=== PATIENT | female | born 1935 | race Hispanic/Latino ===

== ENCOUNTER 2016-08-12 05:54 | Inpatient (IN) | payer MEDICARE ==
[2016-08-12 05:59] VITALS: BMI 37.2
--- NOTE | 2016-08-12 06:39 | ED PDOC ---
Arrival/HPI - General Chief Complaint: Back Pain Time Seen by Provider: 08/12/16 06:06 - History of Present Illness Narrative History of Present Illness (Text): 08/12/16 06:46 Patient presents via ambulance after falling out of her wheelchair at 1800 hrs. yesterday complaining of bilateral hip pain dysuria no chest pain no shortness of breath no fever no chills no dizziness no blurred vision denies any head injury Past Medical History - Provider Review Nursing Documentation Reviewed: Yes - Infectious Disease Hx of Infectious Diseases: None - Reproductive Menopause: Yes - Cardiac Hx Cardiac Disorders: Yes (cad, heart block, sick sinus syndrome) Hx Hypertension: Yes Hx Pacemaker: Yes Hx Peripheral Vascular Disease: Yes - Pulmonary Hx Respiratory Disorders: Yes Hx Asthma: Yes Hx Pneumonia: Yes (aspiration) - Neurological Hx Neurological Disorder: No - HEENT Hx HEENT Disorder: Yes (eyeglassees) Hx Cataracts: Yes (b/l) Hx Difficulty Chewing: No - Renal Hx Renal Disorder: No - Endocrine/Metabolic Hx Hypothyroidism: Yes - Hematological/Oncological Hx Blood Disorders: No - Integumentary Hx Dermatological Disorder: No 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) Other/Comment: left chest healing surgical incision for pacemaker, healed pressure ulcer to sacrum - Musculoskeletal/Rheumatological Hx Falls: Yes (past) - Gastrointestinal Hx Gastrointestinal Disorders: Yes Hx Diverticulitis: Yes Hx Gastroesophageal Reflux: Yes Other/Comment: Hiatal hernia, celiac disease - Genitourinary/Gynecological Hx Incontinence: Yes Other/Comment: cysto, cystocele - Psychiatric Hx Psychophysiologic Disorder: Yes Hx Anxiety: Yes Hx Depression: Yes Hx Emotional Abuse: No Hx Physical Abuse: No Hx Substance Use: No - Surgical History Hx Amputation: Yes (bilateral) Hx Orthopedic Surgery: Yes (b/l hip replacement) Other/Comment: angiiograms, multiple foot sx's - Anesthesia Hx Anesthesia: Yes Hx Anesthesia Reactions: No Hx Malignant Hyperthermia: No - Suicidal Assessment Feels Threatened In Home Enviroment: No Family/Social History - Physician Review Nursing Documentation Reviewed: Yes Family/Social History: No Known Family HX Smoking Status: Never Smoked Hx Alcohol Use: No Hx Substance Use: No Hx Substance Use Treatment: No Allergies/Home Meds Allergies/Adverse Reactions: Allergies erythromycin base Allergy (Verified 08/12/16 06:05) .anxiety levofloxacin [From Levaquin] Allergy (Verified 08/12/16 06:05) .anxiety Home Medications: Home Meds Medication Instructions Recorded Confirmed Atorvastatin [Lipitor] 20 mg PO DAILY 12/06/14 08/16/16 Omeprazole [Prilosec] 20 mg PO DAILY 12/06/14 08/16/16 Docusate [Colace] 100 mg PO DAILY 12/14/14 08/16/16 Gabapentin 800 mg PO TID 12/14/14 08/16/16 Sucralfate [Carafate Tab] 1 gm PO DAILY PRN 12/14/14 08/16/16 Alprazolam [Xanax] 0.5 mg PO HS 06/30/16 08/16/16 Aspirin [Ecotrin] 81 mg PO DAILY 06/30/16 08/16/16 Calcium Carbonate/Vitamin D 1 tab PO DAILY 06/30/16 08/16/16 [Oscal-D 250 mg-125 Units Tab] [place]-3 Fatty Acids [[place]-3] 1,000 mg PO DAILY 06/30/16 08/16/16 Prednisone [Tom] 5 mg PO BID 06/30/16 08/16/16 Sertraline HCl 100 mg PO DAILY 06/30/16 08/16/16 Review of Systems - Review of Systems Constitutional: Normal Eyes: Normal ENT: Normal Respiratory: Normal Cardiovascular: Normal Gastrointestinal: absent: Abdominal Pain Genitourinary Female: Dysuria Musculoskeletal: Arthralgias (bilateral hips), Myalgias Skin: Normal Neurological: Normal Endocrine: Normal Hemo/Lymphatic: Normal Psychiatric: Normal Physical Exam Vital Signs Reviewed: Yes Vital Signs Pulse Resp BP Pulse Ox 08/12/16 09:23 73 18 120/68 98 08/12/16 07:30 76 18 110/69 97 08/12/16 06:05 83 18 116/50 L 96 Temperature: Afebrile Blood Pressure: Normal Pulse: Regular Respiratory Rate: Normal Appearance: Positive for: Well-Appearing, Non-Toxic, Comfortable Pain Distress: None Mental Status: Positive for: Alert and Oriented X 3 - Systems Exam Head: Present: Atraumatic, Normocephalic Pupils: Present: PERRL Extroacular Muscles: Present: EOMI Conjunctiva: Present: Normal Mouth: Present: Moist Mucous Membranes Neck: Present: Normal Range of Motion Respiratory/Chest: Present: Clear to Auscultation, Good Air Exchange. No: Respiratory Distress, Accessory Muscle Use Cardiovascular: Present: Regular Rate and Rhythm, Normal S1, S2. No: Murmurs Abdomen: Present: Normal Bowel Sounds. No: Tenderness, Distention, Peritoneal Signs Back: Present: Normal Inspection Upper Extremity: Present: Normal Inspection. No: Cyanosis, Edema Lower Extremity: Present: Other (bilateral aka). No: Edema Neurological: Present: GCS=15, CN II-XII Intact, Speech Normal Skin: Present: Warm, Dry, Normal Color. No: Rashes Psychiatric: Present: Alert, Oriented x 3, Normal Insight, Normal Concentration Medical Decision Making - Lab Interpretations Microbiology Results: Microbiology Results 08/12/16 06:50 Blood-Venous Blood Culture - Preliminary NO GROWTH AFTER 4 DAYS 08/12/16 06:30 Blood-Venous Blood Culture - Preliminary NO GROWTH AFTER 4 DAYS 08/12/16 06:20 Urine,[place]an Urine Culture - Final Proteus Mirabilis Lab Results: 08/12/16 06:50 08/12/16 06:50 Lab Results 08/12/16 06:50: WBC 12.1 H D, RBC 4.06, Hgb 11.0 L, Hct 35.9 L, MCV 88.4, MCH 27.1, MCHC 30.6 L, RDW 16.9 H, Plt Count 337, MPV 9.4, Gran % 91.4 H, Lymph % ( Auto) 4.7 L, [place] % (Auto) 3.7, Eos % (Auto) 0.1 L, Baso % (Auto) 0.1, Gran # 11.02 H, Lymph # 0.6 L, [place] # 0.5, Eos # 0.0, Baso # 0.01, Sodium 139, Potassium 4.0, Chloride 100, Carbon Dioxide 24, Anion Gap 19, BUN 26 H, Creatinine 0.6, Est GFR ( Amer) > 60, Est GFR (Non-Af Amer) > 60, Random Glucose 102, Calcium 8.8, Total Bilirubin 0.9, AST 95 H, ALT 22, Alkaline Phosphatase 72, Troponin I 0.08 D, Total Protein 7.6, Albumin 3.6, Globulin 4.0 , Albumin/Globulin Ratio 0.9 L 08/12/16 06:20: Urine Color Yellow, Urine Appearance Turbid, Urine pH >=9.0, Ur Specific [place] 1.015, Urine Protein 100 H, Urine Glucose (UA) Negative, Urine Ketones 15 H, Urine Blood Trace-intact H, Urine Nitrate Positive H, Urine Bilirubin Negative, Urine Urobilinogen 0.2, Ur Leukocyte Esterase Moderate H, Urine RBC 1 - 3, Urine WBC 5 - 10, Triple Phos Crystals Few, Urine Bacteria Few - RAD Interpretation Radiology Orders: 08/12/16 06:28 CHEST ONE VIEW [RAD] Stat PELVIS W/OBLIQUES (3VWS) [RAD] Stat - Medication Orders Current Medication Orders: Discontinued Medications Albuterol/Ipratropium (Duoneb 3 Mg/0.5 Mg (3 Ml) Ud) 3 ml IH [id number] [facility] Last Admin: 08/16/16 13:02 Dose: 3 ML Alprazolam (Xanax) 0.5 mg PO [facility] PRN Reason: Protocol Last Admin: 08/15/16 23:50 Dose: 0.5 MG Re-Assess: Reassess Psych Meds Document 08/16/16 00:50 B.P (Rec: 08/16/16 02:15 B.P [id number]) Reassess Psych Med Effective Aspirin (Ecotrin) 81 mg PO DAILY [facility] Last Admin: 08/13/16 10:30 Dose: 81 MG Atorvastatin Calcium (Lipitor) 20 mg PO [facility] Last Admin: 08/15/16 21:46 Dose: 20 MG Calcium/Vitamin D (Oscal-D 250 Mg-125 Units Tab) 1 tab PO DAILY [facility] Last Admin: 08/16/16 09:25 Dose: Not Given Non-Admin Reason: Patient Refused Dibucaine (Nupercainal 1%) 0 oz TOP Q15MIN PRN PRN Reason: Pain, moderate (4-7) Dibucaine (Nupercainal 1%) 0 oz TOP Q15MIN PRN PRN Reason: Pain, moderate (4-7) Last Admin: 08/14/16 17:29 Dose: 1 APPLIC Docusate Sodium (Colace) 100 mg PO DAILY [facility] Last Admin: 08/16/16 09:24 Dose: 100 MG Stool Assessment Document 08/16/16 09:24 SD (Rec: 08/16/16 09:25 SD [id number]) Pattern Bowel Pattern Normal Bowel Movement Frequency Daily Gabapentin (Neurontin) 800 mg PO TID [facility] Last Admin: 08/12/16 13:30 Dose: Gabapentin (Neurontin) 800 mg PO Q8 [facility] Last Admin: 08/16/16 13:02 Dose: 800 MG Behavioural Document 08/16/16 13:02 SD (Rec: 08/16/16 13:02 SD [id number]) Maintenance Maintenance Dose Yes Hydrocortisone (Anusol-Hc) 1 gm OK BID [facility] Last Admin: 08/16/16 09:25 Dose: Not Given Non-Admin Reason: Patient Refused Ceftriaxone Sodium (Rocephin 1 Gram Ivpb) 100 mls @ 200 mls/hr IVPB STAT STA Stop: 08/12/16 09:53 Last Admin: 08/12/16 10:27 Dose: 200 MLS/HR eMAR Start Stop Document 08/12/16 10:27 [facility] (Rec: 08/12/16 10:27 [facility] [id number][place] Intravenous Solution Start Date 08/12/16 Start Time 10:27 End Date 08/12/16 End time 11:00 Total Infusion Time 33 Cefepime HCl (Maxipime 1gm) 100 mls @ 100 mls/hr IVPB Q12 [facility] PRN Reason: Protocol Last Admin: 08/13/16 21:44 Dose: 100 MLS/HR eMAR Start Stop Document 08/13/16 21:44 KT (Rec: 08/13/16 21:44 KT [facility] [id number]) Intravenous Solution Start Date 08/13/16 Start Time 21:45 End Date 08/13/16 End time 22:45 Total Infusion Time 60 Ceftriaxone Sodium (Rocephin 1 Gram Ivpb) 100 mls @ 100 mls/hr IVPB DAILY [facility] PRN Reason: Protocol Last Admin: 08/16/16 09:24 Dose: 100 MLS/HR eMAR Start Stop Document 08/16/16 09:24 SD (Rec: 08/16/16 09:24 SD [id number]) Intravenous Solution Start Date 08/16/16 Start Time 09:24 End Date 08/16/16 End time 10:24 Total Infusion Time 60 Levothyroxine Sodium (Synthroid) 25 mcg PO DAILY [facility] Last Admin: 08/12/16 10:27 Dose: 25 MCG Levothyroxine Sodium (Synthroid) 25 mcg PO ACB [facility] Last Admin: 08/16/16 06:42 Dose: 25 MCG Oxycodone/Acetaminophen (Percocet 10/325 Mg Tab) 1 tab PO Q6H PRN PRN Reason: Pain, severe (8-10) Oxycodone/Acetaminophen (Percocet 10/325 Mg Tab) 1 tab PO Q4H PRN PRN Reason: Pain, severe (8-10) Last Admin: 08/16/16 05:28 Dose: 1 TAB [facility] Pain Assessment Document 08/16/16 05:28 B.P (Rec: 08/16/16 05:28 B.P [id number]) Pain Reassessment Is this a pain reassessment? No Presence of Pain Presence of Pain Yes Re-Assess: [facility] Pain Assessment Document 08/16/16 06:28 B.P (Rec: 08/16/16 06:42 B.P [id number]) Pain Reassessment Is this a pain reassessment? Yes Sleep Is patient sleeping during reassessment? Yes Pantoprazole Sodium (Protonix Ec Tab) 40 mg PO ACB [facility] Last Admin: 08/16/16 06:42 Dose: 40 MG Polyethylene Glycol (Miralax) 17 gm PO BID [facility] Last Admin: 08/16/16 09:25 Dose: Not Given Non-Admin Reason: Patient Refused Prednisone (Prednisone Tab) 5 mg PO BID [facility] Last Admin: 08/16/16 09:25 Dose: 5 MG Sertraline HCl (Zoloft) 100 mg PO DAILY [facility] Last Admin: 08/16/16 09:25 Dose: 100 MG Sodium Phosphate (Fleet Enema) 135 ml ONCE ONE Stop: 08/14/16 08:31 Last Admin: 08/14/16 08:29 Dose: 135 ML Sucralfate (Carafate Tab) 1 gm PO BID PRN PRN Reason: Nausea/Vomiting Last Admin: 08/16/16 11:45 Dose: 1 GM Tetanus/Reduced Diphtheria/Acell Pertussis (Boostrix Vaccine Inj) 0.5 ml IM .ONCE ONE Stop: 08/12/16 07:27 Last Admin: 08/12/16 07:39 Dose: 0.5 ML [facility] Immunization Data Document 08/12/16 07:39 [facility] [place] [facility] [place]Rec: 08/12/16 07:40 [facility] [place] [id number][place] Immunization Data Vaccine Lot Number [id number] Vaccine Expiration Date 08/06/18 - Transfer of Care Patient signed out to Dr:: keysha labs and x ay and dispo Disposition/Present on Arrival - Present on Arrival Any Indicators Present on Arrival: No History of DVT/PE: No History of Uncontrolled Diabetes: No Urinary Catheter: No History of Decub. Ulcer: No History Surgical Site Infection Following: None - Disposition Have Diagnosis and Disposition been Completed?: Yes Diagnosis: UTI (urinary tract infection), Fall Disposition: HOSPITALIZED Disposition Time: 07:00 Condition: FAIR
--- NOTE | 2016-08-12 07:11 | ED PDOC ---
Physical Exam Vital Signs Reviewed: Yes Vital Signs Pulse Resp BP Pulse Ox 08/12/16 09:23 73 18 120/68 98 08/12/16 07:30 76 18 110/69 97 08/12/16 06:05 83 18 116/50 L 96 Temperature: Afebrile Blood Pressure: Hypotensive Pulse: Regular Respiratory Rate: Normal Appearance: Positive for: Well-Appearing, Non-Toxic, Comfortable Pain Distress: None Mental Status: Positive for: Alert and Oriented X 3 Medical Decision Making ED Course and Treatment: 08/12/16 07:00 Case signed out to me from overnight by Dr. Stephen, pending labs, imaging, reevaluation and final disposition. The patient is a 81 year old female who was brought into the emergency department earlier today for evaluation after a mechanical fall. Patient complains of bilateral hip pain and dysuria. On reevaluation, the patient states her bilateral hips are sore but otherwise she is comfortable. On examination the patient is a small abrasion to the right wrist. Will give TDAP vaccine. EKG shows a electrically paced rhythm at 60 BPM. Patient is not complaining of chest pain. 08/12/16 08:50 Chest X-ray: Creator : Maria Del Rosario Schroeder V. COMPARISON: 07/11/2016 at 1954 hours FINDINGS: LUNGS: Shallow lung volumes no consolidation. Trace left basal scar atelectasis suggested. Previously right discoid atelectatic changes were reported. No at persistent pathology here suggested PLEURA: No pneumothorax or pleural fluid seen. CARDIOVASCULAR: Mild cardiomegaly. Single lead pacemaker in place OSSEOUS STRUCTURES: Cervical apophyseal joint arthrosis, thoracic spondylosis and left shoulder arthrosis VISUALIZED UPPER ABDOMEN: Normal. OTHER FINDINGS: None. IMPRESSION: Shallow lung volumes. Interval discoid atelectatic changes left lung base ; those on the right have cleared / re-expanded 08/12/16 09:00 Pelvis X-ray: Creator : Maria Del Rosario Schroeder V. COMPARISON: Left and right hip 12/14/2014 FINDINGS: BONES: Pelvic Bones: Mild right sacroiliac sclerotic arthrosis a background generalized osteopenia Hips: Bilateral hip prostheses 2 screws in the right acetabulum right femoral stem cemented. Single screw in the left acetabulum. No loosening suggested. No hardware failure. No osseous fractures noted. Dislocation suggested. Inferior lumbar moderate to severe spondylosis with intervening degenerative disc disease. JOINTS: Sacroiliac Joints: Right sacroiliac sclerotic arthrosis Pubic Symphysis: Prominent sclerotic changes OTHER FINDINGS: Extensive atherosclerotic vascular calcifications IMPRESSION: No fracture or dislocation. 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 Toro, who is aware and agrees with the plan to admit the patient under his services for urosepsis. I have discussed the results and plan with the patient, who expresses understanding. Patient given the opportunity to ask question, all questions were answered and there is agreement with the plan to be admitted to the hospital. - Lab Interpretations Lab Results: 08/12/16 06:50 08/12/16 06:50 Lab Results 08/12/16 06:50: WBC 12.1 H D, RBC 4.06, Hgb 11.0 L, Hct 35.9 L, MCV 88.4, MCH 27.1, MCHC 30.6 L, RDW 16.9 H, Plt Count 337, MPV 9.4, Gran % 91.4 H, Lymph % ( Auto) 4.7 L, [place] % (Auto) 3.7, Eos % (Auto) 0.1 L, Baso % (Auto) 0.1, Gran # 11.02 H, Lymph # 0.6 L, [place] # 0.5, Eos # 0.0, Baso # 0.01, Sodium 139, Potassium 4.0, Chloride 100, Carbon Dioxide 24, Anion Gap 19, BUN 26 H, Creatinine 0.6, Est GFR ( Amer) > 60, Est GFR (Non-Af Amer) > 60, Random Glucose 102, Calcium 8.8, Total Bilirubin 0.9, AST 95 H, ALT 22, Alkaline Phosphatase 72, Troponin I 0.08 D, Total Protein 7.6, Albumin 3.6, Globulin 4.0 , Albumin/Globulin Ratio 0.9 L 08/12/16 06:20: Urine Color Yellow, Urine Appearance Turbid, Urine pH >=9.0, Ur Specific [place] 1.015, Urine Protein 100 H, Urine Glucose (UA) Negative, Urine Ketones 15 H, Urine Blood Trace-intact H, Urine Nitrate Positive H, Urine Bilirubin Negative, Urine Urobilinogen 0.2, Ur Leukocyte Esterase Moderate H, Urine RBC 1 - 3, Urine WBC 5 - 10, Triple Phos Crystals Few, Urine Bacteria Few I have reviewed the lab results: Yes - RAD Interpretation Radiology Orders: 08/12/16 06:28 CHEST ONE VIEW [RAD] Stat PELVIS W/OBLIQUES (3VWS) [RAD] Stat - Medication Orders Current Medication Orders: Alprazolam (Xanax) 0.5 mg PO HS [facility] PRN Reason: Protocol Aspirin (Ecotrin) 81 mg PO DAILY [facility] Last Admin: 08/12/16 10:27 Dose: 81 MG Atorvastatin Calcium (Lipitor) 20 mg PO HS [facility] Calcium/Vitamin D (Oscal-D 250 Mg-125 Units Tab) 1 tab PO DAILY [facility] Last Admin: 08/12/16 11:00 Dose: 1 TAB Docusate Sodium (Colace) 100 mg PO DAILY [facility] Last Admin: 08/12/16 10:27 Dose: 100 MG Gabapentin (Neurontin) 800 mg PO Q8 [facility] Last Admin: 08/12/16 13:56 Dose: Hydrocortisone (Anusol-Hc) 1 gm SD BID [facility] Cefepime HCl (Maxipime 1gm) 100 mls @ 100 mls/hr IVPB Q12 [facility] PRN Reason: Protocol Last Admin: 08/12/16 13:46 Dose: 100 MLS/HR eMAR Start Stop Document 08/12/16 13:46 MICEM (Rec: 08/12/16 13:46 [facility] Intravenous Solution Start Date 08/12/16 Start Time 13:46 Levothyroxine Sodium (Synthroid) 25 mcg PO DAILY [facility] Last Admin: 08/12/16 10:27 Dose: 25 MCG Oxycodone/Acetaminophen (Percocet 10/325 Mg Tab) 1 tab PO Q4H PRN PRN Reason: Pain, severe (8-10) Last Admin: 08/12/16 10:59 Dose: 1 TAB Re-Assess: ARIAS Pain Assessment Document 08/12/16 11:59 MICEM (Rec: 08/12/16 13:30 [facility] [id number] Pain Reassessment Is this a pain reassessment? Yes Presence of Pain Presence of Pain No Description Acceptable Level of Pain 0 Pantoprazole Sodium (Protonix Ec Tab) 40 mg PO DAILY [facility] Prednisone (Prednisone Tab) 5 mg PO BID [facility] Sertraline HCl (Zoloft) 100 mg PO DAILY [facility] Last Admin: 08/12/16 10:59 Dose: 100 MG Discontinued Medications Gabapentin (Neurontin) 800 mg PO TID [facility] Last Admin: 08/12/16 13:30 Dose: Ceftriaxone Sodium (Rocephin 1 Gram Ivpb) 100 mls @ 200 mls/hr IVPB STAT STA Stop: 08/12/16 09:53 Last Admin: 08/12/16 10:27 Dose: 200 MLS/HR eMAR Start Stop Document 08/12/16 10:27 LM (Rec: 08/12/16 10:27 [facility] [place] [id number]) Intravenous Solution Start Date 08/12/16 Start Time 10:27 End Date 08/12/16 End time 11:00 Total Infusion Time 33 Oxycodone/Acetaminophen (Percocet 10/325 Mg Tab) 1 tab PO Q6H PRN PRN Reason: Pain, severe (8-10) Tetanus/Reduced Diphtheria/Acell Pertussis (Boostrix Vaccine Inj) 0.5 ml IM .ONCE ONE Stop: 08/12/16 07:27 Last Admin: 08/12/16 07:39 Dose: 0.5 ML [facility] Immunization Data Document 08/12/16 07:39 [facility] [place] (Rec: 08/12/16 07:40 [facility] [place] [id number]) Immunization Data Vaccine Lot Number [id number] Vaccine Expiration Date 08/06/18 - Scribe Statement The provider has reviewed the documentation as recorded by the Samuel Cortez Provider Scribe Attestation: All medical record entries made by the Andrewibjay were at my direction and personally dictated by me. I have reviewed the chart and agree that the record accurately reflects my personal performance of the history, physical exam, medical decision making, and the department course for this patient. I have also personally directed, reviewed, and agree with the discharge instructions and disposition. Disposition/Present on Arrival - Present on Arrival Any Indicators Present on Arrival: No History of DVT/PE: No History of Uncontrolled Diabetes: No Urinary Catheter: No History of Decub. Ulcer: No History Surgical Site Infection Following: None - Disposition Have Diagnosis and Disposition been Completed?: Yes Diagnosis: Urinary tract infection, Fall Disposition: HOSPITALIZED Disposition Time: 09:15 Patient Plan: Admission Condition: FAIR
[2016-08-12 07:18] LABS: ADD MANUAL DIFF? NO
[2016-08-12 07:25] LABS: BASO # 0.01 K/mm3 (0.0-2.0); BASO % 0.1 % (0.0-3.0); EOS % 0.1 % (1.5-5.0); GRAN # 11.02 (1.4-6.5); GRAN % 91.4 % (50.0-68.0); HEMATOCRIT 35.9 % (36.0-48.0); LYMPH # 0.6 (1.2-3.4); LYMPH % 4.7 % (22.0-35.0); MEAN CELL VOLUME 88.4 fL (80.0-105.0); MEAN CORPUSCULAR HEMOGLOBIN 27.1 pg (25.0-35.0); MEAN CORPUSCULAR HGB CONC 30.6 g/dl (31.0-37.0); MEAN PLATELET VOLUME 9.4 fl (7.0-11.0); MONO # 0.5 (0.1-0.6); MONO % 3.7 % (1.0-6.0); PLATELET COUNT 337 10^3/uL (120.0-450.0); RED CELL DISTRIBUTION WIDTH 16.9 % (11.5-14.5); WHITE BLOOD COUNT 12.1 10^3/ul (4.5-11.0)
[2016-08-12] MEDS ORDERED: TDAP Vaccine 0.5 mL Syr IM ONE (07:26)
[2016-08-12 07:33] LABS: PH,URINE >=9.0 (4.7-8.0); URINE BILIRUBIN NEGATIVE (NEGATIVE); URINE BLOOD TRACE-INTACT (NEGATIVE); URINE GLUCOSE (UA) NEGATIVE (NEGATIVE); URINE KETONE 15 mg/dL (NEGATIVE); URINE LEUKOCYTE ESTERASE MODERATE Leu/uL (NEGATIVE); URINE PROTEIN 100 mg/dL (<30 mg/dL); URINE UROBILINOGEN 0.2 E.U./dL (<1 E.U./dL)
[2016-08-12 07:34] LABS: ALB/GLOB RATIO 0.9 (1.1-1.8); ALKALINE PHOSPHATASE 72 U/L (38-133); ALT/SGPT 22 U/L (7-56); AST/SGOT 95 U/L (15-39); BILIRUBIN,TOTAL 0.9 mg/dL (0.2-1.3); BLOOD UREA NITROGEN 26 mg/dL (7-21); CALCIUM 8.8 mg/dL (8.4-10.5); CARBON DIOXIDE 24 mmol/L (21-33); CHLORIDE 100 mmol/L (98-107); GFR AFRICAN-AMERICAN > 60; GLUCOSE,RANDOM 102 mg/dL (70-110); SODIUM 139 mmol/L (132-148); TOTAL PROTEIN 7.6 g/dL (5.8-8.3)
[2016-08-12 07:38] LABS: URINE APPEARANCE TURBID (CLEAR); URINE COLOR YELLOW (YELLOW)
[2016-08-12 07:44] LABS: TROPONIN I 0.08 ng/mL
[2016-08-12 07:44] LABS: URINE BACTERIA FEW (NEG); URINE TRIPLE PHOSPHATE CRYSTAL FEW /hpf
--- NOTE | 2016-08-12 08:49 | RAD ---
PROCEDURE: CHEST RADIOGRAPH, 1 VIEW HISTORY: pain COMPARISON: 07/11/2016 at 1954 hours FINDINGS: LUNGS: Shallow lung volumes no consolidation. Trace left basal scar atelectasis suggested. Previously right discoid atelectatic changes were reported. No at persistent pathology here suggested PLEURA: No pneumothorax or pleural fluid seen. CARDIOVASCULAR: Mild cardiomegaly. Single lead pacemaker in place OSSEOUS STRUCTURES: Cervical apophyseal joint arthrosis, thoracic spondylosis and left shoulder arthrosis VISUALIZED UPPER ABDOMEN: Normal. OTHER FINDINGS: None. IMPRESSION: Shallow lung volumes. Interval discoid atelectatic changes left lung base ; those on the right have cleared / re-expanded
--- NOTE | 2016-08-12 08:59 | CARD ---
APPROVED REPORT EKG Measurement Heart [id number] <Conclusion> Electronic ventricular pacemaker
--- NOTE | 2016-08-12 09:00 | RAD ---
PROCEDURE: Radiographs of the pelvis. HISTORY: fall COMPARISON: Left and right hip 12/14/2014 FINDINGS: BONES: Pelvic Bones: Mild right sacroiliac sclerotic arthrosis a background generalized osteopenia Hips: Bilateral hip prostheses 2 screws in the right acetabulum right femoral stem cemented. Single screw in the left acetabulum. No loosening suggested. No hardware failure. No osseous fractures noted. Dislocation suggested Inferior lumbar moderate to severe spondylosis with intervening degenerative disc disease. JOINTS: Sacroiliac Joints: Right sacroiliac sclerotic arthrosis Pubic Symphysis: Prominent sclerotic changes OTHER FINDINGS: Extensive atherosclerotic vascular calcifications IMPRESSION: No fracture or dislocation. 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
[2016-08-12] MEDS ORDERED: Oxycodone/Acetaminophen 10/325 mg Tab PO PRN (09:15)
[2016-08-12] MEDS ORDERED: cefTRIAXone 1 gm 100 ML IVPB STA (09:24)
[2016-08-12] MEDS ORDERED: Levothyroxine 25 MCG TAB PO SCH (10:00)
--- NOTE | 2016-08-12 10:28 | HP ---
CHIEF COMPLAINT AND HISTORY OF PRESENT ILLNESS: This is a 81-year-old female who said that she had a fall from her wheelchair last night. She is complaining of back pain and hip pain. She does have a history of chronic back issues. She said the pain was about 5-6/10 and so she came in for further e valuation. No one was home at the time when she fell and so she had lied on the floor for some time. She is not sure exactly how long. She has no chest pain, no nausea, no vomiting, no dysuria, no fr equency. She has a history of osteoarthritis and rheumatoid arthritis for many years. She has bilat eral AKA. ALLERGIES: AZITHROMYCIN AND LEVAQUIN. HOME MEDICATIONS: Lipitor, Prilosec, Colace, gabapentin, Carafate, Xanax, Ecotrin, omega 3 fatty aci ds, prednisone, and sertraline. PAST MEDICAL HISTORY: 1. Complete heart block, status post pacemaker. 2. Community-acquired pneumonia. 3. Bilateral above knee amputation. 4. Hypothyroidism. 5. Dyslipidemia. 6. Rheumatoid arthritis. 7. Degenerative joint disease. SOCIAL HISTORY: She lives alone. 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 She has a daughter that is involved in her care. FAMILY HISTORY: Noncontributory. PHYSICAL EXAMINATION: VITAL SIGNS: The patient has a pulse of 83, blood pressure is 120/68, respirations 18, O2 saturation 98%. GENERAL: The patient lying in bed, flat, and in no apparent distress. HEAD AND NECK EXAM: Atraumatic, normocephalic. Conjunctivae are pink. Throat clear and mouth with moist mucosa. Oropharynx benign. EYES: Extraocular movements are intact. PERRLA. NECK: Supple. No JVD, thyromegaly, or adenopathy. No bruits. HEART: S1 and S2 regular rate and rhythm. No murmurs, rubs, or gallops. LUNGS: Clear to auscultation bilaterally. No wheezing rales or rhonchi appreciated. No retraction s on exam. ABDOMEN: Soft, nontender, nondistended. Bowel sounds are positive in all quadrants. No rebound. No hepatosplenomegaly. EXTREMITIES: In the hands bilaterally, she has MCP joint and PIP joint abnormalities. No cyanosis , clubbing, or edema. NEUROLOGIC: No facial asymmetry, tongue is midline, no uvula deviation. Power is 5/5 in upper extr emity and 5/5 in lower extremity. Sensation is normal in upper extremity and lower extremity. PSYCHIATRIC: Awake, alert, oriented x 3. No anxiety or depression symptoms. Good insight. Ashley l affect. GENITOURINARY: No CVA tenderness VASCULAR: 2+ pulses in carotid and pedal pulses. SKIN: No erythema or abnormal nodules noted. SPINE: Normal curvature. LYMPHADENOPATHY: No anterior cervical or posterior cervical adenopathy. No inguinal adenopathy. LABORATORIES: White count of 12.1, hemoglobin 11 and platelet count is 337. Chemistry shows a sodiu m 139, potassium 4.0, creatinine 0.6, alkaline phosphatase 72. Urine shows ketones are 15, blood is trace, nitrites are positive, esterase is moderate. The patient's chest x-ray done shows shallow lung volumes, no significant infiltrates. EKG shows she has a pacemaker at 60. Pelvic x-ray shows no fractures or dislocation, bilateral hip prosthesis is intact. ASSESSMENT: 1. Fall. 2. Osteoarthritis. 3. Rheumatoid arthritis. 4. Hypothyroidism. 5. Dyslipidemia. 6. Urinary tract infection. PLAN: The patient is going to be admitted to the hospital. She has a mildly elevated white count. Blood pressure is 116/50. She has a urinalysis that shows nitrites that are positive, esterase are m oderate. She is going to be placed on IV antibiotics. Blood cultures and urine cultures have been o rdered. I did speak to the ER physician regarding the patient's diagnosis and plan of care. She is going to continue her Lipitor for dyslipidemia. She is on aspirin. She is going to be on Xanax. Jennifer thompson is on Synthroid for hypothyroidism. She has chronic pain issues because of her arthritis. She is going to be on her Percocet. I will place her on a heart healthy diet. Will get infectious disease to evaluate the patient as well. Wait for cultures. Repeat her blood work tomorrow. Jason Toro MD cc: [id number] TT: 08/12/2016 10:27:05 en
[2016-08-12] MEDS: Oxycodone/Acetaminophen 10/325 mg Tab PO PRN ×2 (10:59→18:17)
[2016-08-12] MEDS: Calcium-Vit D 250 mg-125 Units Tab UD PO SCH (11:00)
[2016-08-12 11:17] LABS: VENOUS BLOOD GAS BASE EXCESS -0.8 mmol/L (0.0-2.0); VENOUS BLOOD PH 7.41 (7.32-7.43)
[2016-08-12] MEDS: Cefepime 1gm in NS 100ml 100 ML IVPB SCH ×2 (13:46→21:57)
[2016-08-12 16:07] LABS: VENOUS BLOOD GAS BASE EXCESS -0.2 mmol/L (0.0-2.0); VENOUS BLOOD PH 7.42 (7.32-7.43)
[2016-08-12] MEDS: Hydrocortisone 2.5% Rectal Cream(30 gm) PR SCH (17:14)
[2016-08-13] MEDS: Oxycodone/Acetaminophen 10/325 mg Tab PO PRN ×2 (06:06→18:06)
[2016-08-13] MEDS: Levothyroxine 25 MCG TAB PO SCH (06:39)
[2016-08-13] MEDS: Pantoprazole 40 mg EC Tab PO SCH (06:39)
[2016-08-13 07:11] LABS: HEMATOCRIT 32.1 % (36.0-48.0); MEAN CELL VOLUME 87.5 fL (80.0-105.0); MEAN CORPUSCULAR HEMOGLOBIN 26.4 pg (25.0-35.0); MEAN CORPUSCULAR HGB CONC 30.2 g/dl (31.0-37.0); MEAN PLATELET VOLUME 9.1 fl (7.0-11.0); RED CELL DISTRIBUTION WIDTH 16.9 % (11.5-14.5); WHITE BLOOD COUNT 10.9 10^3/ul (4.5-11.0)
[2016-08-13 07:27] LABS: ALB/GLOB RATIO 0.8 (1.1-1.8); ALKALINE PHOSPHATASE 61 U/L (38-133); ALT/SGPT 26 U/L (7-56); AST/SGOT 66 U/L (15-39); BILIRUBIN,TOTAL 0.8 mg/dL (0.2-1.3); BLOOD UREA NITROGEN 20 mg/dL (7-21); CARBON DIOXIDE 27 mmol/L (21-33); CHLORIDE 101 mmol/L (98-107); GFR AFRICAN-AMERICAN > 60; GLUCOSE,RANDOM 105 mg/dL (70-110); SODIUM 137 mmol/L (132-148); TOTAL PROTEIN 6.3 g/dL (5.8-8.3)
--- NOTE | 2016-08-13 08:01 | PN ---
DATE: 08/13/2016 SUBJECTIVE: The patient has no complaints of any chest pain or shortness of breath. PHYSICAL EXAMINATION: VITAL SIGNS: Temperature is 98.1, pulse is 60, blood pressure 149/56, respirations 20. GENERAL: The patient comfortable, in no acute distress. HEENT: Anicteric sclerae. Moist mucosa. NECK: No JVD or adenopathy. CARDIAC: S1/S2. No murmurs. No rubs. Regular. RESPIRATORY: Clear to auscultation bilaterally. No wheezes, rales, or rhonchi. Good air entry. ABDOMEN: Bowel sounds are positive, soft, nontender, and nondistended. EXTREMITIES: No edema. Has 1+ pulses. LABS: White count of 4.1, hemoglobin 11, creatinine 0.6. ASSESSMENT: 1. Fall. 2. Osteoarthritis. 3. Possible urinary tract infection. 4. Hypothyroidism. 5. Rheumatoid arthritis. 6. Dyslipidemia. 7. Hemorrhoids. PLAN: The patient is currently on hydrocortisone for her hemorrhoids. The patient is on Colace for constipation. She is on aspirin. She is on Lipitor for dyslipidemia. She is on cefepime for antibi otics. Now the patient is receiving calcium for osteoporosis prevention. She is on Protonix daily. She is receiving Synthroid for her hypothyroidism. She is on prednisone b.i.d. She is on a heart h ealthy diet. She is being followed by Dr. Cooper. Will continue to follow closely. Will await culture results. Jason Toro MD cc: [id number] TT: 08/13/2016 08:00:32 Confirmation # [id number] Dictation # [id number] mn
[2016-08-13] MEDS: Cefepime 1gm in NS 100ml 100 ML IVPB SCH ×2 (10:28→21:44)
[2016-08-13] MEDS: Calcium-Vit D 250 mg-125 Units Tab UD PO SCH (10:28)
[2016-08-13] MEDS: Hydrocortisone 2.5% Rectal Cream(30 gm) PR SCH ×2 (10:31→17:06)
--- NOTE | 2016-08-13 10:31 | CP.PCM.PCO ---
Physician Communication Note - Physician Communication Note Physician Communication Note: Ext Thrombosed hemorrhoid/Needs thrombectomy(Wed am OR)
[2016-08-13] MEDS ORDERED: Dibucaine 1% Oint(1 oz) TOP PRN (12:38)
--- NOTE | 2016-08-13 15:01 | CP.PCM.CON ---
<Romana Everett - Last Filed: 08/13/16 14:52> History of Present Illness - History of Present Illness History of Present Illness: General Surgery Dr. Iverson HPI: 81 y/o F w/ B/L BKVikki was BIBA after falling out of her wheelchair. At the time of admission, pt was complaining of b/l hip pain and dysuria. Pt found to have UTI and is currently being treated for said infection. This AM, pt c/o of pain from chronic hemorrhoids. Pt denies SOB, CP, N/V, D/C. 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 FHx: noncontributory Review of Systems - Review of Systems All systems: reviewed and no additional remarkable complaints except (that which stated in HPI) Past Patient History - Infectious Disease Hx of Infectious Diseases: None - Past Social History Smoking Status: Never Smoked - CARDIAC Hx Cardiac Disorders: Yes (cad, heart block, sick sinus syndrome) Hx Hypercholesterolemia: Yes Hx Hypertension: Yes Hx Pacemaker: Yes (06/08/16) Hx Peripheral Vascular Disease: Yes (b/l bka) - PULMONARY Hx Respiratory Disorders: Yes Hx Asthma: Yes Hx Pneumonia: Yes (aspiration) - NEUROLOGICAL Hx Transient Ischemic Attacks (TIA): Yes - HEENT Hx HEENT Problems: Yes (eyeglasses) Hx Cataracts: Yes (b/l no sx) Hx Difficulty Chewing: No - RENAL Hx Chronic Kidney Disease: No - ENDOCRINE/METABOLIC Hx Hypothyroidism: Yes - HEMATOLOGICAL/ONCOLOGICAL Hx Blood Disorders: No - INTEGUMENTARY Hx Squamous Cell: Yes (excision chest lesion) Other/Comment: left chest healing surgical incision for pacemaker, right buttock healing ulcer, 2 long dark red areas of skin to sacrum, reddened buttock , abrasions to r and l arms - MUSCULOSKELETAL/RHEUMATOLOGICAL Hx Falls: Yes (past and yesterday) - GASTROINTESTINAL Hx Gastrointestinal Disorders: Yes Hx Diverticulitis: Yes Hx Gastroesophageal Reflux: Yes Other/Comment: Hiatal hernia, celiac disease - GENITOURINARY/GYNECOLOGICAL Hx Incontinence: Yes Other/Comment: cysto, cystocele - PSYCHIATRIC Hx Psychophysiologic Disorder: Yes Hx Anxiety: Yes Hx Depression: Yes Hx Emotional Abuse: No Hx Physical Abuse: No - SURGICAL HISTORY Hx Amputation: Yes (bilateral bka) Hx Orthopedic Surgery: Yes (b/l hip replacement) Other/Comment: angiograms, multiple foot sx's, - ANESTHESIA Hx Anesthesia: Yes Hx Anesthesia Reactions: No Hx Malignant Hyperthermia: No Meds Allergies/Adverse Reactions: Allergies Allergy/AdvReac Type Severity Reaction Status Date / Time erythromycin base Allergy .anxiety Verified 08/12/16 06:05 levofloxacin [From Levaquin] Allergy .anxiety Verified 08/12/16 06:05 - Medications Medications: Current Medications Alprazolam (Xanax) 0.5 mg PO HS [facility] PRN Reason: Protocol Last Admin: 08/13/16 05:49 Dose: Not Given Aspirin (Ecotrin) 81 mg PO DAILY [facility] Last Admin: 08/13/16 10:30 Dose: 81 mg Atorvastatin Calcium (Lipitor) 20 mg PO HS [facility] Last Admin: 08/12/16 22:02 Dose: 20 mg Calcium/Vitamin D (Oscal-D 250 Mg-125 Units Tab) 1 tab PO DAILY [facility] Last Admin: 08/13/16 10:28 Dose: 1 tab Dibucaine (Nupercainal 1%) 0 oz TOP Q15MIN PRN PRN Reason: Pain, moderate (4-7) Docusate Sodium (Colace) 100 mg PO DAILY [facility] Last Admin: 08/13/16 10:30 Dose: 100 mg Gabapentin (Neurontin) 800 mg PO Q8 [facility] Last Admin: 08/13/16 06:06 Dose: 800 mg Hydrocortisone (Anusol-Hc) 1 gm ME BID [facility] Last Admin: 08/13/16 10:31 Dose: 1 appl Cefepime HCl (Maxipime 1gm) 100 mls @ 100 mls/hr IVPB Q12 [facility] PRN Reason: Protocol Last Admin: 08/13/16 10:28 Dose: 100 mls/hr Levothyroxine Sodium (Synthroid) 25 mcg PO ACB [facility] Last Admin: 08/13/16 06:39 Dose: 25 mcg Oxycodone/Acetaminophen (Percocet 10/325 Mg Tab) 1 tab PO Q4H PRN PRN Reason: Pain, severe (8-10) Last Admin: 08/13/16 06:06 Dose: 1 tab Pantoprazole Sodium (Protonix Ec Tab) 40 mg PO ACB [facility] Last Admin: 08/13/16 06:39 Dose: 40 mg Polyethylene Glycol (Miralax) 17 gm PO BID [facility] Prednisone (Prednisone Tab) 5 mg PO BID [facility] Last Admin: 08/13/16 10:30 Dose: 5 mg Sertraline HCl (Zoloft) 100 mg PO DAILY [facility] Last Admin: 08/13/16 10:30 Dose: 100 mg Sucralfate (Carafate Tab) 1 gm PO BID PRN PRN Reason: Nausea/Vomiting Last Admin: 08/12/16 18:16 Dose: 1 gm Physical Exam - Constitutional Appears: Non-toxic, No Acute Distress, Chronically Ill - Head Exam Head Exam: NORMAL INSPECTION - Eye Exam Eye Exam: Normal appearance - ENT Exam ENT Exam: Mucous Membranes Moist - Respiratory Exam Respiratory Exam: NORMAL BREATHING PATTERN. absent: Accessory Muscle Use, Respiratory Distress - GI/Abdominal Exam GI & Abdominal Exam: Soft. absent: Distended, Tenderness - Rectal Exam Rectal Exam: Hemorrhoids (internal and thrombosed external hemorrhoids) - Extremities Exam Additional comments: B/L BKA - Neurological Exam Neurological exam: Alert, Oriented x3 - Psychiatric Exam Psychiatric exam: Normal Affect, Normal Mood - Skin Skin Exam: Dry, Intact, Normal Color, Warm Results - Vital Signs Recent Vital Signs: Last Vital Signs Temp 97.6 F 08/13/16 07:30 Pulse 68 08/13/16 07:30 Resp 22 08/13/16 07:30 BP 145/56 L 08/13/16 07:30 Pulse Ox 93 L 08/13/16 07:30 - Labs Result Diagrams: 08/13/16 06:40 08/13/16 06:40 Labs: Laboratory Results - last 24 hr 08/12/16 08/13/16 08/13/16 15:45 06:40 07:00 WBC 10.9 RBC 3.67 Hgb 9.7 L Hct 32.1 L MCV 87.5 MCH 26.4 MCHC 30.2 L RDW 16.9 H Plt Count 344 MPV 9.1 pO2 51 VBG pH 7.42 VBG pCO2 37.0 L VBG HCO3 24.0 VBG Total CO2 25.1 VBG O2 Sat (Calc) 89.5 H VBG Base Excess -0.2 L VBG Potassium 4.2 Sodium 138.0 137 Chloride 104.0 101 Glucose 99 Lactate 1.5 FiO2 21.0 Potassium 4.0 Carbon Dioxide 27 Anion Gap 13 BUN 20 Creatinine 0.5 Est GFR ( Amer) > 60 Est GFR (Non-Af Amer) > 60 Random Glucose 105 Calcium 8.0 L Total Bilirubin 0.8 AST 66 H ALT 26 Alkaline Phosphatase 61 Total Protein 6.3 Albumin 2.9 L Globulin 3.5 Albumin/Globulin Ratio 0.8 L TSH 3rd Generation 1.41 Venous Blood Potassium 4.2 - Imaging and Cardiology Chest x-ray Status: Report reviewed by me Assessment & Plan - Assessment and Plan (Free Text) Assessment: 81 y/o F admitted for Fall and UTI found to have thrombosed external hemorrhoids. - OR tomorrow for hemorrhoidectomy - NPO@MN - Hold ASA - lidocaine cream for hemorrhoidal pain - cont medical management Pt seen and discussed w/ Dr. Xander Everett DO PGY1 <Jose Terrell - Last Filed: 08/13/16 17:43> Meds - Medications Medications: Current Medications Alprazolam (Xanax) 0.5 mg PO HS [facility] PRN Reason: Protocol Last Admin: 08/13/16 05:49 Dose: Not Given Aspirin (Ecotrin) 81 mg PO DAILY [facility] Last Admin: 08/13/16 10:30 Dose: 81 mg Atorvastatin Calcium (Lipitor) 20 mg PO HS [facility] Last Admin: 08/12/16 22:02 Dose: 20 mg Calcium/Vitamin D (Oscal-D 250 Mg-125 Units Tab) 1 tab PO DAILY [facility] Last Admin: 08/13/16 10:28 Dose: 1 tab Dibucaine (Nupercainal 1%) 0 oz TOP Q15MIN PRN PRN Reason: Pain, moderate (4-7) Last Admin: 08/13/16 15:08 Dose: 1 applic Docusate Sodium (Colace) 100 mg PO DAILY [facility] Last Admin: 08/13/16 10:30 Dose: 100 mg Gabapentin (Neurontin) 800 mg PO Q8 [facility] Last Admin: 08/13/16 15:07 Dose: 800 mg Hydrocortisone (Anusol-Hc) 1 gm ME BID [facility] Last Admin: 08/13/16 17:06 Dose: Not Given Cefepime HCl (Maxipime 1gm) 100 mls @ 100 mls/hr IVPB Q12 [facility] PRN Reason: Protocol Last Admin: 08/13/16 10:28 Dose: 100 mls/hr Levothyroxine Sodium (Synthroid) 25 mcg PO ACB [facility] Last Admin: 08/13/16 06:39 Dose: 25 mcg Oxycodone/Acetaminophen (Percocet 10/325 Mg Tab) 1 tab PO Q4H PRN PRN Reason: Pain, severe (8-10) Last Admin: 08/13/16 06:06 Dose: 1 tab Pantoprazole Sodium (Protonix Ec Tab) 40 mg PO ACB [facility] Last Admin: 08/13/16 06:39 Dose: 40 mg Polyethylene Glycol (Miralax) 17 gm PO BID [facility] Last Admin: 08/13/16 17:06 Dose: Not Given Prednisone (Prednisone Tab) 5 mg PO BID [facility] Last Admin: 08/13/16 10:30 Dose: 5 mg Sertraline HCl (Zoloft) 100 mg PO DAILY [facility] Last Admin: 08/13/16 10:30 Dose: 100 mg Sucralfate (Carafate Tab) 1 gm PO BID PRN PRN Reason: Nausea/Vomiting Last Admin: 08/12/16 18:16 Dose: 1 gm Results - Vital Signs Recent Vital Signs: Last Vital Signs Temp 97.7 F 08/13/16 16:00 Pulse 55 L 08/13/16 16:00 Resp 22 08/13/16 16:00 BP 128/60 08/13/16 16:00 Pulse Ox 93 L 08/13/16 16:00 - Labs Result Diagrams: 08/13/16 06:40 08/13/16 06:40 Labs: Laboratory Results - last 24 hr 08/13/16 08/13/16 06:40 07:00 WBC 10.9 RBC 3.67 Hgb 9.7 L Hct 32.1 L MCV 87.5 MCH 26.4 MCHC 30.2 L RDW 16.9 H Plt Count 344 MPV 9.1 Sodium 137 Potassium 4.0 Chloride 101 Carbon Dioxide 27 Anion Gap 13 BUN 20 Creatinine 0.5 Est GFR ( Amer) > 60 Est GFR (Non-Af Amer) > 60 Random Glucose 105 Calcium 8.0 L Total Bilirubin 0.8 AST 66 H ALT 26 Alkaline Phosphatase 61 Total Protein 6.3 Albumin 2.9 L Globulin 3.5 Albumin/Globulin Ratio 0.8 L TSH 3rd Generation 1.41 Assessment & Plan - Assessment and Plan (Free Text) Assessment: Dx External thrombosed hemorrhoid Everardo: Ext Hemorrhoidectomy in am(OR-MAC:Local) This consultation done undeer my direct supervision Rose Terrell MD FACS
[2016-08-13] MEDS: Dibucaine 1% Oint(1 oz) TOP PRN ×2 (15:08→21:46)
[2016-08-13] MEDS: POLYETHYLENE GLYCOL 3350 17 GM/Dose PACKET PO SCH ×2 (15:11→17:06)
--- NOTE | 2016-08-13 15:47 | CP.PCM.CON ---
History of Present Illness - History of Present Illness History of Present Illness: 81 year old female with PMH of peripheral vascular disease S/P bilateral BKA, S/ P bilateral hip replacement, HTN, CAD, sick sinus syndrome S/P pacemaker placement, GERD, history of diverticulitis, history of urinary incontinence, depression, anxiety, history of eye cataracts, history of pneumonia, obesity with BMI 37 came in to [facility] complaining of dysuria and increased urinary frequency for the past 2-3 days. She also had a fall from her wheelchair. She denies fever or chills, no nausea or vomiting, no chest pain, no SOB, no cough or rhinorrhea, no sore throat, no dysphagia, no abdominal pain , no flank pain. On occasion she has some suprapubic pain. Infectious Diseases consult is requested to further evaluate and manage. Review of Systems - Review of Systems All systems: reviewed and no additional remarkable complaints except (as per HPI ) Past Patient History - Infectious Disease Hx of Infectious Diseases: None - Past Medical History & Family History Past Medical History?: Yes Past Family History: Reviewed and not pertinent - Past Social History Smoking Status: Never Smoked Alcohol: None Drugs: Denies - CARDIAC Hx Cardiac Disorders: Yes (cad, heart block, sick sinus syndrome) Hx Hypertension: Yes Hx Pacemaker: Yes Hx Peripheral Vascular Disease: Yes - PULMONARY Hx Respiratory Disorders: Yes Hx Asthma: Yes Hx Pneumonia: Yes (aspiration) - NEUROLOGICAL Hx Neurological Disorder: No - HEENT Hx HEENT Problems: Yes (eyeglassees) Hx Cataracts: Yes (b/l) Hx Difficulty Chewing: No - RENAL Hx Chronic Kidney Disease: No - ENDOCRINE/METABOLIC Hx Hypothyroidism: Yes - HEMATOLOGICAL/ONCOLOGICAL Hx Blood Disorders: No - INTEGUMENTARY Hx Dermatological Problems: No Hx Squamous Cell: Yes (excision chest lesion) Other/Comment: left chest healing surgical incision for pacemaker, healed pressure ulcer to sacrum - MUSCULOSKELETAL/RHEUMATOLOGICAL Hx Falls: Yes (past) - GASTROINTESTINAL Hx Gastrointestinal Disorders: Yes Hx Diverticulitis: Yes Hx Gastroesophageal Reflux: Yes Other/Comment: Hiatal hernia, celiac disease - GENITOURINARY/GYNECOLOGICAL Hx Incontinence: Yes Other/Comment: cysto, cystocele - PSYCHIATRIC Hx Psychophysiologic Disorder: Yes Hx Anxiety: Yes Hx Depression: Yes Hx Emotional Abuse: No Hx Physical Abuse: No Hx Substance Use: No - SURGICAL HISTORY Hx Amputation: Yes (bilateral) Hx Orthopedic Surgery: Yes (b/l hip replacement) Other/Comment: angiiograms, multiple foot sx's - ANESTHESIA Hx Anesthesia: Yes Hx Anesthesia Reactions: No Hx Malignant Hyperthermia: No Meds Allergies/Adverse Reactions: Allergies Allergy/AdvReac Type Severity Reaction Status Date / Time erythromycin base Allergy .anxiety Verified 08/12/16 06:05 levofloxacin [From Levaquin] Allergy .anxiety Verified 08/12/16 06:05 - Medications Medications: Current Medications Alprazolam (Xanax) 0.5 mg PO HS [facility] PRN Reason: Protocol Aspirin (Ecotrin) 81 mg PO DAILY [facility] Last Admin: 08/12/16 10:27 Dose: 81 mg Atorvastatin Calcium (Lipitor) 20 mg PO HS [facility] Calcium/Vitamin D (Oscal-D 250 Mg-125 Units Tab) 1 tab PO DAILY [facility] Last Admin: 08/12/16 11:00 Dose: 1 tab Docusate Sodium (Colace) 100 mg PO DAILY [facility] Last Admin: 08/12/16 10:27 Dose: 100 mg Gabapentin (Neurontin) 800 mg PO TID [facility] Last Admin: 08/12/16 11:00 Dose: 800 mg Cefepime HCl (Maxipime 1gm) 100 mls @ 100 mls/hr IVPB Q12 [facility] PRN Reason: Protocol Levothyroxine Sodium (Synthroid) 25 mcg PO DAILY [facility] Last Admin: 08/12/16 10:27 Dose: 25 mcg Oxycodone/Acetaminophen (Percocet 10/325 Mg Tab) 1 tab PO Q4H PRN PRN Reason: Pain, severe (8-10) Last Admin: 08/12/16 10:59 Dose: 1 tab Pantoprazole Sodium (Protonix Ec Tab) 40 mg PO DAILY [facility] Sertraline HCl (Zoloft) 100 mg PO DAILY [facility] Last Admin: 08/12/16 10:59 Dose: 100 mg Physical Exam - Constitutional Appears: Non-toxic, No Acute Distress - Head Exam Head Exam: NORMAL INSPECTION - ENT Exam ENT Exam: Mucous Membranes Moist - Neck Exam Neck exam: Negative for: Lymphadenopathy, Meningismus - Respiratory Exam Respiratory Exam: Decreased Breath Sounds - Cardiovascular Exam Cardiovascular Exam: +S1, +S2 - GI/Abdominal Exam GI & Abdominal Exam: Soft. absent: Tenderness - Extremities Exam Additional comments: bilateral BKA stumps clean Results - Vital Signs Recent Vital Signs: Last Vital Signs Temp Pulse 73 08/12/16 09:23 Resp 18 08/12/16 09:23 BP 120/68 08/12/16 09:23 Pulse Ox 98 08/12/16 09:23 - Labs Result Diagrams: 08/13/16 06:40 08/13/16 06:40 Labs: Laboratory Results - last 24 hr 08/12/16 11:00 pO2 227 H VBG pH 7.41 VBG pCO2 37.0 L VBG HCO3 23.5 VBG Total CO2 24.6 VBG O2 Sat (Calc) 100.1 H VBG Base Excess -0.8 L VBG Potassium 4.1 Sodium 139.0 Chloride 106.0 Glucose 87 Lactate 2.1 FiO2 21.0 Venous Blood Potassium 4.1 Assessment & Plan - Assessment and Plan (Free Text) Plan: Assessment Consider urinary tract infection, probably lower tract, growing gram negative bacilli peripheral vascular disease S/P bilateral BKA S/P bilateral hip replacement HTN CAD sick sinus syndrome S/P pacemaker placement GERD history of diverticulitis history of urinary incontinence depression anxiety history of eye cataracts history of pneumonia obesity with BMI 37 Plan Started patient on Cefepime pending identification and sensitivities of the gram negative bacilli in the urine Will follow clinically
--- NOTE | 2016-08-13 16:43 | CON ---
DATE: 08/13/2016 CHIEF COMPLAINT: Stress incontinence and urinary tract infection. HISTORY OF PRESENT ILLNESS: This is a 81-year-old female who was admitted after a fall. She has a h istory she says of having a hypotonic bladder, reports stress incontinence [facility] told she had 400 mL residual in her bladder. She currently does not have a Catalan cat heter in place. She is going to have a hemorrhoidectomy tomorrow. No fever, no chills. She current ly is on antibiotics. PAST MEDICAL HISTORY: Significant for a history of hypertension, coronary artery disease, a pacemake r, GERD. SOCIAL HISTORY: She does not smoke or drink. FAMILY HISTORY: Noncontributory. REVIEW OF SYSTEMS: Currently, she has no symptoms referable to the head, eyes, ears, nose or throat. No current cardiac or respiratory symptoms. No GI symptoms other than the pain from the hemorrhoid . Well oriented x 3. Skin: No significant edema. PHYSICAL EXAMINATION: VITAL SIGNS: Shows her to be afebrile, pulse 68, blood pressure 145/56, respirations 22. HEENT: Sclerae are clear. Conjunctivae not injected. Normocephalic. NECK: Supple, no adenopathy. ABDOMEN: No CVA pain or hepatosplenomegaly, rebound or guarding. No suprapubic fullness. LABORATORY WORK: Shows white count of 10,900, hemoglobin 9.7. Her creatinine is 0.5. Her urine marlo wed 5-10 WBCs, 1-3 RBCs, few bacteria, positive for nitrites. She had a urine culture which grew gra m-negative bernice. The blood cultures were negative. Sensitivities are not back yet. She currently is on Rocephin. I told the nurse to do a bladder scan on her to see whether she has an y significant retention. if there is more than 300 mL, to leave the Catalan indwelling. A renal ultra sound was ordered already by ID. We will follow her with you. Yimi Whaley MD cc: [id number] TT: 08/13/2016 16:42:29 Confirmation # [id number] Dictation # [id number]
[2016-08-14 07:31] LABS: INR 1.06 (0.93-1.08); PARTIAL THROMBOPLASTIN TIME 24.6 Seconds (23.7-30.8)
[2016-08-14] MEDS: Calcium-Vit D 250 mg-125 Units Tab UD PO SCH ×3 (08:27→17:32)
[2016-08-14] MEDS: Pantoprazole 40 mg EC Tab PO SCH (08:28)
--- NOTE | 2016-08-14 08:28 | PN ---
DATE: 08/14/2016 SUBJECTIVE: The patient has no complaints of any chest pain or shortness of breath. She is going to the OR this morning for hemorrhoidectomy. PHYSICAL EXAMINATION: VITAL SIGNS: Temperature is 97.7, pulse of 55, blood pressure 120/60, respirations 22. GENERAL: The patient comfortable, in no acute distress. HEENT: Anicteric sclerae. Moist mucosa. NECK: No JVD or adenopathy. CARDIAC: S1/S2. No murmurs. No rubs. Regular. RESPIRATORY: Clear to auscultation bilaterally. No wheezes, rales, or rhonchi. Good air entry. ABDOMEN: Bowel sounds are positive, soft, nontender, and nondistended. EXTREMITIES: No edema. Has 1+ pulses. LABS: White count of 10.9, hemoglobin 9.7. IMPRESSION: 1. Fall. 2 Urinary tract infection secondary to gram-negative rods. 3. External hemorrhoids, thrombosed. 4. Rheumatoid arthritis. 5. Osteoarthritis. 6. Dyslipidemia. 7. Hypothyroidism. 8. Urinary retention with Catalan placement. 9. A 4.3 cm pressure ulcer in the right buttocks. PLAN: The patient says she is uncomfortable because of the hemorrhoids. She has a Catalan that she wo uld like to take out. The patient was seen by Dr. Whaley. She did have a significant amount of urine in her bladder when she came to the ERR. The patient's Catalan had been taken out yesterday. Repeat b ladder scan showed 240 mL of residual urine and so the Catalan was kept out. The patient has sucralfate for her stomach, she is on Lipitor for dyslipidemia, she is on cefepime for antibiotics. Her blood c ultures have been negative. She is on calcium for osteoporosis prevention. She is on Synthroid for hypothyroidism. She is getting prednisone daily. Renal ultrasound has been ordered. Jason Toro MD cc: [id number] TT: 08/14/2016 08:28:09 Confirmation # [id number] Dictation # [id number] tn
[2016-08-14] MEDS: Levothyroxine 25 MCG TAB PO SCH (08:29)
--- NOTE | 2016-08-14 10:33 | CON ---
DATE: 08/14/2016 INDICATIONS: Fall, preoperative evaluation for excision of a thrombosed hemorrhoid. HISTORY OF PRESENT ILLNESS: This is a 81-year-old woman known to me from recent episode of complete heart block requiring permanent pacemaker implantation, admitted yesterday when she fell from her wheelchair. This was a mechanical fall. There was no syncope involved. She was brought to the Emergency Room by her daughter when she had bilateral hip pain and dysuria. There was no chest pain, shortness of breath, orthopnea, PND, syncope, presyncope, lightheadedness, dizziness, vertigo, palpitations, fever, chills, cough, sputum production, hemoptysis, abdominal pain, nausea, vomiting, diarrhea , constipation, melena. She does complain of perirectal discomfort worsened by a fall. She was seen by Dr. Terrell who is planning to do a thrombectomy under local anesthesia later today. PAST MEDICAL HISTORY: Complex. She had an episode of complete heart block and required a VVI permanent pacemaker a month or two ago. She has severe rheumatoid arthritis, mild aortic stenosis, chronic asthma, hyperlipidemia, peripheral vascular disease, bilateral AKAs, hypothyroidism, GERD, stress incontinence, hypotonic bladder, bilateral total hip replacement, cataracts. She is found to have a urinary tract infection, has been placed on antibiotics. MEDICATIONS: At the time of admission include Carafate, Colace, aspirin, gabapentin, Lipitor, omega 3 fatty acids, Os-Guillaume, Percocet, Prilosec, prednisone , sertraline, Synthroid, Xanax. ALLERGIES: SHE NOTES AN ALLERGY TO ERYTHROMYCIN AND LEVOTHYROXINE. SOCIAL HISTORY: She lives at home with a caregiver. She gets around in a wheelchair, but is minimally active. She does not smoke. She does not drink alcohol. FAMILY HISTORY: Noncontributory. REVIEW OF SYSTEMS: A 10-point review of systems is otherwise unremarkable except as noted above. PHYSICAL EXAMINATION: GENERAL: She is a well-developed elderly woman lying in bed on 5R in no acute distress. VITAL SIGNS: Notable for a V-paced rhythm at 60 beats per minute. She is afebrile. Blood pressure 117/59, respirations 18-22, O2 sat 93%-94% on room air. HEENT: Reveals no neck vein distention, thyromegaly, or carotid bruits. Mucous membranes are moist. Conjunctivae are pink. NECK: Supple. LUNGS: Castro clear. HEART: Revealed a regular rhythm with normal first and second heart sounds. There is a systolic murmur along the left sternal border. ABDOMEN: Soft, bowel sounds are present. No mass, organomegaly, tenderness, rebound, guarding, CVA tenderness, palpable abdominal aortic aneurysm. EXTREMITIES: Reveals bilateral AKAs. NEUROLOGIC: She is awake, alert and oriented. PSYCHIATRIC: Normal as to mood and affect. SKIN: Warm and dry. No rash or cellulitis. LABORATORY AND IMAGING: A chest x-ray reveals a portable study. It reveals shallow lung volumes, discoid atelectasis changes, left base, permanent pacemaker in place. X-ray of the pelvis reveals no fracture or dislocation. EKG reveals a ventricular paced rhythm. Hemoglobin 9.7, hematocrit 32.1, white count normal, platelet count normal. PT, INR, PTT unremarkable. Blood gases are noted. Electrolytes, BUN, creatinine, blood sugar unremarkable. LFTs mildly abnormal. Troponin 0.08. TSH 1.41. Urinalysis is abnormal as noted. IMPRESSION AND PLAN: The patient is a 81-year-old woman who fell from her wheelchair and suffered minor injury. She has a thrombosed hemorrhoid. Dr. Terrell is planning to remove this under gentle local anesthesia later today. I discussed this with him. I suggested waiting a few days, but he feels that the procedure is extremely low risk. She is getting antibiotics for urinary tract infection with a gram-negative bernice reported in her urine culture. Blood cultures are negative so far. She is getting Carafate, Colace, aspirin, Lipitor , Neurontin, Protonix, Synthroid, Xanax, Zoloft, prednisone. She is getting antibiotics. I have discussed the case with Dr. Toro. I will follow along with you. I will make additional recommendations based on her clinical course. She has had pacemaker check recently and a formal interrogation is planned for August. Fabien Pal MD cc: [id number] TT: 08/14/2016 10:33:33 Confirmation # [id number] Dictation # [id number] cady MAYER
[2016-08-14] MEDS: POLYETHYLENE GLYCOL 3350 17 GM/Dose PACKET PO SCH ×2 (10:54→17:29)
[2016-08-14] MEDS: Hydrocortisone 2.5% Rectal Cream(30 gm) PR SCH ×2 (10:55→17:28)
--- NOTE | 2016-08-14 10:55 | CP.PCM.PCO ---
Physician Communication Note - Physician Communication Note Physician Communication Note: C/O Chest pain/sepsis-Postpone thrombectomy wednesday
[2016-08-14] MEDS: cefTRIAXone 1 gm 100 ML IVPB SCH (10:58)
[2016-08-14] MEDS: Oxycodone/Acetaminophen 10/325 mg Tab PO PRN ×2 (13:37→21:43)
--- NOTE | 2016-08-14 14:15 | US ---
PROCEDURE: Ultrasound of the Kidneys HISTORY: rule out hydronephrosis COMPARISON: 12/11/2014 TECHNIQUE: Grayscale imaging was performed. FINDINGS: RIGHT KIDNEY: Measures: 9.2 cm. Normal in size, contour and echogenicity. No stone, solid mass lesion or hydronephrosis visualized. LEFT KIDNEY: Measures: 10.1 cm. Normal in size, contour and echogenicity. No stone, solid mass lesion or hydronephrosis visualized. OTHER FINDINGS: None. IMPRESSION: Unremarkable renal sonogram.
--- NOTE | 2016-08-14 15:26 | CP.PCM.PN ---
Subjective - Date & Time of Evaluation Date of Evaluation: 08/14/16 Time of Evaluation: 11:20 - Subjective Subjective: Comfortable, afebrile, not in distress. Objective - Vital Signs/Intake and Output Vital Signs (last 24 hours): Temp Pulse Resp BP Pulse Ox 98.6 F 60 18 117/59 L 94 L 08/14/16 08:00 08/14/16 08:00 08/14/16 08:00 08/14/16 08:00 08/14/16 08:00 Intake and Output: 08/14/16 08/14/16 06:59 18:59 Intake Total 540 Balance 540 - Medications Medications: Current Medications Alprazolam (Xanax) 0.5 mg PO HS [facility] PRN Reason: Protocol Last Admin: 08/13/16 21:35 Dose: Not Given Aspirin (Ecotrin) 81 mg PO DAILY [facility] Last Admin: 08/13/16 10:30 Dose: 81 mg Atorvastatin Calcium (Lipitor) 20 mg PO HS [facility] Last Admin: 08/13/16 21:44 Dose: 20 mg Calcium/Vitamin D (Oscal-D 250 Mg-125 Units Tab) 1 tab PO DAILY [facility] Last Admin: 08/13/16 10:28 Dose: 1 tab Dibucaine (Nupercainal 1%) 0 oz TOP Q15MIN PRN PRN Reason: Pain, moderate (4-7) Last Admin: 08/13/16 21:46 Dose: 1 applic Docusate Sodium (Colace) 100 mg PO DAILY [facility] Last Admin: 08/13/16 10:30 Dose: 100 mg Gabapentin (Neurontin) 800 mg PO Q8 [facility] Last Admin: 08/14/16 06:38 Dose: 800 mg Hydrocortisone (Anusol-Hc) 1 gm AL BID [facility] Last Admin: 08/13/16 17:06 Dose: Not Given Ceftriaxone Sodium (Rocephin 1 Gram Ivpb) 100 mls @ 100 mls/hr IVPB DAILY [facility] PRN Reason: Protocol Levothyroxine Sodium (Synthroid) 25 mcg PO ACB [facility] Last Admin: 08/14/16 08:29 Dose: 25 mcg Oxycodone/Acetaminophen (Percocet 10/325 Mg Tab) 1 tab PO Q4H PRN PRN Reason: Pain, severe (8-10) Last Admin: 08/13/16 18:06 Dose: 1 tab Pantoprazole Sodium (Protonix Ec Tab) 40 mg PO ACB [facility] Last Admin: 08/14/16 08:28 Dose: 40 mg Polyethylene Glycol (Miralax) 17 gm PO BID [facility] Last Admin: 08/13/16 17:06 Dose: Not Given Prednisone (Prednisone Tab) 5 mg PO BID [facility] Last Admin: 08/14/16 08:28 Dose: 5 mg Sertraline HCl (Zoloft) 100 mg PO DAILY [facility] Last Admin: 08/14/16 08:29 Dose: 100 mg Sucralfate (Carafate Tab) 1 gm PO BID PRN PRN Reason: Nausea/Vomiting Last Admin: 08/12/16 18:16 Dose: 1 gm - Labs Labs: 08/13/16 06:40 08/13/16 06:40 PT 11.4 Seconds (9.9-11.8) 08/14/16 06:45 INR 1.06 (0.93-1.08) 08/14/16 06:45 APTT 24.6 Seconds (23.7-30.8) 08/14/16 06:45 - Constitutional Appears: Non-toxic, No Acute Distress - Head Exam Head Exam: NORMAL INSPECTION - Neck Exam Neck Exam: absent: Lymphadenopathy, Meningismus - Respiratory Exam Respiratory Exam: Decreased Breath Sounds - Cardiovascular Exam Cardiovascular Exam: +S1, +S2 - GI/Abdominal Exam GI & Abdominal Exam: Soft. absent: Tenderness Assessment and Plan - Assessment and Plan (Free Text) Plan: Assessment Consider urinary tract infection, probably lower tract, growing P. mirabilis peripheral vascular disease S/P bilateral BKA S/P bilateral hip replacement HTN CAD sick sinus syndrome S/P pacemaker placement GERD history of diverticulitis history of urinary incontinence depression anxiety history of eye cataracts history of pneumonia obesity with BMI 37 Plan switch antibiotics to Rocephin (Day 2 of antibiotics) Will follow clinically
[2016-08-14] MEDS: Dibucaine 1% Oint(1 oz) TOP PRN (17:29)
[2016-08-15] MEDS: Pantoprazole 40 mg EC Tab PO SCH (06:37)
[2016-08-15] MEDS: Levothyroxine 25 MCG TAB PO SCH (06:37)
--- NOTE | 2016-08-15 07:57 | CP.PCM.PN ---
Subjective - Date & Time of Evaluation Date of Evaluation: 08/15/16 Time of Evaluation: 08:00 - Subjective Subjective: Stable on 5R. No CP or SOB. Still hip and back pain. + rectal pain. V/S noted. PE: lungs: clear Cor.: S1S2 Abd.: soft Ext.: no edema Neuro.: alert Urine + Proteus. BC x2 NG so far. Objective - Vital Signs/Intake and Output Vital Signs (last 24 hours): Temp Pulse Resp BP Pulse Ox 97.8 F 61 18 134/62 91 L 08/14/16 16:00 08/14/16 16:00 08/14/16 16:00 08/14/16 16:00 08/14/16 16:00 Intake and Output: 08/15/16 08/15/16 06:59 18:59 Intake Total 660 Balance 660 - Medications Medications: Current Medications Alprazolam (Xanax) 0.5 mg PO HS [facility] PRN Reason: Protocol Last Admin: 08/14/16 23:41 Dose: 0.5 mg Aspirin (Ecotrin) 81 mg PO DAILY [facility] Last Admin: 08/13/16 10:30 Dose: 81 mg Atorvastatin Calcium (Lipitor) 20 mg PO HS [facility] Last Admin: 08/14/16 21:36 Dose: 20 mg Calcium/Vitamin D (Oscal-D 250 Mg-125 Units Tab) 1 tab PO DAILY [facility] Last Admin: 08/14/16 17:32 Dose: 1 tab Dibucaine (Nupercainal 1%) 0 oz TOP Q15MIN PRN PRN Reason: Pain, moderate (4-7) Last Admin: 08/14/16 17:29 Dose: 1 applic Docusate Sodium (Colace) 100 mg PO DAILY [facility] Last Admin: 08/14/16 10:54 Dose: Not Given Gabapentin (Neurontin) 800 mg PO Q8 [facility] Last Admin: 08/15/16 06:37 Dose: 800 mg Hydrocortisone (Anusol-Hc) 1 gm GA BID [facility] Last Admin: 08/14/16 17:28 Dose: Not Given Ceftriaxone Sodium (Rocephin 1 Gram Ivpb) 100 mls @ 100 mls/hr IVPB DAILY [facility] PRN Reason: Protocol Last Admin: 08/14/16 10:58 Dose: 100 mls/hr Levothyroxine Sodium (Synthroid) 25 mcg PO ACB [facility] Last Admin: 08/15/16 06:37 Dose: 25 mcg Oxycodone/Acetaminophen (Percocet 10/325 Mg Tab) 1 tab PO Q4H PRN PRN Reason: Pain, severe (8-10) Last Admin: 08/14/16 21:43 Dose: 1 tab Pantoprazole Sodium (Protonix Ec Tab) 40 mg PO ACB [facility] Last Admin: 08/15/16 06:37 Dose: 40 mg Polyethylene Glycol (Miralax) 17 gm PO BID [facility] Last Admin: 08/14/16 17:29 Dose: Not Given Prednisone (Prednisone Tab) 5 mg PO BID [facility] Last Admin: 08/14/16 17:29 Dose: 5 mg Sertraline HCl (Zoloft) 100 mg PO DAILY [facility] Last Admin: 08/14/16 10:53 Dose: Not Given Sucralfate (Carafate Tab) 1 gm PO BID PRN PRN Reason: Nausea/Vomiting Last Admin: 08/12/16 18:16 Dose: 1 gm - Labs Labs: 08/13/16 06:40 08/13/16 06:40 PT 11.4 Seconds (9.9-11.8) 08/14/16 06:45 INR 1.06 (0.93-1.08) 08/14/16 06:45 APTT 24.6 Seconds (23.7-30.8) 08/14/16 06:45 Assessment and Plan - Assessment and Plan (Free Text) Plan: Assessment: Mechanical fall from wheelchair Back and hip pain Rectal Pain/Thrombosed hemorrhoid UTI CHB/PPM , mild Asthma HLD PVD Bilat. AKA's GERD Hypothyroidism Hypotonic Bladder/Stress Incontinence Pascual. THR Cataracts Plan: AB As per ID Surgery for thrombosed hem>Wednesday Analgesia As per Dr. Toro, uro., surgery, ID.
[2016-08-15 08:45] VITALS: RESP 20
[2016-08-15] MEDS: POLYETHYLENE GLYCOL 3350 17 GM/Dose PACKET PO SCH ×2 (09:02→17:05)
[2016-08-15] MEDS: cefTRIAXone 1 gm 100 ML IVPB SCH (09:02)
[2016-08-15] MEDS: Oxycodone/Acetaminophen 10/325 mg Tab PO PRN ×2 (09:02→17:45)
[2016-08-15] MEDS: Calcium-Vit D 250 mg-125 Units Tab UD PO SCH (09:02)
[2016-08-15] MEDS: Hydrocortisone 2.5% Rectal Cream(30 gm) PR SCH ×2 (09:04→17:05)
--- NOTE | 2016-08-15 13:23 | CP.PCM.PN ---
Subjective - Date & Time of Evaluation Date of Evaluation: 08/15/16 Time of Evaluation: 08:45 - Subjective Subjective: General Surgery Dr. Terrell Pt S&E @bedside. NAEO. c/o productive cough w/ yellow/green sputum production, congestions, and dysphagia. 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 denies F/C, CP, N/V. admits to continued rectal pain which resolves w/ lidocaine cream. tolerating diet. Objective - Vital Signs/Intake and Output Vital Signs (last 24 hours): Temp Pulse Resp BP Pulse Ox 98.4 F 61 20 133/77 94 L 08/15/16 07:30 08/15/16 07:30 08/15/16 07:30 08/15/16 07:30 08/15/16 07:30 Intake and Output: 08/15/16 08/15/16 06:59 18:59 Intake Total 660 Balance 660 - Medications Medications: Current Medications Albuterol/Ipratropium (Duoneb 3 Mg/0.5 Mg (3 Ml) Ud) 3 ml IH [id number] [facility] Alprazolam (Xanax) 0.5 mg PO HS [facility]UCY PRN Reason: Protocol Last Admin: 08/14/16 23:41 Dose: 0.5 mg Aspirin (Ecotrin) 81 mg PO DAILY [facility] Last Admin: 08/13/16 10:30 Dose: 81 mg Atorvastatin Calcium (Lipitor) 20 mg PO HS [facility] Last Admin: 08/14/16 21:36 Dose: 20 mg Calcium/Vitamin D (Oscal-D 250 Mg-125 Units Tab) 1 tab PO DAILY [facility] Last Admin: 08/15/16 09:02 Dose: 1 tab Dibucaine (Nupercainal 1%) 0 oz TOP Q15MIN PRN PRN Reason: Pain, moderate (4-7) Last Admin: 08/14/16 17:29 Dose: 1 applic Docusate Sodium (Colace) 100 mg PO DAILY [facility] Last Admin: 08/15/16 09:03 Dose: 100 mg Gabapentin (Neurontin) 800 mg PO Q8 [facility] Last Admin: 08/15/16 06:37 Dose: 800 mg Hydrocortisone (Anusol-Hc) 1 gm [place] BID [facility] Last Admin: 08/15/16 09:04 Dose: Not Given Ceftriaxone Sodium (Rocephin 1 Gram Ivpb) 100 mls @ 100 mls/hr IVPB DAILY [facility] PRN Reason: Protocol Last Admin: 08/15/16 09:02 Dose: 100 mls/hr Levothyroxine Sodium (Synthroid) 25 mcg PO ACB [facility] Last Admin: 08/15/16 06:37 Dose: 25 mcg Oxycodone/Acetaminophen (Percocet 10/325 Mg Tab) 1 tab PO Q4H PRN PRN Reason: Pain, severe (8-10) Last Admin: 08/15/16 09:02 Dose: 1 tab Pantoprazole Sodium (Protonix Ec Tab) 40 mg PO ACB [facility] Last Admin: 08/15/16 06:37 Dose: 40 mg Polyethylene Glycol (Miralax) 17 gm PO BID [facility] Last Admin: 08/15/16 09:02 Dose: 17 gm Prednisone (Prednisone Tab) 5 mg PO BID [facility] Last Admin: 08/15/16 09:03 Dose: 5 mg Sertraline HCl (Zoloft) 100 mg PO DAILY [facility] Last Admin: 08/15/16 09:03 Dose: 100 mg Sucralfate (Carafate Tab) 1 gm PO BID PRN PRN Reason: Nausea/Vomiting Last Admin: 08/12/16 18:16 Dose: 1 gm - Labs Labs: no new labs Microbiology 08/12/16 06:20 Urine,Catalan Urine Culture - Final Proteus Mirabilis 08/12/16 06:50 Blood-Venous Blood Culture - Preliminary 08/12/16 06:50 Blood-Venous NO GROWTH AFTER 3 DAYS 08/12/16 06:30 Blood-Venous Blood Culture - Preliminary 08/12/16 06:30 Blood-Venous NO GROWTH AFTER 3 DAYS - Constitutional Appears: Non-toxic, No Acute Distress, Older Than Stated Age, Chronically Ill - Head Exam Head Exam: NORMAL INSPECTION - Eye Exam Eye Exam: Normal appearance - ENT Exam ENT Exam: Mucous Membranes Moist - Respiratory Exam Respiratory Exam: NORMAL BREATHING PATTERN. absent: Accessory Muscle Use, Respiratory Distress - GI/Abdominal Exam GI & Abdominal Exam: Distended (obese), Soft. absent: Tenderness - Extremities Exam Additional comments: B/L BKA - Neurological Exam Neurological Exam: Alert, Awake, Oriented x3 - Psychiatric Exam Psychiatric exam: Normal Affect, Normal Mood - Skin Skin Exam: Dry, Intact, Normal Color, Warm Assessment and Plan - Assessment and Plan (Free Text) Assessment: 81 y/o F admitted for Fall and UTI found to have thrombosed external hemorrhoids. - OR Wednesday for hemorrhoidectomy - Hold ASA - lidocaine cream for hemorrhoidal pain - cont medical management Pt discussed w/ Dr. Xander Everett DO PGY1
--- NOTE | 2016-08-15 13:54 | RAD ---
HISTORY: SOB COMPARISON: No prior. FINDINGS: LUNGS: Bilateral interstitial prominence. PLEURA: No significant pleural effusion identified, no pneumothorax apparent. CARDIOVASCULAR: Cardiomegaly. Pacemaker lead in place. OSSEOUS STRUCTURES: No significant abnormalities. VISUALIZED UPPER ABDOMEN: Normal. OTHER FINDINGS: None. IMPRESSION: Mild bilateral interstitial changes.
[2016-08-15] MEDS: Albuterol-Ipratrop 3 mg / 0.5 (3 ml) UD IH SCH ×2 (14:08→21:41)
--- NOTE | 2016-08-15 18:32 | CP.PCM.PN ---
Subjective - Date & Time of Evaluation Date of Evaluation: 08/15/16 Time of Evaluation: 12:30 - Subjective Subjective: Patient is comfortable, afebrile but still has some weakness, no nausea, no diarrhea. Objective - Vital Signs/Intake and Output Vital Signs (last 24 hours): Temp Pulse Resp BP Pulse Ox 98.4 F 61 20 133/77 94 L 08/15/16 07:30 08/15/16 07:30 08/15/16 07:30 08/15/16 07:30 08/15/16 07:30 Intake and Output: 08/15/16 08/15/16 06:59 18:59 Intake Total 660 Balance 660 - Medications Medications: Current Medications Alprazolam (Xanax) 0.5 mg PO HS [facility] PRN Reason: Protocol Last Admin: 08/14/16 23:41 Dose: 0.5 mg Aspirin (Ecotrin) 81 mg PO DAILY [facility] Last Admin: 08/13/16 10:30 Dose: 81 mg Atorvastatin Calcium (Lipitor) 20 mg PO HS [facility] Last Admin: 08/14/16 21:36 Dose: 20 mg Calcium/Vitamin D (Oscal-D 250 Mg-125 Units Tab) 1 tab PO DAILY [facility] Last Admin: 08/15/16 09:02 Dose: 1 tab Dibucaine (Nupercainal 1%) 0 oz TOP Q15MIN PRN PRN Reason: Pain, moderate (4-7) Last Admin: 08/14/16 17:29 Dose: 1 applic Docusate Sodium (Colace) 100 mg PO DAILY [facility] Last Admin: 08/15/16 09:03 Dose: 100 mg Gabapentin (Neurontin) 800 mg PO Q8 [facility] Last Admin: 08/15/16 06:37 Dose: 800 mg Hydrocortisone (Anusol-Hc) 1 gm [place] BID [facility] Last Admin: 08/15/16 09:04 Dose: Not Given Ceftriaxone Sodium (Rocephin 1 Gram Ivpb) 100 mls @ 100 mls/hr IVPB DAILY [facility] PRN Reason: Protocol Last Admin: 08/15/16 09:02 Dose: 100 mls/hr Levothyroxine Sodium (Synthroid) 25 mcg PO ACB [facility] Last Admin: 08/15/16 06:37 Dose: 25 mcg Oxycodone/Acetaminophen (Percocet 10/325 Mg Tab) 1 tab PO Q4H PRN PRN Reason: Pain, severe (8-10) Last Admin: 08/15/16 09:02 Dose: 1 tab Pantoprazole Sodium (Protonix Ec Tab) 40 mg PO ACB [facility] Last Admin: 08/15/16 06:37 Dose: 40 mg Polyethylene Glycol (Miralax) 17 gm PO BID [facility] Last Admin: 08/15/16 09:02 Dose: 17 gm Prednisone (Prednisone Tab) 5 mg PO BID [facility] Last Admin: 08/15/16 09:03 Dose: 5 mg Sertraline HCl (Zoloft) 100 mg PO DAILY [facility] Last Admin: 08/15/16 09:03 Dose: 100 mg Sucralfate (Carafate Tab) 1 gm PO BID PRN PRN Reason: Nausea/Vomiting Last Admin: 08/12/16 18:16 Dose: 1 gm - Labs Labs: 08/13/16 06:40 08/13/16 06:40 PT 11.4 Seconds (9.9-11.8) 08/14/16 06:45 INR 1.06 (0.93-1.08) 08/14/16 06:45 APTT 24.6 Seconds (23.7-30.8) 08/14/16 06:45 - Constitutional Appears: Non-toxic, No Acute Distress - Head Exam Head Exam: NORMAL INSPECTION - Neck Exam Neck Exam: absent: Lymphadenopathy, Meningismus - Respiratory Exam Respiratory Exam: Decreased Breath Sounds - Cardiovascular Exam Cardiovascular Exam: +S1, +S2 - GI/Abdominal Exam GI & Abdominal Exam: Soft. absent: Tenderness Assessment and Plan - Assessment and Plan (Free Text) Plan: Assessment Consider urinary tract infection, probably lower tract, growing P. mirabilis peripheral vascular disease S/P bilateral BKA S/P bilateral hip replacement HTN CAD sick sinus syndrome S/P pacemaker placement GERD history of diverticulitis history of urinary incontinence depression anxiety history of eye cataracts history of pneumonia obesity with BMI 37 Plan continue Rocephin (Day 3 of antibiotics); target 5-7 days of antibiotics Will follow clinically
[2016-08-16] MEDS: Albuterol-Ipratrop 3 mg / 0.5 (3 ml) UD IH SCH ×3 (01:19→13:02)
[2016-08-16] MEDS: Oxycodone/Acetaminophen 10/325 mg Tab PO PRN (05:28)
[2016-08-16] MEDS: Levothyroxine 25 MCG TAB PO SCH (06:42)
[2016-08-16] MEDS: Pantoprazole 40 mg EC Tab PO SCH (06:42)
--- NOTE | 2016-08-16 07:27 | CP.PCM.PN ---
Subjective - Date & Time of Evaluation Date of Evaluation: 08/16/16 Time of Evaluation: 08:00 - Subjective Subjective: Stable on 5R. No CP or SOB. Still hip and back pain. + rectal pain. V/S noted. PE: lungs: clear Cor.: S1S2 Abd.: soft Ext.: no edema Neuro.: alert Urine + Proteus. BC x2 NG so far. Objective - Vital Signs/Intake and Output Vital Signs (last 24 hours): Temp Pulse Resp BP Pulse Ox 97.5 F L 61 20 126/62 95 08/15/16 16:00 08/15/16 16:00 08/15/16 16:00 08/15/16 16:00 08/15/16 16:00 Intake and Output: 08/16/16 08/16/16 06:59 18:59 Intake Total 420 Balance 420 - Medications Medications: Current Medications Albuterol/Ipratropium (Duoneb 3 Mg/0.5 Mg (3 Ml) Ud) 3 ml IH [id number] [facility] Last Admin: 08/16/16 01:19 Dose: Not Given Alprazolam (Xanax) 0.5 mg PO HS [facility] PRN Reason: Protocol Last Admin: 08/15/16 23:50 Dose: 0.5 mg Aspirin (Ecotrin) 81 mg PO DAILY [facility] Last Admin: 08/13/16 10:30 Dose: 81 mg Atorvastatin Calcium (Lipitor) 20 mg PO HS [facility] Last Admin: 08/15/16 21:46 Dose: 20 mg Calcium/Vitamin D (Oscal-D 250 Mg-125 Units Tab) 1 tab PO DAILY [facility] Last Admin: 08/15/16 09:02 Dose: 1 tab Dibucaine (Nupercainal 1%) 0 oz TOP Q15MIN PRN PRN Reason: Pain, moderate (4-7) Last Admin: 08/14/16 17:29 Dose: 1 applic Docusate Sodium (Colace) 100 mg PO DAILY [facility] Last Admin: 08/15/16 09:03 Dose: 100 mg Gabapentin (Neurontin) 800 mg PO Q8 [facility] Last Admin: 08/16/16 05:28 Dose: 800 mg Hydrocortisone (Anusol-Hc) 1 gm [place] BID [facility] Last Admin: 08/15/16 17:05 Dose: Not Given Ceftriaxone Sodium (Rocephin 1 Gram Ivpb) 100 mls @ 100 mls/hr IVPB DAILY [facility] PRN Reason: Protocol Last Admin: 08/15/16 09:02 Dose: 100 mls/hr Levothyroxine Sodium (Synthroid) 25 mcg PO ACB [facility] Last Admin: 08/16/16 06:42 Dose: 25 mcg Oxycodone/Acetaminophen (Percocet 10/325 Mg Tab) 1 tab PO Q4H PRN PRN Reason: Pain, severe (8-10) Last Admin: 08/16/16 05:28 Dose: 1 tab Pantoprazole Sodium (Protonix Ec Tab) 40 mg PO ACB [facility] Last Admin: 08/16/16 06:42 Dose: 40 mg Polyethylene Glycol (Miralax) 17 gm PO BID [facility] Last Admin: 08/15/16 17:05 Dose: Not Given Prednisone (Prednisone Tab) 5 mg PO BID [facility] Last Admin: 08/15/16 17:38 Dose: 5 mg Sertraline HCl (Zoloft) 100 mg PO DAILY [facility] Last Admin: 08/15/16 09:03 Dose: 100 mg Sucralfate (Carafate Tab) 1 gm PO BID PRN PRN Reason: Nausea/Vomiting Last Admin: 08/12/16 18:16 Dose: 1 gm - Labs Labs: 08/13/16 06:40 08/13/16 06:40 PT 11.4 Seconds (9.9-11.8) 08/14/16 06:45 INR 1.06 (0.93-1.08) 08/14/16 06:45 APTT 24.6 Seconds (23.7-30.8) 08/14/16 06:45 Assessment and Plan - Assessment and Plan (Free Text) Plan: Assessment: Mechanical fall from wheelchair Back and hip pain Rectal Pain/Thrombosed hemorrhoid UTI CHB/PPM , mild Asthma HLD PVD Bilat. AKA's GERD Hypothyroidism Hypotonic Bladder/Stress Incontinence Pascual. THR Cataracts Plan: AB As per ID Minimal Surgery for thrombosed hem>Wednesday Analgesia As per Dr. Toro, uro., surgery, ID.
[2016-08-16 09:06] VITALS: BP 152/69; PULSE 62; TEMP 98.4; O2SAT 96
[2016-08-16] MEDS: cefTRIAXone 1 gm 100 ML IVPB SCH (09:24)
[2016-08-16] MEDS: Calcium-Vit D 250 mg-125 Units Tab UD PO SCH (09:25)
[2016-08-16] MEDS: POLYETHYLENE GLYCOL 3350 17 GM/Dose PACKET PO SCH (09:25)
[2016-08-16] MEDS: Hydrocortisone 2.5% Rectal Cream(30 gm) PR SCH (09:25)
--- NOTE | 2016-08-16 10:17 | CP.PCM.PCO ---
Physician Communication Note - Physician Communication Note Physician Communication Note: OR Wednesday-Local/MAC(sedation)
--- NOTE | 2016-08-16 13:49 | PN ---
DATE: 08/16/2016 The patient is in bed, in no acute distress, nontoxic. PHYSICAL EXAMINATION: VITAL SIGNS: Temperature is 97, blood pressure is 150/60, respiratory rate of 16. HEENT: Unremarkable. NECK: Supple. LUNGS: Have decreased breath sounds. HEART: Normal S1, S2. ABDOMEN: Soft, nontender. LABORATORY EXAMINATION: Reveals the white count is 10,000, hemoglobin is noted. Chemistries are not ed. ASSESSMENT AND PLAN: A 81-year-old female with urinary tract infection growing Proteus mirabilis, pe ripheral vascular disease and hypertension, coronary artery disease and on ceftriaxone day #4. September witch to p.o. Ralph Cooper MD cc: [id number] TT: 08/16/2016 13:48:53 Confirmation # [id number] Dictation # [id number] en
--- NOTE | 2016-08-17 01:36 | DS ---
DATE OF DISCHARGE: 08/16/2016. DISCHARGE DIAGNOSES: 1. Status post fall. 2. Osteoarthritis. 3. Leukocytosis. 4. Anemia. 5. Chronic obstructive pulmonary disease acute exacerbation. 6. Diabetes mellitus type 2. 7. Urinary tract infection. HOSPITAL COURSE: The patient was admitted with a history of fall at home, pain in the hip and pain i n the back. She was found to have UTI. She also has anemia and leukocytosis. She was treated with IV antibiotics. She developed acute exacerbation of COPD. She was treated with bronchodilators and oxygen. She has bilateral below-knee amputation due to diabetes mellitus, peripheral vascular diseas e. Her condition improved during hospitalization. She is being discharged in stable condition to [facility]. PHYSICAL EXAMINATION: VITAL SIGNS: Comfortable in bed, in no acute distress. Heart rate is 80 per minute, blood pressure 120/60, respiratory rate 15 per minute, oxygen saturation 98% room air. HEENT: Head atraumatic, normocephalic. Oral mucosa moist. NECK: Supple. CHEST: Air entry present, equal bilateral. No rhonchi, no crepitations. CARDIOVASCULAR: S1, S2 normal. No murmur, no gallop. ABDOMEN: Soft, nontender, no hepatosplenomegaly. EXTREMITY: Bilateral below-knee amputation. ABDOMEN: Soft, nontender, nondistended, bowel sounds present. SKIN: No petechia, no rash. NEUROLOGIC: Awake, alert, oriented x 3, no focal sensorimotor deficit. LABORATORY DATA: On discharge, white count 10.9, hemoglobin 9.7, hematocrit 32.1, platelet count 344 . Sodium 137, potassium 4, calcium 8, creatinine 0.5. DISCHARGE MEDICATIONS: DuoNeb every 6 hours p.r.n., Xanax 0.5 mg at bedtime, aspirin 81 mg daily, Li pitor 20 mg daily, Os-Guillaume 1 tablet daily, ceftriaxone 1 gram daily, Colace 100 mg daily, levothyroxin e 25 mcg daily, hydrocortisone local application, Percocet p.r.n. for pain, prednisone 5 mg b.i.d., Z oloft 100 mg daily, Carafate 1 gram p.o. b.i.d. p.r.n. CONDITION ON DISCHARGE: Stable. DISPOSITION: Discharged to transitional care unit on diabetic diet. Discussed with the staff nurse. Discussed with the patient. Time spent in preparing discharge and coordinating care, 45 minutes. Radha Washington MD cc: [phone] TT: 08/17/2016 01:35:50 mn
--- NOTE | 2016-08-17 08:28 | PN ---
DATE: 08/15/2016 HISTORY OF PRESENT ILLNESS: The patient is a 81-year-old female admitted to the hospital after she f ell from the wheelchair. She has chronic back issues. She has history of osteoarthritis and rheumat oid arthritis. She has chronic anemia. Hemoglobin on admission 11, declined to 9.7 g/dL. She also has leukocytosis with elevated white count of 12,000. She has bilateral above-knee amputation. Comp laining of shortness of breath, increased since today. PAST MEDICAL HISTORY: Rheumatoid arthritis, degenerative disk disease, bilateral above-knee amputati on, community-acquired pneumonia, complete heart block, has pacemaker, degenerative joint disease. SOCIAL HISTORY: Lives alone. 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 FAMILY HISTORY: Mother and father none. REVIEW OF SYSTEMS: As per HPI. Rest of 12-point reviewed and negative. PHYSICAL EXAMINATION: GENERAL: Comfortable in bed, no acute distress. VITAL SIGNS: Heart rate is 80 per minute, blood pressure 120/70, respiratory 15 per minute, oxygen s aturation 98% room air. HEENT: Normal. NECK: No lymphadenopathy. CARDIOVASCULAR: S1, S2 normal. No murmur, no gallop. LUNGS: Air entry present, equal bilateral. ABDOMEN: Soft, nontender, no hepatosplenomegaly. NEUROLOGIC: Awake, alert, oriented x 3. No sensorimotor deficit. SPINE: Normal. SKIN: Warm, dry. LABORATORIES: White count 10.9, hemoglobin 9.7, hematocrit 32.1, platelet count 344, granulocytes 90 %, lymphocytes 4%. Sodium 137, potassium 4, creatinine 0.5. MEDICATIONS: DuoNeb, Xanax 0.5 mg at bedtime, Lipitor 20 mg daily, ceftriaxone 1 gram daily, Colace 100 mg daily, gabapentin 100 mg q. 8 hours, levothyroxine 25 mcg daily, Protonix 40 mg daily, prednis one 5 mg b.i.d., Carafate 1 gram q.i.d. ASSESSMENT AND PLAN: 1. Osteoarthritis. 2. Rheumatoid arthritis. 3. Shortness of breath. 4. Anemia. 5. Leukocytosis. 6. Urinary tract infection. DuoNeb q. 6 hours scheduled ordered. We will give p.r.n. as needed oxygen by nasal cannula. She was supposed to be transferred to transitional care unit. We will hold the transfer. We will continue ceftriaxone 1 gram daily, gabapentin mg q. 8 hours, levothyroxine 25 mcg every day, Carafate 1 gram b.i.d., aspirin 81 mg daily. Discussed with the staff nurse. Discussed with the patient. Radha Washington MD cc: [id number] TT: 08/16/2016 07:39:37 Confirmation # [id number] Dictation # [id number] en
== END 2016-08-16 13:52 | DRG 690 ==
LOC: ED 05:54 → ERH 09:18 → 5RSO 11:24
PROVIDERS: ADMIT Internal Medicine Nephrology; ATTEND Internal Medicine Nephrology
DX: N39.0 Urinary tract infection, site not specified (principal); K64.5 Perianal venous thrombosis; I44.2 Atrioventricular block, complete; J44.1 Chronic obstructive pulmonary disease with (acute) exacerbation; L89.312 Pressure ulcer of right buttock, stage 2; E11.51 Type 2 diabetes mellitus with diabetic peripheral angiopathy without gangrene; B96.4 Proteus (mirabilis) (morganii) as the cause of diseases classified elsewhere; M06.9 Rheumatoid arthritis, unspecified; D64.9 Anemia, unspecified; E03.9 Hypothyroidism, unspecified; E78.5 Hyperlipidemia, unspecified; M19.90 Unspecified osteoarthritis, unspecified site; K59.00 Constipation, unspecified; F41.9 Anxiety disorder, unspecified; K21.9 Gastro-esophageal reflux disease without esophagitis; Z96.643 Presence of artificial hip joint, bilateral; E66.9 Obesity, unspecified; F32.9 Major depressive disorder, single episode, unspecified; J45.909 Unspecified asthma, uncomplicated; N31.2 Flaccid neuropathic bladder, not elsewhere classified; N39.3 Stress incontinence (female) (male); H26.9 Unspecified cataract; I25.10 Atherosclerotic heart disease of native coronary artery without angina pectoris; I10 Essential (primary) hypertension; Z89.512 Acquired absence of left leg below knee; Z89.511 Acquired absence of right leg below knee; Z79.82 Long term (current) use of aspirin; Z95.0 Presence of cardiac pacemaker; Z87.01 Personal history of pneumonia (recurrent); Z68.37 Body mass index [BMI] 37.0-37.9, adult

== ENCOUNTER 2016-08-16 13:56 | Inpatient (IN) | payer OTHER, MEDICARE ==
[2016-08-16] MEDS ORDERED: Dibucaine 1% Oint(1 oz) TOP PRN (14:17)
[2016-08-16] MEDS: Oxycodone/Acetaminophen 10/325 mg Tab PO PRN ×2 (14:49→22:44)
[2016-08-16] MEDS: POLYETHYLENE GLYCOL 3350 17 GM/Dose PACKET PO SCH (17:47)
[2016-08-16] MEDS ORDERED: Hydrocortisone 2.5% Rectal Cream(30 gm) PR SCH (18:00)
[2016-08-16] MEDS: Hydrocortisone 2.5% Rectal Cream(30 gm) PR SCH (19:09)
[2016-08-16] MEDS: Albuterol-Ipratrop 3 mg / 0.5 (3 ml) UD IH SCH (21:35)
--- NOTE | 2016-08-17 00:08 | CP.PCM.PN ---
Subjective - Date & Time of Evaluation Date of Evaluation: 08/17/16 Time of Evaluation: 00:05 - Subjective Subjective: Patient was seen because she complained that tongue is red/beefy. Has soreness in tongue . Has no other complaints now. Medical record was reviewed. This 81 year old woman was admitted with back pain and hip pain after a fall from a wheelchair. Has PMH of chronic back pain,complete heart block , pace maker insertion, CAP , bilateral AKA, Rh arthritis, HLD, hypothyroidism, DJD. Objective - Vital Signs/Intake and Output Vital Signs (last 24 hours): Temp Pulse Resp BP Pulse Ox 98.6 F 60 18 123/59 L 97 08/16/16 18:23 08/16/16 18:23 08/16/16 18:23 08/16/16 18:23 08/16/16 16:00 - Medications Medications: Current Medications Albuterol/Ipratropium (Duoneb 3 Mg/0.5 Mg (3 Ml) Ud) 3 ml IH [id number] [facility] PRN Reason: Protocol Last Admin: 08/16/16 21:35 Dose: 3 ml Alprazolam (Xanax) 0.5 mg PO HS [facility] PRN Reason: Protocol Aspirin (Ecotrin) 81 mg PO 0800 [facility] PRN Reason: Protocol Atorvastatin Calcium (Lipitor) 20 mg PO HS [facility] PRN Reason: Protocol Last Admin: 08/16/16 22:40 Dose: 20 mg Calcium/Vitamin D (Oscal-D 250 Mg-125 Units Tab) 1 tab PO DAILY [facility] PRN Reason: Protocol Dibucaine (Nupercainal 1%) 1 oz TOP Q15MIN PRN; Protocol PRN Reason: Pain, moderate (4-7) Docusate Sodium (Colace) 100 mg PO DAILY [facility] PRN Reason: Protocol Gabapentin (Neurontin) 800 mg PO Q8H [facility] Last Admin: 08/16/16 22:40 Dose: 800 mg Hydrocortisone (Anusol-Hc) 0 gm [place] BID [facility] PRN Reason: Protocol Last Admin: 08/16/16 19:09 Dose: Not Given Ceftriaxone Sodium (Rocephin 1 Gram Ivpb) 100 mls @ 100 mls/hr IVPB 0600 [facility] PRN Reason: Protocol Levothyroxine Sodium (Synthroid) 25 mcg PO 0630 [facility] PRN Reason: Protocol Oxycodone/Acetaminophen (Percocet 10/325 Mg Tab) 1 tab PO Q4H PRN; Protocol PRN Reason: Pain, severe (8-10) Last Admin: 08/16/16 22:44 Dose: 1 tab Pantoprazole Sodium (Protonix Ec Tab) 40 mg PO 0630 [facility] PRN Reason: Protocol Polyethylene Glycol (Miralax) 17 gm PO BID [facility] PRN Reason: Protocol Last Admin: 08/16/16 17:47 Dose: 17 gm Prednisone (Prednisone Tab) 5 mg PO BID [facility] PRN Reason: Protocol Last Admin: 08/16/16 17:49 Dose: 5 mg Sertraline HCl (Zoloft) 100 mg PO DAILY [facility] PRN Reason: Protocol Sucralfate (Carafate Tab) 1 gm PO BID PRN; Protocol PRN Reason: Dyspepsia - Constitutional Appears: Well, No Acute Distress - Head Exam Head Exam: ATRAUMATIC, NORMAL INSPECTION, NORMOCEPHALIC - Eye Exam Eye Exam: Normal appearance - ENT Exam Additional comments: Tongue is red and velvety. - Neck Exam Neck Exam: Normal Inspection - Respiratory Exam Respiratory Exam: NORMAL BREATHING PATTERN - Cardiovascular Exam Cardiovascular Exam: absent: JVD - GI/Abdominal Exam GI & Abdominal Exam: absent: Distended - Rectal Exam Rectal Exam: Deferred - Extremities Exam Extremities Exam: Normal Inspection - Back Exam Back Exam: NORMAL INSPECTION - Neurological Exam Neurological Exam: Alert, Oriented x3 - Psychiatric Exam Psychiatric exam: Normal Affect, Normal Mood - Skin Skin Exam: Normal Color Assessment and Plan - Assessment and Plan (Free Text) Assessment: A/P: Soreness of tongue. Glossitis. R/O Niacin deficiency. Chronic back pain. Cepacol lozenges as ordered. Niacin level.
[2016-08-17] MEDS: Benzocaine/Menthol (Cepacol) Lozenge MT PRN (00:15)
[2016-08-17] MEDS: Albuterol-Ipratrop 3 mg / 0.5 (3 ml) UD IH SCH ×4 (02:15→21:27)
[2016-08-17] MEDS: cefTRIAXone 1 gm 100 ML IVPB SCH (05:42)
[2016-08-17] MEDS: Pantoprazole 40 mg EC Tab PO SCH (05:42)
[2016-08-17] MEDS: Levothyroxine 25 MCG TAB PO SCH (05:42)
[2016-08-17 06:43] LABS: ADD MANUAL DIFF? NO
[2016-08-17 07:04] LABS: INR 1.11 (0.93-1.08); PARTIAL THROMBOPLASTIN TIME 23.3 Seconds (23.7-30.8)
[2016-08-17 07:12] LABS: BASO # 0.03 K/mm3 (0.0-2.0); BASO % 0.4 % (0.0-3.0); EOS # 0.2 (0.0-0.7); EOS % 2.6 % (1.5-5.0); GRAN # 6.07 (1.4-6.5); GRAN % 77.6 % (50.0-68.0); HEMATOCRIT 31.4 % (36.0-48.0); LYMPH # 1.1 (1.2-3.4); LYMPH % 13.8 % (22.0-35.0); MEAN CELL VOLUME 89.5 fL (80.0-105.0); MEAN CORPUSCULAR HEMOGLOBIN 26.2 pg (25.0-35.0); MEAN CORPUSCULAR HGB CONC 29.3 g/dl (31.0-37.0); MONO # 0.4 (0.1-0.6); MONO % 5.6 % (1.0-6.0); PLATELET COUNT 366 10^3/uL (120.0-450.0); WHITE BLOOD COUNT 7.8 10^3/ul (4.5-11.0)
[2016-08-17 07:31] LABS: ALB/GLOB RATIO 0.8 (1.1-1.8); ALKALINE PHOSPHATASE 54 U/L (38-133); ALT/SGPT 40 U/L (7-56); AST/SGOT 34 U/L (15-39); BILIRUBIN,TOTAL 0.3 mg/dL (0.2-1.3); BLOOD UREA NITROGEN 12 mg/dL (7-21); CALCIUM 8.2 mg/dL (8.4-10.5); CARBON DIOXIDE 32 mmol/L (21-33); CHLORIDE 100 mmol/L (95-110); GFR AFRICAN-AMERICAN > 60; GLUCOSE,RANDOM 85 mg/dL (70-110); POTASSIUM 3.9 mmol/L (3.6-5.0); SODIUM 141 mmol/L (132-148); TOTAL PROTEIN 5.8 g/dL (5.8-8.3)
--- NOTE | 2016-08-17 07:56 | CP.PCM.PN ---
Subjective - Date & Time of Evaluation Date of Evaluation: 08/17/16 Time of Evaluation: 08:00 - Subjective Subjective: Stable on TCU now. No CP or SOB. V/S noted. PE: Lungs: clear Cor.: S1S2 Abd.: soft Ext.: no edema Neuro.: alert Labs noted. Objective - Vital Signs/Intake and Output Vital Signs (last 24 hours): Temp Pulse Resp BP Pulse Ox 98.6 F 60 18 123/59 L 97 08/16/16 18:23 08/16/16 18:23 08/16/16 18:23 08/16/16 18:23 08/16/16 16:00 - Medications Medications: Current Medications Albuterol/Ipratropium (Duoneb 3 Mg/0.5 Mg (3 Ml) Ud) 3 ml IH [id number] [facility] PRN Reason: Protocol Last Admin: 08/17/16 07:16 Dose: 3 ml Alprazolam (Xanax) 0.5 mg PO HS [facility] PRN Reason: Protocol Last Admin: 08/17/16 00:15 Dose: 0.5 mg Aspirin (Ecotrin) 81 mg PO 0800 [facility] PRN Reason: Protocol Atorvastatin Calcium (Lipitor) 20 mg PO HS [facility] PRN Reason: Protocol Last Admin: 08/16/16 22:40 Dose: 20 mg Benzocaine/Menthol (Cepacol Sore Throat) 1 jose miguel MT Q2H PRN PRN Reason: Sore Throat Last Admin: 08/17/16 00:15 Dose: 1 jose miguel Calcium/Vitamin D (Oscal-D 250 Mg-125 Units Tab) 1 tab PO DAILY [facility] PRN Reason: Protocol Dibucaine (Nupercainal 1%) 1 oz TOP Q15MIN PRN; Protocol PRN Reason: Pain, moderate (4-7) Docusate Sodium (Colace) 100 mg PO DAILY [facility] PRN Reason: Protocol Gabapentin (Neurontin) 800 mg PO Q8H [facility] Last Admin: 08/17/16 05:41 Dose: 800 mg Hydrocortisone (Anusol-Hc) 0 gm MS BID [facility] PRN Reason: Protocol Last Admin: 08/16/16 19:09 Dose: Not Given Ceftriaxone Sodium (Rocephin 1 Gram Ivpb) 100 mls @ 100 mls/hr IVPB 0600 [facility] PRN Reason: Protocol Last Admin: 08/17/16 05:42 Dose: 100 mls/hr Levothyroxine Sodium (Synthroid) 25 mcg PO 0630 [facility] PRN Reason: Protocol Last Admin: 08/17/16 05:42 Dose: 25 mcg Oxycodone/Acetaminophen (Percocet 10/325 Mg Tab) 1 tab PO Q4H PRN; Protocol PRN Reason: Pain, severe (8-10) Last Admin: 08/16/16 22:44 Dose: 1 tab Pantoprazole Sodium (Protonix Ec Tab) 40 mg PO 0630 [facility] PRN Reason: Protocol Last Admin: 08/17/16 05:42 Dose: 40 mg Polyethylene Glycol (Miralax) 17 gm PO BID [facility] PRN Reason: Protocol Last Admin: 08/16/16 17:47 Dose: 17 gm Prednisone (Prednisone Tab) 5 mg PO BID [facility] PRN Reason: Protocol Last Admin: 08/16/16 17:49 Dose: 5 mg Sertraline HCl (Zoloft) 100 mg PO DAILY [facility] PRN Reason: Protocol Sucralfate (Carafate Tab) 1 gm PO BID PRN; Protocol PRN Reason: Dyspepsia - Labs Labs: 08/17/16 06:10 08/17/16 06:10 PT 12.0 Seconds (9.9-11.8) H 08/17/16 06:10 INR 1.11 (0.93-1.08) H 08/17/16 06:10 APTT 23.3 Seconds (23.7-30.8) L 08/17/16 06:10 Assessment and Plan - Assessment and Plan (Free Text) Plan: Assessment: Mechanical fall from wheelchair Back and hip pain. Rectal Pain/Thrombosed Hemorrhoid UTI , mild RA Asthma HLD PAD Pascual. AKA's GERD Hypothyroidism Hypotonic Bladder/Stress Incontinence Pascual. THR Cataracts Plan: Minimal surgery for thrombosed hemorrhoid PT/Rehab. AB for UTI As per Dr. Toro, ID, Surgery
[2016-08-17] MEDS: Hydrocortisone 2.5% Rectal Cream(30 gm) PR SCH ×2 (09:18→17:50)
[2016-08-17] MEDS: POLYETHYLENE GLYCOL 3350 17 GM/Dose PACKET PO SCH ×2 (09:20→17:50)
[2016-08-17] MEDS: Calcium-Vit D 250 mg-125 Units Tab UD PO SCH (09:20)
--- NOTE | 2016-08-17 11:32 | PCM.SURG1 ---
Surgeon's Initial Post Op Note - Surgeon's Notes Surgeon: Dr. Jose Tombstone Erector: Dr. Wilson PGY-1, Dr. Maki Type of Anesthesia: General Endo Pre-Operative Diagnosis: Colon Cancer Operative Findings: See Operative note Post-Operative Diagnosis: Colon Cancer Operation Performed: Right Hemicolectomy Specimen/Specimens Removed: Right colon Estimated Blood Loss: EBL {In ML}: 20 Drains Used: No Drains Post-Op Condition: Fair Date of Surgery/Procedure: 08/17/16 Time of Surgery/Procedure: 11:32
--- NOTE | 2016-08-17 12:08 | CP.PCM.PCO ---
Physician Communication Note - Physician Communication Note Physician Communication Note: Dx Ext hemorrhoid thrombosis-needs surgery now
--- NOTE | 2016-08-17 16:32 | CP.PCM.CON ---
History of Present Illness - History of Present Illness History of Present Illness: 81 year old female with PMH of peripheral vascular disease S/P bilateral BKA, S/ P bilateral hip replacement, HTN, CAD, sick sinus syndrome S/P pacemaker placement, GERD, history of diverticulitis, history of urinary incontinence, depression, anxiety, history of eye cataracts, history of pneumonia, obesity with BMI 37 was initiall admitted in [facility] because of weakness and dysuria and was found to have UTI with P. mirabilis. She has been on antibiotics for this and is improving clinically. She is now transferred to [facility] for continued medical therapy and physical rehabilitation. Infectious diseases consult is requested to continue her antibiotic therapy. Currently the patient is comfortable in bed, not in distress. She denies fever or chills, no nausea or vomiting, no chest pain, no SOB, no cough or rhinorrhea, no sore throat, no dysphagia, no abdominal pain, no flank pain, no suprapubic pain. She is to undergo hemorrhoid surgery this afternoon. Review of Systems - Review of Systems All systems: reviewed and no additional remarkable complaints except (as per HPI ) Past Patient History - Infectious Disease Hx of Infectious Diseases: None - Past Medical History & Family History Past Medical History?: Yes Past Family History: Reviewed and not pertinent - Past Social History Smoking Status: Never Smoked Alcohol: None Drugs: Denies Home Situation {Lives}: With Family - CARDIAC Hx Cardiac Disorders: Yes (cad, heart block, sick sinus syndrome) Hx Hypertension: Yes - PULMONARY Hx Respiratory Disorders: Yes Hx Asthma: Yes Hx Pneumonia: Yes (aspiration) - NEUROLOGICAL Hx Neurological Disorder: No - HEENT Hx HEENT Problems: Yes (eyeglassees) Hx Cataracts: Yes (b/l) Hx Difficulty Chewing: No - RENAL Hx Chronic Kidney Disease: No - ENDOCRINE/METABOLIC Hx Hypothyroidism: Yes - HEMATOLOGICAL/ONCOLOGICAL Hx Blood Disorders: No - INTEGUMENTARY Hx Dermatological Problems: No Hx Squamous Cell: Yes (excision chest lesion) Other/Comment: left chest healing surgical incision for pacemaker, healed pressure ulcer to sacrum - MUSCULOSKELETAL/RHEUMATOLOGICAL Hx Falls: No - GASTROINTESTINAL Hx Gastrointestinal Disorders: Yes Hx Diverticulitis: Yes Hx Gastroesophageal Reflux: Yes Other/Comment: Hiatal hernia, celiac disease - GENITOURINARY/GYNECOLOGICAL Hx Incontinence: Yes Other/Comment: cysto, cystocele - PSYCHIATRIC Hx Psychophysiologic Disorder: Yes Hx Anxiety: Yes Hx Depression: Yes Hx Emotional Abuse: No Hx Physical Abuse: No - SURGICAL HISTORY Hx Surgeries: Yes - ANESTHESIA Hx Anesthesia Reactions: No Hx Malignant Hyperthermia: No Meds Allergies/Adverse Reactions: Allergies Allergy/AdvReac Type Severity Reaction Status Date / Time erythromycin base Allergy .anxiety Verified 08/12/16 06:05 levofloxacin [From Levaquin] Allergy .anxiety Verified 08/12/16 06:05 - Medications Medications: Current Medications Albuterol/Ipratropium (Duoneb 3 Mg/0.5 Mg (3 Ml) Ud) 3 ml IH [id number] [facility] PRN Reason: Protocol Last Admin: 08/17/16 02:15 Dose: Not Given Alprazolam (Xanax) 0.5 mg PO HS [facility] PRN Reason: Protocol Last Admin: 08/17/16 00:15 Dose: 0.5 mg Aspirin (Ecotrin) 81 mg PO 0800 [facility] PRN Reason: Protocol Atorvastatin Calcium (Lipitor) 20 mg PO HS [facility] PRN Reason: Protocol Last Admin: 08/16/16 22:40 Dose: 20 mg Benzocaine/Menthol (Cepacol Sore Throat) 1 jose miguel MT Q2H PRN PRN Reason: Sore Throat Last Admin: 08/17/16 00:15 Dose: 1 jose miguel Calcium/Vitamin D (Oscal-D 250 Mg-125 Units Tab) 1 tab PO DAILY [facility] PRN Reason: Protocol Dibucaine (Nupercainal 1%) 1 oz TOP Q15MIN PRN; Protocol PRN Reason: Pain, moderate (4-7) Docusate Sodium (Colace) 100 mg PO DAILY [facility] PRN Reason: Protocol Gabapentin (Neurontin) 800 mg PO Q8H [facility] Last Admin: 08/17/16 05:41 Dose: 800 mg Hydrocortisone (Anusol-Hc) 0 gm PA BID [facility] PRN Reason: Protocol Last Admin: 08/16/16 19:09 Dose: Not Given Ceftriaxone Sodium (Rocephin 1 Gram Ivpb) 100 mls @ 100 mls/hr IVPB 0600 [facility] PRN Reason: Protocol Last Admin: 08/17/16 05:42 Dose: 100 mls/hr Levothyroxine Sodium (Synthroid) 25 mcg PO 0630 [facility] PRN Reason: Protocol Last Admin: 08/17/16 05:42 Dose: 25 mcg Oxycodone/Acetaminophen (Percocet 10/325 Mg Tab) 1 tab PO Q4H PRN; Protocol PRN Reason: Pain, severe (8-10) Last Admin: 08/16/16 22:44 Dose: 1 tab Pantoprazole Sodium (Protonix Ec Tab) 40 mg PO 0630 [facility] PRN Reason: Protocol Last Admin: 08/17/16 05:42 Dose: 40 mg Polyethylene Glycol (Miralax) 17 gm PO BID [facility] PRN Reason: Protocol Last Admin: 08/16/16 17:47 Dose: 17 gm Prednisone (Prednisone Tab) 5 mg PO BID [facility] PRN Reason: Protocol Last Admin: 08/16/16 17:49 Dose: 5 mg Sertraline HCl (Zoloft) 100 mg PO DAILY [facility] PRN Reason: Protocol Sucralfate (Carafate Tab) 1 gm PO BID PRN; Protocol PRN Reason: Dyspepsia Physical Exam - Constitutional Appears: Non-toxic, No Acute Distress - Head Exam Head Exam: NORMAL INSPECTION - ENT Exam ENT Exam: Mucous Membranes Moist - Neck Exam Neck exam: Negative for: Lymphadenopathy, Meningismus - Respiratory Exam Respiratory Exam: Decreased Breath Sounds - Cardiovascular Exam Cardiovascular Exam: +S1, +S2 - GI/Abdominal Exam GI & Abdominal Exam: Soft. absent: Tenderness Results - Vital Signs Recent Vital Signs: Last Vital Signs Temp 98.6 F 08/16/16 18:23 Pulse 60 08/16/16 18:23 Resp 18 08/16/16 18:23 BP 123/59 L 08/16/16 18:23 Pulse Ox 97 08/16/16 16:00 - Labs Result Diagrams: 08/17/16 06:10 08/17/16 06:10 Assessment & Plan - Assessment and Plan (Free Text) Plan: Assessment Consider urinary tract infection, probably lower tract, growing P. mirabilis, clinically improving peripheral vascular disease S/P bilateral BKA S/P bilateral hip replacement HTN CAD sick sinus syndrome S/P pacemaker placement GERD history of diverticulitis history of urinary incontinence depression anxiety history of eye cataracts history of pneumonia obesity with BMI 37 Plan continue Rocephin (Day 5 of antibiotics); target 5-7 days of antibiotics Will continue to follow clinically
--- NOTE | 2016-08-17 16:33 | PCM.SURG1 ---
<Yoseph Wilson - Last Filed: 08/17/16 16:31> Surgeon's Initial Post Op Note - Surgeon's Notes Surgeon: Dr. Terrell Doper Operator: Dr. Wilson Type of Anesthesia: General IV Pre-Operative Diagnosis: Thrombosed external hemorrhoids Operative Findings: See operative note Post-Operative Diagnosis: Thrombosed external hemorrhoids Operation Performed: External hemorrhoid throbectomy and ligation Specimen/Specimens Removed: Thrombus Estimated Blood Loss: EBL {In ML}: 2 Drains Used: No Drains Post-Op Condition: Good Date of Surgery/Procedure: 08/17/16 Time of Surgery/Procedure: 14:00 <Jose Terrell - Last Filed: 08/18/16 17:52> Surgeon's Initial Post Op Note - Surgeon's Notes Operation Performed: External Hemorrhoidectomy
[2016-08-17] MEDS: Oxycodone/Acetaminophen 10/325 mg Tab PO PRN (17:47)
[2016-08-18] MEDS: Albuterol-Ipratrop 3 mg / 0.5 (3 ml) UD IH SCH ×4 (02:17→21:00)
[2016-08-18] MEDS: cefTRIAXone 1 gm 100 ML IVPB SCH (05:02)
[2016-08-18] MEDS: Oxycodone/Acetaminophen 5/325 mg Tab PO PRN ×2 (05:03→19:08)
[2016-08-18] MEDS: Levothyroxine 25 MCG TAB PO SCH (05:40)
[2016-08-18] MEDS: Pantoprazole 40 mg EC Tab PO SCH (05:40)
[2016-08-18] MEDS: Hydrocortisone 2.5% Rectal Cream(30 gm) PR SCH ×3 (10:05→17:33)
[2016-08-18] MEDS: Calcium-Vit D 250 mg-125 Units Tab UD PO SCH (10:06)
[2016-08-18] MEDS: POLYETHYLENE GLYCOL 3350 17 GM/Dose PACKET PO SCH ×2 (10:06→17:31)
[2016-08-18] MEDS: Oxycodone/Acetaminophen 10/325 mg Tab PO PRN (11:38)
--- NOTE | 2016-08-18 15:07 | CP.PCM.PN ---
Subjective - Date & Time of Evaluation Date of Evaluation: 08/18/16 Time of Evaluation: 07:10 - Subjective Subjective: General Surgery Progress Note for Dr. Terrell This 81F was seen and examined by me this AM at bedside. She reports no acute events overnight. She reports pain relativly well controlled. She denies any nausea vomiting chest pain, SOB, fevers or chills. No new complaints at this time. Objective - Vital Signs/Intake and Output Vital Signs (last 24 hours): Temp Pulse Resp BP Pulse Ox 97.6 F 61 18 118/59 L 99 08/18/16 10:00 08/18/16 10:00 08/18/16 10:00 08/18/16 10:00 08/18/16 10:00 Intake and Output: 08/18/16 08/18/16 06:59 18:59 Intake Total 420 Balance 420 - Medications Medications: Current Medications Albuterol/Ipratropium (Duoneb 3 Mg/0.5 Mg (3 Ml) Ud) 3 ml IH [id number] LUCY PRN Reason: Protocol Last Admin: 08/18/16 13:47 Dose: 3 ml Alprazolam (Xanax) 0.5 mg PO HS LUCY PRN Reason: Protocol Last Admin: 08/17/16 23:00 Dose: Not Given Aspirin (Ecotrin) 81 mg PO 0800 LUCY PRN Reason: Protocol Atorvastatin Calcium (Lipitor) 20 mg PO HS LUCY PRN Reason: Protocol Last Admin: 08/17/16 22:27 Dose: 20 mg Benzocaine/Menthol (Cepacol Sore Throat) 1 jose miguel MT Q2H PRN PRN Reason: Sore Throat Last Admin: 08/17/16 00:15 Dose: 1 jose miguel Calcium/Vitamin D (Oscal-D 250 Mg-125 Units Tab) 1 tab PO DAILY LUCY PRN Reason: Protocol Last Admin: 08/18/16 10:06 Dose: 1 tab Dibucaine (Nupercainal 1%) 1 oz TOP Q15MIN PRN; Protocol PRN Reason: Pain, moderate (4-7) Docusate Sodium (Colace) 100 mg PO DAILY LUCY PRN Reason: Protocol Last Admin: 08/18/16 10:05 Dose: 100 mg Gabapentin (Neurontin) 800 mg PO Q8H LUCY Last Admin: 08/18/16 14:15 Dose: 800 mg Hydrocortisone (Anusol-Hc) 0 gm NC BID LUCY PRN Reason: Protocol Last Admin: 08/18/16 10:05 Dose: 1 applic Ceftriaxone Sodium (Rocephin 1 Gram Ivpb) 100 mls @ 100 mls/hr IVPB 0600 LUCY PRN Reason: Protocol Last Admin: 08/18/16 05:02 Dose: 100 mls/hr Levothyroxine Sodium (Synthroid) 25 mcg PO 0630 LUCY PRN Reason: Protocol Last Admin: 08/18/16 05:40 Dose: 25 mcg Oxycodone/Acetaminophen (Percocet 10/325 Mg Tab) 1 tab PO Q4H PRN; Protocol PRN Reason: Pain, severe (8-10) Last Admin: 08/18/16 11:38 Dose: 1 tab Oxycodone/Acetaminophen (Percocet 5/325 Mg Tab) 1 tab PO Q6H PRN PRN Reason: Pain, moderate (4-7) Stop: 08/20/16 14:49 Last Admin: 08/18/16 05:03 Dose: 1 tab Pantoprazole Sodium (Protonix Ec Tab) 40 mg PO 0630 LUCY PRN Reason: Protocol Last Admin: 08/18/16 05:40 Dose: 40 mg Polyethylene Glycol (Miralax) 17 gm PO BID LUCY PRN Reason: Protocol Last Admin: 08/18/16 10:06 Dose: 17 gm Prednisone (Prednisone Tab) 5 mg PO BID LUCY PRN Reason: Protocol Last Admin: 08/18/16 10:07 Dose: 5 mg Sertraline HCl (Zoloft) 100 mg PO DAILY LUCY PRN Reason: Protocol Last Admin: 08/18/16 10:07 Dose: 100 mg Sucralfate (Carafate Tab) 1 gm PO BID PRN; Protocol PRN Reason: Dyspepsia - Labs Labs: 08/17/16 06:10 08/17/16 06:10 PT 12.0 Seconds (9.9-11.8) H 08/17/16 06:10 INR 1.11 (0.93-1.08) H 08/17/16 06:10 APTT 23.3 Seconds (23.7-30.8) L 08/17/16 06:10 - Constitutional Appears: Non-toxic, No Acute Distress - Head Exam Head Exam: ATRAUMATIC, NORMOCEPHALIC - Eye Exam Eye Exam: EOMI, Normal appearance - ENT Exam ENT Exam: Mucous Membranes Moist, Normal Exam - Rectal Exam Additional comments: Wound well aproximated non erythematous Assessment and Plan - Assessment and Plan (Free Text) Assessment: This is a 81F who is POD#1 s/p hemorrhoidectomy of a thrombosed external hemorrhoid and doing well Patient is clear for DC from a surgical perspective.
--- NOTE | 2016-08-18 16:42 | DS ---
This is a 81-year-old female who had come into the hospital because of a fall. She was found to have urinary tract infection secondary to Proteus and that has improved. The patient was complaining of hemorrhoid pain and was taken to the OR by Dr. Terrell for external hemorrhoid thrombectomy and liga tion. She did fairly well. She is going to be discharged home to follow up as an outpatient. She i s finishing her Rocephin today and her antibiotics will be discontinued. No chest pain, shortness of breath or headaches. PHYSICAL EXAMINATION: VITAL SIGNS: Temperature 98.4, pulse 60, blood pressure 134/63, respirations 20. O2 saturation 94%. GENERAL: Patient lying in bed, flat, and in no apparent distress. HEAD AND NECK EXAM: Atraumatic, normocephalic. Conjunctivae are pink. Throat clear and mouth with moist mucosa. Oropharynx benign. EYES: Extraocular movements are intact. PERRLA. NECK: Supple. No JVD, thyromegaly, or adenopathy. No bruits. HEART: S1 and S2 regular rate and rhythm. No murmurs, rubs, or gallops. LUNGS: Clear to auscultation bilaterally. No wheezing rales or rhonchi appreciated. No retraction s on exam. ABDOMEN: Soft, nontender, nondistended. Bowel sounds are positive in all quadrants. No rebound. No hepatosplenomegaly. EXTREMITIES: No cyanosis, clubbing, or edema. NEURO: No facial asymmetry, tongue is midline, no uvula deviation. Power is 5/5 in upper extremity and 5/5 in lower extremity. Sensation is normal in upper extremity and lower extremity. PSYCH: Awake, alert, oriented x3. No anxiety or depression symptoms. Good insight. Normal affec t. : No CVA tenderness VASCULAR: 2+ pulses in carotid and pedal pulses. SKIN: No erythema or abnormal nodules noted. SPINE: Normal curvature. LYMPHADENOPATHY: No anterior cervical or posterior cervical adenopathy. No inguinal adenopathy. ASSESSMENT: 1. Fall. 2. Urinary tract infection secondary to Proteus mirabilis. 3. Diabetes mellitus type 2. 4. Chronic obstructive pulmonary disease. 5. Rheumatoid arthritis. 6. Hemorrhoid thrombectomy postoperative day #1. PLAN: The patient is not uncomfortable. She is on Colace for constipation and hemorrhoids. She is on Lipitor for dyslipidemia. She is on MiraLAX. She will continue with Neurontin. She will use chris cium for her osteoporosis. She is on Percocet for pain and I gave her a prescription for Percocet __ ___ to take home. This is her chronic pain medication. She is on Synthroid for hypothyroidism. She is on prednisone b.i.d. She is going to be discharged home today to follow up as an outpatient. Jennifer thompson is homebound and it is very difficult for her to get to the office. CONDITION: Stable. ACTIVITIES: Increase as tolerated. Jason Toro MD cc: [id number] TT: 08/18/2016 16:42:07 dn
[2016-08-19] MEDS: Albuterol-Ipratrop 3 mg / 0.5 (3 ml) UD IH SCH ×4 (01:43→20:11)
[2016-08-19] MEDS: Oxycodone/Acetaminophen 5/325 mg Tab PO PRN ×3 (05:25→20:08)
[2016-08-19] MEDS: cefTRIAXone 1 gm 100 ML IVPB SCH (05:26)
[2016-08-19] MEDS: Levothyroxine 25 MCG TAB PO SCH (05:30)
[2016-08-19] MEDS: Pantoprazole 40 mg EC Tab PO SCH (05:30)
[2016-08-19] MEDS: Hydrocortisone 2.5% Rectal Cream(30 gm) PR SCH ×2 (09:53→17:47)
[2016-08-19] MEDS: POLYETHYLENE GLYCOL 3350 17 GM/Dose PACKET PO SCH ×2 (09:54→17:48)
[2016-08-19] MEDS: Calcium-Vit D 250 mg-125 Units Tab UD PO SCH (09:55)
[2016-08-19] MEDS: Bisacodyl 5mg EC Tab PO SCH (11:00)
--- NOTE | 2016-08-19 18:21 | CP.PCM.PN ---
Subjective - Date & Time of Evaluation Date of Evaluation: 08/19/16 Time of Evaluation: 10:00 - Subjective Subjective: Comfortable, afebrile, not in distress, no diarrhea. Objective - Vital Signs/Intake and Output Vital Signs (last 24 hours): Temp Pulse Resp BP Pulse Ox 98.1 F 61 18 120/58 L 95 08/19/16 10:00 08/19/16 10:00 08/19/16 10:00 08/19/16 10:00 08/19/16 10:00 Intake and Output: 08/19/16 08/19/16 06:59 18:59 Intake Total 420 Balance 420 - Medications Medications: Current Medications Albuterol/Ipratropium (Duoneb 3 Mg/0.5 Mg (3 Ml) Ud) 3 ml IH [id number] LUCY PRN Reason: Protocol Last Admin: 08/19/16 13:14 Dose: 3 ml Alprazolam (Xanax) 0.5 mg PO HS LUCY PRN Reason: Protocol Last Admin: 08/18/16 21:53 Dose: 0.5 mg Aspirin (Ecotrin) 81 mg PO 0800 LUCY PRN Reason: Protocol Atorvastatin Calcium (Lipitor) 20 mg PO HS LUCY PRN Reason: Protocol Last Admin: 08/18/16 21:52 Dose: 20 mg Benzocaine/Menthol (Cepacol Sore Throat) 1 jose miguel MT Q2H PRN PRN Reason: Sore Throat Last Admin: 08/17/16 00:15 Dose: 1 jose miguel Bisacodyl (Dulcolax) 5 mg PO DAILY [facility] Last Admin: 08/19/16 11:00 Dose: Not Given Calcium/Vitamin D (Oscal-D 250 Mg-125 Units Tab) 1 tab PO DAILY LUCY PRN Reason: Protocol Last Admin: 08/19/16 09:55 Dose: 1 tab Dibucaine (Nupercainal 1%) 1 oz TOP Q15MIN PRN; Protocol PRN Reason: Pain, moderate (4-7) Docusate Sodium (Colace) 100 mg PO DAILY LUCY PRN Reason: Protocol Last Admin: 08/19/16 09:53 Dose: 100 mg Gabapentin (Neurontin) 800 mg PO Q8H LUCY Last Admin: 08/19/16 14:17 Dose: 800 mg Hydrocortisone (Anusol-Hc) 0 gm AR BID LUCY PRN Reason: Protocol Last Admin: 08/19/16 17:47 Dose: Not Given Ceftriaxone Sodium (Rocephin 1 Gram Ivpb) 100 mls @ 100 mls/hr IVPB 0600 LUCY PRN Reason: Protocol Last Admin: 08/19/16 05:26 Dose: 100 mls/hr Levothyroxine Sodium (Synthroid) 25 mcg PO 0630 LUCY PRN Reason: Protocol Last Admin: 08/19/16 05:30 Dose: 25 mcg Oxycodone/Acetaminophen (Percocet 10/325 Mg Tab) 1 tab PO Q4H PRN; Protocol PRN Reason: Pain, severe (8-10) Last Admin: 08/18/16 11:38 Dose: 1 tab Oxycodone/Acetaminophen (Percocet 5/325 Mg Tab) 1 tab PO Q6H PRN PRN Reason: Pain, moderate (4-7) Stop: 08/20/16 14:49 Last Admin: 08/19/16 11:45 Dose: 1 tab Pantoprazole Sodium (Protonix Ec Tab) 40 mg PO 0630 LUCY PRN Reason: Protocol Last Admin: 08/19/16 05:30 Dose: 40 mg Polyethylene Glycol (Miralax) 17 gm PO BID LUCY PRN Reason: Protocol Last Admin: 08/19/16 17:48 Dose: Not Given Prednisone (Prednisone Tab) 5 mg PO BID LUCY PRN Reason: Protocol Last Admin: 08/19/16 17:48 Dose: 5 mg Sertraline HCl (Zoloft) 100 mg PO DAILY LUCY PRN Reason: Protocol Last Admin: 08/19/16 09:56 Dose: 100 mg Sucralfate (Carafate Tab) 1 gm PO BID PRN; Protocol PRN Reason: Dyspepsia - Labs Labs: 08/17/16 06:10 08/17/16 06:10 PT 12.0 Seconds (9.9-11.8) H 08/17/16 06:10 INR 1.11 (0.93-1.08) H 08/17/16 06:10 APTT 23.3 Seconds (23.7-30.8) L 08/17/16 06:10 - Constitutional Appears: Non-toxic, No Acute Distress - Head Exam Head Exam: NORMAL INSPECTION - ENT Exam ENT Exam: Mucous Membranes Moist - Neck Exam Neck Exam: absent: Lymphadenopathy, Meningismus - Respiratory Exam Respiratory Exam: Decreased Breath Sounds - Cardiovascular Exam Cardiovascular Exam: +S1, +S2 - GI/Abdominal Exam GI & Abdominal Exam: Soft. absent: Tenderness Assessment and Plan - Assessment and Plan (Free Text) Plan: Assessment Consider urinary tract infection, probably lower tract, growing P. mirabilis, clinically improving peripheral vascular disease S/P bilateral BKA S/P bilateral hip replacement HTN CAD sick sinus syndrome S/P pacemaker placement GERD history of diverticulitis history of urinary incontinence depression anxiety history of eye cataracts history of pneumonia obesity with BMI 37 Plan continue Rocephin (Day 6 of antibiotics); target 5-7 days of antibiotics - will d/c after tomorrow's dose Will continue to follow clinically
[2016-08-20] MEDS: Albuterol-Ipratrop 3 mg / 0.5 (3 ml) UD IH SCH ×4 (02:13→20:55)
[2016-08-20] MEDS: cefTRIAXone 1 gm 100 ML IVPB SCH (05:47)
[2016-08-20] MEDS: Levothyroxine 25 MCG TAB PO SCH (05:48)
[2016-08-20] MEDS: Pantoprazole 40 mg EC Tab PO SCH (05:49)
[2016-08-20] MEDS: Oxycodone/Acetaminophen 5/325 mg Tab PO PRN ×3 (09:26→22:21)
[2016-08-20] MEDS: Hydrocortisone 2.5% Rectal Cream(30 gm) PR SCH ×2 (09:26→17:09)
[2016-08-20] MEDS: POLYETHYLENE GLYCOL 3350 17 GM/Dose PACKET PO SCH ×2 (09:34→17:09)
[2016-08-20] MEDS: Bisacodyl 5mg EC Tab PO SCH (09:34)
[2016-08-20] MEDS: Calcium-Vit D 250 mg-125 Units Tab UD PO SCH (09:34)
--- NOTE | 2016-08-20 10:01 | CON ---
DATE: 08/20/2016 REFERRING PHYSICIAN: Dr. Toro. REASON FOR CONSULTATION: Asthma. History is obtained via extensive discussion with the nurse. I have also reviewed the chart at length, and discussed the case with the patient at length. The patient is a 81-year-old chronically ill female, with past medical history significant for peripheral vascular disease, status post bilateral below-the- knee amputations, status post bilateral hip replacements,asthma, hypertension, coronary artery disease, sick sinus syndrome, status post pacemaker insertion, who was originally admitted to [facility] - on 08/12/2016 - after falling off her wheelchair at home. In the Emergency Room, the patient complained of dysuria and urinary frequency. A urinary tract infection was diagnosed (in the Emergency Room). She was thus admitted for additional evaluation. Again, I did discuss the case with the patient and nurse at length. There is no history of shortness of breath at rest. There is a history of chronic occasional cough with minimal sputum production. There is no history of chest pain, coughing up of blood or chest pain - made worse with deep respirations. There have been no recent temperatures noted in the patient. No history of chills or infectious exposure. No history of night sweats, weight loss or appetite change prior to the above events. No history of leg pains. No history of syncope or diaphoresis. No history of recent travel. REVIEW OF SYSTEMS: +mild nasal symptoms.No history of nausea, vomiting or diarrhea. No new neurologic complaints. Rest of review of systems is negative. ALLERGIES: ERYTHROMYCIN AND LEVAQUIN. SOCIAL HISTORY: Negative tobacco. Negative for alcohol. FAMILY HISTORY: No inheritable diseases. HOME MEDICATIONS: Include Ecotrin, Xanax, Percocet, Prilosec, Synthroid, Lipitor, Carafate, sertraline and Colace. PHYSICAL EXAMINATION: GENERAL: The patient appears comfortable at rest. She is not short of breath. VITAL SIGNS (last noted in the computer): Temperature is 98.1, pulse 61, respirations 18, blood pressure 120/58. Oxygen saturation on nasal cannula is 95-100%. HEENT: Normocephalic, atraumatic. No JVD. CARDIOVASCULAR: Systolic ejection murmur at the lower left sternal border. No S3 gallop. LUNGS: Clear bilaterally. EXTREMITIES: The patient is status post bilateral [id number] amputations. GASTROINTESTINAL: Abdomen is soft, nontender, nondistended. Bowel sounds are positive. SKIN: No acute rash. NEUROLOGIC: Limited at the present time. PERTINENT LABORATORY DATA: Chest x-ray was last done on 08/15/2016. There was no significant change from the previous films. CBC: White count 7.8, hemoglobin 9.2, hematocrit 31.4, platelets of 366. Complete metabolic profile: Creatinine 0.4, calcium 8.2, albumin 2.6. Rest of the metabolic profile is within normal limits. IMPRESSION: 1. Urosepsis. 2. Status post fall at home. 3. Asthma. 4. Peripheral vascular disease. 5. Sick sinus syndrome, status post pacemaker insertion. PLAN: Again, I did discuss the case with the nurse and the patient at length. I have also reviewed the chart at length. The patient was admitted - originally on 08/12/2016 - after falling at home. In the Emergency Room, an acute urinary tract infection was diagnosed - and the patient was thus admitted for additional evaluation and treatment. The patient was treated appropriately and improved clinically. She was then transferred to the transitional unit for physical therapy. As above, the patient does complain of an occasional cough with minimal sputum production. She has no other pulmonary symptoms at this point in time. I did review the x-ray as above. There is no significant change from the previous films. On physical exam, her lungs are clear. Oxygen saturation on nasal cannula is 95-100%. I will continue with the current nebulizer treatments and low-dose oral steroids for now. The patient remains on antibiotic therapy - as per infectious disease. There are no recent temperatures noted. The leukocytosis has resolved. Clinical status of the patient is certainly improved - compared to the initial presentation. However, the overall status/prognosis for this elderly patient with multiple medical problems - remains guarded. I will discuss the above with Dr. Toro. Thank you very much for this pulmonary consultation. Bijan Tran MD cc: [phone] TT: 08/20/2016 10:00:48 Confirmation # [id number] Dictation # [id number] michael MAYER
--- NOTE | 2016-08-20 12:29 | DS ---
SUBJECTIVE: The patient has no complaints of any chest pain, no shortness of breath, no headaches, n o dizziness. She said that she wants to stay in the hospital to get further rehab. PHYSICAL EXAMINATION: VITAL SIGNS: Temperature is 98.1, pulse of 61, blood pressure is 120/58, respirations 18. GENERAL: The patient comfortable, in no acute distress. HEENT: Anicteric sclerae. Moist mucosa. NECK: No JVD or adenopathy. CARDIAC: S1/S2. No murmurs. No rubs. Regular. RESPIRATORY: Clear to auscultation bilaterally. No wheezes, rales, or rhonchi. Good air entry. ABDOMEN: Bowel sounds are positive, soft, nontender, and nondistended. EXTREMITIES: No edema. Has 1+ pulses. Please see the discharge summary done on 08/19/2015. ASSESSMENT: 1. Fall. 2. Urinary tract infection, secondary to Proteus. 3. Diabetes type 2. 4. Chronic obstructive pulmonary disease. 5. Rheumatoid arthritis. 6. Thrombectomy, postop day #1. PLAN: The patient is currently receiving hydrocortisone for her hemorrhoids. She is receiving Colac e. She is going to be on aspirin daily. She is going to be on Lipitor for dyslipidemia. She is on her polyethylene glycol for constipation. She is receiving Percocet for pain. She is on Synthroid f or hypothyroidism. She is on prednisone. CONDITION: Stable. ACTIVITY: Increase as tolerated. Jason Toro MD cc: [id number] TT: 08/20/2016 10:27:41 en
--- NOTE | 2016-08-20 19:26 | CP.PCM.PN ---
Subjective - Date & Time of Evaluation Date of Evaluation: 08/20/16 Time of Evaluation: 10:30 - Subjective Subjective: Comfortable in bed, not in distress, no fevers, no diarrhea. Objective - Vital Signs/Intake and Output Vital Signs (last 24 hours): Temp Pulse Resp BP Pulse Ox 98.4 F 60 20 104/43 L 92 L 08/20/16 16:00 08/20/16 16:00 08/20/16 16:00 08/20/16 16:00 08/20/16 16:00 - Medications Medications: Current Medications Albuterol/Ipratropium (Duoneb 3 Mg/0.5 Mg (3 Ml) Ud) 3 ml IH [id number] LUCY PRN Reason: Protocol Last Admin: 08/20/16 13:14 Dose: 3 ml Alprazolam (Xanax) 0.5 mg PO HS LUCY PRN Reason: Protocol Last Admin: 08/20/16 01:47 Dose: 0.5 mg Aspirin (Ecotrin) 81 mg PO 0800 LUCY PRN Reason: Protocol Atorvastatin Calcium (Lipitor) 20 mg PO HS LUCY PRN Reason: Protocol Last Admin: 08/19/16 21:56 Dose: 20 mg Benzocaine/Menthol (Cepacol Sore Throat) 1 jose miguel MT Q2H PRN PRN Reason: Sore Throat Last Admin: 08/17/16 00:15 Dose: 1 jose miguel Bisacodyl (Dulcolax) 5 mg PO DAILY [facility] Last Admin: 08/20/16 09:34 Dose: Not Given Calcium/Vitamin D (Oscal-D 250 Mg-125 Units Tab) 1 tab PO DAILY LUCY PRN Reason: Protocol Last Admin: 08/20/16 09:34 Dose: 1 tab Dibucaine (Nupercainal 1%) 1 oz TOP Q15MIN PRN; Protocol PRN Reason: Pain, moderate (4-7) Docusate Sodium (Colace) 100 mg PO DAILY LUCY PRN Reason: Protocol Last Admin: 08/20/16 09:35 Dose: Not Given Gabapentin (Neurontin) 800 mg PO Q8H LUCY Last Admin: 08/20/16 13:31 Dose: 800 mg Hydrocortisone (Anusol-Hc) 0 gm [place] BID LUCY PRN Reason: Protocol Last Admin: 08/20/16 17:09 Dose: 1 applic Levothyroxine Sodium (Synthroid) 25 mcg PO 0630 LUCY PRN Reason: Protocol Last Admin: 08/20/16 05:48 Dose: 25 mcg Oxycodone/Acetaminophen (Percocet 5/325 Mg Tab) 1 tab PO Q6H PRN; Protocol PRN Reason: Pain, moderate (4-7) Stop: 08/23/16 15:01 Last Admin: 08/20/16 15:31 Dose: 1 tab Pantoprazole Sodium (Protonix Ec Tab) 40 mg PO 0630 LUCY PRN Reason: Protocol Last Admin: 08/20/16 05:49 Dose: 40 mg Polyethylene Glycol (Miralax) 17 gm PO BID LUCY PRN Reason: Protocol Last Admin: 08/20/16 17:09 Dose: Not Given Prednisone (Prednisone Tab) 5 mg PO BID LUCY PRN Reason: Protocol Last Admin: 08/20/16 17:10 Dose: 5 mg Sertraline HCl (Zoloft) 100 mg PO DAILY LUCY PRN Reason: Protocol Last Admin: 08/20/16 09:34 Dose: 100 mg Sucralfate (Carafate Tab) 1 gm PO BID PRN; Protocol PRN Reason: Dyspepsia - Labs Labs: 08/17/16 06:10 08/17/16 06:10 PT 12.0 Seconds (9.9-11.8) H 08/17/16 06:10 INR 1.11 (0.93-1.08) H 08/17/16 06:10 APTT 23.3 Seconds (23.7-30.8) L 08/17/16 06:10 - Constitutional Appears: Non-toxic, No Acute Distress - Head Exam Head Exam: NORMAL INSPECTION - Neck Exam Neck Exam: absent: Meningismus - Respiratory Exam Respiratory Exam: Decreased Breath Sounds - Cardiovascular Exam Cardiovascular Exam: +S1, +S2 - GI/Abdominal Exam GI & Abdominal Exam: Soft. absent: Tenderness Assessment and Plan - Assessment and Plan (Free Text) Plan: Assessment Consider urinary tract infection, probably lower tract, growing P. mirabilis, clinically improved peripheral vascular disease S/P bilateral BKA S/P bilateral hip replacement HTN CAD sick sinus syndrome S/P pacemaker placement GERD history of diverticulitis history of urinary incontinence depression anxiety history of eye cataracts history of pneumonia obesity with BMI 37 Plan on Rocephin (Day 7 of antibiotics); target 5-7 days of antibiotics - will d/c after today Will continue to follow clinically
[2016-08-21] MEDS: Albuterol-Ipratrop 3 mg / 0.5 (3 ml) UD IH SCH ×4 (02:18→20:36)
[2016-08-21] MEDS: Pantoprazole 40 mg EC Tab PO SCH (05:20)
[2016-08-21] MEDS: Levothyroxine 25 MCG TAB PO SCH (05:21)
[2016-08-21] MEDS: Oxycodone/Acetaminophen 5/325 mg Tab PO PRN ×3 (05:29→21:55)
--- NOTE | 2016-08-21 09:38 | PN ---
DATE: 08/21/2016 SUBJECTIVE: The patient appears comfortable at rest. She is not short of breath. PHYSICAL EXAMINATION: VITAL SIGNS: Temperature is 98.4, pulse 60, respirations 18/20, blood pressure 104/43. Oxygen saturation on nasal cannula ranges between 92-100%. HEENT: Normocephalic, atraumatic. No JVD. CARDIOVASCULAR: Systolic ejection murmur at the lower left sternal border. No S3 gallop. LUNGS: Clear bilaterally. EXTREMITIES: Status post bilateral [id number] amputations. GASTROINTESTINAL: Abdomen is soft, nontender, nondistended. Bowel sounds are positive. SKIN: No acute rash. NEUROLOGIC: Limited at the present time. IMPRESSION: 1. Urosepsis. 2. Status post fall at home. 3. Asthma. 4. Peripheral vascular disease. 5. Sick sinus syndrome, status post permanent pacemaker insertion. PLAN: The patient appears very comfortable this morning. She is not short of breath at rest. On physical exam, her lungs remain clear. Oxygen saturation on nasal cannula is 92-100%. I will continue with the current nebulizer treatments for now. I would continue with the cardiology and infectious disease evaluations. Inputs are noted. Clinical status of the patient is significantly improved -- compared to the initial presentation. I will discuss the above with Dr. Toro. Bijan Tran MD cc: [id number] TT: 08/21/2016 09:37:43 Confirmation # [id number] Dictation # [id number] tn MTDD
[2016-08-21] MEDS: POLYETHYLENE GLYCOL 3350 17 GM/Dose PACKET PO SCH ×2 (09:50→17:31)
[2016-08-21] MEDS: Hydrocortisone 2.5% Rectal Cream(30 gm) PR SCH ×2 (09:50→17:31)
[2016-08-21] MEDS: Calcium-Vit D 250 mg-125 Units Tab UD PO SCH (09:50)
[2016-08-21] MEDS: Bisacodyl 5mg EC Tab PO SCH (09:50)
[2016-08-21 12:53] LABS: NICOTINAMIDE 24 ng/mL (()); NICOTINIC ACID < 20 ng/mL (())
[2016-08-21] MEDS: Benzocaine/Menthol (Cepacol) Lozenge MT PRN (14:45)
[2016-08-22] MEDS: Albuterol-Ipratrop 3 mg / 0.5 (3 ml) UD IH SCH ×4 (03:00→20:26)
[2016-08-22] MEDS: Levothyroxine 25 MCG TAB PO SCH (05:49)
[2016-08-22] MEDS: Pantoprazole 40 mg EC Tab PO SCH (05:49)
[2016-08-22] MEDS: Oxycodone/Acetaminophen 5/325 mg Tab PO PRN ×3 (08:17→21:30)
--- NOTE | 2016-08-22 08:37 | PN ---
DATE: 08/22/2016 SUBJECTIVE: The patient appears very comfortable at rest. She is not short of breath. PHYSICAL EXAMINATION: VITAL SIGNS: Temperature is 98.6, pulse at the present time is approximately 80 , respirations 18/20, blood pressure 119/55. Oxygen saturation on nasal cannula is 95%. HEENT: Normocephalic, atraumatic. NECK: No JVD. CARDIOVASCULAR: Systolic ejection murmur at the lower left sternal border. No S3 gallop. LUNGS: Clear bilaterally. EXTREMITIES: Status post bilateral [id number] amputations. GASTROINTESTINAL: Abdomen is soft, nontender, nondistended. Bowel sounds are positive. SKIN: No acute rash. NEUROLOGIC: Limited at the present time. IMPRESSION: 1. Urosepsis. 2. Status post fall at home. 3. Asthma. 4. Peripheral vascular disease. 5. Sick sinus syndrome, status post permanent pacemaker insertion. 6. Mild rhinitis. PLAN: The patient appears very comfortable this morning. She is not short of breath at rest. She states she is feeling much better overall. She does complain of a constant postnasal drip. On physical exam, her lungs remain clear. Oxygen saturation on nasal cannula is 95%. I will continue with the current nebulizer treatments for now. The steroids have been decreased. I will also start Flonase this morning. Infectious disease evaluation is also noted. Clinical status of the patient is significantly improved -- compared to the initial presentation. However, the overall status/prognosis--for this elderly patient with multiple medical problems-- remains guarded. I will discuss the above with the attending physician. Bijan Tran MD cc: [id number] TT: 08/22/2016 08:36:46 Confirmation # [id number] Dictation # [id number] jn MORENO
[2016-08-22] MEDS: Hydrocortisone 2.5% Rectal Cream(30 gm) PR SCH ×2 (09:25→17:54)
[2016-08-22] MEDS: Bisacodyl 5mg EC Tab PO SCH (09:33)
[2016-08-22] MEDS: Calcium-Vit D 250 mg-125 Units Tab UD PO SCH (09:36)
[2016-08-22] MEDS: POLYETHYLENE GLYCOL 3350 17 GM/Dose PACKET PO SCH ×2 (09:36→17:54)
[2016-08-22] MEDS: Fluticasone Nasal 50 mcg/Spray NS SCH (10:46)
--- NOTE | 2016-08-22 14:34 | CP.PCM.PN ---
Subjective - Date & Time of Evaluation Date of Evaluation: 08/22/16 Time of Evaluation: 14:00 - Subjective Subjective: Comfortably doing her rehab, not in distress, no fevers overnight. Objective - Vital Signs/Intake and Output Vital Signs (last 24 hours): Temp Pulse Resp BP Pulse Ox 97.9 F 79 18 119/55 L 100 08/22/16 10:00 08/22/16 10:00 08/22/16 10:00 08/21/16 15:46 08/22/16 10:00 Intake and Output: 08/22/16 08/22/16 06:59 18:59 Intake Total 480 420 Balance 480 420 - Medications Medications: Current Medications Albuterol/Ipratropium (Duoneb 3 Mg/0.5 Mg (3 Ml) Ud) 3 ml IH [id number] LUCY PRN Reason: Protocol Last Admin: 08/22/16 13:19 Dose: 3 ml Alprazolam (Xanax) 0.5 mg PO HS LUCY PRN Reason: Protocol Last Admin: 08/22/16 00:53 Dose: Not Given Aspirin (Ecotrin) 81 mg PO 0800 LUCY PRN Reason: Protocol Atorvastatin Calcium (Lipitor) 20 mg PO HS LUCY PRN Reason: Protocol Last Admin: 08/21/16 21:54 Dose: 20 mg Benzocaine/Menthol (Cepacol Sore Throat) 1 jose miguel MT Q2H PRN PRN Reason: Sore Throat Last Admin: 08/21/16 14:45 Dose: 1 jose miguel Bisacodyl (Dulcolax) 5 mg PO DAILY [facility] Last Admin: 08/22/16 09:33 Dose: Not Given Calcium/Vitamin D (Oscal-D 250 Mg-125 Units Tab) 1 tab PO DAILY LUCY PRN Reason: Protocol Last Admin: 08/22/16 09:36 Dose: 1 tab Dibucaine (Nupercainal 1%) 1 oz TOP Q15MIN PRN; Protocol PRN Reason: Pain, moderate (4-7) Docusate Sodium (Colace) 100 mg PO DAILY LUCY PRN Reason: Protocol Last Admin: 08/22/16 09:32 Dose: Not Given Fluticasone Propionate (Flonase) 1 actuation NS DAILY [facility] Last Admin: 08/22/16 10:46 Dose: 1 actuation Gabapentin (Neurontin) 800 mg PO Q8H [facility] Last Admin: 08/22/16 13:36 Dose: 800 mg Hydrocortisone (Anusol-Hc) 0 gm [place] BID LUCY PRN Reason: Protocol Last Admin: 08/22/16 09:25 Dose: 1 applic Levothyroxine Sodium (Synthroid) 25 mcg PO 0630 LUCY PRN Reason: Protocol Last Admin: 08/22/16 05:49 Dose: 25 mcg Oxycodone/Acetaminophen (Percocet 5/325 Mg Tab) 1 tab PO Q6H PRN; Protocol PRN Reason: Pain, moderate (4-7) Stop: 08/23/16 15:01 Last Admin: 08/22/16 08:17 Dose: 1 tab Pantoprazole Sodium (Protonix Ec Tab) 40 mg PO 0630 LUCY PRN Reason: Protocol Last Admin: 08/22/16 05:49 Dose: 40 mg Polyethylene Glycol (Miralax) 17 gm PO BID LUCY PRN Reason: Protocol Last Admin: 08/22/16 09:36 Dose: Not Given Prednisone (Prednisone Tab) 5 mg PO 0800 LUCY PRN Reason: Protocol Last Admin: 08/22/16 08:10 Dose: 5 mg Sertraline HCl (Zoloft) 100 mg PO DAILY LUCY PRN Reason: Protocol Last Admin: 08/22/16 10:46 Dose: 100 mg Sucralfate (Carafate Tab) 1 gm PO BID PRN; Protocol PRN Reason: Dyspepsia - Labs Labs: 08/17/16 06:10 08/17/16 06:10 PT 12.0 Seconds (9.9-11.8) H 08/17/16 06:10 INR 1.11 (0.93-1.08) H 08/17/16 06:10 APTT 23.3 Seconds (23.7-30.8) L 08/17/16 06:10 - Constitutional Appears: Non-toxic, No Acute Distress - Head Exam Head Exam: NORMAL INSPECTION - ENT Exam ENT Exam: Mucous Membranes Moist - Neck Exam Neck Exam: absent: Lymphadenopathy, Meningismus - Respiratory Exam Respiratory Exam: Decreased Breath Sounds - Cardiovascular Exam Cardiovascular Exam: +S1, +S2 - GI/Abdominal Exam GI & Abdominal Exam: Soft. absent: Tenderness Assessment and Plan - Assessment and Plan (Free Text) Plan: Assessment S/P urinary tract infection, probably lower tract, growing P. mirabilis, clinically improved and S/P treatment peripheral vascular disease S/P bilateral BKA S/P bilateral hip replacement HTN CAD sick sinus syndrome S/P pacemaker placement GERD history of diverticulitis history of urinary incontinence depression anxiety history of eye cataracts history of pneumonia obesity with BMI 37 Plan S/P 7 days of Rocephin - will continue to monitor off antibiotics since she is at risk for nosocomial infections
[2016-08-23] MEDS: Albuterol-Ipratrop 3 mg / 0.5 (3 ml) UD IH SCH ×4 (02:24→19:59)
[2016-08-23] MEDS: Oxycodone/Acetaminophen 5/325 mg Tab PO PRN ×3 (04:53→18:44)
[2016-08-23] MEDS: Pantoprazole 40 mg EC Tab PO SCH (05:34)
[2016-08-23] MEDS: Levothyroxine 25 MCG TAB PO SCH (05:35)
[2016-08-23] MEDS: Hydrocortisone 2.5% Rectal Cream(30 gm) PR SCH ×2 (10:06→18:43)
[2016-08-23] MEDS: Bisacodyl 5mg EC Tab PO SCH (10:06)
[2016-08-23] MEDS: Fluticasone Nasal 50 mcg/Spray NS SCH (10:07)
[2016-08-23] MEDS: Calcium-Vit D 250 mg-125 Units Tab UD PO SCH (10:07)
[2016-08-23] MEDS: POLYETHYLENE GLYCOL 3350 17 GM/Dose PACKET PO SCH ×2 (10:07→18:43)
--- NOTE | 2016-08-23 13:25 | CP.PCM.PN ---
Subjective - Date & Time of Evaluation Date of Evaluation: 08/23/16 Time of Evaluation: 12:05 - Subjective Subjective: Comfortable in bed, not in distress, afebrile overnight. Objective - Vital Signs/Intake and Output Vital Signs (last 24 hours): Temp Pulse Resp BP Pulse Ox 97.3 F L 67 20 115/58 L 95 08/23/16 10:00 08/23/16 10:00 08/23/16 10:00 08/23/16 10:00 08/23/16 10:00 - Medications Medications: Current Medications Albuterol/Ipratropium (Duoneb 3 Mg/0.5 Mg (3 Ml) Ud) 3 ml IH [id number] LUCY PRN Reason: Protocol Last Admin: 08/23/16 07:52 Dose: 3 ml Alprazolam (Xanax) 0.5 mg PO HS LUCY PRN Reason: Protocol Last Admin: 08/23/16 05:35 Dose: Not Given Aspirin (Ecotrin) 81 mg PO 0800 LUCY PRN Reason: Protocol Atorvastatin Calcium (Lipitor) 20 mg PO HS LUCY PRN Reason: Protocol Last Admin: 08/22/16 21:29 Dose: 20 mg Benzocaine/Menthol (Cepacol Sore Throat) 1 jose miguel MT Q2H PRN PRN Reason: Sore Throat Last Admin: 08/21/16 14:45 Dose: 1 jose miguel Bisacodyl (Dulcolax) 5 mg PO DAILY [facility] Last Admin: 08/23/16 10:06 Dose: Not Given Calcium/Vitamin D (Oscal-D 250 Mg-125 Units Tab) 1 tab PO DAILY LUCY PRN Reason: Protocol Last Admin: 08/23/16 10:07 Dose: 1 tab Dibucaine (Nupercainal 1%) 1 oz TOP Q15MIN PRN; Protocol PRN Reason: Pain, moderate (4-7) Docusate Sodium (Colace) 100 mg PO DAILY LUCY PRN Reason: Protocol Last Admin: 08/23/16 10:06 Dose: Not Given Fluticasone Propionate (Flonase) 1 actuation NS DAILY [facility] Last Admin: 08/23/16 10:07 Dose: 1 actuation Gabapentin (Neurontin) 800 mg PO Q8H LUCY Last Admin: 08/23/16 05:34 Dose: 800 mg Hydrocortisone (Anusol-Hc) 0 gm [place] BID LUCY PRN Reason: Protocol Last Admin: 08/23/16 10:06 Dose: 1 applic Levothyroxine Sodium (Synthroid) 25 mcg PO 0630 LUCY PRN Reason: Protocol Last Admin: 08/23/16 05:35 Dose: 25 mcg Oxycodone/Acetaminophen (Percocet 5/325 Mg Tab) 1 tab PO Q6H PRN; Protocol PRN Reason: Pain, moderate (4-7) Stop: 08/23/16 15:01 Last Admin: 08/23/16 11:36 Dose: 1 tab Pantoprazole Sodium (Protonix Ec Tab) 40 mg PO 0630 LUCY PRN Reason: Protocol Last Admin: 08/23/16 05:34 Dose: 40 mg Polyethylene Glycol (Miralax) 17 gm PO BID LUCY PRN Reason: Protocol Last Admin: 08/23/16 10:07 Dose: Not Given Prednisone (Prednisone Tab) 5 mg PO 0800 LUCY PRN Reason: Protocol Last Admin: 08/23/16 08:04 Dose: 5 mg Sertraline HCl (Zoloft) 100 mg PO DAILY LUCY PRN Reason: Protocol Last Admin: 08/23/16 10:08 Dose: 100 mg Sucralfate (Carafate Tab) 1 gm PO BID PRN; Protocol PRN Reason: Dyspepsia - Labs Labs: 08/17/16 06:10 08/17/16 06:10 PT 12.0 Seconds (9.9-11.8) H 08/17/16 06:10 INR 1.11 (0.93-1.08) H 08/17/16 06:10 APTT 23.3 Seconds (23.7-30.8) L 08/17/16 06:10 - Constitutional Appears: Non-toxic, No Acute Distress - Head Exam Head Exam: NORMAL INSPECTION - ENT Exam ENT Exam: Mucous Membranes Moist - Neck Exam Neck Exam: absent: Lymphadenopathy, Meningismus - Respiratory Exam Respiratory Exam: Decreased Breath Sounds - Cardiovascular Exam Cardiovascular Exam: +S1, +S2 - GI/Abdominal Exam GI & Abdominal Exam: Soft. absent: Tenderness Assessment and Plan - Assessment and Plan (Free Text) Plan: Assessment S/P urinary tract infection, probably lower tract, growing P. mirabilis, clinically improved and S/P treatment peripheral vascular disease S/P bilateral BKA S/P bilateral hip replacement HTN CAD sick sinus syndrome S/P pacemaker placement GERD history of diverticulitis history of urinary incontinence depression anxiety history of eye cataracts history of pneumonia obesity with BMI 37 Plan S/P 7 days of Rocephin - will continue to monitor off antibiotics since she is at risk for healthcare-associated infections
[2016-08-23 17:35] VITALS: RESP 18
[2016-08-24] MEDS: Albuterol-Ipratrop 3 mg / 0.5 (3 ml) UD IH SCH ×3 (01:41→13:09)
[2016-08-24] MEDS: Pantoprazole 40 mg EC Tab PO SCH (05:31)
[2016-08-24] MEDS: Levothyroxine 25 MCG TAB PO SCH (05:32)
[2016-08-24] MEDS: Oxycodone/Acetaminophen 5/325 mg Tab PO PRN ×2 (05:33→12:00)
--- NOTE | 2016-08-24 07:51 | PN ---
DATE: 08/24/2016 SUBJECTIVE: The patient appears very comfortable at rest. She is not short of breath. PHYSICAL EXAMINATION: VITAL SIGNS: Temperature is 97.1, pulse 61, respirations 18, blood pressure 117 /58. Oxygen saturation on nasal cannula is 95%-97%. HEENT: Normocephalic, atraumatic. No JVD. CARDIOVASCULAR: Systolic ejection murmur at the lower left sternal border. No S3 gallop. LUNGS: Clear bilaterally. EXTREMITIES: Status post bilateral [id number] amputations. GASTROINTESTINAL: Abdomen is soft, nontender, nondistended. Bowel sounds are positive. SKIN: No acute rash. NEUROLOGIC: Limited at the present time. IMPRESSION: 1. Urosepsis. 2. Status post fall at home. 3. Asthma. 4. Peripheral vascular disease. 5. Sick sinus syndrome, status post permanent pacemaker insertion. 6. Mild rhinitis. PLAN: The patient appears very comfortable this morning. She is not short of breath at rest. She states she is feeling much better overall. She also has much less nasal drip -- since being placed on Flonase. On physical exam, her lungs remain clear. Oxygen saturation on nasal cannula is 95%-97%. I will continue with the current nebulizer treatments for now. I did discuss the case with physical therapy at length this morning. The patient is for probable discharge today. We will assess her room air oxygen saturation -- and the possible need for home oxygen therapy this morning. Clinical status of the patient is significantly improved overall. However, again, the future status/ prognosis of this patient does remain very guarded. I will discuss the above with Dr. Toro. Bijan Tran MD cc: [id number] TT: 08/24/2016 07:50:37 Confirmation # [id number] Dictation # [id number] MTDD
--- NOTE | 2016-08-24 09:22 | PN ---
DATE: 08/24/2016 SUBJECTIVE: Fatique and weakness PHYSICAL EXAMINATION: VITAL SIGNS: T-98.6 R-12 P-84 GENERAL: The patient comfortable, in no acute distress. HEENT: Anicteric sclerae. Moist mucosa. NECK: No JVD or adenopathy. CARDIAC: S1/S2. No murmurs. No rubs. Regular. RESPIRATORY: Clear to auscultation bilaterally. No wheezes, rales, or rhonchi. Good air entry. ABDOMEN: Bowel sounds are positive, soft, nontender, and nondistended. EXTREMITIES: No edema. Has 1+ pulses. ASSESSMENT: 1. Fall. 2. Urinary tract infection secondary to Proteus. 3. Diabetes, type 2. 4. Chronic obstructive pulmonary disease. 5. Rheumatoid arthritis. 6. Status post hemorrhoidectomy. PLAN: The patient is currently comfortable. She is getting physical therapy. She is doing well. She is on sucralfate. She is going to continue with Dulcolax for her constipation. She is on aspirin daily. She is on MiraLax for her constipation as well. She is Neurontin for her neuropathy. She is on calcium for her osteoporosis. She is on Protonix daily. She is on Synthroid for hypothyroidism. She is on chronic prednisone. Jason Toro MD cc: [id number] TT: 08/24/2016 07:44:56 Confirmation # [id number] Dictation # [id number] michael MAYER
[2016-08-24] MEDS: Calcium-Vit D 250 mg-125 Units Tab UD PO SCH (11:00)
[2016-08-24] MEDS: Fluticasone Nasal 50 mcg/Spray NS SCH (11:00)
[2016-08-24] MEDS: Bisacodyl 5mg EC Tab PO SCH (11:00)
[2016-08-24] MEDS: Hydrocortisone 2.5% Rectal Cream(30 gm) PR SCH (11:00)
[2016-08-24] MEDS: POLYETHYLENE GLYCOL 3350 17 GM/Dose PACKET PO SCH (11:54)
[2016-08-24 13:08] VITALS: BP 130/52; PULSE 49; TEMP 97.9; O2SAT 100
--- NOTE | 2016-08-24 23:17 | PN ---
DATE: 08/24/2016 The patient is in bed in no acute distress, was seen earlier today in room 319, in transitional care, doing well. PHYSICAL EXAMINATION: VITAL SIGNS: Temperature of 98, blood pressure is 130/50, respiratory rate of 16. HEENT: Unremarkable. NECK: Supple. LUNGS: Have decreased breath sounds. HEART: Normal S1, S2. ABDOMEN: Soft. LABORATORY DATA: Reveals a white count of 7.8 and hemoglobin of 9. Chemistries reveal the BUN of 12 , creatinine 0.2. Microbiology is noted. ASSESSMENT AND PLAN: This is a 81-year-old female who has hypertension, peripheral vascular disease, bilateral below knee amputation, status post urinary tract infection, mirabilis, had completed 7 day s of ceftriaxone, off of antibiotics. The patient is at risk for developing nosocomial infections. Ralph Cooper MD cc: [id number] TT: 08/24/2016 23:16:29 Confirmation # [id number] Dictation # [id number] khadra
--- NOTE | 2016-09-23 10:33 | DS ---
This is a 81-year-old female who came to the hospital after she had a fall. She also had a urinary t ract infection secondary to Proteus. The patient was getting physical therapy. She is on Neurontin for neuropathy. The patient was discharged home. Please see the note that was dictated on 09/06/2016 for details. CONDITION: Stable. ACTIVITIES: Increase as tolerated. Jason Toro MD cc: [id number] TT: 09/23/2016 10:32:11 cady
== END 2016-08-24 13:47 | disposition home health service (06) | DRG 690 ==
LOC: TRCU 13:56
PROVIDERS: ADMIT Internal Medicine Nephrology; ATTEND Internal Medicine Nephrology
PROC: F07Z9ZZ Gait Training/Functional Ambulation Treatment (ICD-10-PCS; principal; 2016-08-17)
PROC: F07M6ZZ Therapeutic Exercise Treatment of Musculoskeletal System - Whole Body (ICD-10-PCS; 2016-08-17)
PROC: F08Z0ZZ Bathing/Showering Techniques Treatment (ICD-10-PCS; 2016-08-19)
PROC: F08Z1ZZ Dressing Techniques Treatment (ICD-10-PCS; 2016-08-19)
PROC: F08Z2ZZ Grooming/Personal Hygiene Treatment (ICD-10-PCS; 2016-08-19)
PROC: F08Z4ZZ Home Management Treatment (ICD-10-PCS; 2016-08-19)
DX: N39.0 Urinary tract infection, site not specified (principal); I49.5 Sick sinus syndrome; G62.9 Polyneuropathy, unspecified; K57.92 Diverticulitis of intestine, part unspecified, without perforation or abscess without bleeding; E52 Niacin deficiency [pellagra]; W05.0XXA Fall from non-moving wheelchair, initial encounter; J44.9 Chronic obstructive pulmonary disease, unspecified; B96.4 Proteus (mirabilis) (morganii) as the cause of diseases classified elsewhere; E11.9 Type 2 diabetes mellitus without complications; I10 Essential (primary) hypertension; K90.0 Celiac disease; E03.9 Hypothyroidism, unspecified; E78.5 Hyperlipidemia, unspecified; E66.9 Obesity, unspecified; Z68.37 Body mass index [BMI] 37.0-37.9, adult; I73.9 Peripheral vascular disease, unspecified; J31.0 Chronic rhinitis; M06.9 Rheumatoid arthritis, unspecified; M19.90 Unspecified osteoarthritis, unspecified site; F41.9 Anxiety disorder, unspecified; G89.29 Other chronic pain; H26.9 Unspecified cataract; I25.10 Atherosclerotic heart disease of native coronary artery without angina pectoris; J45.909 Unspecified asthma, uncomplicated; K14.0 Glossitis; K21.9 Gastro-esophageal reflux disease without esophagitis; K62.89 Other specified diseases of anus and rectum; K64.5 Perianal venous thrombosis; K64.4 Residual hemorrhoidal skin tags; K44.9 Diaphragmatic hernia without obstruction or gangrene; N31.2 Flaccid neuropathic bladder, not elsewhere classified; N39.3 Stress incontinence (female) (male); Z87.01 Personal history of pneumonia (recurrent); Z87.440 Personal history of urinary (tract) infections; Z89.511 Acquired absence of right leg below knee; Z89.512 Acquired absence of left leg below knee; Z89.611 Acquired absence of right leg above knee; Z89.612 Acquired absence of left leg above knee; Z95.0 Presence of cardiac pacemaker; Z96.643 Presence of artificial hip joint, bilateral; M81.0 Age-related osteoporosis without current pathological fracture; K59.00 Constipation, unspecified; Z88.1 Allergy status to other antibiotic agents; M54.9 Dorsalgia, unspecified; M25.559 Pain in unspecified hip

== ENCOUNTER 2016-08-17 12:57 | Day surgery (SDC) | payer MEDICARE ==
[2016-08-17 13:23] VITALS: RESP 20
[2016-08-17] MEDS ORDERED: Bacitracin Ointment 30 GM TUBE ONE (13:34)
[2016-08-17] MEDS ORDERED: Absorbable Gelatin Sponge Size 100 ONE (13:34)
[2016-08-17] MEDS ORDERED: Bupivacaine 0.5% Inj(30mL) ONE (13:34)
[2016-08-17] MEDS ORDERED: Midazolam 2 MG/2 ML VIAL ONE (14:17)
[2016-08-17] MEDS ORDERED: Oxycodone/Acetaminophen 5/325 mg Tab PO PRN (14:53)
[2016-08-17 15:47] VITALS: O2SAT 95
[2016-08-17 16:28] VITALS: BP 101/52; PULSE 61; TEMP 98
--- NOTE | 2016-08-20 04:48 | OP ---
PROCEDURE DATE: 08/17/2016 Room is 319, bed 1. SURGEON: Jose Terrell MD SPECIALTY DEVELOPMENT CONSULTANT: Blake Reece DO, PGY-1. ANESTHESIOLOGIST: Dr. Engel. ANESTHESIA: MAC -- Marcaine 0.5-8 mL. PREOPERATIVE DIAGNOSES: 1. Thrombosed external hemorrhoid. 2. Hypertensive coronary artery disease. PROCEDURE: 1. Excision of an external thrombosed hemorrhoid. 2. Proctoscopy. OPERATIVE INDICATION: The patient is a 81-year-old female who fell, prompting admission to the hospital over the past week. At this time, she was also straining to pass her urine, and she no ticed the onset of a painful purple mass outside of her anus, and we have been consulted for evaluati on and recommendation. It was initially advised for excision under local, but the anesthesiologist a nd the geographical historian (Dr. Pal) requested a delay of 2-1/2 days for the urinary infection to subside and for her cardiac status to stabilize. With permission of her primary care physician, she is brou ght to the operating room now for a local excision with some mild intravenous sedation by the anesthe siologist. OPERATIVE NOTE: The patient is brought to the operating room, undergoes a timeout procedure, is iden tified by a wrist band, and is placed on the table in a lateral Shen position facing the left side. MAC sedation is performed by the anesthesiologist and the buttock is retracted with adhesive tape, pr epped with Betadine, and aseptically draped. The skin over the purple, external thrombosed hemorrhoi d is infiltrated and following good take, incision is made. The thrombosis and the vein are now papo dino and submitted to pathology in formalin. Two sutures of 2-0 chromic catgut suture are employed fo r hemostatic purposes and bacitracin placed over the external hemorrhoid and a dry dressing placed ov er same. The patient is now transported back to the recovery room in a satisfactory condition. Sponge, instru ment, and suture count were verified as correct at the end of the procedure. Estimated blood loss du ring this procedure was less than 1 mL of blood. The apartment community assistant manager was present throughout the procedure from the beginning to the end and was ext remely helpful in providing exposure and in removing the external hemorrhoid, as well as the thrombos ed component. This dictation will be electronically signed without being read. Jose Terrell MD cc: [phone] TT: 08/20/2016 04:48:24 tn
== END 2016-08-17 16:30 ==
LOC: SDS 12:57
PROVIDERS: ATTEND Surgery
DX: K64.5 Perianal venous thrombosis (principal); I25.10 Atherosclerotic heart disease of native coronary artery without angina pectoris; I10 Essential (primary) hypertension; M19.90 Unspecified osteoarthritis, unspecified site; G89.29 Other chronic pain; E11.9 Type 2 diabetes mellitus without complications; J44.9 Chronic obstructive pulmonary disease, unspecified; M06.9 Rheumatoid arthritis, unspecified
CPT/HCPCS: 46320; 88304; J2250; J3010; J7120

== ENCOUNTER 2016-08-26 16:01 | Inpatient (IN) | payer MEDICARE ==
[2016-08-26 16:05] VITALS: BMI 23.8
--- NOTE | 2016-08-26 16:36 | ED PDOC ---
Arrival/HPI - General Historian: Patient - Critical Care Critical Care Minutes: 30 minutes - History of Present Illness Time/Duration: 24 hours Symptom Onset: Sudden Symptom Course: Intermittent Activities at Onset: Rest, Light, Sleeping <Verenice Dubose - Last Filed: 08/26/16 18:16> <Josué Santos - Last Filed: 08/26/16 18:38> - General Chief Complaint: Dizziness/Lightheaded Time Seen by Provider: 08/26/16 16:11 - History of Present Illness Narrative History of Present Illness (Text): 08/26/16 16:39 81 yo F w h/o ventricular standstill s/p PPM, CAD s/p BL AKA, HLD, RA, Asthma presents to ER with 2 day h/o intermittent dizziness. Patient states she occasionally feels like the room is spinning; episodes are associated with nausea and mild SOB. She was discharged from [facility] 2 days ago (08/24) after being treated for Proteus mirabilis UTI and sepsis. Patient states she felt well at discharge then started having dizziness episodes with no inciting or precipitating factors; events can occur at rest, during sleep, or during exertion. Patient denies CP, abd pain, vomiting, diarrhea. (Verenice Dubose) Past Medical History - Provider Review Nursing Documentation Reviewed: Yes - Travel History Have you recently traveled outside [place] w/in the past 3 mons?: No - Infectious Disease Hx of Infectious Diseases: None - Cardiac Hx Cardiac Disorders: Yes (cad, heart block, sick sinus syndrome) Hx Hypertension: Yes - Pulmonary Hx Respiratory Disorders: Yes Hx Asthma: Yes Hx Pneumonia: Yes (aspiration) - Neurological Hx Neurological Disorder: No - HEENT Hx HEENT Disorder: Yes (eyeglassees) Hx Cataracts: Yes (b/l) Hx Difficulty Chewing: No - Renal Hx Renal Disorder: No - Endocrine/Metabolic Hx Endocrine Disorders: Yes Hx Hypothyroidism: Yes - Hematological/Oncological Hx Blood Disorders: No - Integumentary Hx Dermatological Disorder: Yes 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) - Musculoskeletal/Rheumatological Hx Musculoskeletal Disorders: No Hx Falls: No - Gastrointestinal Hx Gastrointestinal Disorders: Yes Hx Diverticulitis: Yes Hx Gastroesophageal Reflux: Yes Other/Comment: Hiatal hernia, celiac disease - Genitourinary/Gynecological Hx Genitourinary Disorders: Yes Hx Incontinence: Yes Other/Comment: cysto, cystocele - Psychiatric Hx Psychophysiologic Disorder: Yes Hx Anxiety: Yes Hx Depression: Yes Hx Emotional Abuse: No Hx Physical Abuse: No Hx Substance Use: No - Surgical History Hx Amputation: Yes Other/Comment: pacemaker - Anesthesia Hx Anesthesia Reactions: No Hx Malignant Hyperthermia: No - Suicidal Assessment Feels Threatened In Home Enviroment: No <Verenice Dubose - Last Filed: 08/26/16 18:16> Family/Social History - Physician Review Nursing Documentation Reviewed: Yes Family/Social History: CVA/TIA, Diabetes, Hypertension, CAD/OH Smoking Status: Never Smoked Hx Alcohol Use: No Hx Substance Use: No Hx Substance Use Treatment: No <Verenice Dubose - Last Filed: 08/26/16 18:16> Allergies/Home Meds <Verenice Dubose - Last Filed: 08/26/16 18:16> <Josué Santos - Last Filed: 08/26/16 18:38> Allergies/Adverse Reactions: Allergies erythromycin base Allergy (Verified 08/26/16 16:08) .anxiety gluten Allergy (Verified 08/26/16 16:08) ITCHING levofloxacin [From Levaquin] Allergy (Verified 08/26/16 16:08) .anxiety Home Medications: Home Meds Medication Instructions Recorded Confirmed Atorvastatin [Lipitor] 20 mg PO DAILY 12/06/14 08/26/16 Omeprazole [Prilosec] 20 mg PO DAILY 12/06/14 08/26/16 Docusate [Colace] 100 mg PO DAILY 12/14/14 08/26/16 Gabapentin 800 mg PO TID 12/14/14 08/26/16 Sucralfate [Carafate Tab] 1 gm PO DAILY PRN 12/14/14 08/26/16 Aspirin [Ecotrin] 81 mg PO DAILY 06/30/16 08/26/16 Calcium Carbonate/Vitamin D 1 tab PO DAILY 06/30/16 08/26/16 [Oscal-D 250 mg-125 Units Tab] [place]-3 Fatty Acids [[place]-3] 1,000 mg PO DAILY 06/30/16 08/26/16 Prednisone [Tom] 5 mg PO BID 06/30/16 08/26/16 Sertraline HCl 100 mg PO DAILY 06/30/16 08/26/16 Fluticasone Nasal [Flonase] 1 actuation NS BID 08/26/16 08/26/16 Review of Systems - Review of Systems Constitutional: Fatigue Eyes: absent: Vision Changes Respiratory: SOB. absent: Cough Cardiovascular: RUELAS. absent: Chest Pain, Palpitations Gastrointestinal: Nausea. absent: Abdominal Pain, Diarrhea, Vomiting Genitourinary Female: absent: Dysuria Skin: absent: Rash, Skin Lesions Neurological: Dizziness, Disequilibrium. absent: Headache, Facial Droop, Seizure <Verenice Dubose - Last Filed: 08/26/16 18:16> - Physician Review All systems were reviewed & negative as marked: Yes <Josué Santos - Last Filed: 08/26/16 18:38> Physical Exam Vital Signs Reviewed: Yes Temperature: Afebrile Blood Pressure: Normal Pulse: Bradycardic Respiratory Rate: Normal Appearance: Positive for: Ill-Appearing, Uncomfortable Pain Distress: None Mental Status: Positive for: Alert and Oriented X 3 Finger Stick Blood Glucose: 129 - Systems Exam Head: Present: Atraumatic, Normocephalic Pupils: Present: PERRL Conjunctiva: Present: Normal. No: Injected Mouth: Present: Dry (slightly) Neck: Present: Normal Range of Motion. No: Meningeal Signs Respiratory/Chest: No: Respiratory Distress, Accessory Muscle Use Cardiovascular: Present: Murmurs (2/6 LSB), Normal S1, S2. No: Regular Rate and Rhythm (irregular) Abdomen: Present: Normal Bowel Sounds. No: Tenderness, Distention, Peritoneal Signs, Rebound Upper Extremity: Present: Other (laterally deviated MCP joints BL UE) Lower Extremity: Present: Other (BL AKAs, BL prosthetic legs) Neurological: Present: GCS=15, CN II-XII Intact, Speech Normal Skin: Present: Warm, Dry, Normal Color Psychiatric: Present: Alert, Oriented x 3, Normal Insight, Normal Concentration <Verenice Dubose - Last Filed: 08/26/16 18:16> Vital Signs Temp Pulse Resp BP Pulse Ox 08/26/16 18:07 114 H 16 147/52 L 95 08/26/16 16:21 99 F 45 L 22 133/59 L 98 Medical Decision Making Reassessment Condition: Re-examined, Unchanged - Critical Care Critical Care Minutes: 30 minutes - Lab Interpretations I have reviewed the lab results: Yes Interpretation: Abnormal lab values - EKG Interpretation Interpreted by ED Physician: Yes Type: 12 lead EKG <SedrickVerenice - Last Filed: 08/26/16 18:16> <Josué Santos - Last Filed: 08/26/16 18:38> ED Course and Treatment: 08/26/16 17:11 81 yo F w h/o ventricular standstill s/p PPM, Cad, PAD, RA presented with c/o intermittent dizziness, found to have complete heart block vs ventricular standstill with failure to pace. Cardiology, PMD, ICU paged. External pacer pads placed. [employer] rep paged for PPM interrogation. 08/26/16 17:21 Dr. Santos spoke with Dr. Shea and Dr. Saldivar. Will start dopamine drip. Dr. Santos spoke with Dr. Madelin Blas, accepts patient to ICU. Spoke with Dr. Toro, accepts patient to his service. 08/26/16 17:39 ICU resident at bedside in ED. Spoke with [employer] rep -- pacemaker will be interrogated tomorrow morning. 08/26/16 17:59 Dr. Saldivar saw patient in ED. Patient will be going to CCU 129-2. (Verenice Dubose) Patient seen and examined with resident Came up with treatment and disposition plan with resident (Josué Santos) - Lab Interpretations Lab Results: 08/26/16 16:35 08/26/16 16:35 Lab Results 08/26/16 16:35: WBC 9.4 D, RBC 3.30 L, Hgb 8.7 L, Hct 29.0 L, MCV 87.9, MCH 26.4, MCHC 30.0 L, RDW 16.5 H, Plt Count 359, MPV 8.6, Gran % 79.7 H, Lymph % ( Auto) 13.2 L, Mathews % (Auto) 5.4, Eos % (Auto) 1.5, Baso % (Auto) 0.2, Gran # 7.49 H, Lymph # 1.2, Mathews # 0.5, Eos # 0.1, Baso # 0.02, Sodium 136, Potassium 3.5 L, Chloride 97 L, Carbon Dioxide 31, Anion Gap 12, BUN 12, Creatinine 0.4 L , Est GFR ( Amer) > 60, Est GFR (Non-Af Amer) > 60, Random Glucose 107, Calcium 8.3 L, Phosphorus 3.9, Magnesium 1.9, Total Bilirubin 0.5, AST 42 H, ALT 36, Alkaline Phosphatase 53, Troponin I 0.03 D, Total Protein 6.8, Albumin 3.0, Globulin 3.8, Albumin/Globulin Ratio 0.8 L - RAD Interpretation Radiology Orders: 08/26/16 16:53 CXR [CHEST PORTABLE] [RAD] Stat - EKG Interpretation EKG Interpretation (Text): 08/26/16 16:59 Demand pacemaker, 91bmp, a-sensed with some failure to pace, right axis, nonspecific St-T wave changes. (Verenice Dubose) - Medication Orders Current Medication Orders: Aspirin (Ecotrin) 81 mg PO DAILY LUCY Dopamine HCl/Dextrose (Dopamine 400mg/250ml D5w) 250 mls @ 11.056 mls/hr IV .[id number] PRN; Protocol; 5 MCG/KG/MIN PRN Reason: TITRATE PER MD ORDER Last Admin: 08/26/16 18:10 Dose: 4.423 MLS/HR Titration Intervention Document 08/26/16 18:10 SRE (Rec: 08/26/16 18:10 SRE [id number]) Titration Intake Container Volume 250 Titration Dosing Titration Dose 2 IV Rate 4.423 Intake/Decrease Decrease eMAR Start Stop Document 08/26/16 18:10 SRE (Rec: 08/26/16 18:10 SRE [id number]) Intravenous Solution Start Date 08/26/16 Start Time 18:10 Magnesium Sulfate/Dextrose (Magnesium Sulfate 1 Gm/100 Ml D5w) 100 mls @ 100 mls/hr IVPB ONCE ONE Stop: 08/26/16 19:03 Last Admin: 08/26/16 18:29 Dose: 100 MLS/HR eMAR Start Stop Document 08/26/16 18:29 SRE (Rec: 08/26/16 18:30 SRE [id number]) Intravenous Solution Start Date 08/26/16 Start Time 18:29 End Date 08/26/16 End time 19:15 Total Infusion Time 46 Levothyroxine Sodium (Synthroid) 25 mcg PO DAILY LUCY Ondansetron HCl (Zofran Inj) 4 mg IVP ONCE PRN PRN Reason: nausea Pantoprazole Sodium (Protonix Inj) 40 mg IVP DAILY LUCY Sucralfate (Carafate Tab) 1 gm PO DAILY PRN PRN Reason: Dyspepsia Discontinued Medications Atropine Sulfate (Atropine) Confirm Administered Dose 1 mg .ROUTE .STK-MED ONE Stop: 08/26/16 17:07 Dopamine HCl/Dextrose (Dopamine 400mg/250ml D5w) Confirm Administered Dose 250 mls @ ud IV .STK-MED ONE Stop: 08/26/16 17:07 Last Admin: 08/26/16 17:30 Dose: Potassium Chloride (K-Dur 20 Meq Er Tab) 20 meq PO STAT STA Stop: 08/26/16 18:05 Last Admin: 08/26/16 18:29 Dose: 20 MEQ Disposition/Present on Arrival - Present on Arrival Any Indicators Present on Arrival: No History of DVT/PE: No History of Uncontrolled Diabetes: No Urinary Catheter: No History of Decub. Ulcer: No History Surgical Site Infection Following: None - Disposition Have Diagnosis and Disposition been Completed?: Yes Disposition Time: 17:01 Patient Plan: ICU <Verenice Dubose - Last Filed: 08/26/16 18:16> - Present on Arrival Any Indicators Present on Arrival: No - Disposition Have Diagnosis and Disposition been Completed?: Yes <Josué Santos - Last Filed: 08/26/16 18:38> - Disposition Diagnosis: Complete atrioventricular block, Sick sinus syndrome Disposition: HOSPITALIZED Condition: CRITICAL
[2016-08-26 16:59] LABS: ADD MANUAL DIFF? NO
[2016-08-26 17:05] LABS: BASO # 0.02 K/mm3 (0.0-2.0); BASO % 0.2 % (0.0-3.0); EOS # 0.1 (0.0-0.7); EOS % 1.5 % (1.5-5.0); GRAN # 7.49 (1.4-6.5); GRAN % 79.7 % (50.0-68.0); LYMPH # 1.2 (1.2-3.4); LYMPH % 13.2 % (22.0-35.0); MEAN CELL VOLUME 87.9 fL (80.0-105.0); MEAN CORPUSCULAR HEMOGLOBIN 26.4 pg (25.0-35.0); MEAN PLATELET VOLUME 8.6 fl (7.0-11.0); MONO # 0.5 (0.1-0.6); MONO % 5.4 % (1.0-6.0); PLATELET COUNT 359 10^3/uL (120.0-450.0); RED CELL DISTRIBUTION WIDTH 16.5 % (11.5-14.5); WHITE BLOOD COUNT 9.4 10^3/ul (4.5-11.0)
[2016-08-26] MEDS ORDERED: DOPamine 400mg/250ml D5W 250 ML IV ONE (17:06)
[2016-08-26 17:14] LABS: ALB/GLOB RATIO 0.8 (1.1-1.8); ALKALINE PHOSPHATASE 53 U/L (38-133); ALT/SGPT 36 U/L (7-56); AST/SGOT 42 U/L (15-39); BILIRUBIN,TOTAL 0.5 mg/dL (0.2-1.3); BLOOD UREA NITROGEN 12 mg/dL (7-21); CALCIUM 8.3 mg/dL (8.4-10.5); CARBON DIOXIDE 31 mmol/L (21-33); CHLORIDE 97 mmol/L (98-107); GFR AFRICAN-AMERICAN > 60; GLUCOSE,RANDOM 107 mg/dL (70-110); POTASSIUM 3.5 mmol/L (3.6-5.0); SODIUM 136 mmol/L (132-148); TOTAL PROTEIN 6.8 g/dL (5.8-8.3)
[2016-08-26 17:25] LABS: TROPONIN I 0.03 ng/mL
[2016-08-26] MEDS: DOPamine 400mg/250ml D5W 250 ML IV PRN ×2 (17:26→18:10)
[2016-08-26 17:35] LABS: MAGNESIUM 1.9 mg/dL (1.7-2.2); PHOSPHOROUS 3.9 mg/dL (2.5-4.5)
--- NOTE | 2016-08-26 17:56 | CP.PCM.CON ---
<Alexander Mchugh - Last Filed: 08/26/16 17:44> History of Present Illness - History of Present Illness History of Present Illness: 81 y/o F with PMH of complete heart block s/p pacemaker placement in 05/2016, b/ l AKA, PVD, asthma, RA, and dyslipidemia presents to the ED for dizziness for the past 2 days. Pt states she initially felt dizzy while sitting at home 2 days ago and the feeling lasted a few minutes. During these episodes she feels nauseous. Pt reports the episodes occurring more frequently over the past 2 days , which is what brought her to the hospital. In the ED, EKG demonstrated complete heart block. Humanities Department Chair, Dr. Crawford, was notified and the patient was started on a dopamine drip. When interviewing the patient, pt did have a witnessed episode in which her heart rate dropped from the 80's to 30's. At this time, pt became very dizzy and seemed disoriented once the episode finished. Of note, pt was recently discharged from [facility] after a hospital stay due to Proteus mirabilis UTI. Pt denies CP, SOB, vomiting, diarrhea, fevers, chills, dysuria, headaches. PMH: Complete heart block s/p pacemaker placement in 05/2016, b/l AKA, PVD, asthma, RA, and dyslipidemia Surgical Hx: B/L AKA, Pacemaker placement FMH: Father - CAD, PVD. Mother - Stroke Allergies: Erythromycin, Levaquin, Gluten Medications: See MAR Review of Systems - Constitutional Constitutional: Malaise, Weakness - EENT Eyes: absent: Blurred Vision, Change in Vision - Cardiovascular Cardiovascular: Diaphoresis, Irregular Heart Rhythm. absent: Chest Pain - Respiratory Respiratory: absent: Cough, Dyspnea - Gastrointestinal Gastrointestinal: absent: Abdominal Pain, Constipation, Vomiting - Genitourinary Genitourinary: absent: Difficulty Urinating, Dysuria - Integumentary Integumentary: absent: New Lesions, Skin Ulcer - Neurological Neurological: Dizziness. absent: Numbness, Focal Weakness - Psychiatric Psychiatric: absent: Anxiety, Depression - Hematologic/Lymphatic Hematologic: Easy Bleeding, Easy Bruising Past Patient History - Infectious Disease Hx of Infectious Diseases: None - Past Medical History & Family History Past Medical History?: Yes - Past Social History Smoking Status: Never Smoked - CARDIAC Hx Cardiac Disorders: Yes (cad, heart block, sick sinus syndrome) Hx Hypertension: Yes - PULMONARY Hx Respiratory Disorders: Yes Hx Asthma: Yes Hx Pneumonia: Yes (aspiration) - NEUROLOGICAL Hx Neurological Disorder: No - HEENT Hx HEENT Problems: Yes (eyeglassees) Hx Cataracts: Yes (b/l) Hx Difficulty Chewing: No - RENAL Hx Chronic Kidney Disease: No - ENDOCRINE/METABOLIC Hx Endocrine Disorders: Yes Hx Hypothyroidism: Yes - HEMATOLOGICAL/ONCOLOGICAL Hx Blood Disorders: No - INTEGUMENTARY Hx Dermatological Problems: Yes Hx Squamous Cell: Yes (excision chest lesion) - MUSCULOSKELETAL/RHEUMATOLOGICAL Hx Musculoskeletal Disorders: No Hx Falls: No - GASTROINTESTINAL Hx Gastrointestinal Disorders: Yes Hx Diverticulitis: Yes Hx Gastroesophageal Reflux: Yes Other/Comment: Hiatal hernia, celiac disease - GENITOURINARY/GYNECOLOGICAL Hx Genitourinary Disorders: Yes Hx Incontinence: Yes Other/Comment: cysto, cystocele - PSYCHIATRIC Hx Psychophysiologic Disorder: Yes Hx Anxiety: Yes Hx Depression: Yes Hx Emotional Abuse: No Hx Physical Abuse: No Hx Substance Use: No - SURGICAL HISTORY Hx Amputation: Yes Other/Comment: pacemaker - ANESTHESIA Hx Anesthesia Reactions: No Hx Malignant Hyperthermia: No Meds Allergies/Adverse Reactions: Allergies Allergy/AdvReac Type Severity Reaction Status Date / Time erythromycin base Allergy .anxiety Verified 08/26/16 16:08 gluten Allergy ITCHING Verified 08/26/16 16:08 levofloxacin [From Levaquin] Allergy .anxiety Verified 08/26/16 16:08 - Medications Medications: Current Medications Dopamine HCl/Dextrose (Dopamine 400mg/250ml D5w) 250 mls @ 11.056 mls/hr IV .[id number] PRN; Protocol; 5 MCG/KG/MIN PRN Reason: TITRATE PER MD ORDER Last Admin: 08/26/16 17:26 Dose: 11.056 mls/hr Physical Exam - Constitutional Appears: Non-toxic, No Acute Distress - Head Exam Head Exam: ATRAUMATIC, NORMAL INSPECTION, NORMOCEPHALIC - Eye Exam Eye Exam: Normal appearance - ENT Exam ENT Exam: Mucous Membranes Moist, Normal Exam - Neck Exam Neck exam: Positive for: Normal Inspection. Negative for: Lymphadenopathy - Respiratory Exam Respiratory Exam: Clear to Auscultation Bilateral, NORMAL BREATHING PATTERN. absent: Rales, Rhonchi, Wheezes - Cardiovascular Exam Cardiovascular Exam: Irregular Rhythm, +S1, +S2 - GI/Abdominal Exam GI & Abdominal Exam: Normal Bowel Sounds, Soft. absent: Tenderness - Extremities Exam Additional comments: B/L AKA - Neurological Exam Neurological exam: Alert, CN II-XII Intact, Oriented x3 - Psychiatric Exam Psychiatric exam: Normal Affect, Normal Mood - Skin Skin Exam: Intact, Normal Color, Warm Results - Vital Signs Recent Vital Signs: Last Vital Signs Temp 99 F 08/26/16 16:21 Pulse 45 L 08/26/16 16:21 Resp 22 08/26/16 16:21 BP 133/59 L 08/26/16 16:21 Pulse Ox 98 08/26/16 16:21 - Labs Result Diagrams: 08/26/16 16:35 08/26/16 16:35 Labs: Laboratory Results - last 24 hr 08/26/16 16:35 WBC 9.4 D RBC 3.30 L Hgb 8.7 L Hct 29.0 L MCV 87.9 MCH 26.4 MCHC 30.0 L RDW 16.5 H Plt Count 359 MPV 8.6 Gran % 79.7 H Lymph % (Auto) 13.2 L Howell % (Auto) 5.4 Eos % (Auto) 1.5 Baso % (Auto) 0.2 Gran # 7.49 H Lymph # 1.2 Howell # 0.5 Eos # 0.1 Baso # 0.02 Sodium 136 Potassium 3.5 L Chloride 97 L Carbon Dioxide 31 Anion Gap 12 BUN 12 Creatinine 0.4 L Est GFR ( Amer) > 60 Est GFR (Non-Af Amer) > 60 Random Glucose 107 Calcium 8.3 L Total Bilirubin 0.5 AST 42 H ALT 36 Alkaline Phosphatase 53 Troponin I 0.03 D Total Protein 6.8 Albumin 3.0 Globulin 3.8 Albumin/Globulin Ratio 0.8 L Assessment & Plan - Assessment and Plan (Free Text) Plan: 81 y/o F with PMH of complete heart block s/p pacemaker placement in 05/2016, b/ l AKA, PVD, asthma, RA, and dyslipidemia presents with complete heart block. Cardiology, Dr. Crawford, was contacted and recommended the patient be started on a dopamine drip and the pt be taken to OR tomorrow for pacemaker interrogation/ adjustment. Pt will be admitted to ICU for further care and monitoring. Pt will have external pacemaker leads placed. Neuro: AAOx3 Monitor for acute change Cardio: Complete heart block Pacemaker to be interrogated and adjusted in AM by Dr. Crawford Dopamine drip at this time External pacer, fentanyl prn for pain Maintain hemodynamic stability Maintain MAP>65 Cardiology following, Dr. Crawford Pulm: No respiratory distress Hx of asthma Maintain O2 sat >90% Monitor for SOB GI: NPO Protonix for GI prophylaxis Endo: Maintain euglycemia Nephro: 1 L NS bolus Maintain euvolemia Replenish electrolytes as needed Heme/ID: Afebrile, no leukocytosis Maintain normothermia Seen, reviewed, and discussed with attending Jeison, PGY-1 <Wan DELGADILLO,Madelin H - Last Filed: 08/26/16 19:07> Meds - Medications Medications: Current Medications Aspirin (Ecotrin) 81 mg PO DAILY LUCY Atorvastatin Calcium (Lipitor) 20 mg PO DIN LUCY Fentanyl (Fentanyl) 25 mcg IVP Q2H PRN PRN Reason: Pain, moderate (4-7) Dopamine HCl/Dextrose (Dopamine 400mg/250ml D5w) 250 mls @ 11.056 mls/hr IV .[id number] PRN; Protocol; 5 MCG/KG/MIN PRN Reason: TITRATE PER MD ORDER Last Admin: 08/26/16 18:10 Dose: 4.423 mls/hr Magnesium Sulfate/Dextrose (Magnesium Sulfate 1 Gm/100 Ml D5w) 100 mls @ 100 mls/hr IVPB ONCE ONE Stop: 08/26/16 19:03 Last Admin: 08/26/16 18:29 Dose: 100 mls/hr Sodium Chloride (Sodium Chloride 0.9%) 1,000 mls @ 999 mls/hr IV .Q1H1M STA Stop: 08/26/16 19:50 Levothyroxine Sodium (Synthroid) 25 mcg PO DAILY [facility] Ondansetron HCl (Zofran Inj) 4 mg IVP ONCE PRN PRN Reason: nausea Pantoprazole Sodium (Protonix Inj) 40 mg IVP DAILY [facility] Sucralfate (Carafate Tab) 1 gm PO DAILY PRN PRN Reason: Dyspepsia Results - Vital Signs Recent Vital Signs: Last Vital Signs Temp 99 F 08/26/16 16:21 Pulse 114 H 08/26/16 18:07 Resp 16 04/12/17 18:07 BP 147/52 L 04/12/17 18:07 Pulse Ox 95 08/26/16 18:07 - Labs Result Diagrams: 08/26/16 16:35 08/26/16 16:35 Attending/Attestation - Attestation I have personally seen and examined this patient.: Yes I have fully participated in the care of the patient.: Yes I have reviewed all pertinent clinical information: Yes Notes (Text): 08/26/16 19:02 81 y/o F w/ Multiple medical problems with multiple admissions to [facility] this year Presents with near syncope symptoms, unsteadiness chest discomfort and lightheadedness Pt had a PM placed in May and explains that there has been trouble with capture many times, although the PM has been since by the assistant analyst . At this time presents with Bradycardia/ Complete Heart Block. HR varies with respiration and HR 35-45 despite starting Dopamine drip @ 5. case d/w cardiology and plans to have PM replaced in the a.m and continue Dopamine GGT 7.5-10. External pacing pads on and may need to Pace with fentanyl if needed. Hold any and all arrythmogenic medications such as sertraline and gabapentin. Ativan prn for anxiety. Pain control If any further decline would intubate and pace externally. Heparin sq tid cc time 45 min
[2016-08-26] MEDS ORDERED: Potassium Chloride 20 mEq ER Tab PO STA (18:04)
[2016-08-26] MEDS ORDERED: Sodium Chloride 0.9% 1,000 ML IV STA (18:50)
--- NOTE | 2016-08-26 19:52 | CON ---
DATE: 08/26/2016 REASON FOR CONSULTATION: Noncapturing pacemaker, recently placed. BRIEF CLINICAL HISTORY: This is a 81-year-old female with a past medical history of sick sinus syndr ome, status post pacemaker in 05/2016, community-acquired pneumonia, bilateral below-knee amputation, hypothyroidism, dyslipidemia, rheumatoid arthritis, degenerative joint disease, came in with feeling dizzy. The patient came in the ER. EKG showed noncapturing pacemaker. The patient started 5 mcg of dopamine. Heart rate was intrinsic at 90, blood pressure 147/80. Denies any chest pain, nausea, vom iting. Denies any dizziness now. The patient says earlier she pacemaker same symptom as befor e the pacemaker. PAST MEDICAL HISTORY: Significant for sick sinus syndrome, community-acquired pneumonia, bilateral k nee amputation, hypothyroidism, dyslipidemia, rheumatoid arthritis, degenerative joint disease. ALLERGIES: AZITHROMYCIN, LEVAQUIN. CURRENT MEDICATIONS: The patient at home was taking sucralfate, prednisone, omeprazole, levothyroxin e, calcium, atorvastatin, aspirin, albuterol, acetaminophen. REVIEW OF SYSTEMS: As per HPI. PHYSICAL EXAMINATION: VITAL SIGNS: Heart rate 45 when the patient came in, blood pressure 133/59, now with the patient 5 m cg of dopamine, heart rate is 90 and the blood pressure is 147/80. HEENT: PERRLA. Extraocular muscles intact. NECK: Supple. No carotid bruits. No thyromegaly. CHEST: Clear to auscultation. HEART: S1, S2 regular. ABDOMEN: Soft. EXTREMITIES: Clubbing and cyanosis negative. Chest x-ray shows RV lead is in RV. It does not appea r dislodged, though it was only a PA and lateral view. EKG shows intrinsic atrial fibrillation nonca pturing. BLOOD WORKUP: As follows: WBC 9.4, hemoglobin 8.7, hematocrit 29.0, platelet count 359. Chemistry shows sodium , potassium 3.5, chloride 97, carbon dioxide 12, anion gap of 31, BUN 12, creatinin e 0.4. Troponin 0.03. IMPRESSION: Noncapturing of the pacemaker, is status post pacemaker, history of below-knee amputatio n, bilateral, history of transient ischemic attack, history of hyperlipidemia, hypertension, bilatera l amputation, history of pacemaker dated 06/08/2016. RECOMMENDATION: We will put 5 mcg of dopamine and titrate to heart rate. We will ask [employer] to evaluate the patient. It is a little unusual for after 3 months lead dislodged, but if lead dislodge d or any malfunction of pacemaker, we will do revision in the morning. Discussed with the patient at length. We will keep n.p.o. after 12:00 midnight for lead revision in the morning. Thank you, Dr. Toro, for providing the opportunity in taking care of this patient. Fara Saldivar MD cc:Jason Toro MD 305 TT: 08/26/2016 19:51:09 Confirmation # [id number] Dictation # [id number] rn
[2016-08-27 05:59] LABS: ADD MANUAL DIFF? NO
[2016-08-27 06:05] LABS: BASO # 0.02 K/mm3 (0.0-2.0); BASO % 0.2 % (0.0-3.0); EOS # 0.2 (0.0-0.7); EOS % 1.9 % (1.5-5.0); GRAN # 5.99 (1.4-6.5); GRAN % 69.5 % (50.0-68.0); HEMATOCRIT 32.9 % (36.0-48.0); LYMPH # 1.6 (1.2-3.4); LYMPH % 18.2 % (22.0-35.0); MEAN CELL VOLUME 88.2 fL (80.0-105.0); MEAN CORPUSCULAR HEMOGLOBIN 26.3 pg (25.0-35.0); MEAN CORPUSCULAR HGB CONC 29.8 g/dl (31.0-37.0); MEAN PLATELET VOLUME 8.6 fl (7.0-11.0); MONO # 0.9 (0.1-0.6); MONO % 10.2 % (1.0-6.0); PLATELET COUNT 366 10^3/uL (120.0-450.0); RED CELL DISTRIBUTION WIDTH 16.7 % (11.5-14.5); WHITE BLOOD COUNT 8.6 10^3/ul (4.5-11.0)
[2016-08-27 06:13] LABS: INR 1.07 (0.93-1.08); PARTIAL THROMBOPLASTIN TIME 24.9 Seconds (23.7-30.8)
[2016-08-27 06:20] LABS: ALB/GLOB RATIO 0.8 (1.1-1.8); ALKALINE PHOSPHATASE 67 U/L (38-133); ALT/SGPT 41 U/L (7-56); AST/SGOT 26 U/L (15-39); BILIRUBIN,TOTAL 0.6 mg/dL (0.2-1.3); BLOOD UREA NITROGEN 11 mg/dL (7-21); CALCIUM 8.5 mg/dL (8.4-10.5); CARBON DIOXIDE 28 mmol/L (21-33); CHLORIDE 102 mmol/L (98-107); CHOLESTEROL 147 mg/dL (130-200); GFR AFRICAN-AMERICAN > 60; GLUCOSE,RANDOM 115 mg/dL (70-110); MAGNESIUM 2.2 mg/dL (1.7-2.2); PHOSPHOROUS 5.3 mg/dL (2.5-4.5); POTASSIUM 3.6 mmol/L (3.6-5.0); SODIUM 139 mmol/L (132-148)
[2016-08-27 08:19] LABS: FREE T4 1.32 ng/dL (0.78-2.19)
[2016-08-27 08:33] LABS: T3 0.86 ng/mL (0.97-1.69)
[2016-08-27] MEDS ORDERED: Lidocaine 2% Inj (20ml) ONE (09:15)
[2016-08-27] MEDS ORDERED: Potassium Chloride 20 mEq ER Tab PO ONE ×2 (09:31→14:39)
--- NOTE | 2016-08-27 09:49 | RAD ---
HISTORY: PPM COMPARISON: 08/15/2016. FINDINGS: LUNGS: No active pulmonary disease. PLEURA: No significant pleural effusion identified, no pneumothorax apparent. CARDIOVASCULAR: Cardiomegaly. No evidence of acute, significant cardiovascular disease. Position/ configuration of pacemaker Satisfactory. OSSEOUS STRUCTURES: No significant abnormalities. VISUALIZED UPPER ABDOMEN: Normal. OTHER FINDINGS: None. IMPRESSION: No active disease. No significant interval change compared to the prior examination(s).
[2016-08-27] MEDS ORDERED: Midazolam 2 MG/2 ML VIAL ONE ×2 (09:50→10:32)
--- NOTE | 2016-08-27 10:00 | PN ---
DATE: 08/27/2016 REASON FOR CONSULTATION: Non-capturing pacemaker placed in 05/2012, possible lead dislodged secondary to trauma to the chest after a fall. BRIEF CLINICAL HISTORY: This is a 81-year-old female with a past medical history significant for sic k sinus syndrome, status post pacemaker in 05/2016, history of bilateral lower extremity amputation, h istory of recurrent pneumonia, who fell down from power chair on Wednesday and since then, patient felt dizzy, came to the Emergency Room, found to be heart rate in 30s and non-capturing of the pacemaker. The patient admitted to ICU, started on 7.5 of dopamine. Heart rate remains 30. Intermittent capturing and non-capturing, but blood pressure was stable. Plan is to interrogate the pacemaker an d then possible lead revision. The patient denies any chest pain, shortness of breath, any palpitati on. PHYSICAL EXAMINATION: VITAL SIGNS: Temperature afebrile, heart rate 38, blood pressure 127/86. HEENT: PERRLA. Extraocular muscles intact. NECK: Supple. No carotid bruits. No thyromegaly. CHEST: Clear to auscultation. HEART: S1, S2 regular. ABDOMEN: Soft. EXTREMITIES: Bilateral below knee amputation. BLOOD WORKUP: WBC 8.3, hemoglobin 9.8, hematocrit 32.9, platelet count 366. Chemistry shows sodium 139, potassium 3. , chloride 102, carbon dioxide 28, anion gap of 13, BUN 11, creatinine 0.5. TS H 0.86. IMPRESSION: Malfunction of the pacemaker, non-capturing, possibly lead dislodgement. Chest x-ray no t consistent with lead dislodgement, but patient had a trauma to the chest, fell down from power [place] r on Wednesday and since then, patient felt dizzy, possible lead dislodged from the trauma. Hypertensio n, rheumatoid arthritis, below knee amputation, diabetes, hypertension, hyperlipidemia. PLAN: As mentioned, we will interrogate the pacemaker and possible lead revision. We will try to ge t in touch with the family. Thank you, Dr. Toro, for providing us the opportunity in taking care of the patient. Mohammad Yariel MD cc:Jason Toro MD 305 TT: 08/27/2016 09:59:43 Confirmation # [id number] Dictation # [id number]
--- NOTE | 2016-08-27 10:50 | HP ---
CHIEF COMPLAINT AND HISTORY OF PRESENT ILLNESS: This is a 81-year-old female who is coming in to the hospital complaining of dizziness. The patient was discharged from the hospital on __ fro cristopher TORIBIO. She said that she was well at home. The patient says on 08/24/2016 she had a fall and landed on her chest. Since that night, she has been having dizziness. It is progressively getting worse. The patient has a past medical history for bilateral AKA, peripheral arterial disease, rheumatoid ar thritis, dyslipidemia. The patient says the dizziness has become worse. She had a pacemaker that wa s placed about 3 months ago. She was admitted to the ICU and placed on dopamine. The patient's EKG had shown that her pacemaker was not capturing. She also had an episode of having her heart rate janel t had gone into the 30s. Hemodynamically, she was also unstable so there were concerns that she may have heart block. She says that her dizziness is better. She has no complaints of any nausea, no vo miting, no fever or chills, no headaches, no abdominal pain. REVIEW OF SYSTEMS: All of the review of symptoms are negative except as mentioned. PAST MEDICAL HISTORY: 1. Community-acquired pneumonia. 2. Hypothyroidism. 3. Dyslipidemia. 4. Rheumatoid arthritis. 5. DJD. PAST SURGICAL HISTORY: 1. Complete heart block, status post pacemaker. 2. Bilateral AKA. 3. Hemorrhoidectomy. SOCIAL HISTORY: She lives alone. She has a outreach specialist. She has a daughter that is involved in her c are. She denies smoking or drinking. FAMILY HISTORY: Noncontributory. ALLERGIES: AZITHROMYCIN, GLUTEN, LEVOFLOXACIN. HOME MEDICATIONS: Flonase, sertraline, prednisone, calcium, aspirin, sucralfate, gabapentin, Prilose c, Lipitor. PHYSICAL EXAMINATION: VITAL SIGNS: Temperature is 98.8, pulse of 33, blood pressure 100/59, respirations 24, O2 saturation 93%. Height is 5 feet 2, weight is 130 pounds, BMI is 23.8 GENERAL: Patient lying in bed, flat, and in no apparent distress. HEAD AND NECK EXAM: Atraumatic, normocephalic. Conjunctivae are pink. Throat clear and mouth with moist mucosa. Oropharynx benign. EYES: Extraocular movements are intact. PERRLA. NECK: Supple. No JVD, thyromegaly, or adenopathy. No bruits. HEART: S1 and S2 regular rate and rhythm. No murmurs, rubs, or gallops. LUNGS: Clear to auscultation bilaterally. No wheezing rales or rhonchi appreciated. No retraction s on exam. ABDOMEN: Soft, nontender, nondistended. Bowel sounds are positive in all quadrants. No rebound. No hepatosplenomegaly. EXTREMITIES: No cyanosis, clubbing, or edema. Bilateral AKA. In the hands, bilateral MCP and DIP joint deformities. NEURO: No facial asymmetry, tongue is midline, no uvula deviation. Power is 5/5 in upper extremity and 5/5 in lower extremity. Sensation is normal in upper extremity and lower extremity. PSYCH: Awake, alert, oriented x3. No anxiety or depression symptoms. Good insight. Normal affec t. : No CVA tenderness VASCULAR: 2+ pulses in carotid and pedal pulses. SKIN: No erythema or abnormal nodules noted. SPINE: Normal curvature. LYMPHADENOPATHY: No anterior cervical or posterior cervical adenopathy. No inguinal adenopathy. LABORATORY DATA: White count of 9.4, hemoglobin 8.7, platelet count is 359. INR is 1.07. Chemistry shows a sodium 136, potassium 3.5, creatinine 0.4. Albumin is 3.0. TSH is 0.44 with a total T3 of 0.86. EKG done shows a noncapturing pacemaker. ASSESSMENT: 1. Bradycardia secondary to pacemaker malfunction. 2. Fall with trauma to the chest. 3. Osteoarthritis with chronic pain. 4. Rheumatoid arthritis. 5. Diabetes, type 2. 6. Chronic obstructive pulmonary disease. 7. Hypothyroidism. PLAN: The patient is currently on dopamine for the bradycardia. The patient is receiving Lipitor fo r dyslipidemia. The patient is on Protonix IV. She is on Synthroid for hypothyroidism. The patient is on fentanyl for pain. I will discontinue the patient's fentanyl and place the patient on morphin e. She is currently in the ICU. I did speak to Dr. Saldivar regarding the case. He will be taking the patient to ____. The patient will need to continue her p.o. Percocet that she is taking from home. Overall prognosis is guarded. The patient will also follow with Dr. Shea ____. The patient has arrhythmias, so I will discontinue the patient's fentanyl. Jason Toro MD cc: [id number] TT: 08/27/2016 09:45:23 mn 08/27/2016 09:49:26
--- NOTE | 2016-08-27 11:17 | CARD ---
APPROVED REPORT EKG Measurement Heart [id number] <Conclusion> Demand pacemaker, interpretation is based on intrinsic rhythm Baseline artifact Intermittent failure to capture Possible anterior infarct, age undetermined Abnormal ECG
--- NOTE | 2016-08-27 11:40 | CARD ---
APPROVED REPORT HISTORY The Patient is a 81 year-old with a history of S/P PPM 0n 06/08/2016, admitted with dizzyness heart rate 30's and non Capturing ppm, PPM was interogated lead was kit dislodged and was capturing 100% at 5 mv out put ...high threshhold that will drain the battery sooner. PROCEDURES Lead Revision, Comprising of New lead insertion and removal of old Micro dsilodged lead, and used old pulse generator place on 05/2016 INDICATIONS Non capturing ppm secondary to lead dislodgement ( micro dislodgement after a fall and trauma to chest) CONSCIOUS SEDATION AGENTS Versed Fentanyl IMPLANTED DEVICES Same old Pulse generator ... [employer] Ventricular lead 52 cm ...Active fixation... New lead OPERATIVE NOTE The patient was brought to the Cardiac Catheterization Laboratory in a fasting state and was prepped and draped in a sterile manner. The left subclavian region was infiltrated with 2% Lidocaine, subcutaneous anesthesia. A transverse incision was made in the left subclavicular area. The subcutaneous pocket was formed via blunt dissection, Percutaneous venous access was achieved and an introducer sheath was inserted into the Lt Subclavian vein. Through the introducer sheath, the ventricular lead wire was postitioned in the right ventricular apex utilizing fluoroscopic guidance. The ventricular was advanced over the wire under fluoroscopic guidance and positioned in the right ventricle. Capturing and sensing thresholds were verified. THE VENTRICULAR ELECTRODE PARAMETERS R WAVE 8 THRESHOLD0.5 RESISTANCE 1267 The ventricular lead was then secured using silk 2.0. The subcutaneous pocket was irrigated with Betadine. The ventricular lead was attached to the appropriate receptacle on the pulse generator and set screws firmly tightened to insure adequate contact and stability. The lead and pulse generator were placed into the subcutaneous pocket. Sharp and sponge counts were confirmed to be correct. At this time the pocket was closed subcutaneously with a vicryl 2.0 and the skin was closed with a vicryl 4.0 .The operative site was dressed in sterile fashion. The patient tolerated the procedure well and was transferred to the floor in stable condition. COMPLICATIONS The patient tolerated the procedure well and there were no complications associated with the procedure. CONCLUSION Successful Insertion of new Ventricular Lead ( Active Fixation), removal of dislodged lead and used same pulse generator. Arrangement has been mad to f/u with dr. Pal Cc; Drs. Ghazala Toro/ Demarco.
--- NOTE | 2016-08-27 11:55 | PN ---
DATE: 08/27/2016 REASON FOR CONSULTATION AND FOLLOWUP: Non-capturing pacemaker placement 05/29. BRIEF CLINICAL HISTORY: This is a 81-year-old female with past medical history significant for sick sinus syndrome, tachybrady syndrome, who had a pacemaker done 05/17/2016, admitted yesterday with non- capturing pacemaker. Pacemaker interrogated with a partially micro dislodge, was functioning on 5 ou tput on 5 millivolts, but it will drain the battery, so decision made for lead revision and after thi s, since the patient has active fixation, the lead was unscrewed, but it did not work, so a new lead was placed and checked where the threshold was found to be 0.5 with R-waves 14 and impedance was 600. The patient tolerated the procedure well. Old lead was extracted, removed. The patient remained h emodynamically stable, returned to the floor in stable condition. Please see the full pacemaker repo rt. We will transfer the care to Dr. Pal from tomorrow. Fara Saldivar MD cc:Jason Toro MD 305 TT: 08/27/2016 11:54:59 Confirmation # [id number] Dictation # [id number]
--- NOTE | 2016-08-27 12:56 | CP.CCUPN ---
<Alexander Mchugh - Last Filed: 08/27/16 12:59> CCU Subjective - Physician Review Subjective (Free Text): Pt seen and examined at bedside. Pt states she slept well overnight with no complaints. No acute events overnight. Pt will undergo pacemaker interrogation and revision this morning. Pt denies CP, SOB, N/V/D, fevers, chills. CCU Objective - Vital Signs / Intake & Output Vital Signs (Last 4 hours): Vital Signs Temp Pulse Resp BP Pulse Ox 08/27/16 09:28 98.1 F 38 L 18 127/86 96 08/27/16 09:20 34 L 22 08/27/16 09:00 127/96 H 96 Intake and Output (Last 8hrs): Intake & Output 08/26/16 08/27/16 08/27/16 22:59 06:59 14:59 Weight 130 lb Other: Voiding Method Diaper Diaper - Physical Exam Head: Positive for: Atraumatic, Normocephalic Pupils: Positive for: PERRL Conjunctiva: Positive for: Normal. Negative for: Injected Mouth: Positive for: Dry (slightly) Neck: Positive for: Normal Range of Motion. Negative for: Meningeal Signs Respiratory/Chest: Negative for: Respiratory Distress, Accessory Muscle Use Cardiovascular: Positive for: Normal S1, S2. Negative for: Regular Rate and Rhythm (irregular) Abdomen: Positive for: Normal Bowel Sounds. Negative for: Tenderness, Distention, Peritoneal Signs, Rebound Upper Extremity: Positive for: Other (laterally deviated MCP joints BL UE) Lower Extremity: Positive for: Other (BL AKAs) Neurological: Positive for: GCS=15, CN II-XII Intact, Speech Normal Skin: Positive for: Warm, Dry, Normal Color Psychiatric: Positive for: Alert, Oriented x 3, Normal Insight, Normal Concentration - Medications Active Medications: Active Medications Generic Name Dose Route Start Last Admin Trade Name Freq PRN Reason Stop Dose Admin Aspirin 81 mg 08/27/16 10:00 Ecotrin PO DAILY [facility] Atorvastatin Calcium 20 mg 08/27/16 17:00 Lipitor PO DIN [facility] Gabapentin 800 mg 08/27/16 14:00 Neurontin PO TID [facility] Protocol Levothyroxine Sodium 25 mcg 08/27/16 10:00 Synthroid PO DAILY [facility] Morphine Sulfate 4 mg 08/27/16 08:43 Morphine IVP Q4H PRN Pain, severe (8-10) Ondansetron HCl 4 mg 08/26/16 18:08 08/26/16 19:15 Zofran Inj IVP 4 mg ONCE PRN Administration nausea Pantoprazole Sodium 40 mg 08/27/16 10:00 Protonix Inj IVP DAILY [facility] Sertraline HCl 100 mg 08/27/16 13:00 Zoloft PO DAILY [facility] Sucralfate 1 gm 08/26/16 18:10 Carafate Tab PO DAILY PRN Dyspepsia - Patient Studies Lab Studies: Lab Studies 08/27/16 08/27/16 Range/Units 07:00 05:50 WBC 8.6 (4.5-11.0) 10^3/ul RBC 3.73 (3.5-6.1) 10^6/uL Hgb 9.8 L (12.0-16.0) gm/dL Hct 32.9 L (36.0-48.0) % MCV 88.2 (80.0-105.0) fL MCH 26.3 (25.0-35.0) pg MCHC 29.8 L (31.0-37.0) g/dl RDW 16.7 H (11.5-14.5) % Plt Count 366 (120.0-450.0) 10^3/uL MPV 8.6 (7.0-11.0) fl Gran % 69.5 H (50.0-68.0) % Lymph % (Auto) 18.2 L (22.0-35.0) % Haralson % (Auto) 10.2 H (1.0-6.0) % Eos % (Auto) 1.9 (1.5-5.0) % Baso % (Auto) 0.2 (0.0-3.0) % Gran # 5.99 (1.4-6.5) Lymph # 1.6 (1.2-3.4) Haralson # 0.9 H (0.1-0.6) Eos # 0.2 (0.0-0.7) Baso # 0.02 (0.0-2.0) K/mm3 PT 11.6 (9.9-11.8) Seconds INR 1.07 (0.93-1.08) APTT 24.9 (23.7-30.8) Seconds Sodium 139 (132-148) mmol/L Potassium 3.6 (3.6-5.0) mmol/L Chloride 102 (98-107) mmol/L Carbon Dioxide 28 (21-33) mmol/L Anion Gap 13 (10-20) BUN 11 (7-21) mg/dL Creatinine 0.5 (0.5-1.4) mg/dL Est GFR ( Amer) > 60 Est GFR (Non-Af Amer) > 60 Random Glucose 115 H (70-110) mg/dL Calcium 8.5 (8.4-10.5) mg/dL Phosphorus 5.3 H (2.5-4.5) mg/dL Magnesium 2.2 (1.7-2.2) mg/dL Total Bilirubin 0.6 (0.2-1.3) mg/dL AST 26 (15-39) U/L ALT 41 (7-56) U/L Alkaline Phosphatase 67 (38-133) U/L Total Protein 7.0 (5.8-8.3) g/dL Albumin 3.1 (3.0-4.8) g/dL Globulin 4.0 gm/dL Albumin/Globulin Ratio 0.8 L (1.1-1.8) Triglycerides 106 (35-160) mg/dL Cholesterol 147 (130-200) mg/dL LDL Cholesterol Direct 70 (0-129) mg/dL HDL Cholesterol 45 (29-60) mg/dL Free T4 1.32 (0.78-2.19) ng/dL Total T3 0.86 L (0.97-1.69) ng/mL TSH 3rd Generation 0.44 L (0.46-4.68) mIU/mL Laboratory Results - last 24 hr 08/27/16 08/27/16 05:50 07:00 WBC 8.6 RBC 3.73 Hgb 9.8 L Hct 32.9 L MCV 88.2 MCH 26.3 MCHC 29.8 L RDW 16.7 H Plt Count 366 MPV 8.6 Gran % 69.5 H Lymph % (Auto) 18.2 L Haralson % (Auto) 10.2 H Eos % (Auto) 1.9 Baso % (Auto) 0.2 Gran # 5.99 Lymph # 1.6 Haralson # 0.9 H Eos # 0.2 Baso # 0.02 PT 11.6 INR 1.07 APTT 24.9 Sodium 139 Potassium 3.6 Chloride 102 Carbon Dioxide 28 Anion Gap 13 BUN 11 Creatinine 0.5 Est GFR ( Amer) > 60 Est GFR (Non-Af Amer) > 60 Random Glucose 115 H Calcium 8.5 Phosphorus 5.3 H Magnesium 2.2 Total Bilirubin 0.6 AST 26 ALT 41 Alkaline Phosphatase 67 Total Protein 7.0 Albumin 3.1 Globulin 4.0 Albumin/Globulin Ratio 0.8 L Triglycerides 106 Cholesterol 147 LDL Cholesterol Direct 70 HDL Cholesterol 45 Free T4 1.32 Total T3 0.86 L TSH 3rd Generation 0.44 L EKG/Cardiology Studies: Cardiology / EKG Studies 08/26/16 16:16 EKG [ELECTROCARDIOGRAM] Stat Comment: Reason For Exam: DIZZINESS 08/27/16 11:12 ELECTROCARDIOGRAM Stat Comment: Pt is in CCU Reason For Exam: S/P PPM Fingerstick Blood Sugar Results: 129 Assessment/Plan - Assessment and Plan (Free Text) Plan: 81 y/o F with PMH of complete heart block s/p pacemaker placement in 05/2016, b/ l AKA, PVD, asthma, RA, and dyslipidemia presents with 3rd degree heart block. Cardiology, Dr. Crawford, took patient to the OR this morning for pacemaker revision. Pacer leads were found to be out of place and leads were replaced. Pt is back in ICU and asymptomatic. We will draw afternoon labs and transfer patient to telemetry later on today. Neuro: AAOx3 Monitor for acute change Cardio: Complete heart block Pacemaker revision and lead replacement Dopamine drip stopped Maintain hemodynamic stability Maintain MAP>65 Cardiology following, Dr. Crawford Pulm: No respiratory distress Maintain O2 sat >90% Monitor for SOB GI: NPO Protonix for GI prophylaxis Endo: TSH elevated Maintain euglycemia Nephro: Maintain euvolemia Replenish electrolytes as needed Heme/ID: Afebrile, no leukocytosis Maintain normothermia Seen, reviewed, and discussed with attending Jeison, PGY-1 <Wan DELGADILLO,Inamul H - Last Filed: 08/27/16 13:49> CCU Objective - Vital Signs / Intake & Output Intake and Output (Last 8hrs): Intake & Output 08/26/16 08/27/16 08/27/16 22:59 06:59 14:59 Weight 130 lb Other: Voiding Method Diaper Diaper - Medications Active Medications: Active Medications Generic Name Dose Route Start Last Admin Trade Name Freq PRN Reason Stop Dose Admin Aspirin 81 mg 08/27/16 10:00 Ecotrin PO DAILY [facility] Atorvastatin Calcium 20 mg 08/27/16 17:00 Lipitor PO DIN [facility] Cephalexin Monohydrate 250 mg 08/27/16 18:00 Keflex PO 08/31/16 18:01 Q6 [facility] Protocol Gabapentin 800 mg 08/27/16 14:00 Neurontin PO TID [facility] Protocol Heparin Sodium (Porcine) 5,000 units 08/27/16 22:00 Heparin SC Q12 [facility] Protocol Levothyroxine Sodium 25 mcg 08/27/16 10:00 Synthroid PO DAILY [facility] Morphine Sulfate 4 mg 08/27/16 08:43 Morphine IVP Q4H PRN Pain, severe (8-10) Ondansetron HCl 4 mg 08/26/16 18:08 08/26/16 19:15 Zofran Inj IVP 4 mg ONCE PRN Administration nausea Pantoprazole Sodium 40 mg 08/27/16 10:00 Protonix Inj IVP DAILY [facility] Sertraline HCl 100 mg 08/27/16 13:00 Zoloft PO DAILY [facility] Sucralfate 1 gm 08/26/16 18:10 Carafate Tab PO DAILY PRN Dyspepsia - Patient Studies Lab Studies: Lab Studies 08/27/16 08/27/16 Range/Units 07:00 05:50 WBC 8.6 (4.5-11.0) 10^3/ul RBC 3.73 (3.5-6.1) 10^6/uL Hgb 9.8 L (12.0-16.0) gm/dL Hct 32.9 L (36.0-48.0) % MCV 88.2 (80.0-105.0) fL MCH 26.3 (25.0-35.0) pg MCHC 29.8 L (31.0-37.0) g/dl RDW 16.7 H (11.5-14.5) % Plt Count 366 (120.0-450.0) 10^3/uL MPV 8.6 (7.0-11.0) fl Gran % 69.5 H (50.0-68.0) % Lymph % (Auto) 18.2 L (22.0-35.0) % Haralson % (Auto) 10.2 H (1.0-6.0) % Eos % (Auto) 1.9 (1.5-5.0) % Baso % (Auto) 0.2 (0.0-3.0) % Gran # 5.99 (1.4-6.5) Lymph # 1.6 (1.2-3.4) Haralson # 0.9 H (0.1-0.6) Eos # 0.2 (0.0-0.7) Baso # 0.02 (0.0-2.0) K/mm3 PT 11.6 (9.9-11.8) Seconds INR 1.07 (0.93-1.08) APTT 24.9 (23.7-30.8) Seconds Sodium 139 (132-148) mmol/L Potassium 3.6 (3.6-5.0) mmol/L Chloride 102 (98-107) mmol/L Carbon Dioxide 28 (21-33) mmol/L Anion Gap 13 (10-20) BUN 11 (7-21) mg/dL Creatinine 0.5 (0.5-1.4) mg/dL Est GFR ( Amer) > 60 Est GFR (Non-Af Amer) > 60 Random Glucose 115 H (70-110) mg/dL Hemoglobin A1c 6.3 (4.2-6.5) % Calcium 8.5 (8.4-10.5) mg/dL Phosphorus 5.3 H (2.5-4.5) mg/dL Magnesium 2.2 (1.7-2.2) mg/dL Total Bilirubin 0.6 (0.2-1.3) mg/dL AST 26 (15-39) U/L ALT 41 (7-56) U/L Alkaline Phosphatase 67 (38-133) U/L Total Protein 7.0 (5.8-8.3) g/dL Albumin 3.1 (3.0-4.8) g/dL Globulin 4.0 gm/dL Albumin/Globulin Ratio 0.8 L (1.1-1.8) Triglycerides 106 (35-160) mg/dL Cholesterol 147 (130-200) mg/dL LDL Cholesterol Direct 70 (0-129) mg/dL HDL Cholesterol 45 (29-60) mg/dL Free T4 1.32 (0.78-2.19) ng/dL Total T3 0.86 L (0.97-1.69) ng/mL TSH 3rd Generation 0.44 L (0.46-4.68) mIU/mL Laboratory Results - last 24 hr 08/27/16 08/27/16 05:50 07:00 WBC 8.6 RBC 3.73 Hgb 9.8 L Hct 32.9 L MCV 88.2 MCH 26.3 MCHC 29.8 L RDW 16.7 H Plt Count 366 MPV 8.6 Gran % 69.5 H Lymph % (Auto) 18.2 L Haralson % (Auto) 10.2 H Eos % (Auto) 1.9 Baso % (Auto) 0.2 Gran # 5.99 Lymph # 1.6 Haralson # 0.9 H Eos # 0.2 Baso # 0.02 PT 11.6 INR 1.07 APTT 24.9 Sodium 139 Potassium 3.6 Chloride 102 Carbon Dioxide 28 Anion Gap 13 BUN 11 Creatinine 0.5 Est GFR ( Amer) > 60 Est GFR (Non-Af Amer) > 60 Random Glucose 115 H Hemoglobin A1c 6.3 Calcium 8.5 Phosphorus 5.3 H Magnesium 2.2 Total Bilirubin 0.6 AST 26 ALT 41 Alkaline Phosphatase 67 Total Protein 7.0 Albumin 3.1 Globulin 4.0 Albumin/Globulin Ratio 0.8 L Triglycerides 106 Cholesterol 147 LDL Cholesterol Direct 70 HDL Cholesterol 45 Free T4 1.32 Total T3 0.86 L TSH 3rd Generation 0.44 L EKG/Cardiology Studies: Cardiology / EKG Studies 08/26/16 16:16 EKG [ELECTROCARDIOGRAM] Stat Comment: Reason For Exam: DIZZINESS 08/27/16 11:12 ELECTROCARDIOGRAM Stat Comment: Pt is in CCU Reason For Exam: S/P PPM Critical Care Progress Note - Nutrition Nutrition: Nutrition Category Date Time Status Heart Healthy Diet [DIET] Diets 08/27/16 Dinner Ordered Attending/Attestation - Attestation I have personally seen and examined this patient.: Yes I have fully participated in the care of the patient.: Yes I have reviewed all pertinent clinical information: Yes Notes (Text): 08/27/16 13:48 81 y/o F w/ Complete heart block with PM malfunction Taken today for revision of the leads and currently V-paced with rate 60BPM Off Dopamine, asymptomatic. Will restart diet, P.O medications . Monitor post op labs and replete electrolytes. dvt p Heparin sq tid cc time 45 min
--- NOTE | 2016-08-27 13:39 | RAD ---
HISTORY: Post Pacemaker, R/O Pneumothorax COMPARISON: 08/26/2016 FINDINGS: LUNGS: No active pulmonary disease. PLEURA: Small left pleural effusion. No evidence of right pleural effusion. No evidence of pneumothorax. CARDIOVASCULAR: Permanent pacemaker. OSSEOUS STRUCTURES: No significant abnormalities. VISUALIZED UPPER ABDOMEN: Normal. OTHER FINDINGS: None. IMPRESSION: Small left pleural effusion. No pneumothorax.
[2016-08-27 14:16] LABS: HEMATOCRIT 31.3 % (36.0-48.0); MEAN CELL VOLUME 88.7 fL (80.0-105.0); MEAN CORPUSCULAR HEMOGLOBIN 26.3 pg (25.0-35.0); MEAN CORPUSCULAR HGB CONC 29.7 g/dl (31.0-37.0); MEAN PLATELET VOLUME 8.3 fl (7.0-11.0); RED CELL DISTRIBUTION WIDTH 16.7 % (11.5-14.5); WHITE BLOOD COUNT 8.3 10^3/ul (4.5-11.0)
[2016-08-27 14:24] LABS: ALB/GLOB RATIO 0.8 (1.1-1.8); ALKALINE PHOSPHATASE 58 U/L (38-133); ALT/SGPT 32 U/L (7-56); AST/SGOT 29 U/L (15-39); BILIRUBIN,TOTAL 0.6 mg/dL (0.2-1.3); BLOOD UREA NITROGEN 12 mg/dL (7-21); CALCIUM 8.2 mg/dL (8.4-10.5); CARBON DIOXIDE 30 mmol/L (21-33); CHLORIDE 101 mmol/L (98-107); GFR AFRICAN-AMERICAN > 60; GLUCOSE,RANDOM 82 mg/dL (70-110); MAGNESIUM 2.1 mg/dL (1.7-2.2); PHOSPHOROUS 4.9 mg/dL (2.5-4.5); POTASSIUM 3.6 mmol/L (3.6-5.0); SODIUM 138 mmol/L (132-148); TOTAL PROTEIN 6.6 g/dL (5.8-8.3)
[2016-08-27] MEDS: Levothyroxine 25 MCG TAB PO SCH (14:40)
[2016-08-27] MEDS: Morphine 4 mg/ml ISec IVP PRN ×2 (15:21→20:34)
--- NOTE | 2016-08-27 15:28 | CARD ---
APPROVED REPORT EKG Measurement Heart [id number] IL [id number] <Conclusion> Predominently V. Pacing at 60 BPM Normal sensing and capture.
[2016-08-28 05:13] LABS: HEMATOCRIT 29.4 % (36.0-48.0); MEAN CELL VOLUME 89.6 fL (80.0-105.0); MEAN CORPUSCULAR HEMOGLOBIN 26.2 pg (25.0-35.0); MEAN CORPUSCULAR HGB CONC 29.3 g/dl (31.0-37.0); MEAN PLATELET VOLUME 8.5 fl (7.0-11.0); RED CELL DISTRIBUTION WIDTH 16.7 % (11.5-14.5); WHITE BLOOD COUNT 8.7 10^3/ul (4.5-11.0)
[2016-08-28 05:34] LABS: ALB/GLOB RATIO 0.8 (1.1-1.8); ALKALINE PHOSPHATASE 63 U/L (38-133); ALT/SGPT 29 U/L (7-56); AST/SGOT 23 U/L (15-39); BILIRUBIN,TOTAL 0.6 mg/dL (0.2-1.3); BLOOD UREA NITROGEN 14 mg/dL (7-21); CALCIUM 7.9 mg/dL (8.4-10.5); CARBON DIOXIDE 28 mmol/L (21-33); CHLORIDE 101 mmol/L (98-107); GFR AFRICAN-AMERICAN > 60; GLUCOSE,RANDOM 99 mg/dL (70-110); POTASSIUM 3.9 mmol/L (3.6-5.0); SODIUM 136 mmol/L (132-148); TOTAL PROTEIN 6.2 g/dL (5.8-8.3)
--- NOTE | 2016-08-28 09:12 | CP.PCM.PN ---
Subjective - Date & Time of Evaluation Date of Evaluation: 08/28/16 Time of Evaluation: 08:00 - Subjective Subjective: Stable in CCU. She feels well s/p revision of ventricular lead yesterday. No CP , SOB, Dizziness. V/S noted. V. paced today. PE: lungs: clear Cor.: S1S2, FRANCISCO J Abd.: soft Neuro.: alert I/)= 620/800 ECG 08/27: Mosly V. Paced. Nl pacer fx. CXR 08/27: noted Labs: H/H = 8.6/29.4 Objective - Vital Signs/Intake and Output Vital Signs (last 24 hours): Temp Pulse Resp BP Pulse Ox 98.7 F 60 21 122/51 L 96 08/28/16 06:00 08/28/16 06:01 08/28/16 06:01 08/28/16 06:00 08/28/16 06:01 - Medications Medications: Current Medications Aspirin (Ecotrin) 81 mg PO DAILY [facility] Last Admin: 08/27/16 14:40 Dose: 81 mg Atorvastatin Calcium (Lipitor) 20 mg PO DIN [facility] Last Admin: 08/27/16 17:35 Dose: 20 mg Cephalexin Monohydrate (Keflex) 250 mg PO Q6 [facility] PRN Reason: Protocol Stop: 08/31/16 18:01 Last Admin: 08/28/16 05:17 Dose: 250 mg Gabapentin (Neurontin) 800 mg PO TID [facility] PRN Reason: Protocol Last Admin: 08/27/16 18:10 Dose: 800 mg Heparin Sodium (Porcine) (Heparin) 5,000 units SC Q12 [facility] PRN Reason: Protocol Last Admin: 08/28/16 00:00 Dose: 5,000 units Levothyroxine Sodium (Synthroid) 25 mcg PO DAILY [facility] Last Admin: 08/27/16 14:40 Dose: 25 mcg Morphine Sulfate (Morphine) 4 mg IVP Q4H PRN PRN Reason: Pain, severe (8-10) Last Admin: 08/27/16 20:34 Dose: 4 mg Ondansetron HCl (Zofran Inj) 4 mg IVP ONCE PRN PRN Reason: nausea Last Admin: 08/26/16 19:15 Dose: 4 mg Pantoprazole Sodium (Protonix Inj) 40 mg IVP DAILY [facility] Last Admin: 08/27/16 14:40 Dose: 40 mg Sertraline HCl (Zoloft) 100 mg PO DAILY [facility] Last Admin: 08/27/16 14:40 Dose: 100 mg Sucralfate (Carafate Tab) 1 gm PO DAILY PRN PRN Reason: Dyspepsia - Labs Labs: 08/28/16 05:06 08/28/16 05:06 PT 11.6 Seconds (9.9-11.8) 08/27/16 05:50 INR 1.07 (0.93-1.08) 08/27/16 05:50 APTT 24.9 Seconds (23.7-30.8) 08/27/16 05:50 Assessment and Plan - Assessment and Plan (Free Text) Plan: Assessment: Dizzy and weak/CHB/Pacemeker lead dislodgement Pacemeker lead revision 08/27/16 PPM for symptomatic CHB 06/02 , mild RA Asthma HLD PAD Bilat.AKAs Hypothyroidism Hypotonic Bladder/Stress Incontinence Pascual. THR cataracts Plan: Tel bed OOB to chair as sadia. Pacer F/U to be arranged.
[2016-08-28] MEDS: Levothyroxine 25 MCG TAB PO SCH (09:22)
--- NOTE | 2016-08-28 18:56 | PN ---
DATE: 08/28/2016 SUBJECTIVE: The patient is a 81-year-old who came to Emergency Room on 08/26/2016 with intermittent d izziness and vertigo that was associated with nausea and mild shortness of breath. SIGNIFICANT PAST MEDICAL HISTORY: 1. Pacemaker placement. 2. Coronary artery disease. 3. Bilateral above knee amputation. 4. Hyperlipidemia. The patient was admitted in ICU. She had a revision of ventricular lead placement yesterday. She wa s seen and examined, awake and alert, communicative, complaining of dry mouth only, no nausea, vomiti ng, no diarrhea. PHYSICAL EXAMINATION: VITAL SIGNS: She is afebrile, pulse 67, respirations 18, blood pressure 137/48. LUNGS: Bilateral fair airflow, no rhonchi or crackle. HEART: S1, S2 audible. ABDOMEN: Soft, nontender, no rebound, no guarding. NEUROLOGIC: She is awake and alert, somewhat confused, but answers simple questions. LABORATORY: WBC 8.7, hemoglobin 8.6, hematocrit 29.4, platelet 310. PT 11.6, INR 1.07. Chemistry: Sodium 136, potassium 3.9, chloride 101, CO2 of 28, BUN 14, creatinine 0.5, blood sugar of 99, calci um 7.9. ASSESSMENT AND PLAN: 1. Status post dizziness because of malfunctioning of pacemaker, status post revision of ventricular lead placement yesterday. 2. Aortic stenosis. 3. Hypothyroidism. 4. Bilateral above knee amputation. 5. Peripheral vascular disease. 6. Hyperlipidemia. 7. Status post bilateral total hip replacement. PLAN: Currently the patient is scheduled for interrogation of pacemaker, status post complete heart block. We will continue her on aspirin. She is on DVT prophylaxis. She has been started on Keflex 250 q. 6, she is on statin, analgesic as needed. Will follow up her electrolyte and CBC in the a.m. Bowen Berman MD cc: [phone] TT: 08/28/2016 18:55:36 Confirmation # [id number] Dictation # [id number] khadra
[2016-08-29] MEDS: Albuterol-Ipratrop 3 mg / 0.5 (3 ml) UD IH PRN (07:08)
--- NOTE | 2016-08-29 07:59 | CP.PCM.PN ---
Subjective - Date & Time of Evaluation Date of Evaluation: 08/29/16 Time of Evaluation: 08:00 - Subjective Subjective: Stable in CCU. She feels congested and has diffuse pains. She does not feel good with MS. V/S noted. V. paced today. PE: lungs: clear Cor.: S1S2, FRANCISCO J Abd.: soft Neuro.: alert ECG 08/27: Mosly V. Paced. Nl pacer fx. CXR 08/27: noted Labs 08/28 noted Objective - Vital Signs/Intake and Output Vital Signs (last 24 hours): Temp Pulse Resp BP Pulse Ox 98 F 64 21 130/67 94 L 08/29/16 07:34 08/29/16 07:34 08/29/16 07:34 08/29/16 07:34 08/29/16 07:34 - Medications Medications: Current Medications Albuterol/Ipratropium (Duoneb 3 Mg/0.5 Mg (3 Ml) Ud) 3 ml IH Q4H PRN PRN Reason: Shortness of Breath Last Admin: 08/29/16 07:08 Dose: 3 ml Aspirin (Ecotrin) 81 mg PO DAILY [facility] Last Admin: 08/28/16 09:20 Dose: 81 mg Atorvastatin Calcium (Lipitor) 20 mg PO DIN [facility] Last Admin: 08/28/16 17:22 Dose: 20 mg Cephalexin Monohydrate (Keflex) 250 mg PO Q6 [facility] PRN Reason: Protocol Stop: 08/31/16 18:01 Last Admin: 08/29/16 06:06 Dose: 250 mg Gabapentin (Neurontin) 800 mg PO TID [facility] PRN Reason: Protocol Last Admin: 08/28/16 17:22 Dose: 800 mg Heparin Sodium (Porcine) (Heparin) 5,000 units SC Q12 [facility] PRN Reason: Protocol Last Admin: 08/28/16 21:12 Dose: 5,000 units Levothyroxine Sodium (Synthroid) 25 mcg PO DAILY [facility] Last Admin: 08/28/16 09:22 Dose: 25 mcg Morphine Sulfate (Morphine) 4 mg IVP Q4H PRN PRN Reason: Pain, severe (8-10) Last Admin: 08/27/16 20:34 Dose: 4 mg Ondansetron HCl (Zofran Inj) 4 mg IVP Q6H PRN PRN Reason: Nausea/Vomiting Last Admin: 08/29/16 06:23 Dose: 4 mg Pantoprazole Sodium (Protonix Inj) 40 mg IVP DAILY [facility] Last Admin: 08/28/16 09:21 Dose: 40 mg Sertraline HCl (Zoloft) 100 mg PO DAILY [facility] Last Admin: 08/28/16 09:21 Dose: 100 mg Sucralfate (Carafate Tab) 1 gm PO DAILY [facility] PRN Reason: Dyspepsia - Labs Labs: 08/28/16 05:06 08/28/16 05:06 PT 11.6 Seconds (9.9-11.8) 08/27/16 05:50 INR 1.07 (0.93-1.08) 08/27/16 05:50 APTT 24.9 Seconds (23.7-30.8) 08/27/16 05:50 Assessment and Plan - Assessment and Plan (Free Text) Plan: Assessment: Dizzy and weak/CHB/Pacemeker lead dislodgement Pacemeker lead revision 08/27/16 PPM for symptomatic CHB 06/02 , mild RA Asthma HLD PAD Bilat.AKAs Hypothyroidism Hypotonic Bladder/Stress Incontinence Pascual. THR Cataracts Plan: Awaiting Tel bed She prefers Percocet for pain. OOB to chair as sadia. Pacer F/U to be arranged.
[2016-08-29 09:10] LABS: ADD MANUAL DIFF? NO
[2016-08-29] MEDS: Levothyroxine 25 MCG TAB PO SCH (09:13)
[2016-08-29 09:40] LABS: BASO # 0.04 K/mm3 (0.0-2.0); BASO % 0.3 % (0.0-3.0); EOS # 0.1 (0.0-0.7); GRAN # 11.23 (1.4-6.5); GRAN % 89.2 % (50.0-68.0); HEMATOCRIT 30.7 % (36.0-48.0); LYMPH # 0.7 (1.2-3.4); LYMPH % 5.4 % (22.0-35.0); MEAN CORPUSCULAR HEMOGLOBIN 26.4 pg (25.0-35.0); MEAN CORPUSCULAR HGB CONC 29.3 g/dl (31.0-37.0); MEAN PLATELET VOLUME 9.4 fl (7.0-11.0); MONO # 0.5 (0.1-0.6); MONO % 4.1 % (1.0-6.0); PLATELET COUNT 361 10^3/uL (120.0-450.0); RED CELL DISTRIBUTION WIDTH 16.4 % (11.5-14.5); WHITE BLOOD COUNT 12.6 10^3/ul (4.5-11.0)
[2016-08-29] MEDS ORDERED: Oxycodone/Acetaminophen 10/325 mg Tab PO STA (14:23)
[2016-08-29] MEDS ORDERED: Oxycodone/Acetaminophen 10/325 mg Tab PO PRN (14:46)
[2016-08-29] MEDS: Levalbuterol 0.63 MG/3 ML Inhal Soln UD IH PRN (14:59)
--- NOTE | 2016-08-29 17:46 | RAD ---
HISTORY: S/P PPM COMPARISON: Comparison made with chest radiograph 08/27/2016 FINDINGS: LUNGS: Large left-sided pneumothorax with collapse of the left lung medially. There may also be left-sided effusion (hydropneumothorax). These changes are new since prior study Right lower lobe atelectasis and or infiltrate and small right-sided effusion. The central pulmonary vasculature remains slightly congested evident only throughout the right lung and not appreciated on the left side due to the aforementioned left-sided pneumothorax PLEURA: As above. CARDIOVASCULAR: Heart is enlarged. No change single lead pacemaker. OSSEOUS STRUCTURES: No significant abnormalities. VISUALIZED UPPER ABDOMEN: Normal. OTHER FINDING: IMPRESSION Large left-sided pneumothorax with collapse of the left lung medially. There may also be left-sided effusion (hydropneumothorax). These changes are new since prior study Right lower lobe atelectasis and or infiltrate and small right-sided effusion. The central pulmonary vasculature remains slightly congested evident only throughout the right lung and not appreciated on the left side due to the aforementioned left-sided pneumothorax. Note that the findings were discussed with Dr Hayes approximately 5:25 p.m. with written down and read back verification. Focal
[2016-08-29] MEDS ORDERED: HYDROmorphone 0.5 mg/0.5 ml ISec IVP PRN (18:20)
--- NOTE | 2016-08-29 18:22 | CP.PCM.PN ---
Subjective - Date & Time of Evaluation Date of Evaluation: 08/29/16 Time of Evaluation: 18:17 - Subjective Subjective: called by nurse pt in icu s/p ppm on is sob .pt pulse ox is 88 bp 136/68 pulse 66. Objective - Vital Signs/Intake and Output Vital Signs (last 24 hours): Temp Pulse Resp BP Pulse Ox 98.4 F 64 20 116/62 95 08/29/16 16:00 08/29/16 18:00 08/29/16 16:00 08/29/16 16:00 08/29/16 16:00 Intake and Output: 08/29/16 08/29/16 06:59 18:59 Intake Total 640 Balance 640 - Medications Medications: Current Medications Albuterol/Ipratropium (Duoneb 3 Mg/0.5 Mg (3 Ml) Ud) 3 ml IH Q4H PRN PRN Reason: Shortness of Breath Last Admin: 08/29/16 07:08 Dose: 3 ml Alprazolam (Xanax) 0.5 mg PO TID PRN; Protocol PRN Reason: Anxiety Aspirin (Ecotrin) 81 mg PO DAILY [facility] Last Admin: 08/29/16 09:12 Dose: 81 mg Atorvastatin Calcium (Lipitor) 20 mg PO DIN [facility] Last Admin: 08/29/16 17:06 Dose: 20 mg Cephalexin Monohydrate (Keflex) 250 mg PO Q6 [facility] PRN Reason: Protocol Stop: 08/31/16 18:01 Last Admin: 08/29/16 17:06 Dose: 250 mg Fluticasone Propionate (Flonase) 1 actuation NS DAILY [facility] Gabapentin (Neurontin) 800 mg PO TID [facility] PRN Reason: Protocol Last Admin: 08/29/16 17:07 Dose: 800 mg Heparin Sodium (Porcine) (Heparin) 5,000 units SC Q12 [facility] PRN Reason: Protocol Last Admin: 08/29/16 09:12 Dose: 5,000 units Levalbuterol HCl (Xopenex) 0.63 mg IH [id number] [facility] Levalbuterol HCl (Xopenex) 0.63 mg IH Q2H PRN PRN Reason: Shortness of Breath Last Admin: 08/29/16 14:59 Dose: 0.63 mg Levothyroxine Sodium (Synthroid) 25 mcg PO DAILY [facility] Last Admin: 08/29/16 09:13 Dose: 25 mcg Morphine Sulfate (Morphine) 4 mg IVP Q4H PRN PRN Reason: Pain, severe (8-10) Last Admin: 08/27/16 20:34 Dose: 4 mg Mupirocin (Bactroban Ointment) 0 gm NS BID [facility] Stop: 09/02/16 18:01 Last Admin: 08/29/16 17:06 Dose: 1 applic Ondansetron HCl (Zofran Inj) 4 mg IVP Q6H PRN PRN Reason: Nausea/Vomiting Last Admin: 08/29/16 12:46 Dose: 4 mg Oxycodone/Acetaminophen (Percocet 10/325 Mg Tab) 1 tab PO Q6H PRN PRN Reason: Pain, severe (8-10) Pantoprazole Sodium (Protonix Inj) 40 mg IVP DAILY [facility] Last Admin: 08/29/16 09:12 Dose: 40 mg Sertraline HCl (Zoloft) 100 mg PO DAILY [facility] Last Admin: 08/29/16 09:13 Dose: 100 mg Sucralfate (Carafate Tab) 1 gm PO DAILY PRN PRN Reason: Dyspepsia - Labs Labs: 08/29/16 09:09 08/28/16 05:06 PT 11.6 Seconds (9.9-11.8) 08/27/16 05:50 INR 1.07 (0.93-1.08) 08/27/16 05:50 APTT 24.9 Seconds (23.7-30.8) 08/27/16 05:50 - Constitutional Appears: In Acute Distress - Head Exam Head Exam: NORMOCEPHALIC - Eye Exam Eye Exam: Normal appearance Pupil Exam: PERRL - ENT Exam ENT Exam: Mucous Membranes Moist - Neck Exam Neck Exam: Normal Inspection - Respiratory Exam Additional comments: pt has absent breath sounds on the left side. - Cardiovascular Exam Cardiovascular Exam: REGULAR RHYTHM, +S1, +S2 - GI/Abdominal Exam GI & Abdominal Exam: Soft, Normal Bowel Sounds - Rectal Exam Rectal Exam: Deferred - Extremities Exam Extremities Exam: Full ROM - Neurological Exam Neurological Exam: Awake, CN II-XII Intact, Oriented x3 - Psychiatric Exam Psychiatric exam: Anxious - Skin Skin Exam: Dry, Normal Color, Warm Assessment and Plan - Assessment and Plan (Free Text) Assessment: sob / stat chest x-ray done shows large left pneumothorax. Plan: pt placed on 100% o2 . called surgical services asst and dr radha somers states he will be here.
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
--- NOTE | 2016-08-29 18:41 | PN ---
DATE: 08/29/2016 SUBJECTIVE: The patient is a 81-year-old, seen and examined, doing well, lying in bed, no cough or c ongestion, dizziness has improved. PHYSICAL EXAMINATION: VITAL SIGNS: She is afebrile, pulse 63, respirations 20, blood pressure . LUNGS: Bilateral fair airflow, no rhonchi or crackle. HEART: S1, S2 audible. ABDOMEN: Soft, nontender, no rebound, no guarding. NEUROLOGIC: She is awake and alert, communicative. Bilateral legs AKA. LABORATORY EXAMINATION: WBC is 12.6, hemoglobin 9.0, hematocrit 30.7, platelet of 361. Chemistry: Sodium 136, potassium 3.9, chloride 101, CO2 of 28, BUN 14, creatinine 0.5, blood sugar of 99. ASSESSMENT: 1. Status post pacemaker lead revision. 2. Hypertension. 3. History of chronic obstructive pulmonary disease. 4. Chronic degenerative disk disease. 5. Aortic stenosis. 6. Generalized osteoarthritis. 7. Hypothyroidism. PLAN: We will place patient on Percocet as needed that she was taking . She is requesting for Xanax, we will give that. She is on ekg monitor tech, will continue that. Continue her on aspirin, F lonase, and she is receiving Keflex and gabapentin 800 three times a day. We will reevaluate the pat ient in a.m. Bowen Berman MD cc: [phone] TT: 08/29/2016 18:40:12 Confirmation # [id number] Dictation # [id number] cady
--- NOTE | 2016-08-29 19:29 | PCM.PROC ---
Procedures Attestation:: I certify that I have explained the specified Operation(s) or Procedure(s), risks, benefits and reasonable alternatives to the Patient and/or other person responsible. The opportunity was given to ask questions and all questions answered - Chest Tube Chest Tube Location: Anterior Chest Left Chest Tube Procedure: Chlorhexidine Tube Sutured to Skin: Yes Sterile Dressing Applied: Yes Anesthesia: Lidocaine 1% Volume Anesthetic (mls): 20 Incision Made With: #10 blade Post Procedure: sutured to skin, sterile dressing applied Sams of Air [place]: Yes Tube Drainage: fluid Amount of Initial Drainage: 500 Post Procedure CXR?: Yes Patient Tolerated Procedure: Yes
--- NOTE | 2016-08-29 20:00 | PN ---
DATE: 08/29/2016 I am covering for Dr. Saldivar. I was notified that the patient has a large pneumothorax on the left side. I went to evaluate the pa negrita. The patient is mildly tachypneic. The case was discussed with Dr. Terrell, the surgeon, who inserted an 8-Salvadorean thoracocentesis tube, which I attended. Following the placement, the patient's shortness of breath is slightly improved. PHYSICAL EXAMINATION: VITAL SIGNS: Blood pressure 116/62, heart rate 63, temperature 98.4, respirations 20. HEENT: Pale conjunctivae. CHEST: Absent breath sounds over the right base. HEART: S1, S2 regular. EXTREMITIES: Bilateral below knee amputation. LABORATORIES: Hemoglobin and hematocrit 9 and 30.7, white count is 12.6, platelet count 361,000. To day's SMA-7 is within normal limits. is below normal at 7.9. ASSESSMENT: 1. Status post replacement of pacemaker after noncapturing of the recently placed pacemaker. 2. Left-sided pneumothorax, status post thoracocentesis tube placement. 3. Bilateral below knee amputation. 4. Rheumatoid arthritis. 5. Community-acquired pneumonia. RECOMMENDATIONS: Continue current aspirin, subcutaneous heparin, Lipitor, Synthroid and Xopenex inha ler. I will review the chest x-ray to be performed after the placement of the thoracocentesis tube. Juan M Fleming MD cc: [id number] TT: 08/29/2016 19:59:52 Confirmation # [id number] Dictation # [id number] mn
[2016-08-29] MEDS: Levalbuterol 0.63 MG/3 ML Inhal Soln UD IH SCH (20:50)
[2016-08-30] MEDS: Levalbuterol 0.63 MG/3 ML Inhal Soln UD IH SCH ×4 (02:15→20:16)
--- NOTE | 2016-08-30 06:32 | CP.PCM.PCO ---
Physician Communication Note - Physician Communication Note Physician Communication Note: CT dislodged/+ PTX:Needs replacement today
--- NOTE | 2016-08-30 08:28 | CP.PCM.PN ---
Subjective - Date & Time of Evaluation Date of Evaluation: 08/30/16 Time of Evaluation: 08:24 - Subjective Subjective: Surgery for Dr. Terrell Pt s&e. Had chest catheter placed yesteday. Tolerated it well. Denies F/C\N/V/D/ CP. Pt on ventimask. Mild SOB. Objective - Vital Signs/Intake and Output Vital Signs (last 24 hours): Temp Pulse Resp BP Pulse Ox 97.8 F 73 73 H 139/61 85 L 08/30/16 05:49 08/30/16 06:21 08/30/16 06:21 08/30/16 06:00 08/30/16 06:00 Intake and Output: 08/30/16 08/30/16 06:59 18:59 Intake Total 400 Output Total 460 Balance -60 - Medications Medications: Current Medications Albuterol/Ipratropium (Duoneb 3 Mg/0.5 Mg (3 Ml) Ud) 3 ml IH Q4H PRN PRN Reason: Shortness of Breath Last Admin: 08/29/16 07:08 Dose: 3 ml Alprazolam (Xanax) 0.5 mg PO TID PRN; Protocol PRN Reason: Anxiety Aspirin (Ecotrin) 81 mg PO DAILY [facility] Last Admin: 08/29/16 09:12 Dose: 81 mg Atorvastatin Calcium (Lipitor) 20 mg PO DIN [facility] Last Admin: 08/29/16 17:06 Dose: 20 mg Cephalexin Monohydrate (Keflex) 250 mg PO Q6 [facility] PRN Reason: Protocol Stop: 08/31/16 18:01 Last Admin: 08/30/16 05:49 Dose: 250 mg Fluticasone Propionate (Flonase) 1 actuation NS DAILY [facility] Gabapentin (Neurontin) 800 mg PO TID [facility] PRN Reason: Protocol Last Admin: 08/29/16 17:07 Dose: 800 mg Heparin Sodium (Porcine) (Heparin) 5,000 units SC Q12 [facility] PRN Reason: Protocol Last Admin: 08/29/16 21:55 Dose: 5,000 units Hydromorphone HCl (Dilaudid) 0.5 mg IVP Q6H PRN PRN Reason: Pain, moderate (4-7) Last Admin: 08/29/16 18:40 Dose: 0.5 mg Levalbuterol HCl (Xopenex) 0.63 mg IH [id number] [facility] Last Admin: 08/30/16 07:09 Dose: 0.63 mg Levalbuterol HCl (Xopenex) 0.63 mg IH Q2H PRN PRN Reason: Shortness of Breath Last Admin: 08/29/16 14:59 Dose: 0.63 mg Levothyroxine Sodium (Synthroid) 25 mcg PO DAILY [facility] Last Admin: 08/29/16 09:13 Dose: 25 mcg Morphine Sulfate (Morphine) 4 mg IVP Q4H PRN PRN Reason: Pain, severe (8-10) Last Admin: 08/27/16 20:34 Dose: 4 mg Mupirocin (Bactroban Ointment) 0 gm NS BID [facility] Stop: 09/02/16 18:01 Last Admin: 08/29/16 17:06 Dose: 1 applic Ondansetron HCl (Zofran Inj) 4 mg IVP Q6H PRN PRN Reason: Nausea/Vomiting Last Admin: 08/29/16 12:46 Dose: 4 mg Oxycodone/Acetaminophen (Percocet 10/325 Mg Tab) 1 tab PO Q6H PRN PRN Reason: Pain, severe (8-10) Pantoprazole Sodium (Protonix Inj) 40 mg IVP DAILY [facility] Last Admin: 08/29/16 09:12 Dose: 40 mg Sertraline HCl (Zoloft) 100 mg PO DAILY [facility] Last Admin: 08/29/16 09:13 Dose: 100 mg Sucralfate (Carafate Tab) 1 gm PO DAILY PRN PRN Reason: Dyspepsia - Labs Labs: 08/29/16 09:09 08/28/16 05:06 PT 11.6 Seconds (9.9-11.8) 08/27/16 05:50 INR 1.07 (0.93-1.08) 08/27/16 05:50 APTT 24.9 Seconds (23.7-30.8) 08/27/16 05:50 - Constitutional Appears: Non-toxic - Head Exam Head Exam: ATRAUMATIC, NORMAL INSPECTION, NORMOCEPHALIC - Eye Exam Eye Exam: EOMI, Normal appearance, PERRL Pupil Exam: NORMAL ACCOMODATION, PERRL - ENT Exam ENT Exam: Mucous Membranes Moist, Normal Exam - Neck Exam Neck Exam: Full ROM, Normal Inspection. absent: Lymphadenopathy - Respiratory Exam Respiratory Exam: Decreased Breath Sounds. absent: Rhonchi, Wheezes, Respiratory Distress, Stridor Additional comments: Chest catheter in place on L side. - Cardiovascular Exam Cardiovascular Exam: REGULAR RHYTHM, +S1, +S2. absent: Murmur - GI/Abdominal Exam GI & Abdominal Exam: Soft, Normal Bowel Sounds. absent: Distended, Tenderness - Extremities Exam Extremities Exam: absent: Normal Inspection Additional comments: b/l AKA - Back Exam Back Exam: NORMAL INSPECTION - Neurological Exam Neurological Exam: Alert, Awake, CN II-XII Intact, Oriented x3 - Psychiatric Exam Psychiatric exam: Normal Affect, Normal Mood - Skin Skin Exam: Dry, Intact, Normal Color, Warm Assessment and Plan - Assessment and Plan (Free Text) Assessment: Hydropneumothorax s/p 8fr chest catheter POD1 CXR: recurrent L pneumothorax -Will replace catheter today -MOnitor vs -Medical management RAFAELA Terrell
[2016-08-30] MEDS ORDERED: Bupivacaine-Epi 0.25%-1:200,000 PF Inj IJ ONE (09:02)
[2016-08-30 09:10] LABS: ADD MANUAL DIFF? NO
[2016-08-30] MEDS ORDERED: HYDROmorphone 1 mg/ml ISec IVP STA (09:19)
[2016-08-30 09:27] LABS: BASO # 0.02 K/mm3 (0.0-2.0); BASO % 0.2 % (0.0-3.0); EOS # 0.2 (0.0-0.7); EOS % 1.9 % (1.5-5.0); GRAN # 9.65 (1.4-6.5); GRAN % 85.2 % (50.0-68.0); HEMATOCRIT 29.7 % (36.0-48.0); LYMPH # 0.9 (1.2-3.4); MEAN CELL VOLUME 89.5 fL (80.0-105.0); MEAN CORPUSCULAR HEMOGLOBIN 26.2 pg (25.0-35.0); MEAN CORPUSCULAR HGB CONC 29.3 g/dl (31.0-37.0); MEAN PLATELET VOLUME 8.9 fl (7.0-11.0); MONO # 0.5 (0.1-0.6); MONO % 4.7 % (1.0-6.0); PLATELET COUNT 358 10^3/uL (120.0-450.0); WHITE BLOOD COUNT 11.3 10^3/ul (4.5-11.0)
[2016-08-30] MEDS ORDERED: Bupivacaine 0.25% Inj(30mL) IJ ONE (09:29)
[2016-08-30 09:32] LABS: INR 1.19 (0.93-1.08); PARTIAL THROMBOPLASTIN TIME 26.8 Seconds (23.7-30.8)
[2016-08-30 09:39] LABS: ALB/GLOB RATIO 0.7 (1.1-1.8); ALKALINE PHOSPHATASE 77 U/L (38-133); ALT/SGPT 25 U/L (7-56); AST/SGOT 32 U/L (15-39); BILIRUBIN,TOTAL 0.5 mg/dL (0.2-1.3); BLOOD UREA NITROGEN 16 mg/dL (7-21); CALCIUM 8.4 mg/dL (8.4-10.5); CARBON DIOXIDE 32 mmol/L (21-33); CHLORIDE 96 mmol/L (95-110); GFR AFRICAN-AMERICAN > 60; GLUCOSE,RANDOM 113 mg/dL (70-110); MAGNESIUM 1.9 mg/dL (1.7-2.2); PHOSPHOROUS 3.9 mg/dL (2.5-4.5); POTASSIUM 4.8 mmol/L (3.6-5.0); SODIUM 136 mmol/L (132-148); TOTAL PROTEIN 6.6 g/dL (5.8-8.3)
[2016-08-30] MEDS: Levothyroxine 25 MCG TAB PO SCH (10:31)
[2016-08-30] MEDS: Fluticasone Nasal 50 mcg/Spray NS SCH (10:33)
--- NOTE | 2016-08-30 10:46 | RAD ---
HISTORY: change of left chest tube COMPARISON: Comparison made with prior study 08/30/2016 at 6:21 a.m.. FINDINGS: LUNGS: Interval removal pigtail chest tube catheter and placement of a standard size chest tube which enters the left lateral CP angle region and extends medially along the left base. Marked decrease size left side pneumothorax with residual tiny left apical pneumothorax. Vascular congestive changes with right lower lobe alveolar-type infiltrates and/or atelectasis and right-sided effusion. Mild left basilar atelectasis. Questionable left-sided effusion PLEURA: As above CARDIOVASCULAR: . Cardiomegaly. OSSEOUS STRUCTURES: No significant abnormalities. VISUALIZED UPPER ABDOMEN: Normal. OTHER FINDINGS: None. IMPRESSION: The interval left-sided chest tube revision as above. Marked decrease size left-sided pneumothorax with tiny residual left apical pneumothorax remaining. Mild vascular congestive changes with right lower lobe alveolar-type infiltrates and atelectasis and small effusion. Mild left basilar atelectasis. . Questionable left-sided effusion Findings discussed with ICU resident Dr. Phipps at approximately 10:43 a.m..
--- NOTE | 2016-08-30 10:52 | RAD ---
HISTORY: Left-sided chest tube. COMPARISON: Comparison made with prior chest radiograph 08/29/2016 FINDINGS: LUNGS: Previously noted the pigtail component of a left chest tube overlying the left lateral lung base no longer seen and may be retracted within the subcutaneous tissues. Increase size left-sided pneumothorax. . Mild vascular congestive changes with right lower lobe alveolar-type infiltrates and atelectasis and small effusion. Mild left basilar atelectasis. . Questionable left-sided effusion PLEURA: As above CARDIOVASCULAR: Normal. OSSEOUS STRUCTURES: No significant abnormalities. VISUALIZED UPPER ABDOMEN: Normal. OTHER FINDINGS: No change single lead pacemaker IMPRESSION: Increase size left-sided pneumothorax. The pigtail component of a left-sided chest tube which was seen overlying the left lateral lung base is no longer seen and may have been withdrawn slightly possibly located within the subcutaneous tissues left lower lateral chest wall. Mild vascular congestive changes with right lower lobe alveolar-type infiltrates and atelectasis and small effusion. Mild left basilar atelectasis. . Questionable left-sided effusion Findings discussed with ICU resident Dr. Phipps at approximately 10:42 a.m..
--- NOTE | 2016-08-30 10:57 | CP.CCUPN ---
<Alonso Phipps - Last Filed: 08/30/16 10:50> CCU Subjective - Physician Review Subjective (Free Text): 08/30/16 10:50 Patient seen and examined at bedside in ICU. Today is hospital day 5. Resting in bed, mild-moderate intermittent discomfort. Wearing non-rebreather mask. Per nursing, overnight, attempts to wean of rebreather mask led to desaturations , necessitating continuation of the non-rebreather to maintain adequate SaO2 sats. Patient reports some shortness of breath and chest discomfort. CCU Objective - Vital Signs / Intake & Output Intake and Output (Last 8hrs): Intake & Output 08/29/16 08/30/16 08/30/16 22:59 06:59 14:59 Intake Total 640 400 Output Total 460 Balance 640 -60 Intake: Oral 640 400 Output: Chest Tube Drainage 460 Left Anterior Chest 460 Other: Voiding Method Incontinent # Voids Urine, Voided 2 5 - Physical Exam Head: Positive for: Atraumatic, Normocephalic Extroacular Muscles: Positive for: EOMI Conjunctiva: Positive for: Normal. Negative for: Injected Mouth: Positive for: Moist Mucous Membranes, Other (wearing non-rebreather mask , getting a breathing treatment at time of exam) Nose (External): Positive for: Atraumatic. Negative for: Abrasion, Contusion, Laceration Neck: Positive for: Normal Range of Motion. Negative for: Meningeal Signs, JVD Respiratory/Chest: Positive for: Wheezes (end expiratory wheezes in all todd, most prominent at left upper field), Rales (mild rales at bilateral bases). Negative for: Clear to Auscultation, Good Air Exchange, Respiratory Distress, Accessory Muscle Use, Tachypneic, Tender to Palpation Cardiovascular: Positive for: Normal S1, S2. Negative for: Regular Rate and Rhythm (irregular), Irregular Rhythm Abdomen: Positive for: Normal Bowel Sounds. Negative for: Tenderness, Distention, Peritoneal Signs, Rebound Upper Extremity: Positive for: NORMAL PULSES (+2 radials bilaterally), Other ( laterally deviated MCP joints BL UE). Negative for: Normal Inspection, Cyanosis , Edema Lower Extremity: Positive for: Other (BL AKAs) Neurological: Positive for: GCS=15, CN II-XII Intact, Speech Normal Skin: Positive for: Warm, Dry, Normal Color Psychiatric: Positive for: Alert, Oriented x 3 (oriented to self, location, time ; intermittently confused as to where she is in the hospital (i.e. which room/ floor) but easily reoriented), Normal Insight, Normal Concentration - Medications Active Medications: Active Medications Generic Name Dose Route Start Last Admin Trade Name Freq PRN Reason Stop Dose Admin Albuterol/Ipratropium 3 ml 08/29/16 06:25 08/29/16 07:08 Duoneb 3 Mg/0.5 Mg (3 Ml) Ud IH 3 ml Q4H PRN Administration Shortness of Breath Alprazolam 0.5 mg 08/29/16 14:46 Xanax PO TID PRN Anxiety Protocol Aspirin 81 mg 08/27/16 10:00 08/30/16 10:31 Ecotrin PO 81 mg DAILY LUCY Administration Atorvastatin Calcium 20 mg 08/27/16 17:00 08/29/16 17:06 Lipitor PO 20 mg DIN LUCY Administration Cephalexin Monohydrate 250 mg 08/27/16 18:00 08/30/16 05:49 Keflex PO 08/31/16 18:01 250 mg Q6 LUCY Administration Protocol Fluticasone Propionate 1 actuation 08/30/16 10:00 08/30/16 10:33 Flonase NS 1 applic DAILY LUCY Administration Gabapentin 800 mg 08/27/16 14:00 08/30/16 10:32 Neurontin PO 800 mg TID LUCY Administration Protocol Heparin Sodium (Porcine) 5,000 units 08/27/16 22:00 08/30/16 10:32 Heparin SC 5,000 units Q12 LUCY Administration Protocol Hydromorphone HCl 0.5 mg 08/29/16 18:20 08/29/16 18:40 Dilaudid IVP 0.5 mg Q6H PRN Administration Pain, moderate (4-7) Levalbuterol HCl 0.63 mg 08/29/16 20:00 08/30/16 07:09 Xopenex IH 0.63 mg [id number] LUCY Administration Levalbuterol HCl 0.63 mg 08/29/16 14:49 08/29/16 14:59 Xopenex IH 0.63 mg Q2H PRN Administration Shortness of Breath Levothyroxine Sodium 25 mcg 08/27/16 10:00 08/30/16 10:31 Synthroid PO 25 mcg DAILY LUCY Administration Morphine Sulfate 4 mg 08/27/16 08:43 08/27/16 20:34 Morphine IVP 4 mg Q4H PRN Administration Pain, severe (8-10) Mupirocin 0 gm 08/29/16 10:00 08/30/16 10:33 Bactroban Ointment NS 09/02/16 18:01 1 applic BID LUCY Administration Ondansetron HCl 4 mg 08/29/16 05:17 08/29/16 12:46 Zofran Inj IVP 4 mg Q6H PRN Administration Nausea/Vomiting Oxycodone/Acetaminophen 1 tab 08/30/16 02:45 Percocet 10/325 Mg Tab PO Q6H PRN Pain, severe (8-10) Pantoprazole Sodium 40 mg 08/27/16 10:00 08/30/16 10:32 Protonix Inj IVP 40 mg DAILY LUCY Administration Sertraline HCl 100 mg 08/27/16 13:00 08/30/16 10:31 Zoloft PO 100 mg DAILY LUCY Administration Sucralfate 1 gm 08/26/16 18:10 Carafate Tab PO DAILY PRN Dyspepsia - Patient Studies Lab Studies: Lab Studies 08/30/16 Range/Units 09:00 WBC 11.3 H (4.5-11.0) 10^3/ul RBC 3.32 L (3.5-6.1) 10^6/uL Hgb 8.7 L (12.0-16.0) gm/dL Hct 29.7 L (36.0-48.0) % MCV 89.5 (80.0-105.0) fL MCH 26.2 (25.0-35.0) pg MCHC 29.3 L (31.0-37.0) g/dl RDW 16.0 H (11.5-14.5) % Plt Count 358 (120.0-450.0) 10^3/uL MPV 8.9 (7.0-11.0) fl Gran % 85.2 H (50.0-68.0) % Lymph % (Auto) 8.0 L (22.0-35.0) % [place] % (Auto) 4.7 (1.0-6.0) % Eos % (Auto) 1.9 (1.5-5.0) % Baso % (Auto) 0.2 (0.0-3.0) % Gran # 9.65 H (1.4-6.5) Lymph # 0.9 L (1.2-3.4) [place] # 0.5 (0.1-0.6) Eos # 0.2 (0.0-0.7) Baso # 0.02 (0.0-2.0) K/mm3 PT 12.9 H (9.9-11.8) Seconds INR 1.19 H (0.93-1.08) APTT 26.8 (23.7-30.8) Seconds Sodium 136 (132-148) mmol/L Potassium 4.8 (3.6-5.0) mmol/L Chloride 96 (95-110) mmol/L Carbon Dioxide 32 (21-33) mmol/L Anion Gap 13 (10-20) BUN 16 (7-21) mg/dL Creatinine 0.4 L (0.5-1.4) mg/dL Est GFR ( Amer) > 60 Est GFR (Non-Af Amer) > 60 Random Glucose 113 H (70-110) mg/dL Calcium 8.4 (8.4-10.5) mg/dL Phosphorus 3.9 (2.5-4.5) mg/dL Magnesium 1.9 (1.7-2.2) mg/dL Total Bilirubin 0.5 (0.2-1.3) mg/dL AST 32 (15-39) U/L ALT 25 (7-56) U/L Alkaline Phosphatase 77 (38-133) U/L Total Protein 6.6 (5.8-8.3) g/dL Albumin 2.8 L (3.0-4.8) g/dL Globulin 3.8 gm/dL Albumin/Globulin Ratio 0.7 L (1.1-1.8) Laboratory Results - last 24 hr 08/30/16 09:00 WBC 11.3 H RBC 3.32 L Hgb 8.7 L Hct 29.7 L MCV 89.5 MCH 26.2 MCHC 29.3 L RDW 16.0 H Plt Count 358 MPV 8.9 Gran % 85.2 H Lymph % (Auto) 8.0 L [place] % (Auto) 4.7 Eos % (Auto) 1.9 Baso % (Auto) 0.2 Gran # 9.65 H Lymph # 0.9 L [place] # 0.5 Eos # 0.2 Baso # 0.02 PT 12.9 H INR 1.19 H APTT 26.8 Sodium 136 Potassium 4.8 Chloride 96 Carbon Dioxide 32 Anion Gap 13 BUN 16 Creatinine 0.4 L Est GFR ( Amer) > 60 Est GFR (Non-Af Amer) > 60 Random Glucose 113 H Calcium 8.4 Phosphorus 3.9 Magnesium 1.9 Total Bilirubin 0.5 AST 32 ALT 25 Alkaline Phosphatase 77 Total Protein 6.6 Albumin 2.8 L Globulin 3.8 Albumin/Globulin Ratio 0.7 L Fingerstick Blood Sugar Results: 129 Review of Systems - Constitutional Constitutional: absent: Fever, Chills - EENT Eyes: absent: Change in Vision, Loss of Vision Ears: absent: Dizziness Nose/Mouth/Throat: absent: Sore Throat - Cardiovascular Cardiovascular: Dyspnea (improved from overnight). absent: Chest Pain, Palpitations, Syncope - Respiratory Respiratory: Dyspnea, Pain on Inspiration (mild, improved from overnight). absent: Hemoptysis - Gastrointestinal Gastrointestinal: absent: Abdominal Pain, Vomiting - Genitourinary Genitourinary: absent: Dysuria, Hematuria - Musculoskeletal Musculoskeletal: absent: Numbness - Integumentary Integumentary: absent: Pruritus, Rash - Neurological Neurological: absent: Focal Weakness, Syncope - Psychiatric Psychiatric: absent: Anxiety - Endocrine Endocrine: absent: Palpitations Critical Care Progress Note - Nutrition Nutrition: Nutrition Category Date Time Status Heart Healthy Diet [DIET] Diets 08/27/16 Dinner Ordered Assessment/Plan - Assessment and Plan (Free Text) Assessment: This is a 81 yo F with PMH of complete heart block s/p pacemaker placement in 05/2016, b/l AKA, PVD, asthma, RA, and dyslipidemia who initially presented to the ICU with complete heart block after disconnection of pacer leads / fall, and represents to the ICU after developing an pneumothorax, s/p chest tube placement. Plan: Neuro: -AAOx3 -Monitor for acute change -Maintain normothermia Cardio: -Complete heart block, stable on pacer; s/p Pacemaker revision and lead replacement on 08/27 -Maintain hemodynamic stability -Maintain MAP>65 -Cardiology following (Dr. Saldivar); appreciate all recs Pulm: -Left pneumothorax, s/p chest tube placement; tube came free, worsened pneumothorax on CXR this AM; tube replaced by surgery and reset to suction, improved pneumothorax on placement confirmation CXR -Maintain SaO2 > 90% and paO2 > 60 -Overnight, unable to wean from non-rebreather due to desatting on NC into 80%' s. Will reassess after stable s/p chest tube replacement and attempt to wean to NC -continue duonebs, xopenex, and fluticasone nasal spray -Surgery (Dr. Terrell) following, appreciate any recs GI: -Heart-healthy diet -Protonix for GI prophylaxis Endo: -TSH low, total T3 low, free T4 wnl; continue Synthroid -Maintain euglycemia Nephro: -Cr 0.4 today -Maintain euvolemia and euglycemia -Replenish electrolytes as needed -avoid nephrotoxic drugs where feasible Heme/ID: -Afebrile, mild leukocytosis of 11.3 -Maintain normothermia -Continue Keflex Dispo: returned to ICU for left Pneumothorax s/p chest tube replacement by Surgery, pending attempt to wean off non-rebreather FEN: Heart-healthy diet Access: Peripheral IV, Left chest tube Consults: Surgery, Cardio Ppx: Protonix for GI, Heparin for DVT Code: Unknown, so full code Patient seen, reviewed, and discussed with attending, Dr. Verduzco. - Date & Time Date: 08/30/16 Time: 11:33 <Chris Verduzco - Last Filed: 08/30/16 13:19> CCU Objective - Vital Signs / Intake & Output Intake and Output (Last 8hrs): Intake & Output 08/29/16 08/30/16 08/30/16 22:59 06:59 14:59 Intake Total 640 400 Output Total 460 Balance 640 -60 Intake: Oral 640 400 Output: Chest Tube Drainage 460 Left Anterior Chest 460 Other: Voiding Method Incontinent # Voids Urine, Voided 2 5 - Medications Active Medications: Active Medications Generic Name Dose Route Start Last Admin Trade Name Freq PRN Reason Stop Dose Admin Albuterol/Ipratropium 3 ml 08/29/16 06:25 08/29/16 07:08 Duoneb 3 Mg/0.5 Mg (3 Ml) Ud IH 3 ml Q4H PRN Administration Shortness of Breath Alprazolam 0.5 mg 08/29/16 14:46 Xanax PO TID PRN Anxiety Protocol Aspirin 81 mg 08/27/16 10:00 08/30/16 10:31 Ecotrin PO 81 mg DAILY LUCY Administration Atorvastatin Calcium 20 mg 08/27/16 17:00 08/29/16 17:06 Lipitor PO 20 mg DIN LUCY Administration Cephalexin Monohydrate 250 mg 08/27/16 18:00 08/30/16 12:12 Keflex PO 08/31/16 18:01 250 mg Q6 LUCY Administration Protocol Fluticasone Propionate 1 actuation 08/30/16 10:00 08/30/16 10:33 Flonase NS 1 applic DAILY LUCY Administration Gabapentin 800 mg 08/27/16 14:00 08/30/16 10:32 Neurontin PO 800 mg TID LUCY Administration Protocol Heparin Sodium (Porcine) 5,000 units 08/27/16 22:00 08/30/16 10:32 Heparin SC 5,000 units Q12 LUCY Administration Protocol Hydromorphone HCl 0.5 mg 08/29/16 18:20 08/29/16 18:40 Dilaudid IVP 0.5 mg Q6H PRN Administration Pain, moderate (4-7) Levalbuterol HCl 0.63 mg 08/29/16 20:00 08/30/16 13:08 Xopenex IH 0.63 mg [id number] LUCY Administration Levalbuterol HCl 0.63 mg 08/29/16 14:49 08/29/16 14:59 Xopenex IH 0.63 mg Q2H PRN Administration Shortness of Breath Levothyroxine Sodium 25 mcg 08/27/16 10:00 08/30/16 10:31 Synthroid PO 25 mcg DAILY LUCY Administration Morphine Sulfate 4 mg 08/27/16 08:43 08/27/16 20:34 Morphine IVP 4 mg Q4H PRN Administration Pain, severe (8-10) Mupirocin 0 gm 08/29/16 10:00 08/30/16 10:33 Bactroban Ointment NS 09/02/16 18:01 1 applic BID LUCY Administration Ondansetron HCl 4 mg 08/29/16 05:17 04/15/17 12:46 Zofran Inj IVP 4 mg Q6H PRN Administration Nausea/Vomiting Oxycodone/Acetaminophen 1 tab 08/30/16 02:45 Percocet 10/325 Mg Tab PO Q6H PRN Pain, severe (8-10) Pantoprazole Sodium 40 mg 08/27/16 10:00 08/30/16 10:32 Protonix Inj IVP 40 mg DAILY LUCY Administration Sertraline HCl 100 mg 08/27/16 13:00 08/30/16 10:31 Zoloft PO 100 mg DAILY LUCY Administration Sucralfate 1 gm 08/26/16 18:10 Carafate Tab PO DAILY PRN Dyspepsia - Patient Studies Lab Studies: Lab Studies 08/30/16 Range/Units 09:00 WBC 11.3 H (4.5-11.0) 10^3/ul RBC 3.32 L (3.5-6.1) 10^6/uL Hgb 8.7 L (12.0-16.0) gm/dL Hct 29.7 L (36.0-48.0) % MCV 89.5 (80.0-105.0) fL MCH 26.2 (25.0-35.0) pg MCHC 29.3 L (31.0-37.0) g/dl RDW 16.0 H (11.5-14.5) % Plt Count 358 (120.0-450.0) 10^3/uL MPV 8.9 (7.0-11.0) fl Gran % 85.2 H (50.0-68.0) % Lymph % (Auto) 8.0 L (22.0-35.0) % [place] % (Auto) 4.7 (1.0-6.0) % Eos % (Auto) 1.9 (1.5-5.0) % Baso % (Auto) 0.2 (0.0-3.0) % Gran # 9.65 H (1.4-6.5) Lymph # 0.9 L (1.2-3.4) [place] # 0.5 (0.1-0.6) Eos # 0.2 (0.0-0.7) Baso # 0.02 (0.0-2.0) K/mm3 PT 12.9 H (9.9-11.8) Seconds INR 1.19 H (0.93-1.08) APTT 26.8 (23.7-30.8) Seconds Sodium 136 (132-148) mmol/L Potassium 4.8 (3.6-5.0) mmol/L Chloride 96 (95-110) mmol/L Carbon Dioxide 32 (21-33) mmol/L Anion Gap 13 (10-20) BUN 16 (7-21) mg/dL Creatinine 0.4 L (0.5-1.4) mg/dL Est GFR ( Amer) > 60 Est GFR (Non-Af Amer) > 60 Random Glucose 113 H (70-110) mg/dL Calcium 8.4 (8.4-10.5) mg/dL Phosphorus 3.9 (2.5-4.5) mg/dL Magnesium 1.9 (1.7-2.2) mg/dL Total Bilirubin 0.5 (0.2-1.3) mg/dL AST 32 (15-39) U/L ALT 25 (7-56) U/L Alkaline Phosphatase 77 (38-133) U/L Total Protein 6.6 (5.8-8.3) g/dL Albumin 2.8 L (3.0-4.8) g/dL Globulin 3.8 gm/dL Albumin/Globulin Ratio 0.7 L (1.1-1.8) Laboratory Results - last 24 hr 08/30/16 09:00 WBC 11.3 H RBC 3.32 L Hgb 8.7 L Hct 29.7 L MCV 89.5 MCH 26.2 MCHC 29.3 L RDW 16.0 H Plt Count 358 MPV 8.9 Gran % 85.2 H Lymph % (Auto) 8.0 L [place] % (Auto) 4.7 Eos % (Auto) 1.9 Baso % (Auto) 0.2 Gran # 9.65 H Lymph # 0.9 L [place] # 0.5 Eos # 0.2 Baso # 0.02 PT 12.9 H INR 1.19 H APTT 26.8 Sodium 136 Potassium 4.8 Chloride 96 Carbon Dioxide 32 Anion Gap 13 BUN 16 Creatinine 0.4 L Est GFR ( Amer) > 60 Est GFR (Non-Af Amer) > 60 Random Glucose 113 H Calcium 8.4 Phosphorus 3.9 Magnesium 1.9 Total Bilirubin 0.5 AST 32 ALT 25 Alkaline Phosphatase 77 Total Protein 6.6 Albumin 2.8 L Globulin 3.8 Albumin/Globulin Ratio 0.7 L Critical Care Progress Note - Nutrition Nutrition: Nutrition Category Date Time Status Heart Healthy Diet [DIET] Diets 08/27/16 Dinner Ordered Attending/Attestation - Attestation I have personally seen and examined this patient.: Yes I have fully participated in the care of the patient.: Yes I have reviewed all pertinent clinical information: Yes Notes (Text): 08/30/16 13:18 The patient was seen and examined at the bedside. Patient care was discussed with resident Medical records, lab studies, and imaging were reviewed and management issues were discussed and formulated. Last 24H events reviewed. Agree with above treatment plans as outlined in 's note with addition of the following: -pt remains hemodynamically stable and saturating >90% on non-rebreather in no distress at this time -s\p chest tube placement by surgical team who are following the pt closely [facility] [place] f\u 25min
--- NOTE | 2016-08-30 11:24 | RAD ---
HISTORY: s/p left chest tube insertion COMPARISON: No prior. FINDINGS: LUNGS: Status post placement pigtail chest tube catheter which overlies the left CP angle region. , Previously noted left-sided pneumothorax as markedly diminished with suspected small residual left apical pneumothorax remaining. Minor residual left basilar atelectasis with what could represent tiny knee effusion Mild central pulmonary vascular congestive changes with right lower lobe alveolar-type infiltrate and suspected mild atelectasis. Small right-sided effusion also felt to be present. PLEURA: As above CARDIOVASCULAR: Normal. OSSEOUS STRUCTURES: No significant abnormalities. VISUALIZED UPPER ABDOMEN: Normal. OTHER FINDINGS: None. IMPRESSION: Status post placement pigtail chest tube catheter which overlies the left CP angle region. , Previously noted left-sided pneumothorax as markedly diminished with suspected small residual left apical pneumothorax remaining. Minor residual left basilar atelectasis with what could represent tiny knee effusion Mild central pulmonary vascular congestive changes with right lower lobe alveolar-type infiltrate and suspected mild atelectasis. Small right-sided effusion also felt to be present.
--- NOTE | 2016-08-30 11:46 | PN ---
DATE: 08/30/2016 The patient is 81 years old, seen and examined. The patient was noticed to have shortness of breath. X-ray chest was done. She was found to have left-sided pneumothorax, so Dr. Terrell is in the pro cess of putting a chest tube. PHYSICAL EXAMINATION: GENERAL: She is awake and alert, mild shortness of breath. VITAL SIGNS: She is afebrile, pulse 73, respirations 21. LUNGS: Decreased breath sounds in the left lung. HEART: S1, S2 audible. ABDOMEN: Soft, nontender, no rebound, no guarding. NEUROLOGIC: She is awake and alert. EXTREMITIES: She has bilateral AKA. LABORATORY EXAMINATION: WBCs 11.3, hemoglobin 8.7, hematocrit 29.7, platelets of 358. PT 12.6, INR 1.19. Chemistry: Sodium 136, potassium 4.8, chloride 96, CO2 32, BUN 16, creatinine 0.4, blood suga r of 113. ASSESSMENT: 1. Status post revision of pacemaker leads. 2. Pneumothorax, status post chest tube insertion. 3. Chronic obstructive pulmonary disease. 4. Hypertension. 5. Chronic degenerative disk disease. 6. Hypothyroidism. PLAN: Currently, patient had chest tube in her left upper chest. She had pacemaker lead revision. I will continue her on analgesic as needed. She is on nebulizer treatment. She is on deep venous th rombosis prophylaxis. She is on Keflex. We will continue that. We will reevaluate this patient in a.m. Bowen Berman MD cc: [id number] TT: 08/30/2016 11:45:45 Confirmation # [id number] Dictation # [id number] en
--- NOTE | 2016-08-30 15:35 | PN ---
DATE: 08/30/2016 The patient underwent replacement of the thoracostomy catheter today. She denies any shortness of br eath or chest pain. PHYSICAL EXAMINATION: VITAL SIGNS: Blood pressure 139/61, heart rate 67, temperature 97.8, respiration 12. HEENT: Pale conjunctivae. CHEST: Bilateral rhonchi. HEART: S1, S2 regular. EXTREMITIES: Trace leg edema. LABORATORIES: Today's hemoglobin and hematocrit 8.7 and 29.7, white count and platelet count are 11. 3 and 358. Today's SMA-7 is within normal limits except for glucose of and creatinine 0.4. Ch est x-ray revealed cardiomegaly, reexpansion of the previously noted left lung collapse. ASSESSMENT: 1. Status post single chamber pacemaker placement. 2. Status post pneumothorax with placement of 8-Telugu thoracostomy tube. 3. Rheumatoid arthritis. 4. Bilateral below knee amputation. 5. Pneumonia. RECOMMENDATIONS: Continue current aspirin 81 mg once a day, subcutaneous heparin 5000 units twice a day, Keflex 250 mg p.o. q. 6 hours, Neurontin 800 mg t.i.d., Synthroid 25 mcg daily, Zofran 4 mg intr avenously q. 6 hours, Xopenex inhaler q. 6 hours. Juan M Fleming MD cc: [id number] TT: 08/30/2016 15:34:32 Confirmation # [id number] Dictation # [id number] en
[2016-08-30] MEDS: Oxycodone/Acetaminophen 10/325 mg Tab PO PRN (19:45)
[2016-08-31] MEDS: Levalbuterol 0.63 MG/3 ML Inhal Soln UD IH SCH ×4 (01:06→20:45)
[2016-08-31 05:44] LABS: ADD MANUAL DIFF? NO
[2016-08-31 05:51] LABS: BASO # 0.03 K/mm3 (0.0-2.0); BASO % 0.2 % (0.0-3.0); EOS # 0.1 (0.0-0.7); EOS % 0.8 % (1.5-5.0); GRAN # 13.89 (1.4-6.5); HEMATOCRIT 30.7 % (36.0-48.0); LYMPH # 0.9 (1.2-3.4); LYMPH % 5.8 % (22.0-35.0); MEAN CORPUSCULAR HEMOGLOBIN 26.1 pg (25.0-35.0); MEAN CORPUSCULAR HGB CONC 29.3 g/dl (31.0-37.0); MEAN PLATELET VOLUME 8.9 fl (7.0-11.0); MONO # 0.7 (0.1-0.6); MONO % 4.2 % (1.0-6.0); PLATELET COUNT 341 10^3/uL (120.0-450.0); RED CELL DISTRIBUTION WIDTH 16.2 % (11.5-14.5); WHITE BLOOD COUNT 15.6 10^3/ul (4.5-11.0)
[2016-08-31 06:01] LABS: INR 1.3 (0.93-1.08); PARTIAL THROMBOPLASTIN TIME 28.5 Seconds (23.7-30.8)
[2016-08-31 06:21] LABS: ALB/GLOB RATIO 0.7 (1.1-1.8); ALKALINE PHOSPHATASE 76 U/L (38-133); ALT/SGPT 20 U/L (7-56); AST/SGOT 25 U/L (15-39); BILIRUBIN,TOTAL 0.6 mg/dL (0.2-1.3); BLOOD UREA NITROGEN 15 mg/dL (7-21); CALCIUM 8.1 mg/dL (8.4-10.5); CARBON DIOXIDE 33 mmol/L (21-33); CHLORIDE 98 mmol/L (95-110); GFR AFRICAN-AMERICAN > 60; GLUCOSE,RANDOM 114 mg/dL (70-110); MAGNESIUM 1.9 mg/dL (1.7-2.2); PHOSPHOROUS 3.4 mg/dL (2.5-4.5); POTASSIUM 4.8 mmol/L (3.6-5.0); SODIUM 137 mmol/L (132-148); TOTAL PROTEIN 6.4 g/dL (5.8-8.3)
[2016-08-31] MEDS: Oxycodone/Acetaminophen 10/325 mg Tab PO PRN (06:26)
--- NOTE | 2016-08-31 07:48 | RAD ---
HISTORY: comparison COMPARISON: No prior. FINDINGS: LUNGS: Study is somewhat limited due to poor inspiration to low lung volumes and crowded bronchovascular markings. Re- demonstrated in situ left-sided chest tube which extends from the left lateral CP angle region medially. Tiny left apical pneumothorax cannot be completely excluded. Pulmonary vascular congestive changes with the bilateral lower lobe alveolar-type infiltrates AP and right-sided effusion. Questionable small left-sided effusion. . PLEURA: No significant pleural effusion identified, no pneumothorax apparent. CARDIOVASCULAR: Normal. OSSEOUS STRUCTURES: No significant abnormalities. VISUALIZED UPPER ABDOMEN: Normal. OTHER FINDINGS: None. IMPRESSION: Study is somewhat limited due to poor inspiration to low lung volumes and crowded bronchovascular markings. Re- demonstrated in situ left-sided chest tube which extends from the left lateral CP angle region medially. Tiny left apical pneumothorax cannot be completely excluded. Pulmonary vascular congestive changes with the bilateral lower lobe alveolar-type infiltrates AP and right-sided effusion. Questionable small left-sided effusion. .
[2016-08-31] MEDS: Levothyroxine 25 MCG TAB PO SCH ×2 (08:05→09:35)
[2016-08-31] MEDS: Fluticasone Nasal 50 mcg/Spray NS SCH (09:42)
--- NOTE | 2016-08-31 09:43 | CP.CCUPN ---
<Alexander Mchugh - Last Filed: 08/31/16 11:50> CCU Subjective - Physician Review Subjective (Free Text): Pt seen and examined at bedside. No acute events overnight. Pt still admits to having mild shortness of breath and remains on a nonrebreather. Pt states she does not have much Pt denies CP, N/V/D, fevers, chills. CCU Objective - Vital Signs / Intake & Output Vital Signs (Last 4 hours): Vital Signs Temp Pulse Resp BP Pulse Ox 08/31/16 09:02 100 F H 08/31/16 08:00 100.5 F H 65 23 121/56 L 96 08/31/16 07:01 64 47 H 100/45 L 90 L 08/31/16 07:00 62 39 H 85 L 08/31/16 06:14 61 21 96 08/31/16 06:00 82 58 H 122/62 95 08/31/16 05:53 62 26 H 95 Intake and Output (Last 8hrs): Intake & Output 08/30/16 08/31/16 08/31/16 22:59 06:59 14:59 Intake Total 480 Output Total 850 Balance -370 Intake: Oral 480 Output: Chest Tube Drainage 350 Left Anterior Chest 350 Urine 500 Urine, Voided 500 Other: Voiding Method Diaper - Physical Exam Head: Positive for: Atraumatic, Normocephalic Pupils: Positive for: PERRL Extroacular Muscles: Positive for: EOMI Conjunctiva: Positive for: Normal. Negative for: Injected Mouth: Positive for: Moist Mucous Membranes, Other (non-rebreather mask) Nose (External): Positive for: Atraumatic. Negative for: Abrasion, Contusion, Laceration Neck: Positive for: Normal Range of Motion. Negative for: Meningeal Signs, JVD Respiratory/Chest: Positive for: Rhonchi (Diffuse b/l). Negative for: Clear to Auscultation, Good Air Exchange, Respiratory Distress, Accessory Muscle Use, Tachypneic, Tender to Palpation Cardiovascular: Positive for: Normal S1, S2. Negative for: Regular Rate and Rhythm (irregular), Irregular Rhythm Abdomen: Positive for: Normal Bowel Sounds. Negative for: Tenderness, Distention, Peritoneal Signs, Rebound Upper Extremity: Positive for: NORMAL PULSES (+2 radials bilaterally). Negative for: Normal Inspection, Cyanosis, Edema Lower Extremity: Positive for: Other (BL AKAs) Neurological: Positive for: GCS=15, CN II-XII Intact, Speech Normal Skin: Positive for: Warm, Dry, Normal Color Psychiatric: Positive for: Alert, Oriented x 3, Normal Insight, Normal Concentration - Medications Active Medications: Active Medications Generic Name Dose Route Start Last Admin Trade Name Freq PRN Reason Stop Dose Admin Albuterol/Ipratropium 3 ml 08/29/16 06:25 08/29/16 07:08 Duoneb 3 Mg/0.5 Mg (3 Ml) Ud IH 3 ml Q4H PRN Administration Shortness of Breath Alprazolam 0.5 mg 08/29/16 14:46 08/30/16 21:39 Xanax PO 0.5 mg TID PRN Administration Anxiety Protocol Aspirin 81 mg 08/27/16 10:00 08/30/16 10:31 Ecotrin PO 81 mg DAILY LUCY Administration Atorvastatin Calcium 20 mg 08/27/16 17:00 08/30/16 17:17 Lipitor PO Not Given DIN LUCY Cephalexin Monohydrate 250 mg 08/27/16 18:00 08/31/16 07:15 Keflex PO 08/31/16 18:01 250 mg Q6 LUCY Administration Protocol Fluticasone Propionate 1 actuation 08/30/16 10:00 08/30/16 10:33 Flonase NS 1 applic DAILY LUCY Administration Gabapentin 800 mg 08/27/16 14:00 08/30/16 18:00 Neurontin PO 800 mg TID LUCY Administration Protocol Heparin Sodium (Porcine) 5,000 units 08/27/16 22:00 08/30/16 21:39 Heparin SC 5,000 units Q12 LUCY Administration Protocol Hydromorphone HCl 0.5 mg 08/29/16 18:20 08/29/16 18:40 Dilaudid IVP 0.5 mg Q6H PRN Administration Pain, moderate (4-7) Levalbuterol HCl 0.63 mg 08/29/16 20:00 08/31/16 08:20 Xopenex IH 0.63 mg [id number] LUCY Administration Levalbuterol HCl 0.63 mg 08/29/16 14:49 08/29/16 14:59 Xopenex IH 0.63 mg Q2H PRN Administration Shortness of Breath Levothyroxine Sodium 25 mcg 08/27/16 10:00 08/31/16 09:35 Synthroid PO Not Given DAILY LUCY Morphine Sulfate 4 mg 08/27/16 08:43 08/27/16 20:34 Morphine IVP 4 mg Q4H PRN Administration Pain, severe (8-10) Mupirocin 0 gm 08/29/16 10:00 08/30/16 18:00 Bactroban Ointment NS 09/02/16 18:01 1 applic BID LUCY Administration Ondansetron HCl 4 mg 08/29/16 05:17 08/31/16 06:26 Zofran Inj IVP 4 mg Q6H PRN Administration Nausea/Vomiting Oxycodone/Acetaminophen 1 tab 08/30/16 02:45 08/31/16 06:26 Percocet 10/325 Mg Tab PO 1 tab Q6H PRN Administration Pain, severe (8-10) Pantoprazole Sodium 40 mg 08/27/16 10:00 08/30/16 10:32 Protonix Inj IVP 40 mg DAILY LUCY Administration Sertraline HCl 100 mg 08/27/16 13:00 08/30/16 10:31 Zoloft PO 100 mg DAILY LUCY Administration Sucralfate 1 gm 08/26/16 18:10 Carafate Tab PO DAILY PRN Dyspepsia - Patient Studies Lab Studies: Lab Studies 08/31/16 08/30/16 Range/Units 05:30 09:00 WBC 15.6 H D (4.5-11.0) 10^3/ul RBC 3.45 L (3.5-6.1) 10^6/uL Hgb 9.0 L (12.0-16.0) gm/dL Hct 30.7 L (36.0-48.0) % MCV 89.0 (80.0-105.0) fL MCH 26.1 (25.0-35.0) pg MCHC 29.3 L (31.0-37.0) g/dl RDW 16.2 H (11.5-14.5) % Plt Count 341 (120.0-450.0) 10^3/uL MPV 8.9 (7.0-11.0) fl Gran % 89.0 H (50.0-68.0) % Lymph % (Auto) 5.8 L (22.0-35.0) % Kimball % (Auto) 4.2 (1.0-6.0) % Eos % (Auto) 0.8 L (1.5-5.0) % Baso % (Auto) 0.2 (0.0-3.0) % Gran # 13.89 H (1.4-6.5) Lymph # 0.9 L (1.2-3.4) Kimball # 0.7 H (0.1-0.6) Eos # 0.1 (0.0-0.7) Baso # 0.03 (0.0-2.0) K/mm3 PT 14.0 H (9.9-11.8) Seconds INR 1.30 H (0.93-1.08) APTT 28.5 (23.7-30.8) Seconds Sodium 137 136 (132-148) mmol/L Potassium 4.8 4.8 (3.6-5.0) mmol/L Chloride 98 96 (95-110) mmol/L Carbon Dioxide 33 32 (21-33) mmol/L Anion Gap 11 13 (10-20) BUN 15 16 (7-21) mg/dL Creatinine 0.5 0.4 L (0.5-1.4) mg/dL Est GFR ( Amer) > 60 > 60 Est GFR (Non-Af Amer) > 60 > 60 Random Glucose 114 H 113 H (70-110) mg/dL Calcium 8.1 L 8.4 (8.4-10.5) mg/dL Phosphorus 3.4 3.9 (2.5-4.5) mg/dL Magnesium 1.9 1.9 (1.7-2.2) mg/dL Total Bilirubin 0.6 0.5 (0.2-1.3) mg/dL AST 25 32 (15-39) U/L ALT 20 25 (7-56) U/L Alkaline Phosphatase 76 77 (38-133) U/L Total Protein 6.4 6.6 (5.8-8.3) g/dL Albumin 2.7 L 2.8 L (3.0-4.8) g/dL Globulin 3.7 3.8 gm/dL Albumin/Globulin Ratio 0.7 L 0.7 L (1.1-1.8) Laboratory Results - last 24 hr 08/30/16 08/31/16 09:00 05:30 WBC 15.6 H D RBC 3.45 L Hgb 9.0 L Hct 30.7 L MCV 89.0 MCH 26.1 MCHC 29.3 L RDW 16.2 H Plt Count 341 MPV 8.9 Gran % 89.0 H Lymph % (Auto) 5.8 L Kimball % (Auto) 4.2 Eos % (Auto) 0.8 L Baso % (Auto) 0.2 Gran # 13.89 H Lymph # 0.9 L Kimball # 0.7 H Eos # 0.1 Baso # 0.03 PT 14.0 H INR 1.30 H APTT 28.5 Sodium 136 137 Potassium 4.8 4.8 Chloride 96 98 Carbon Dioxide 32 33 Anion Gap 13 11 BUN 16 15 Creatinine 0.4 L 0.5 Est GFR ( Amer) > 60 > 60 Est GFR (Non-Af Amer) > 60 > 60 Random Glucose 113 H 114 H Calcium 8.4 8.1 L Phosphorus 3.9 3.4 Magnesium 1.9 1.9 Total Bilirubin 0.5 0.6 AST 32 25 ALT 25 20 Alkaline Phosphatase 77 76 Total Protein 6.6 6.4 Albumin 2.8 L 2.7 L Globulin 3.8 3.7 Albumin/Globulin Ratio 0.7 L 0.7 L Fingerstick Blood Sugar Results: 129 Critical Care Progress Note - Nutrition Nutrition: Nutrition Category Date Time Status Heart Healthy Diet [DIET] Diets 08/27/16 Dinner Ordered Assessment/Plan - Assessment and Plan (Free Text) Plan: 81 y/o F with PMH of complete heart block s/p pacemaker placement in 05/2016, b/ l AKA, PVD, asthma, RA, and dyslipidemia who initially presented to the ICU with complete heart block s/p fall and pacemaker revision returns to the ICU after developing a pneumothorax. Pt had chest tube initially placed on left side with pigtail catheter, and subsequently switched to large bore mozamb[place] catheter. Pt demonstrates worsening b/l infiltrates and will be started on rocephin. Neuro: -AAOx3 -Monitor for acute change Cardio: -s/p Pacemaker revision and lead replacement on 08/27/16 -Maintain hemodynamic stability -Maintain MAP>65 -Cardiology following, Dr. Saldivar Pulm: -Left pneumothorax, s/p chest tube placement -Worsening b/l infiltrates, will be placed on rocephin. -Repeat CXR in afternoon -ABG ordered -Maintain SaO2 > 90% -Remain on non-rebreather at this time -Surgery following, Dr. Terrell GI: -Heart-healthy diet -Protonix for GI prophylaxis Endo: -Continue Synthroid -Maintain euglycemia Nephro: -Maintain euvolemia -Replenish electrolytes as needed Heme/ID: -Afebrile, leukocytosis worsening -Procal ordered -Will start rocephin -Blood and sputum cultures -Maintain normothermia -Continue Keflex PPX: -Protonix -Heparin Seen, reviewed, and discussed with attending Jeison, PGY-1 <Wan DELGADILLO,Madelin H - Last Filed: 08/31/16 12:39> CCU Objective - Vital Signs / Intake & Output Vital Signs (Last 4 hours): Vital Signs Temp Pulse Resp BP Pulse Ox 08/31/16 10:00 76 104/49 L 92 L 08/31/16 09:04 75 28 H 116/53 L 94 L 08/31/16 09:02 100 F H 08/31/16 09:00 71 38 H 92 L Intake and Output (Last 8hrs): Intake & Output 08/30/16 08/31/16 08/31/16 22:59 06:59 14:59 Intake Total 480 Output Total 850 Balance -370 Intake: Oral 480 Output: Chest Tube Drainage 350 Left Anterior Chest 350 Urine 500 Urine, Voided 500 Other: Voiding Method Diaper Diaper - Medications Active Medications: Active Medications Generic Name Dose Route Start Last Admin Trade Name Freq PRN Reason Stop Dose Admin Albuterol/Ipratropium 3 ml 08/29/16 06:25 08/29/16 07:08 Duoneb 3 Mg/0.5 Mg (3 Ml) Ud IH 3 ml Q4H PRN Administration Shortness of Breath Alprazolam 0.5 mg 08/29/16 14:46 08/30/16 21:39 Xanax PO 0.5 mg TID PRN Administration Anxiety Protocol Aspirin 81 mg 08/27/16 10:00 08/31/16 09:43 Ecotrin PO 81 mg DAILY LUCY Administration Atorvastatin Calcium 20 mg 08/27/16:00 08/30/16 17:17 Lipitor PO Not Given DIN LUCY Cephalexin Monohydrate 250 mg 08/27/16 18:00 08/31/16 07:15 Keflex PO 08/31/16 18:01 250 mg Q6 LUCY Administration Protocol Fluticasone Propionate 1 actuation 08/30/16 10:00 08/31/16 09:42 Flonase NS 1 spr DAILY LUCY Administration Gabapentin 800 mg 08/27/16 14:00 08/31/16 09:42 Neurontin PO 800 mg TID [facility] Administration Protocol Heparin Sodium (Porcine) 5,000 units 08/27/16 22:00 08/31/16 09:43 Heparin SC 5,000 units Q12 LUCY Administration Protocol Hydromorphone HCl 0.5 mg 08/29/16 18:20 08/29/16 18:40 Dilaudid IVP 0.5 mg Q6H PRN Administration Pain, moderate (4-7) Ceftriaxone Sodium 100 mls @ 100 mls/hr 08/31/16 12:00 Rocephin 1 Gram Ivpb IVPB DAILY [facility] Protocol Levalbuterol HCl 0.63 mg 08/29/16 20:00 08/31/16 08:20 Xopenex IH 0.63 mg [id number] LUCY Administration Levalbuterol HCl 0.63 mg 08/29/16 14:49 08/29/16 14:59 Xopenex IH 0.63 mg Q2H PRN Administration Shortness of Breath Levothyroxine Sodium 25 mcg 08/27/16 10:00 08/31/16 09:35 Synthroid PO Not Given DAILY LUCY Morphine Sulfate 4 mg 08/27/16 08:43 08/27/16 20:34 Morphine IVP 4 mg Q4H PRN Administration Pain, severe (8-10) Mupirocin 0 gm 08/29/16 10:00 08/31/16 09:42 Bactroban Ointment NS 09/02/16 18:01 1 applic BID LUCY Administration Ondansetron HCl 4 mg 08/29/16 05:17 08/31/16 06:26 Zofran Inj IVP 4 mg Q6H PRN Administration Nausea/Vomiting Oxycodone/Acetaminophen 1 tab 08/30/16 02:45 08/31/16 06:26 Percocet 10/325 Mg Tab PO 1 tab Q6H PRN Administration Pain, severe (8-10) Pantoprazole Sodium 40 mg 08/27/16 10:00 08/31/16 09:43 Protonix Inj IVP 40 mg DAILY LUCY Administration Sertraline HCl 100 mg 08/27/16 13:00 08/31/16 09:43 Zoloft PO 100 mg DAILY LUCY Administration Sucralfate 1 gm 08/26/16 18:10 Carafate Tab PO DAILY PRN Dyspepsia - Patient Studies Lab Studies: Lab Studies 08/31/16 Range/Units 05:30 WBC 15.6 H D (4.5-11.0) 10^3/ul RBC 3.45 L (3.5-6.1) 10^6/uL Hgb 9.0 L (12.0-16.0) gm/dL Hct 30.7 L (36.0-48.0) % MCV 89.0 (80.0-105.0) fL MCH 26.1 (25.0-35.0) pg MCHC 29.3 L (31.0-37.0) g/dl RDW 16.2 H (11.5-14.5) % Plt Count 341 (120.0-450.0) 10^3/uL MPV 8.9 (7.0-11.0) fl Gran % 89.0 H (50.0-68.0) % Lymph % (Auto) 5.8 L (22.0-35.0) % Kimball % (Auto) 4.2 (1.0-6.0) % Eos % (Auto) 0.8 L (1.5-5.0) % Baso % (Auto) 0.2 (0.0-3.0) % Gran # 13.89 H (1.4-6.5) Lymph # 0.9 L (1.2-3.4) Kimball # 0.7 H (0.1-0.6) Eos # 0.1 (0.0-0.7) Baso # 0.03 (0.0-2.0) K/mm3 PT 14.0 H (9.9-11.8) Seconds INR 1.30 H (0.93-1.08) APTT 28.5 (23.7-30.8) Seconds Sodium 137 (132-148) mmol/L Potassium 4.8 (3.6-5.0) mmol/L Chloride 98 (95-110) mmol/L Carbon Dioxide 33 (21-33) mmol/L Anion Gap 11 (10-20) BUN 15 (7-21) mg/dL Creatinine 0.5 (0.5-1.4) mg/dL Est GFR ( Amer) > 60 Est GFR (Non-Af Amer) > 60 Random Glucose 114 H (70-110) mg/dL Calcium 8.1 L (8.4-10.5) mg/dL Phosphorus 3.4 (2.5-4.5) mg/dL Magnesium 1.9 (1.7-2.2) mg/dL Total Bilirubin 0.6 (0.2-1.3) mg/dL AST 25 (15-39) U/L ALT 20 (7-56) U/L Alkaline Phosphatase 76 (38-133) U/L Total Protein 6.4 (5.8-8.3) g/dL Albumin 2.7 L (3.0-4.8) g/dL Globulin 3.7 gm/dL Albumin/Globulin Ratio 0.7 L (1.1-1.8) Laboratory Results - last 24 hr 08/31/16 05:30 WBC 15.6 H D RBC 3.45 L Hgb 9.0 L Hct 30.7 L MCV 89.0 MCH 26.1 MCHC 29.3 L RDW 16.2 H Plt Count 341 MPV 8.9 Gran % 89.0 H Lymph % (Auto) 5.8 L Kimball % (Auto) 4.2 Eos % (Auto) 0.8 L Baso % (Auto) 0.2 Gran # 13.89 H Lymph # 0.9 L Kimball # 0.7 H Eos # 0.1 Baso # 0.03 PT 14.0 H INR 1.30 H APTT 28.5 Sodium 137 Potassium 4.8 Chloride 98 Carbon Dioxide 33 Anion Gap 11 BUN 15 Creatinine 0.5 Est GFR ( Amer) > 60 Est GFR (Non-Af Amer) > 60 Random Glucose 114 H Calcium 8.1 L Phosphorus 3.4 Magnesium 1.9 Total Bilirubin 0.6 AST 25 ALT 20 Alkaline Phosphatase 76 Total Protein 6.4 Albumin 2.7 L Globulin 3.7 Albumin/Globulin Ratio 0.7 L Critical Care Progress Note - Nutrition Nutrition: Nutrition Category Date Time Status Heart Healthy Diet [DIET] Diets 08/27/16 Dinner Ordered Attending/Attestation - Attestation I have personally seen and examined this patient.: Yes I have fully participated in the care of the patient.: Yes I have reviewed all pertinent clinical information: Yes Notes (Text): 08/31/16 12:29 81 y/o F s/p PM wire change with subsequent PTC (L) S/P CT (L) x 2. Recent cxr doesn't the catheter well, but does look very medial? Could have CT chest done to evaluate further and avoid any proximity to the great vessels/ heart Also on Suction minimal air leak, although L apical area doesn't show lung architecture . Currently on 3L N.[place] o2 sat 94%. Elevated WBC started on Rocephin. Cx to be drawn dvt p heaprin sqtid cc time 45 min
[2016-08-31] MEDS ORDERED: cefTRIAXone 1 gm 100 ML IVPB SCH (12:00)
--- NOTE | 2016-08-31 12:05 | CP.PCM.PN ---
Subjective - Date & Time of Evaluation Date of Evaluation: 08/31/16 Time of Evaluation: 12:00 - Subjective Subjective: Patient seen at bedside. Patient continues to complain of shortness of breath. Chest tube in place, left lateral chest wall. 350cc serosanguinous output over 24hr. Patient denies chest pain, fever, chills at this time. Hemodynamically stable. S/p lead placement POD #4. Objective - Vital Signs/Intake and Output Vital Signs (last 24 hours): Temp Pulse Resp BP Pulse Ox 100 F H 76 28 H 104/49 L 92 L 08/31/16 09:02 08/31/16 10:00 08/31/16 09:04 08/31/16 10:00 08/31/16 10:00 - Medications Medications: Current Medications Albuterol/Ipratropium (Duoneb 3 Mg/0.5 Mg (3 Ml) Ud) 3 ml IH Q4H PRN PRN Reason: Shortness of Breath Last Admin: 08/29/16 07:08 Dose: 3 ml Alprazolam (Xanax) 0.5 mg PO TID PRN; Protocol PRN Reason: Anxiety Last Admin: 08/30/16 21:39 Dose: 0.5 mg Aspirin (Ecotrin) 81 mg PO DAILY [facility] Last Admin: 08/31/16 09:43 Dose: 81 mg Atorvastatin Calcium (Lipitor) 20 mg PO DIN [facility] Last Admin: 08/30/16 17:17 Dose: Not Given Cephalexin Monohydrate (Keflex) 250 mg PO Q6 LUCY PRN Reason: Protocol Stop: 08/31/16 18:01 Last Admin: 08/31/16 07:15 Dose: 250 mg Fluticasone Propionate (Flonase) 1 actuation NS DAILY [facility] Last Admin: 08/31/16 09:42 Dose: 1 spr Gabapentin (Neurontin) 800 mg PO TID LUCY PRN Reason: Protocol Last Admin: 08/31/16 09:42 Dose: 800 mg Heparin Sodium (Porcine) (Heparin) 5,000 units SC Q12 LUCY PRN Reason: Protocol Last Admin: 08/31/16 09:43 Dose: 5,000 units Hydromorphone HCl (Dilaudid) 0.5 mg IVP Q6H PRN PRN Reason: Pain, moderate (4-7) Last Admin: 08/29/16 18:40 Dose: 0.5 mg Ceftriaxone Sodium (Rocephin 1 Gram Ivpb) 100 mls @ 100 mls/hr IVPB DAILY [facility] PRN Reason: Protocol Levalbuterol HCl (Xopenex) 0.63 mg IH [id number] [facility] Last Admin: 08/31/16 08:20 Dose: 0.63 mg Levalbuterol HCl (Xopenex) 0.63 mg IH Q2H PRN PRN Reason: Shortness of Breath Last Admin: 08/29/16 14:59 Dose: 0.63 mg Levothyroxine Sodium (Synthroid) 25 mcg PO DAILY [facility] Last Admin: 08/31/16 09:35 Dose: Not Given Morphine Sulfate (Morphine) 4 mg IVP Q4H PRN PRN Reason: Pain, severe (8-10) Last Admin: 08/27/16 20:34 Dose: 4 mg Mupirocin (Bactroban Ointment) 0 gm NS BID [facility] Stop: 09/02/16 18:01 Last Admin: 08/31/16 09:42 Dose: 1 applic Ondansetron HCl (Zofran Inj) 4 mg IVP Q6H PRN PRN Reason: Nausea/Vomiting Last Admin: 08/31/16 06:26 Dose: 4 mg Oxycodone/Acetaminophen (Percocet 10/325 Mg Tab) 1 tab PO Q6H PRN PRN Reason: Pain, severe (8-10) Last Admin: 08/31/16 06:26 Dose: 1 tab Pantoprazole Sodium (Protonix Inj) 40 mg IVP DAILY [facility] Last Admin: 08/31/16 09:43 Dose: 40 mg Sertraline HCl (Zoloft) 100 mg PO DAILY [facility] Last Admin: 08/31/16 09:43 Dose: 100 mg Sucralfate (Carafate Tab) 1 gm PO DAILY PRN PRN Reason: Dyspepsia - Labs Labs: 08/31/16 05:30 08/31/16 05:30 PT 14.0 Seconds (9.9-11.8) H 08/31/16 05:30 INR 1.30 (0.93-1.08) H 08/31/16 05:30 APTT 28.5 Seconds (23.7-30.8) 08/31/16 05:30 - Constitutional Appears: Non-toxic - Head Exam Head Exam: ATRAUMATIC, NORMOCEPHALIC - Eye Exam Eye Exam: EOMI, Normal appearance - ENT Exam ENT Exam: Mucous Membranes Moist, Normal Exam - Neck Exam Neck Exam: Full ROM, Normal Inspection - Respiratory Exam Respiratory Exam: Decreased Breath Sounds, Rhonchi, NORMAL BREATHING PATTERN. absent: Accessory Muscle Use, Wheezes, Respiratory Distress - Cardiovascular Exam Cardiovascular Exam: REGULAR RHYTHM (paced), +S1, +S2 - GI/Abdominal Exam GI & Abdominal Exam: Soft, Normal Bowel Sounds. absent: Tenderness - Extremities Exam Extremities Exam: Full ROM. absent: Calf Tenderness - Back Exam Back Exam: absent: NORMAL INSPECTION (chest tube in place left lateral chest wall ) - Neurological Exam Neurological Exam: Alert, Awake, Oriented x3 - Psychiatric Exam Psychiatric exam: Normal Affect, Normal Mood - Skin Skin Exam: Dry, Intact, Warm Assessment and Plan - Assessment and Plan (Free Text) Assessment: 81 y/o female with extensive PMH presenting with left sided pneumothorax s/p large bore chest tube placement. Chest tube with 350cc serosanguinous output over 24hr. Lung is expanded however patient with significant left sided infiltrate and leukocytosis. Patient is started on broad spectrum abx by medicine team. - monitor pneumovacc output - chest tube to remain for now - continue medical management per primary and ICU team - will continue to follow closely
--- NOTE | 2016-08-31 12:15 | RAD ---
HISTORY: Chest tube placement, worsening b/l infiltrate COMPARISON: Earlier same day FINDINGS: LUNGS: Slight improvement in bilateral infiltrates PLEURA: No significant pleural effusion identified, no pneumothorax apparent. CARDIOVASCULAR: Moderate cardiomegaly. Single lead pacemaker OSSEOUS STRUCTURES: No significant abnormalities. VISUALIZED UPPER ABDOMEN: Normal. OTHER FINDINGS: None. IMPRESSION: Slight improvement in bilateral infiltrates
--- NOTE | 2016-08-31 12:19 | CP.PCM.PCO ---
Physician Communication Note - Physician Communication Note Physician Communication Note: No Air Leak/Draining mod pleural effusion/Leave tube in today
--- NOTE | 2016-08-31 13:34 | PN ---
DATE: 08/31/2016 SUBJECTIVE: The patient is a 81-year-old, seen and examined, resting comfortably, had a chest tube p laced yesterday with complete resolution. PHYSICAL EXAMINATION: VITAL SIGNS: She is . She has temperature of 100, pulse 76, respirations 20, and blood pressur e 104/49. LUNGS: Bilateral fair air flow. HEART: S1, S2 audible. ABDOMEN: Soft, nontender, no rebound, no guarding. NEUROLOGIC: The patient is sleepy but arousable, bilateral AKA. LABORATORY EXAMINATION: WBC is 15.6, hemoglobin 9.0, hematocrit 30.7, platelet of 341. PT 14.0, INR 1.30. Chemistry: Sodium 137, potassium 4.8, chloride 98, CO2 33, BUN 15, creatinine 0.5, blood suga r 114. X-ray chest that was done this morning shows slight improvement in bilateral infiltrate. ASSESSMENT AND PLAN: 1. Left pneumothorax. 2. Reposition of the pacemaker leads. 3. Bilateral [id number]. 4. Bilateral infiltrate. 5. Chronic degenerative disk disease. 6. Chronic obstructive pulmonary disease. 7. Hypothyroidism. PLAN: Currently, the patient is on Rocephin and Keflex. I will discontinue Keflex and request for Niru Cooper for consult. Bowen Berman MD cc: [phone] TT: 08/31/2016 13:34:13 Confirmation # [id number] Dictation # [id number]
[2016-08-31 14:09] LABS: BODY FLUID TYPE PLEURAL
[2016-08-31 14:44] LABS: BF GROSS APPEARANCE SL CLOUDY (CLEAR)
[2016-08-31 14:45] LABS: BODY FLUID TOTAL COUNT 100 (0-0)
--- NOTE | 2016-08-31 14:50 | CP.PCM.PN ---
Subjective - Date & Time of Evaluation Date of Evaluation: 08/31/16 Time of Evaluation: 08:40 - Subjective Subjective: Comfortable in bed, not in distress, no fevers, less amount of stool and stools are less watery. Objective - Vital Signs/Intake and Output Vital Signs (last 24 hours): Temp Pulse Resp BP Pulse Ox 100 F H 72 17 119/61 95 08/31/16 09:02 08/31/16 14:00 08/31/16 14:00 08/31/16 14:00 08/31/16 14:00 - Medications Medications: Current Medications Albuterol/Ipratropium (Duoneb 3 Mg/0.5 Mg (3 Ml) Ud) 3 ml IH Q4H PRN PRN Reason: Shortness of Breath Last Admin: 08/29/16 07:08 Dose: 3 ml Alprazolam (Xanax) 0.5 mg PO TID PRN; Protocol PRN Reason: Anxiety Last Admin: 08/30/16 21:39 Dose: 0.5 mg Aspirin (Ecotrin) 81 mg PO DAILY [facility] Last Admin: 08/31/16 09:43 Dose: 81 mg Atorvastatin Calcium (Lipitor) 20 mg PO DIN [facility] Last Admin: 08/30/16 17:17 Dose: Not Given Fluticasone Propionate (Flonase) 1 actuation NS DAILY [facility] Last Admin: 08/31/16 09:42 Dose: 1 spr Gabapentin (Neurontin) 800 mg PO TID [facility]UCY PRN Reason: Protocol Last Admin: 08/31/16 13:17 Dose: 800 mg Heparin Sodium (Porcine) (Heparin) 5,000 units SC Q12 [facility]UCY PRN Reason: Protocol Last Admin: 08/31/16 09:43 Dose: 5,000 units Hydromorphone HCl (Dilaudid) 0.5 mg IVP Q6H PRN PRN Reason: Pain, moderate (4-7) Last Admin: 08/29/16 18:40 Dose: 0.5 mg Ceftriaxone Sodium (Rocephin 1 Gram Ivpb) 100 mls @ 100 mls/hr IVPB DAILY [facility] PRN Reason: Protocol Last Admin: 08/31/16 13:15 Dose: 100 mls/hr Levalbuterol HCl (Xopenex) 0.63 mg IH [id number] [facility] Last Admin: 08/31/16 13:32 Dose: 0.63 mg Levalbuterol HCl (Xopenex) 0.63 mg IH Q2H PRN PRN Reason: Shortness of Breath Last Admin: 08/29/16 14:59 Dose: 0.63 mg Levothyroxine Sodium (Synthroid) 25 mcg PO DAILY [facility] Last Admin: 08/31/16 09:35 Dose: Not Given Morphine Sulfate (Morphine) 4 mg IVP Q4H PRN PRN Reason: Pain, severe (8-10) Last Admin: 08/27/16 20:34 Dose: 4 mg Mupirocin (Bactroban Ointment) 0 gm NS BID [facility] Stop: 09/02/16 18:01 Last Admin: 08/31/16 09:42 Dose: 1 applic Ondansetron HCl (Zofran Inj) 4 mg IVP Q6H PRN PRN Reason: Nausea/Vomiting Last Admin: 08/31/16 06:26 Dose: 4 mg Oxycodone/Acetaminophen (Percocet 10/325 Mg Tab) 1 tab PO Q6H PRN PRN Reason: Pain, severe (8-10) Last Admin: 08/31/16 06:26 Dose: 1 tab Pantoprazole Sodium (Protonix Inj) 40 mg IVP DAILY [facility] Last Admin: 08/31/16 09:43 Dose: 40 mg Sertraline HCl (Zoloft) 100 mg PO DAILY [facility] Last Admin: 08/31/16 09:43 Dose: 100 mg Sucralfate (Carafate Tab) 1 gm PO DAILY PRN PRN Reason: Dyspepsia - Labs Labs: 08/31/16 05:30 08/31/16 05:30 PT 14.0 Seconds (9.9-11.8) H 08/31/16 05:30 INR 1.30 (0.93-1.08) H 08/31/16 05:30 APTT 28.5 Seconds (23.7-30.8) 08/31/16 05:30 - Constitutional Appears: Non-toxic, No Acute Distress - Head Exam Head Exam: NORMAL INSPECTION - ENT Exam ENT Exam: Mucous Membranes Moist - Neck Exam Neck Exam: absent: Lymphadenopathy, Meningismus - Respiratory Exam Respiratory Exam: Decreased Breath Sounds - Cardiovascular Exam Cardiovascular Exam: +S1, +S2 - GI/Abdominal Exam GI & Abdominal Exam: Soft. absent: Tenderness Assessment and Plan - Assessment and Plan (Free Text) Plan: Assessment Severe C. diff. associated diarrhea, slowly improving S/P urinary tract infection, probably lower tract, growing P. mirabilis peripheral vascular disease S/P bilateral BKA S/P bilateral hip replacement HTN CAD sick sinus syndrome S/P pacemaker placement GERD history of diverticulitis history of urinary incontinence depression anxiety history of eye cataracts history of pneumonia obesity with BMI 37 Plan Continue PO Vancomycin and IV Flagyl (day 8) to complete up to 14 days of therapy - once the stools are more solid, we may be able to discontinue IV Flagyl Will monitor clinically
[2016-08-31] MEDS ORDERED: Meropenem 1 GM in Sodium Chloride 0.9% 100 ML IVPB SCH (15:00)
[2016-08-31] MEDS: Vancomycin 1gm in NS 250ml 250 ML IVPB SCH (15:05)
[2016-08-31] MEDS: Meropenem 1g/NS 100mL IVPB 100 ML IVPB SCH ×2 (15:49→23:00)
[2016-08-31 21:07] LABS: ARTERIAL BLOOD GAS O2 CAPACITY 12.5 mL/dl (16-24); ARTERIAL BLOOD GAS O2 CONTENT 12.4 ML/dl (15-23); ARTERIAL BLOOD GAS PH 7.45 (7.35-7.45); ARTERIAL BLOOD HGB O2 SAT 96.8 % (95.0-98.0); CARBOXYHEMOGLOBIN 1.9 % (0.5-1.5); HHB 0.7 % (0-5); METHEMOGLOBIN 0.6 % (0.0-3.0)
[2016-09-01 00:52] LABS: URINE BILIRUBIN NEGATIVE (NEGATIVE); URINE BLOOD MODERATE (NEGATIVE); URINE GLUCOSE (UA) NEGATIVE (NEGATIVE); URINE KETONE NEGATIVE (NEGATIVE); URINE LEUKOCYTE ESTERASE MODERATE Leu/uL (NEGATIVE); URINE PROTEIN 30 mg/dL (<30 mg/dL); URINE UROBILINOGEN 0.2 E.U./dL (<1 E.U./dL)
[2016-09-01 01:03] LABS: URINE APPEARANCE CLOUDY (CLEAR); URINE COLOR YELLOW (YELLOW)
[2016-09-01 01:04] LABS: URINE BACTERIA MANY (NEG); URINE EPITHELIAL CELLS 0 - 2 /hpf (0-5); URINE WBC TNTC /hpf (0-6)
[2016-09-01] MEDS: Levalbuterol 0.63 MG/3 ML Inhal Soln UD IH SCH ×4 (02:45→19:29)
[2016-09-01] MEDS: Vancomycin 1gm in NS 250ml 250 ML IVPB SCH ×2 (02:49→16:27)
[2016-09-01 05:56] LABS: ADD MANUAL DIFF? NO
[2016-09-01 06:00] LABS: BASO # 0.03 K/mm3 (0.0-2.0); BASO % 0.2 % (0.0-3.0); EOS % 0.2 % (1.5-5.0); GRAN # 12.63 (1.4-6.5); LYMPH # 1.1 (1.2-3.4); LYMPH % 7.8 % (22.0-35.0); MEAN CORPUSCULAR HEMOGLOBIN 26.1 pg (25.0-35.0); MEAN CORPUSCULAR HGB CONC 29.3 g/dl (31.0-37.0); MONO # 0.7 (0.1-0.6); MONO % 4.8 % (1.0-6.0); PLATELET COUNT 328 10^3/uL (120.0-450.0); RED CELL DISTRIBUTION WIDTH 16.3 % (11.5-14.5); WHITE BLOOD COUNT 14.5 10^3/ul (4.5-11.0)
[2016-09-01 06:11] LABS: INR 1.31 (0.93-1.08); PARTIAL THROMBOPLASTIN TIME 32.3 Seconds (23.7-30.8)
[2016-09-01] MEDS: Albuterol-Ipratrop 3 mg / 0.5 (3 ml) UD IH PRN (06:30)
[2016-09-01 06:44] LABS: ALB/GLOB RATIO 0.7 (1.1-1.8); ALKALINE PHOSPHATASE 70 U/L (38-133); ALT/SGPT 31 U/L (7-56); AST/SGOT 24 U/L (15-39); BILIRUBIN,TOTAL 0.5 mg/dL (0.2-1.3); BLOOD UREA NITROGEN 17 mg/dL (7-21); CALCIUM 7.8 mg/dL (8.4-10.5); CARBON DIOXIDE 32 mmol/L (21-33); CHLORIDE 100 mmol/L (98-107); GFR AFRICAN-AMERICAN > 60; GLUCOSE,RANDOM 151 mg/dL (70-110); PHOSPHOROUS 3.3 mg/dL (2.5-4.5); SODIUM 138 mmol/L (132-148); TOTAL PROTEIN 6.2 g/dL (5.8-8.3)
[2016-09-01] MEDS: Meropenem 1g/NS 100mL IVPB 100 ML IVPB SCH ×3 (08:03→23:56)
[2016-09-01] MEDS: Pantoprazole 40 mg EC Tab PO SCH (08:07)
[2016-09-01] MEDS: Oxycodone/Acetaminophen 10/325 mg Tab PO PRN ×2 (09:08→18:57)
[2016-09-01] MEDS: Levothyroxine 25 MCG TAB PO SCH (09:11)
--- NOTE | 2016-09-01 09:35 | CP.PCM.PN ---
<Jorge LuisRiley schumacher - Last Filed: 09/01/16 09:31> Subjective - Date & Time of Evaluation Date of Evaluation: 09/01/16 Time of Evaluation: 09:31 - Subjective Subjective: Patient seen and examined. Left lateral chest tube in place. Approximately 200cc serosanguinous pleural fluid drained over 24hr. There is no air leak. Patient remains afebrile and without significant distress. Objective - Vital Signs/Intake and Output Vital Signs (last 24 hours): Temp Pulse Resp BP Pulse Ox 99 F 64 47 H 116/53 L 97 09/01/16 04:00 09/01/16 04:00 09/01/16 04:00 09/01/16 04:00 09/01/16 04:00 Intake and Output: 09/01/16 09/01/16 06:59 18:59 Intake Total 480 Output Total 70 Balance 410 - Medications Medications: Current Medications Acetaminophen (Tylenol 325mg Tab) 650 mg PO Q4H PRN PRN Reason: Fever >100.4 F Last Admin: 08/31/16 23:37 Dose: 650 mg Albuterol/Ipratropium (Duoneb 3 Mg/0.5 Mg (3 Ml) Ud) 3 ml IH Q4H PRN PRN Reason: Shortness of Breath Last Admin: 09/01/16 06:30 Dose: 3 ml Alprazolam (Xanax) 0.5 mg PO TID PRN; Protocol PRN Reason: Anxiety Last Admin: 08/30/16 21:39 Dose: 0.5 mg Aspirin (Ecotrin) 81 mg PO DAILY [facility] Last Admin: 09/01/16 09:13 Dose: 81 mg Atorvastatin Calcium (Lipitor) 20 mg PO DIN [facility] Last Admin: 08/31/16 17:44 Dose: 20 mg Fluticasone Propionate (Flonase) 1 actuation NS DAILY [facility] Last Admin: 08/31/16 09:42 Dose: 1 spr Gabapentin (Neurontin) 800 mg PO TID [facility] PRN Reason: Protocol Last Admin: 09/01/16 09:12 Dose: 800 mg Heparin Sodium (Porcine) (Heparin) 5,000 units SC Q12 [facility] PRN Reason: Protocol Last Admin: 09/01/16 09:16 Dose: 5,000 units Hydromorphone HCl (Dilaudid) 0.5 mg IVP Q6H PRN PRN Reason: Pain, moderate (4-7) Last Admin: 08/29/16 18:40 Dose: 0.5 mg Vancomycin HCl (Vancomycin 1gm) 250 mls @ 167 mls/hr IVPB Q12H [facility] PRN Reason: Protocol Last Admin: 09/01/16 02:49 Dose: 167 mls/hr Meropenem 1g/NS 100mL IVPB (Meropenem 1g/Ns 100ml Ivpb) 100 mls @ 100 mls/hr IVPB Q8H [facility] Stop: 09/07/16 15:16 Last Admin: 09/01/16 08:03 Dose: 100 mls/hr Levalbuterol HCl (Xopenex) 0.63 mg IH [id number] [facility] Last Admin: 09/01/16 07:30 Dose: 0.63 mg Levalbuterol HCl (Xopenex) 0.63 mg IH Q2H PRN PRN Reason: Shortness of Breath Last Admin: 08/29/16 14:59 Dose: 0.63 mg Levothyroxine Sodium (Synthroid) 25 mcg PO DAILY [facility] Last Admin: 09/01/16 09:11 Dose: 25 mcg Morphine Sulfate (Morphine) 4 mg IVP Q4H PRN PRN Reason: Pain, severe (8-10) Last Admin: 08/27/16 20:34 Dose: 4 mg Mupirocin (Bactroban Ointment) 0 gm NS BID [facility] Stop: 09/02/16 18:01 Last Admin: 08/31/16 17:45 Dose: 1 applic Ondansetron HCl (Zofran Inj) 4 mg IVP Q6H PRN PRN Reason: Nausea/Vomiting Last Admin: 08/31/16 06:26 Dose: 4 mg Oxycodone/Acetaminophen (Percocet 10/325 Mg Tab) 1 tab PO Q6H PRN PRN Reason: Pain, severe (8-10) Last Admin: 09/01/16 09:08 Dose: 1 tab Pantoprazole Sodium (Protonix Ec Tab) 40 mg PO ACB [facility] Last Admin: 09/01/16 08:07 Dose: 40 mg Sertraline HCl (Zoloft) 100 mg PO DAILY [facility] Last Admin: 09/01/16 09:12 Dose: 100 mg Sucralfate (Carafate Tab) 1 gm PO DAILY PRN PRN Reason: Dyspepsia Last Admin: 09/01/16 09:14 Dose: 1 gm - Labs Labs: 09/01/16 05:00 09/01/16 05:00 PT 14.2 Seconds (9.9-11.8) H 09/01/16 05:00 INR 1.31 (0.93-1.08) H 09/01/16 05:00 APTT 32.3 Seconds (23.7-30.8) H 09/01/16 05:00 - Constitutional Appears: Non-toxic, No Acute Distress - Head Exam Head Exam: ATRAUMATIC, NORMOCEPHALIC - Eye Exam Eye Exam: EOMI, PERRL - ENT Exam ENT Exam: Mucous Membranes Moist - Neck Exam Neck Exam: Normal Inspection - Respiratory Exam Respiratory Exam: Rales (bilateral lower lobes ). absent: Accessory Muscle Use , Respiratory Distress Additional comments: chest tube left lateral chest wall. - Cardiovascular Exam Cardiovascular Exam: +S1, +S2. absent: REGULAR RHYTHM (paced rhythm) - GI/Abdominal Exam GI & Abdominal Exam: Soft, Normal Bowel Sounds. absent: Tenderness - Extremities Exam Extremities Exam: absent: Calf Tenderness, Pedal Edema - Neurological Exam Neurological Exam: Alert, Awake, Oriented x3 - Psychiatric Exam Psychiatric exam: Normal Affect, Normal Mood - Skin Skin Exam: Normal Color, Warm Assessment and Plan - Assessment and Plan (Free Text) Assessment: 81 y/o female with extensive PMH presenting with left sided pneumothorax s/p large bore chest tube placement. Chest tube with 200cc serosanguinous output/ 24hr. B/l pleural effusions noted. BNP is elevated indicating possible cardiogenic source. - monitor pneumovacc output - chest tube to remain for now - continue medical management per primary and ICU team - will continue to follow closely <Jose Terrell - Last Filed: 10/08/16 06:27> Objective - Vital Signs/Intake and Output Vital Signs (last 24 hours): Temp Pulse Resp BP Pulse Ox 97.4 F L 78 96 H 132/58 L 97 09/09/16 06:00 09/09/16 13:43 09/09/16 07:30 09/09/16 09:50 09/09/16 06:00 - Labs Labs: 09/09/16 07:50 09/09/16 07:50 PT 14.5 Seconds (9.9-11.8) H 09/07/16 05:00 INR 1.34 (0.93-1.08) H 09/07/16 05:00 APTT 55.3 Seconds (23.7-30.8) H 09/09/16 14:00 Assessment and Plan - Assessment and Plan (Free Text) Assessment: Assessment: Continued drainage(Passive congestion-CHF/Air Leak) Rx Continue chest tube in place Reassure Patient This evaluation done under my direct supervision Rose Terrell MD FACS
--- NOTE | 2016-09-01 10:10 | RAD ---
HISTORY: comparison COMPARISON: 08/31/2016. FINDINGS: LUNGS: There are persistent low lung volumes. There is redemonstration of airspace disease in the right upper lobe and left lung. PLEURA: There are small pleural effusions. No pneumothorax. CARDIOVASCULAR: There is mild cardiomegaly. Atherosclerotic aortic arch calcifications are present. There is stable position of a left-sided unipolar permanent pacing device. OSSEOUS STRUCTURES: No significant abnormalities. VISUALIZED UPPER ABDOMEN: Normal. OTHER FINDINGS: None. IMPRESSION: Persistent right lower lobe and left lung the multifocal airspace disease which may represent multifocal pneumonia. Small pleural effusions.
--- NOTE | 2016-09-01 13:10 | CP.PCM.PCO ---
Physician Communication Note - Physician Communication Note Physician Communication Note: Plan remove Chest tube today
--- NOTE | 2016-09-01 13:24 | PN ---
DATE: 09/01/2016 SUBJECTIVE: The patient is 81 years old, seen and examined, lying in bed. Still has chest tube in. Doing better. No shortness of breath. No nausea or vomiting. PHYSICAL EXAMINATION: VITAL SIGNS: She has temperature 99, pulse 64, respirations 18, blood pressure 116/53. LUNGS: Bilateral fair airflow, slightly decreased breath sound in the left upper lung region. HEART: S1, S2 audible. ABDOMEN: Soft, nontender, no rebound, no guarding. NEUROLOGIC: She is awake and alert, communicative. Bilateral leg AKA. LABORATORY EXAMINATION: WBC is 14.5, hemoglobin 8.5, hematocrit 29, platelet of 328. PT 14.2, INR 1 .31. Chemistry: Sodium 138, potassium 4.0, chloride 100, CO2 of 32, BUN 17, creatinine 0.5, blood s ugar of 151. ASSESSMENT AND PLAN: 1. 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 2. Status post pneumothorax, status post chest tube insertion. 3. Chronic obstructive pulmonary disease. 4. Severe peripheral vascular disease, status post bilateral above-knee amputation. 5. Coronary artery disease. 6. Status post bilateral hip replacement. 7. Proteus mirabilis urinary tract infection. 8. Stool Clostridium difficile. 9. Sick sinus syndrome, status post pacemaker placement. 10. History of depression. PLAN: Currently, patient is on p.o. vancomycin and Flagyl. She has a chest tube and pneumothorax se ems to be resolving. Today, x-ray chest shows persistent right lower lobe and left lung multifocal a irspace disease consistent with multilobar pneumonia. So, I will continue current antibiotic as demetria mmended by ID, that is meropenem and Flagyl. Continue nebulizer treatment. We will renew her pain m edication and we will reevaluate patient in a.m. Bowen Berman MD cc: [phone] TT: 09/01/2016 13:24:06 Confirmation # [id number] Dictation # [id number]
--- NOTE | 2016-09-01 14:16 | CP.CCUPN ---
<Alexander Mchugh - Last Filed: 09/01/16 15:20> CCU Subjective - Physician Review Subjective (Free Text): Pt seen and examined at bedside. Pt placed on high flow nasal cannula yesterday evening due to hypoxia. Pt admits to having intermittent shortness of breath. Pt tolerating diet well. Chest tube drained 70 cc of serosanguinous fluid. Pt denies CP, N/V/D, fevers, chills. CCU Objective - Vital Signs / Intake & Output Intake and Output (Last 8hrs): Intake & Output 08/31/16 09/01/16 09/01/16 22:59 06:59 14:59 Intake Total 1230 480 Output Total 120 70 Balance 1110 410 Intake: IV 450 450 Right Forearm 450 450 Oral 780 30 Output: Chest Tube Drainage 120 70 Left Anterior Chest 120 70 Other: Voiding Method Incontinent # Voids Urine, Voided 4 - Physical Exam Head: Positive for: Atraumatic, Normocephalic Pupils: Positive for: PERRL Extroacular Muscles: Positive for: EOMI Conjunctiva: Positive for: Normal. Negative for: Injected Mouth: Positive for: Moist Mucous Membranes, Other (high flow nasal cannula) Nose (External): Positive for: Atraumatic. Negative for: Abrasion, Contusion, Laceration Neck: Positive for: Normal Range of Motion. Negative for: Meningeal Signs, JVD Respiratory/Chest: Positive for: Rhonchi (Diffuse b/l, improved from previous day). Negative for: Clear to Auscultation, Good Air Exchange, Respiratory Distress, Accessory Muscle Use, Tachypneic, Tender to Palpation Cardiovascular: Positive for: Regular Rate and Rhythm, Murmurs, Normal S1, S2, Other (left sided chest tube in place.). Negative for: Irregular Rhythm Abdomen: Positive for: Normal Bowel Sounds. Negative for: Tenderness, Distention, Peritoneal Signs, Rebound Upper Extremity: Positive for: NORMAL PULSES (+2 radials bilaterally). Negative for: Normal Inspection, Cyanosis, Edema Lower Extremity: Positive for: Other (BL AKAs) Neurological: Positive for: GCS=15, CN II-XII Intact, Speech Normal Skin: Positive for: Warm, Dry, Normal Color Psychiatric: Positive for: Alert, Oriented x 3, Normal Insight, Normal Concentration - Medications Active Medications: Active Medications Generic Name Dose Route Start Last Admin Trade Name Freq PRN Reason Stop Dose Admin Acetaminophen 650 mg 08/31/16 23:19 08/31/16 23:37 Tylenol 325mg Tab PO 650 mg Q4H PRN Administration Fever >100.4 F Albuterol/Ipratropium 3 ml 08/29/16 06:25 09/01/16 06:30 Duoneb 3 Mg/0.5 Mg (3 Ml) Ud IH 3 ml Q4H PRN Administration Shortness of Breath Alprazolam 0.5 mg 08/29/16 14:46 08/30/16 21:39 Xanax PO 0.5 mg TID PRN Administration Anxiety Protocol Aspirin 81 mg 08/27/16 10:00 09/01/16 09:13 Ecotrin PO 81 mg DAILY LUCY Administration Atorvastatin Calcium 20 mg 08/27/16 17:00 08/31/16 17:44 Lipitor PO 20 mg DIN LUCY Administration Fluticasone Propionate 1 actuation 08/30/16 10:00 08/31/16 09:42 Flonase NS 1 spr DAILY LUCY Administration Gabapentin 800 mg 08/27/16 14:00 09/01/16 09:12 Neurontin PO 800 mg TID LUCY Administration Protocol Heparin Sodium (Porcine) 5,000 units 08/27/16 22:00 09/01/16 09:16 Heparin SC 5,000 units Q12 LUCY Administration Protocol Vancomycin HCl 250 mls @ 167 mls/hr 08/31/16 15:00 09/01/16 02:49 Vancomycin 1gm IVPB 167 mls/hr Q12H LUCY Administration Protocol Meropenem 1g/NS 100mL IVPB 100 mls @ 100 mls/hr 08/31/16 15:15 09/01/16 08:03 Meropenem 1g/Ns 100ml Ivpb IVPB 09/07/16 15:16 100 mls/hr Q8H LUCY Administration Levalbuterol HCl 0.63 mg 08/29/16 20:00 09/01/16 13:56 Xopenex IH 0.63 mg [id number] LUCY Administration Levalbuterol HCl 0.63 mg 08/29/16 14:49 08/29/16 14:59 Xopenex IH 0.63 mg Q2H PRN Administration Shortness of Breath Levothyroxine Sodium 25 mcg 08/27/16 10:00 09/01/16 09:11 Synthroid PO 25 mcg DAILY LUCY Administration Morphine Sulfate 4 mg 08/27/16 08:43 08/27/16 20:34 Morphine IVP 4 mg Q4H PRN Administration Pain, severe (8-10) Mupirocin 0 gm 08/29/16 10:00 08/31/16 17:45 Bactroban Ointment NS 09/02/16 18:01 1 applic BID LUCY Administration Ondansetron HCl 4 mg 08/29/16 05:17 08/31/16 06:26 Zofran Inj IVP 4 mg Q6H PRN Administration Nausea/Vomiting Oxycodone/Acetaminophen 1 tab 08/30/16 02:45 09/01/16 09:08 Percocet 10/325 Mg Tab PO 1 tab Q6H PRN Administration Pain, severe (8-10) Pantoprazole Sodium 40 mg 09/01/16 07:30 09/01/16 08:07 Protonix Ec Tab PO 40 mg ACB LUCY Administration Sertraline HCl 100 mg 08/27/16 13:00 09/01/16 09:12 Zoloft PO 100 mg DAILY LUCY Administration Sucralfate 1 gm 08/26/16 18:10 09/01/16 09:14 Carafate Tab PO 1 gm DAILY PRN Administration Dyspepsia - Patient Studies Lab Studies: Microbiology Studies 08/31/16 12:15 Blood Culture - Preliminary Blood NO GROWTH AFTER 24 HOURS Lab Studies 09/01/16 09/01/16 08/31/16 Range/Units 05:00 00:35 21:05 WBC 14.5 H (4.5-11.0) 10^3/ul RBC 3.26 L (3.5-6.1) 10^6/uL Hgb 8.5 L (12.0-16.0) gm/dL Hct 29.0 L (36.0-48.0) % MCV 89.0 (80.0-105.0) fL MCH 26.1 (25.0-35.0) pg MCHC 29.3 L (31.0-37.0) g/dl RDW 16.3 H (11.5-14.5) % Plt Count 328 (120.0-450.0) 10^3/uL MPV 9.0 (7.0-11.0) fl Gran % 87.0 H (50.0-68.0) % Lymph % (Auto) 7.8 L (22.0-35.0) % [place] % (Auto) 4.8 (1.0-6.0) % Eos % (Auto) 0.2 L (1.5-5.0) % Baso % (Auto) 0.2 (0.0-3.0) % Gran # 12.63 H (1.4-6.5) Lymph # 1.1 L (1.2-3.4) [place] # 0.7 H (0.1-0.6) Eos # 0.0 (0.0-0.7) Baso # 0.03 (0.0-2.0) K/mm3 PT 14.2 H (9.9-11.8) Seconds INR 1.31 H (0.93-1.08) APTT 32.3 H (23.7-30.8) Seconds pCO2 46 H (35-45) mm/Hg pO2 92.0 (80-100) mm/Hg HCO3 32.0 H (21-28) mmol/L ABG pH 7.45 (7.35-7.45) ABG Total CO2 33.4 H (22-28) mmol.L ABG O2 Saturation 99.3 H (95-98) % ABG O2 Content 12.4 L (15-23) ML/dl ABG Base Excess 7.2 H (-2.0-3.0) mmol/L ABG Hemoglobin 9.0 L (11.7-17.4) g/dL ABG Carboxyhemoglobin 1.9 H (0.5-1.5) % POC ABG HHb (Measured) 0.7 (0-5) % ABG Methemoglobin 0.6 (0.0-3.0) % ABG O2 Capacity 12.5 L (16-24) mL/dl Hgb O2 Saturation 96.8 (95.0-98.0) % FiO2 100.0 % Sodium 138 (132-148) mmol/L Potassium 4.0 (3.6-5.0) mmol/L Chloride 100 (98-107) mmol/L Carbon Dioxide 32 (21-33) mmol/L Anion Gap 10 (10-20) BUN 17 (7-21) mg/dL Creatinine 0.5 (0.5-1.4) mg/dL Est GFR ( Amer) > 60 Est GFR (Non-Af Amer) > 60 Random Glucose 151 H (70-110) mg/dL Calcium 7.8 L (8.4-10.5) mg/dL Phosphorus 3.3 (2.5-4.5) mg/dL Magnesium 2.0 (1.7-2.2) mg/dL Total Bilirubin 0.5 (0.2-1.3) mg/dL AST 24 (15-39) U/L ALT 31 (7-56) U/L Alkaline Phosphatase 70 (38-133) U/L Total Protein 6.2 (5.8-8.3) g/dL Albumin 2.5 L (3.0-4.8) g/dL Globulin 3.6 gm/dL Albumin/Globulin Ratio 0.7 L (1.1-1.8) Procalcitonin (0.19-0.49) NG/ML Urine Color Yellow (YELLOW) Urine Appearance Cloudy (CLEAR) Urine pH 6.0 (4.7-8.0) Ur Specific [place] 1.025 (1.005-1.035) Urine Protein 30 H (<30 mg/dL) mg/dL Urine Glucose (UA) Negative (NEGATIVE) mg/dL Urine Ketones Negative (NEGATIVE) mg/dL Urine Blood Moderate H (NEGATIVE) Urine Nitrate Positive H (NEGATIVE) Urine Bilirubin Negative (NEGATIVE) Urine Urobilinogen 0.2 (<1 E.U./dL) E.U./dL Ur Leukocyte Esterase Moderate H (NEGATIVE) Evie/uL Urine RBC 1 - 3 (0-2) /hpf Urine WBC Tntc (0-6) /hpf Ur Epithelial Cells 0 - 2 (0-5) /hpf Urine Bacteria Many (NEG) Fluid Appearance (CLEAR) Fluid WBC (0.0-300.0) /uL Fluid RBC (0.0-0.0) /uL Fluid Tot Cell Count (0-0) Fluid Neutrophils (0-0) % Fluid Lymphocytes (0-0) % Fld Monocyte/Macrophag Fluid Comment 08/31/16 08/31/16 Range/Units 14:00 12:15 WBC (4.5-11.0) 10^3/ul RBC (3.5-6.1) 10^6/uL Hgb (12.0-16.0) gm/dL Hct (36.0-48.0) % MCV (80.0-105.0) fL MCH (25.0-35.0) pg MCHC (31.0-37.0) g/dl RDW (11.5-14.5) % Plt Count (120.0-450.0) 10^3/uL MPV (7.0-11.0) fl Gran % (50.0-68.0) % Lymph % (Auto) (22.0-35.0) % [place] % (Auto) (1.0-6.0) % Eos % (Auto) (1.5-5.0) % Baso % (Auto) (0.0-3.0) % Gran # (1.4-6.5) Lymph # (1.2-3.4) [place] # (0.1-0.6) Eos # (0.0-0.7) Baso # (0.0-2.0) K/mm3 PT (9.9-11.8) Seconds INR (0.93-1.08) APTT (23.7-30.8) Seconds pCO2 (35-45) mm/Hg pO2 (80-100) mm/Hg HCO3 (21-28) mmol/L ABG pH (7.35-7.45) ABG Total CO2 (22-28) mmol.L ABG O2 Saturation (95-98) % ABG O2 Content (15-23) ML/dl ABG Base Excess (-2.0-3.0) mmol/L ABG Hemoglobin (11.7-17.4) g/dL ABG Carboxyhemoglobin (0.5-1.5) % POC ABG HHb (Measured) (0-5) % ABG Methemoglobin (0.0-3.0) % ABG O2 Capacity (16-24) mL/dl Hgb O2 Saturation (95.0-98.0) % FiO2 % Sodium (132-148) mmol/L Potassium (3.6-5.0) mmol/L Chloride (98-107) mmol/L Carbon Dioxide (21-33) mmol/L Anion Gap (10-20) BUN (7-21) mg/dL Creatinine (0.5-1.4) mg/dL Est GFR ( Amer) Est GFR (Non-Af Amer) Random Glucose (70-110) mg/dL Calcium (8.4-10.5) mg/dL Phosphorus (2.5-4.5) mg/dL Magnesium (1.7-2.2) mg/dL Total Bilirubin (0.2-1.3) mg/dL AST (15-39) U/L ALT (7-56) U/L Alkaline Phosphatase (38-133) U/L Total Protein (5.8-8.3) g/dL Albumin (3.0-4.8) g/dL Globulin gm/dL Albumin/Globulin Ratio (1.1-1.8) Procalcitonin 0.13 L (0.19-0.49) NG/ML Urine Color (YELLOW) Urine Appearance (CLEAR) Urine pH (4.7-8.0) Ur Specific [place] (1.005-1.035) Urine Protein (<30 mg/dL) mg/dL Urine Glucose (UA) (NEGATIVE) mg/dL Urine Ketones (NEGATIVE) mg/dL Urine Blood (NEGATIVE) Urine Nitrate (NEGATIVE) Urine Bilirubin (NEGATIVE) Urine Urobilinogen (<1 E.U./dL) E.U./dL Ur Leukocyte Esterase (NEGATIVE) Evie/uL Urine RBC (0-2) /hpf Urine WBC (0-6) /hpf Ur Epithelial Cells (0-5) /hpf Urine Bacteria (NEG) Fluid Appearance Sl cloudy (CLEAR) Fluid WBC 954.0 H (0.0-300.0) /uL Fluid RBC 6000.0 H (0.0-0.0) /uL Fluid Tot Cell Count 100 H (0-0) Fluid Neutrophils 36.4 H (0-0) % Fluid Lymphocytes 63.6 H (0-0) % Fld Monocyte/Macrophag TEST NOT PERFORMED Fluid Comment Fartun color Laboratory Results - last 24 hr 08/31/16 08/31/16 08/31/16 12:15 14:00 21:05 WBC RBC Hgb Hct MCV MCH MCHC RDW Plt Count MPV Gran % Lymph % (Auto) [place] % (Auto) Eos % (Auto) Baso % (Auto) Gran # Lymph # [place] # Eos # Baso # PT INR APTT pCO2 46 H pO2 92.0 HCO3 32.0 H ABG pH 7.45 ABG Total CO2 33.4 H ABG O2 Saturation 99.3 H ABG O2 Content 12.4 L ABG Base Excess 7.2 H ABG Hemoglobin 9.0 L ABG Carboxyhemoglobin 1.9 H POC ABG HHb (Measured) 0.7 ABG Methemoglobin 0.6 ABG O2 Capacity 12.5 L Hgb O2 Saturation 96.8 FiO2 100.0 Sodium Potassium Chloride Carbon Dioxide Anion Gap BUN Creatinine Est GFR ( Amer) Est GFR (Non-Af Amer) Random Glucose Calcium Phosphorus Magnesium Total Bilirubin AST ALT Alkaline Phosphatase Total Protein Albumin Globulin Albumin/Globulin Ratio Procalcitonin 0.13 L Urine Color Urine Appearance Urine pH Ur Specific [place] Urine Protein Urine Glucose (UA) Urine Ketones Urine Blood Urine Nitrate Urine Bilirubin Urine Urobilinogen Ur Leukocyte Esterase Urine RBC Urine WBC Ur Epithelial Cells Urine Bacteria Fluid Appearance Sl cloudy Fluid WBC 954.0 H Fluid RBC 6000.0 H Fluid Tot Cell Count 100 H Fluid Neutrophils 36.4 H Fluid Lymphocytes 63.6 H Fld Monocyte/Macrophag TEST NOT PERFORMED Fluid Comment Fartun color 09/01/16 09/01/16 00:35 05:00 WBC 14.5 H RBC 3.26 L Hgb 8.5 L Hct 29.0 L MCV 89.0 MCH 26.1 MCHC 29.3 L RDW 16.3 H Plt Count 328 MPV 9.0 Gran % 87.0 H Lymph % (Auto) 7.8 L [place] % (Auto) 4.8 Eos % (Auto) 0.2 L Baso % (Auto) 0.2 Gran # 12.63 H Lymph # 1.1 L [place] # 0.7 H Eos # 0.0 Baso # 0.03 PT 14.2 H INR 1.31 H APTT 32.3 H pCO2 pO2 HCO3 ABG pH ABG Total CO2 ABG O2 Saturation ABG O2 Content ABG Base Excess ABG Hemoglobin ABG Carboxyhemoglobin POC ABG HHb (Measured) ABG Methemoglobin ABG O2 Capacity Hgb O2 Saturation FiO2 Sodium 138 Potassium 4.0 Chloride 100 Carbon Dioxide 32 Anion Gap 10 BUN 17 Creatinine 0.5 Est GFR ( Amer) > 60 Est GFR (Non-Af Amer) > 60 Random Glucose 151 H Calcium 7.8 L Phosphorus 3.3 Magnesium 2.0 Total Bilirubin 0.5 AST 24 ALT 31 Alkaline Phosphatase 70 Total Protein 6.2 Albumin 2.5 L Globulin 3.6 Albumin/Globulin Ratio 0.7 L Procalcitonin Urine Color Yellow Urine Appearance Cloudy Urine pH 6.0 Ur Specific [place] 1.025 Urine Protein 30 H Urine Glucose (UA) Negative Urine Ketones Negative Urine Blood Moderate H Urine Nitrate Positive H Urine Bilirubin Negative Urine Urobilinogen 0.2 Ur Leukocyte Esterase Moderate H Urine RBC 1 - 3 Urine WBC Tntc Ur Epithelial Cells 0 - 2 Urine Bacteria Many Fluid Appearance Fluid WBC Fluid RBC Fluid Tot Cell Count Fluid Neutrophils Fluid Lymphocytes Fld Monocyte/Macrophag Fluid Comment Fingerstick Blood Sugar Results: 129 Critical Care Progress Note - Nutrition Nutrition: Nutrition Category Date Time Status Heart Healthy Diet [DIET] Diets 08/27/16 Dinner Ordered Assessment/Plan - Assessment and Plan (Free Text) Plan: 81 y/o F with PMH of complete heart block s/p pacemaker placement in 05/2016, b/ l AKA, PVD, asthma, RA, and dyslipidemia who initially presented to the ICU with complete heart block s/p fall and pacemaker revision returns to the ICU after developing a pneumothorax. Pt had chest tube initially placed on left side with pigtail catheter, and subsequently switched to large bore anguillan catheter. Chest x-ray from today shows stable infiltrates. Chest tube with minimal output overnight, will be removed today. Pt will be given lasix and monitored closely. Also, pt will receive chest PT to help break up any possible mucous plugs. Neuro: -AAOx3 -Monitor for acute change Cardio: -s/p Pacemaker revision and lead replacement on 08/27/16 -Maintain hemodynamic stability -Maintain MAP>65 Pulm: -Chest tube removed. -Repeat CXR shows no evidence of pneumothorax. -Infiltrates stable, currently on Merrem and Vancomycin as per ID. -High flow nasal cannula -Maintain SaO2 > 90% -Surgery following, Dr. Terrell GI: -Heart-healthy diet -Protonix for GI prophylaxis Endo: -Continue Synthroid -Maintain euglycemia Nephro: -Maintain euvolemia -Replenish electrolytes as needed Heme/ID: -Afebrile, leukocytosis improving -Procal negative -Roephin changed to Merrem and Vancomycin by ID -Blood and sputum cultures -Maintain normothermia -ID following, Dr. Eubanks PPX: -Protonix -Heparin Seen, reviewed, and discussed with attending Jeison, PGY-1 <Wan DELGADILLO,Madelin H - Last Filed: 09/01/16 16:36> CCU Objective - Vital Signs / Intake & Output Intake and Output (Last 8hrs): Intake & Output 09/01/16 09/01/16 09/01/16 06:59 14:59 22:59 Intake Total 480 Output Total 70 Balance 410 Intake: IV 450 Right Forearm 450 Oral 30 Output: Chest Tube Drainage 70 Left Anterior Chest 70 - Medications Active Medications: Active Medications Generic Name Dose Route Start Last Admin Trade Name Freq PRN Reason Stop Dose Admin Acetaminophen 650 mg 08/31/16 23:19 08/31/16 23:37 Tylenol 325mg Tab PO 650 mg Q4H PRN Administration Fever >100.4 F Albuterol/Ipratropium 3 ml 08/29/16 06:25 09/01/16 06:30 Duoneb 3 Mg/0.5 Mg (3 Ml) Ud IH 3 ml Q4H PRN Administration Shortness of Breath Alprazolam 0.5 mg 08/29/16 14:46 08/30/16 21:39 Xanax PO 0.5 mg TID PRN Administration Anxiety Protocol Aspirin 81 mg 08/27/16 10:00 09/01/16 09:13 Ecotrin PO 81 mg DAILY LUCY Administration Atorvastatin Calcium 20 mg 08/27/16 17:00 08/31/16 17:44 Lipitor PO 20 mg DIN LUCY Administration Fluticasone Propionate 1 actuation 08/30/16 10:00 08/31/16 09:42 Flonase NS 1 spr DAILY LUCY Administration Gabapentin 800 mg 08/27/16 14:00 09/01/16 09:12 Neurontin PO 800 mg TID LUCY Administration Protocol Heparin Sodium (Porcine) 5,000 units 08/27/16 22:00 09/01/16 09:16 Heparin SC 5,000 units Q12 LUCY Administration Protocol Vancomycin HCl 250 mls @ 167 mls/hr 08/31/16 15:00 09/01/16 02:49 Vancomycin 1gm IVPB 167 mls/hr Q12H LUCY Administration Protocol Meropenem 1g/NS 100mL IVPB 100 mls @ 100 mls/hr 08/31/16 15:15 09/01/16 08:03 Meropenem 1g/Ns 100ml Ivpb IVPB 09/07/16 15:16 100 mls/hr Q8H LUCY Administration Levalbuterol HCl 0.63 mg 08/29/16 20:00 09/01/16 13:56 Xopenex IH 0.63 mg [id number] LUCY Administration Levalbuterol HCl 0.63 mg 08/29/16 14:49 08/29/16 14:59 Xopenex IH 0.63 mg Q2H PRN Administration Shortness of Breath Levothyroxine Sodium 25 mcg 08/27/16 10:00 09/01/16 09:11 Synthroid PO 25 mcg DAILY LUCY Administration Morphine Sulfate 4 mg 08/27/16 08:43 08/27/16 20:34 Morphine IVP 4 mg Q4H PRN Administration Pain, severe (8-10) Mupirocin 0 gm 08/29/16 10:00 08/31/16 17:45 Bactroban Ointment NS 09/02/16 18:01 1 applic BID LUCY Administration Ondansetron HCl 4 mg 08/29/16 05:17 08/31/16 06:26 Zofran Inj IVP 4 mg Q6H PRN Administration Nausea/Vomiting Oxycodone/Acetaminophen 1 tab 08/30/16 02:45 09/01/16 09:08 Percocet 10/325 Mg Tab PO 1 tab Q6H PRN Administration Pain, severe (8-10) Pantoprazole Sodium 40 mg 09/01/16 07:30 09/01/16 08:07 Protonix Ec Tab PO 40 mg ACB LUCY Administration Sertraline HCl 100 mg 08/27/16 13:00 09/01/16 09:12 Zoloft PO 100 mg DAILY LUCY Administration Sucralfate 1 gm 08/26/16 18:10 09/01/16 09:14 Carafate Tab PO 1 gm DAILY PRN Administration Dyspepsia - Patient Studies Lab Studies: Microbiology Studies 08/31/16 12:15 Blood Culture - Preliminary Blood NO GROWTH AFTER 24 HOURS Lab Studies 09/01/16 09/01/16 08/31/16 Range/Units 05:00 00:35 21:05 WBC 14.5 H (4.5-11.0) 10^3/ul RBC 3.26 L (3.5-6.1) 10^6/uL Hgb 8.5 L (12.0-16.0) gm/dL Hct 29.0 L (36.0-48.0) % MCV 89.0 (80.0-105.0) fL MCH 26.1 (25.0-35.0) pg MCHC 29.3 L (31.0-37.0) g/dl RDW 16.3 H (11.5-14.5) % Plt Count 328 (120.0-450.0) 10^3/uL MPV 9.0 (7.0-11.0) fl Gran % 87.0 H (50.0-68.0) % Lymph % (Auto) 7.8 L (22.0-35.0) % [place] % (Auto) 4.8 (1.0-6.0) % Eos % (Auto) 0.2 L (1.5-5.0) % Baso % (Auto) 0.2 (0.0-3.0) % Gran # 12.63 H (1.4-6.5) Lymph # 1.1 L (1.2-3.4) [place] # 0.7 H (0.1-0.6) Eos # 0.0 (0.0-0.7) Baso # 0.03 (0.0-2.0) K/mm3 PT 14.2 H (9.9-11.8) Seconds INR 1.31 H (0.93-1.08) APTT 32.3 H (23.7-30.8) Seconds pCO2 46 H (35-45) mm/Hg pO2 92.0 (80-100) mm/Hg HCO3 32.0 H (21-28) mmol/L ABG pH 7.45 (7.35-7.45) ABG Total CO2 33.4 H (22-28) mmol.L ABG O2 Saturation 99.3 H (95-98) % ABG O2 Content 12.4 L (15-23) ML/dl ABG Base Excess 7.2 H (-2.0-3.0) mmol/L ABG Hemoglobin 9.0 L (11.7-17.4) g/dL ABG Carboxyhemoglobin 1.9 H (0.5-1.5) % POC ABG HHb (Measured) 0.7 (0-5) % ABG Methemoglobin 0.6 (0.0-3.0) % ABG O2 Capacity 12.5 L (16-24) mL/dl Hgb O2 Saturation 96.8 (95.0-98.0) % FiO2 100.0 % Sodium 138 (132-148) mmol/L Potassium 4.0 (3.6-5.0) mmol/L Chloride 100 (98-107) mmol/L Carbon Dioxide 32 (21-33) mmol/L Anion Gap 10 (10-20) BUN 17 (7-21) mg/dL Creatinine 0.5 (0.5-1.4) mg/dL Est GFR ( Amer) > 60 Est GFR (Non-Af Amer) > 60 Random Glucose 151 H (70-110) mg/dL Calcium 7.8 L (8.4-10.5) mg/dL Phosphorus 3.3 (2.5-4.5) mg/dL Magnesium 2.0 (1.7-2.2) mg/dL Total Bilirubin 0.5 (0.2-1.3) mg/dL AST 24 (15-39) U/L ALT 31 (7-56) U/L Alkaline Phosphatase 70 (38-133) U/L Total Protein 6.2 (5.8-8.3) g/dL Albumin 2.5 L (3.0-4.8) g/dL Globulin 3.6 gm/dL Albumin/Globulin Ratio 0.7 L (1.1-1.8) Procalcitonin (0.19-0.49) NG/ML Urine Color Yellow (YELLOW) Urine Appearance Cloudy (CLEAR) Urine pH 6.0 (4.7-8.0) Ur Specific [place] 1.025 (1.005-1.035) Urine Protein 30 H (<30 mg/dL) mg/dL Urine Glucose (UA) Negative (NEGATIVE) mg/dL Urine Ketones Negative (NEGATIVE) mg/dL Urine Blood Moderate H (NEGATIVE) Urine Nitrate Positive H (NEGATIVE) Urine Bilirubin Negative (NEGATIVE) Urine Urobilinogen 0.2 (<1 E.U./dL) E.U./dL Ur Leukocyte Esterase Moderate H (NEGATIVE) Evie/uL Urine RBC 1 - 3 (0-2) /hpf Urine WBC Tntc (0-6) /hpf Ur Epithelial Cells 0 - 2 (0-5) /hpf Urine Bacteria Many (NEG) 08/31/16 Range/Units 12:15 WBC (4.5-11.0) 10^3/ul RBC (3.5-6.1) 10^6/uL Hgb (12.0-16.0) gm/dL Hct (36.0-48.0) % MCV (80.0-105.0) fL MCH (25.0-35.0) pg MCHC (31.0-37.0) g/dl RDW (11.5-14.5) % Plt Count (120.0-450.0) 10^3/uL MPV (7.0-11.0) fl Gran % (50.0-68.0) % Lymph % (Auto) (22.0-35.0) % [place] % (Auto) (1.0-6.0) % Eos % (Auto) (1.5-5.0) % Baso % (Auto) (0.0-3.0) % Gran # (1.4-6.5) Lymph # (1.2-3.4) [place] # (0.1-0.6) Eos # (0.0-0.7) Baso # (0.0-2.0) K/mm3 PT (9.9-11.8) Seconds INR (0.93-1.08) APTT (23.7-30.8) Seconds pCO2 (35-45) mm/Hg pO2 (80-100) mm/Hg HCO3 (21-28) mmol/L ABG pH (7.35-7.45) ABG Total CO2 (22-28) mmol.L ABG O2 Saturation (95-98) % ABG O2 Content (15-23) ML/dl ABG Base Excess (-2.0-3.0) mmol/L ABG Hemoglobin (11.7-17.4) g/dL ABG Carboxyhemoglobin (0.5-1.5) % POC ABG HHb (Measured) (0-5) % ABG Methemoglobin (0.0-3.0) % ABG O2 Capacity (16-24) mL/dl Hgb O2 Saturation (95.0-98.0) % FiO2 % Sodium (132-148) mmol/L Potassium (3.6-5.0) mmol/L Chloride (98-107) mmol/L Carbon Dioxide (21-33) mmol/L Anion Gap (10-20) BUN (7-21) mg/dL Creatinine (0.5-1.4) mg/dL Est GFR ( Amer) Est GFR (Non-Af Amer) Random Glucose (70-110) mg/dL Calcium (8.4-10.5) mg/dL Phosphorus (2.5-4.5) mg/dL Magnesium (1.7-2.2) mg/dL Total Bilirubin (0.2-1.3) mg/dL AST (15-39) U/L ALT (7-56) U/L Alkaline Phosphatase (38-133) U/L Total Protein (5.8-8.3) g/dL Albumin (3.0-4.8) g/dL Globulin gm/dL Albumin/Globulin Ratio (1.1-1.8) Procalcitonin 0.13 L (0.19-0.49) NG/ML Urine Color (YELLOW) Urine Appearance (CLEAR) Urine pH (4.7-8.0) Ur Specific [place] (1.005-1.035) Urine Protein (<30 mg/dL) mg/dL Urine Glucose (UA) (NEGATIVE) mg/dL Urine Ketones (NEGATIVE) mg/dL Urine Blood (NEGATIVE) Urine Nitrate (NEGATIVE) Urine Bilirubin (NEGATIVE) Urine Urobilinogen (<1 E.U./dL) E.U./dL Ur Leukocyte Esterase (NEGATIVE) Evie/uL Urine RBC (0-2) /hpf Urine WBC (0-6) /hpf Ur Epithelial Cells (0-5) /hpf Urine Bacteria (NEG) Laboratory Results - last 24 hr 08/31/16 08/31/16 09/01/16 12:15 21:05 00:35 WBC RBC Hgb Hct MCV MCH MCHC RDW Plt Count MPV Gran % Lymph % (Auto) [place] % (Auto) Eos % (Auto) Baso % (Auto) Gran # Lymph # [place] # Eos # Baso # PT INR APTT pCO2 46 H pO2 92.0 HCO3 32.0 H ABG pH 7.45 ABG Total CO2 33.4 H ABG O2 Saturation 99.3 H ABG O2 Content 12.4 L ABG Base Excess 7.2 H ABG Hemoglobin 9.0 L ABG Carboxyhemoglobin 1.9 H POC ABG HHb (Measured) 0.7 ABG Methemoglobin 0.6 ABG O2 Capacity 12.5 L Hgb O2 Saturation 96.8 FiO2 100.0 Sodium Potassium Chloride Carbon Dioxide Anion Gap BUN Creatinine Est GFR ( Amer) Est GFR (Non-Af Amer) Random Glucose Calcium Phosphorus Magnesium Total Bilirubin AST ALT Alkaline Phosphatase Total Protein Albumin Globulin Albumin/Globulin Ratio Procalcitonin 0.13 L Urine Color Yellow Urine Appearance Cloudy Urine pH 6.0 Ur Specific [place] 1.025 Urine Protein 30 H Urine Glucose (UA) Negative Urine Ketones Negative Urine Blood Moderate H Urine Nitrate Positive H Urine Bilirubin Negative Urine Urobilinogen 0.2 Ur Leukocyte Esterase Moderate H Urine RBC 1 - 3 Urine WBC Tntc Ur Epithelial Cells 0 - 2 Urine Bacteria Many 09/01/16 05:00 WBC 14.5 H RBC 3.26 L Hgb 8.5 L Hct 29.0 L MCV 89.0 MCH 26.1 MCHC 29.3 L RDW 16.3 H Plt Count 328 MPV 9.0 Gran % 87.0 H Lymph % (Auto) 7.8 L [place] % (Auto) 4.8 Eos % (Auto) 0.2 L Baso % (Auto) 0.2 Gran # 12.63 H Lymph # 1.1 L [place] # 0.7 H Eos # 0.0 Baso # 0.03 PT 14.2 H INR 1.31 H APTT 32.3 H pCO2 pO2 HCO3 ABG pH ABG Total CO2 ABG O2 Saturation ABG O2 Content ABG Base Excess ABG Hemoglobin ABG Carboxyhemoglobin POC ABG HHb (Measured) ABG Methemoglobin ABG O2 Capacity Hgb O2 Saturation FiO2 Sodium 138 Potassium 4.0 Chloride 100 Carbon Dioxide 32 Anion Gap 10 BUN 17 Creatinine 0.5 Est GFR ( Amer) > 60 Est GFR (Non-Af Amer) > 60 Random Glucose 151 H Calcium 7.8 L Phosphorus 3.3 Magnesium 2.0 Total Bilirubin 0.5 AST 24 ALT 31 Alkaline Phosphatase 70 Total Protein 6.2 Albumin 2.5 L Globulin 3.6 Albumin/Globulin Ratio 0.7 L Procalcitonin Urine Color Urine Appearance Urine pH Ur Specific [place] Urine Protein Urine Glucose (UA) Urine Ketones Urine Blood Urine Nitrate Urine Bilirubin Urine Urobilinogen Ur Leukocyte Esterase Urine RBC Urine WBC Ur Epithelial Cells Urine Bacteria Critical Care Progress Note - Nutrition Nutrition: Nutrition Category Date Time Status Heart Healthy Diet [DIET] Diets 08/27/16 Dinner Ordered Attending/Attestation - Attestation I have personally seen and examined this patient.: Yes I have fully participated in the care of the patient.: Yes I have reviewed all pertinent clinical information: Yes Notes (Text): 09/01/16 16:34 81 y/o F w/ New pacemaker lead placement with new PTX > 24 hrs. S/P CT placement and resolution of PTX. CXr reviewed showed resolution of PTX but multifocal infiltrates noted and L wedge shaped opacity likely atelectasis. On empiric abx per ID, cx pending, Fluid cx pending. LDH and protein not returned?? Likely lymphocytes due to blood less likely TB but would need pleural biopsy for definitive diagnosis. No signs or symptoms of active TB infection . Out of bed to chair. HFNC 40% keep o2 sat> 92 %. SANG, no scd, Heparin sq tid cc time 65 min
--- NOTE | 2016-09-01 15:00 | RAD ---
HISTORY: s/p chest tube pull COMPARISON: Earlier same day FINDINGS: LUNGS: No change in bilateral infiltrates. No evidence of pneumothorax following left-sided chest tube removal PLEURA: No significant pleural effusion identified, no pneumothorax apparent. CARDIOVASCULAR: Moderate cardiomegaly. Vascular congestion OSSEOUS STRUCTURES: No significant abnormalities. VISUALIZED UPPER ABDOMEN: Normal. OTHER FINDINGS: None. IMPRESSION: No evidence of pneumothorax
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
[2016-09-01] MEDS: Fluticasone Nasal 50 mcg/Spray NS SCH (18:30)
[2016-09-01 19:12] LABS: ARTERIAL BLOOD GAS HCO3 34.6 mmol/L (21-28); ARTERIAL BLOOD GAS O2 CAPACITY 12.4 mL/dl (16-24); ARTERIAL BLOOD GAS O2 CONTENT 12.1 ML/dl (15-23); ARTERIAL BLOOD GAS PH 7.44 (7.35-7.45); ARTERIAL BLOOD HGB O2 SAT 94.8 % (95.0-98.0); HHB 2.5 % (0-5); METHEMOGLOBIN 0.7 % (0.0-3.0)
[2016-09-02] MEDS: Levalbuterol 0.63 MG/3 ML Inhal Soln UD IH SCH ×4 (01:40→19:40)
[2016-09-02] MEDS: Vancomycin 1gm in NS 250ml 250 ML IVPB SCH ×2 (02:21→14:47)
[2016-09-02] MEDS: Oxycodone/Acetaminophen 10/325 mg Tab PO PRN ×2 (02:30→10:35)
[2016-09-02 05:57] LABS: ADD MANUAL DIFF? NO
[2016-09-02 06:01] LABS: BASO # 0.02 K/mm3 (0.0-2.0); BASO % 0.1 % (0.0-3.0); EOS # 0.4 (0.0-0.7); GRAN # 11.22 (1.4-6.5); GRAN % 82.4 % (50.0-68.0); HEMATOCRIT 29.7 % (36.0-48.0); LYMPH # 1.3 (1.2-3.4); LYMPH % 9.4 % (22.0-35.0); MEAN CELL VOLUME 89.5 fL (80.0-105.0); MEAN CORPUSCULAR HEMOGLOBIN 26.2 pg (25.0-35.0); MEAN CORPUSCULAR HGB CONC 29.3 g/dl (31.0-37.0); MEAN PLATELET VOLUME 9.4 fl (7.0-11.0); MONO # 0.7 (0.1-0.6); MONO % 5.1 % (1.0-6.0); PLATELET COUNT 341 10^3/uL (120.0-450.0); RED CELL DISTRIBUTION WIDTH 16.3 % (11.5-14.5); WHITE BLOOD COUNT 13.6 10^3/ul (4.5-11.0)
[2016-09-02 06:13] LABS: ALB/GLOB RATIO 0.6 (1.1-1.8); ALKALINE PHOSPHATASE 75 U/L (38-133); ALT/SGPT 36 U/L (7-56); AST/SGOT 31 U/L (15-39); BILIRUBIN,TOTAL 0.5 mg/dL (0.2-1.3); BLOOD UREA NITROGEN 17 mg/dL (7-21); CALCIUM 7.6 mg/dL (8.4-10.5); CARBON DIOXIDE 38 mmol/L (21-33); CHLORIDE 98 mmol/L (98-107); GFR AFRICAN-AMERICAN > 60; GLUCOSE,RANDOM 105 mg/dL (70-110); PHOSPHOROUS 2.8 mg/dL (2.5-4.5); POTASSIUM 3.9 mmol/L (3.6-5.0); SODIUM 139 mmol/L (132-148); TOTAL PROTEIN 6.2 g/dL (5.8-8.3)
[2016-09-02 06:16] LABS: INR 1.24 (0.93-1.08); PARTIAL THROMBOPLASTIN TIME 32.7 Seconds (23.7-30.8)
[2016-09-02] MEDS: Meropenem 1g/NS 100mL IVPB 100 ML IVPB SCH ×3 (07:11→22:41)
--- NOTE | 2016-09-02 07:51 | CP.PCM.PCO ---
Physician Communication Note - Physician Communication Note Physician Communication Note: Contd Infiltrates-No Pneumothorax
--- NOTE | 2016-09-02 09:13 | RAD ---
HISTORY: interval changes COMPARISON: 09/01/2016 FINDINGS: LUNGS: Bilateral infiltrates are unchanged in appearance. There is an extensive infiltrate on the left and a minimal patchy infiltrate on the right PLEURA: No significant pleural effusion identified, no pneumothorax apparent. CARDIOVASCULAR: Moderate cardiomegaly. Single lead pacemaker OSSEOUS STRUCTURES: No significant abnormalities. VISUALIZED UPPER ABDOMEN: Normal. OTHER FINDINGS: None. IMPRESSION: Bilateral infiltrates are unchanged in appearance. There is an extensive infiltrate on the left and a minimal patchy infiltrate on the right
--- NOTE | 2016-09-02 09:57 | RAD ---
HISTORY: f/u COMPARISON: 09/01/2016 at 2 p.m.. The current study is stand at 6:51 p.m. on 09/01/2016 FINDINGS: LUNGS: Bilateral patchy airspace opacities are renoted. Those on the left are more coalescent a pleural-parenchymal extent suggested lung volumes are shallow. The overall coalescence in left hemithorax appears slightly increased. No changes on the right are noted. PLEURA: Left pleural-parenchymal contiguous pathology. No pneumothorax. Small right pleural effusion and/or pleural thickening is possible no change in appearance noted. Shallow lung volumes limits optimal evaluation CARDIOVASCULAR: Cardiomegaly inferred OSSEOUS STRUCTURES: Inferior thoracic spondylosis. Thoracolumbar intervertebral cement/kyphoplasty changes and inferred chronic osteoporotic compression fracture here ; generalized osteopenia VISUALIZED UPPER ABDOMEN: Splenic artery atherosclerotic vascular calcifications OTHER FINDINGS: Single pacemaker lead projecting over the expected right ventricle. -left anterior chest wall battery pack obscuring left mid to upper lung zone visualization IMPRESSION: Bilateral infiltrates more extensive and more coalescent in the left lung. Since prior exam, interval left-sided coalescing airspace infiltrates are suggested
--- NOTE | 2016-09-02 10:26 | CT ---
PROCEDURE: HISTORY: hypoxia COMPARISON: None. TECHNIQUE: Contiguous axial images were obtained through the chest with intravenous contrast enhancement. Sagittal and coronal reconstructions were performed. IV contrast: None Radiation dose (DLP): 464 mGy-cm. This CT exam was performed using one or more of the following dose reduction techniques: Automated exposure control, adjustment of the mA and/or kV according to patient size, and/or use of iterative reconstruction technique. FINDINGS: LUNGS: Bilateral extensive airspace infiltrates are present. There is greater coalescence in the left lung ; nearly 2/3 of the entire left lung is compromise with these coalescing left pleural-parenchymal opacities with minimal sparing at the left lung apex. Patchy right middle lobe and right lower lobe airspace opacities are noted. Some are also pleural-based here. Blending with these coalescing bibasilar infiltrates are probable elements of dependent atelectasis on top of pleural effusions. The central tracheobronchial airways appear patent MEDIASTINUM: Unremarkable thoracic aorta. No aneurysm or dissection. Normal sized heart. Coronary artery stents are suggested Main pulmonary artery is of borderline prominent almost is prominent as the ascending aorta. . No vascular congestion. No suspicious lymphadenopathy. Hyperplastic benign appear lymph nodes are suggested. The largest being in the aortopulmonary window with a short axis of 1 cm. Extensive tracheobronchial cartilage fissuring calcifications. PLEURA: Left pleural thickening nearly circumferential. Moderate right pleural effusion. Minimal left pleural effusion BONES: L1 compression fracture with retropulsion of fracture fragments into the spinal canal resulting compromising these spinal canal contents Cement kyphoplasty changes are present. Per prior chest x-rays this impression fracture appearance appears similar. No prior CTs to assess for spinal canal compartment compromise is noted. Clinical correlation regarding any neurological symptoms relating to this spinal canal compromise is needed UPPER ABDOMEN: Grossly unremarkable. OTHER FINDINGS: None. IMPRESSION: Sense of bilateral pulmonary infiltrates the left more extensive than coalescing. Associated pleural thickening left hemithorax most notably. Bilateral dependent pleural effusions -right most notable Comments: There is motion artifact from patient's limited ability to cooperate
[2016-09-02] MEDS: Levothyroxine 25 MCG TAB PO SCH (10:27)
[2016-09-02] MEDS: Pantoprazole 40 mg EC Tab PO SCH (10:28)
[2016-09-02] MEDS: Fluticasone Nasal 50 mcg/Spray NS SCH (10:53)
[2016-09-02 12:25] LABS: GLUCOSE PLEURAL FLUID 121 mg/dL (()); LDH PLEURAL FLUID 377 U/L (())
--- NOTE | 2016-09-02 13:19 | PN ---
DATE: 09/02/2016 SUBJECTIVE: The patient is seen lying in bed in the ICU. Her chest tube has been removed. She is b reathing comfortably. Her appetite is fair. CURRENT MEDICATIONS: Include Carafate, DuoNeb inhaler, Ecotrin, Flonase, subcutaneous heparin, Lipit or, meropenem, Neurontin, Synthroid, vancomycin, Xanax and Xopenex as well as Zoloft. OBJECTIVE: GENERAL: She is an elderly woman who appears comfortable at rest. VITAL SIGNS: Blood pressure is 128/60 with a pulse of 70 with ventricular pacing, respirations are 1 4. She is afebrile. HEENT: No JVD. CHEST: Diminished breath sounds left base. HEART: PMI displaced laterally with a systolic murmur at the left sternal border. ABDOMEN: Soft, nontender, normoactive bowel sounds. EXTREMITIES: No edema. DIAGNOSTIC DATA: Potassium is 3.9, BUN and creatinine are 17 and 0.5. Hemoglobin and hematocrit 8.7 and 29.7, the white count 13.6, platelet count 341,000. PT and PTT are 13.4 and 32.7. Chest x-ray reveals bilateral infiltrates. IMPRESSION: Status post replacement of dislodged pacemaker lead complicated by hemopneumothorax requ iring chest tube placement. RECOMMENDATIONS: The patient should be gotten out of bed to chair. Oral intake as tolerated is advi sed. Transfer to telemetry seems reasonable at this time. We will continue to follow along and make further recommendations as appropriate. Riley Shea MD cc: [id number] TT: 09/02/2016 13:19:14 Confirmation # [id number] Dictation # [id number] mn
--- NOTE | 2016-09-02 14:25 | CP.CCUPN ---
<Alexander Mchugh - Last Filed: 09/02/16 14:16> CCU Subjective - Physician Review Subjective (Free Text): Pt seen and examined at bedside. Pt with a low grade temperature overnight and was given tylenol. Pt remained on high flow nasal cannula at this time. She does still admit to shortness of breath. Pt had chest tube removed yesterday. Pt tolerating diet well. Pt denies CP, N/V/D, fevers, chills. CCU Objective - Vital Signs / Intake & Output Intake and Output (Last 8hrs): Intake & Output 09/01/16 09/02/16 09/02/16 22:59 06:59 14:59 Intake Total 750 Output Total 0 Balance 750 Weight 132 lb 1.6 oz Intake: IV 0 Left Forearm 0 Oral 400 Tube Feeding 0 TPN/PPN 0 Blood Product 0 Lipid 0 Albumin 0 Other 350 Output: Stool 0 Urine/Stool Mix 0 Emesis 0 Oral Regurgitation 0 Other 0 Other: Voiding Method Incontinent Incontinent # Bowel Movements 0 - Physical Exam Head: Positive for: Atraumatic, Normocephalic Pupils: Positive for: PERRL Extroacular Muscles: Positive for: EOMI Conjunctiva: Positive for: Normal. Negative for: Injected Mouth: Positive for: Moist Mucous Membranes, Other (high flow nasal cannula) Nose (External): Positive for: Atraumatic. Negative for: Abrasion, Contusion, Laceration Neck: Positive for: Normal Range of Motion. Negative for: Meningeal Signs, JVD Respiratory/Chest: Positive for: Good Air Exchange, Decreased Breath Sounds. Negative for: Clear to Auscultation, Respiratory Distress, Accessory Muscle Use , Rhonchi, Tachypneic, Tender to Palpation Cardiovascular: Positive for: Regular Rate and Rhythm, Murmurs, Normal S1, S2. Negative for: Irregular Rhythm Abdomen: Positive for: Normal Bowel Sounds. Negative for: Tenderness, Distention, Peritoneal Signs, Rebound Upper Extremity: Positive for: NORMAL PULSES (+2 radials bilaterally). Negative for: Normal Inspection, Cyanosis, Edema Lower Extremity: Positive for: Other (BL AKAs) Neurological: Positive for: GCS=15, CN II-XII Intact, Speech Normal Skin: Positive for: Warm, Dry, Normal Color Psychiatric: Positive for: Alert, Oriented x 3, Normal Insight, Normal Concentration - Medications Active Medications: Active Medications Generic Name Dose Route Start Last Admin Trade Name Freq PRN Reason Stop Dose Admin Acetaminophen 650 mg 08/31/16 23:19 09/01/16 21:17 Tylenol 325mg Tab PO 650 mg Q4H PRN Administration Fever >100.4 F Albuterol/Ipratropium 3 ml 08/29/16 06:25 09/01/16 06:30 Duoneb 3 Mg/0.5 Mg (3 Ml) Ud IH 3 ml Q4H PRN Administration Shortness of Breath Alprazolam 0.5 mg 08/29/16 14:46 08/30/16 21:39 Xanax PO 0.5 mg TID PRN Administration Anxiety Protocol Aspirin 81 mg 08/27/16 10:00 09/02/16 10:28 Ecotrin PO 81 mg DAILY LUCY Administration Atorvastatin Calcium 20 mg 08/27/16 17:00 09/01/16 18:24 Lipitor PO 20 mg DIN LUCY Administration Fluticasone Propionate 1 actuation 08/30/16 10:00 09/02/16 10:53 Flonase NS 1 spr DAILY LUCY Administration Gabapentin 800 mg 08/27/16 14:00 09/02/16 10:28 Neurontin PO 800 mg TID LUCY Administration Protocol Heparin Sodium (Porcine) 5,000 units 08/27/16 22:00 09/02/16 10:29 Heparin SC 5,000 units Q12 LUYC Administration Protocol Vancomycin HCl 250 mls @ 167 mls/hr 08/31/16 15:00 09/02/16 02:21 Vancomycin 1gm IVPB 167 mls/hr Q12H LUCY Administration Protocol Meropenem 1g/NS 100mL IVPB 100 mls @ 100 mls/hr 08/31/16 15:15 09/02/16 07:11 Meropenem 1g/Ns 100ml Ivpb IVPB 09/07/16 15:16 100 mls/hr Q8H LUCY Administration Levalbuterol HCl 0.63 mg 08/29/16 20:00 09/02/16 14:12 Xopenex IH 0.63 mg [id number] LUCY Administration Levalbuterol HCl 0.63 mg 08/29/16 14:49 08/29/16 14:59 Xopenex IH 0.63 mg Q2H PRN Administration Shortness of Breath Levothyroxine Sodium 25 mcg 08/27/16 10:00 09/02/16 10:27 Synthroid PO 25 mcg DAILY LUCY Administration Morphine Sulfate 4 mg 08/27/16 08:43 08/27/16 20:34 Morphine IVP 4 mg Q4H PRN Administration Pain, severe (8-10) Mupirocin 0 gm 08/29/16 10:00 09/02/16 10:53 Bactroban Ointment NS 09/02/16 18:01 1 applic BID LUCY Administration Nystatin 0 ea 09/02/16 14:00 Mycostatin Cream TOP TID LUCY Ondansetron HCl 4 mg 08/29/16 05:17 08/31/16 06:26 Zofran Inj IVP 4 mg Q6H PRN Administration Nausea/Vomiting Oxycodone/Acetaminophen 1 tab 08/30/16 02:45 09/02/16 10:35 Percocet 10/325 Mg Tab PO 1 tab Q6H PRN Administration Pain, severe (8-10) Pantoprazole Sodium 40 mg 09/01/16 07:30 09/02/16 10:28 Protonix Ec Tab PO 40 mg ACB LUCY Administration Sertraline HCl 100 mg 08/27/16 13:00 09/02/16 10:27 Zoloft PO 100 mg DAILY LUCY Administration Sucralfate 1 gm 08/26/16 18:10 09/02/16 10:28 Carafate Tab PO 1 gm DAILY PRN Administration Dyspepsia - Patient Studies Lab Studies: Microbiology Studies 08/31/16 12:15 Blood Culture - Preliminary Blood NO GROWTH AFTER 48 HOURS 09/01/16 00:35 Urine Culture - Preliminary Urine,Catheterized Gram Negative Wero 08/31/16 23:50 Blood Culture - Preliminary Blood NO GROWTH AFTER 24 HOURS 08/31/16 23:30 Blood Culture - Preliminary Blood NO GROWTH AFTER 24 HOURS Lab Studies 09/02/16 09/01/16 08/31/16 Range/Units 05:50 19:05 13:50 WBC 13.6 H (4.5-11.0) 10^3/ul RBC 3.32 L (3.5-6.1) 10^6/uL Hgb 8.7 L (12.0-16.0) gm/dL Hct 29.7 L (36.0-48.0) % MCV 89.5 (80.0-105.0) fL MCH 26.2 (25.0-35.0) pg MCHC 29.3 L (31.0-37.0) g/dl RDW 16.3 H (11.5-14.5) % Plt Count 341 (120.0-450.0) 10^3/uL MPV 9.4 (7.0-11.0) fl Gran % 82.4 H (50.0-68.0) % Lymph % (Auto) 9.4 L (22.0-35.0) % [place] % (Auto) 5.1 (1.0-6.0) % Eos % (Auto) 3.0 (1.5-5.0) % Baso % (Auto) 0.1 (0.0-3.0) % Gran # 11.22 H (1.4-6.5) Lymph # 1.3 (1.2-3.4) Pickens # 0.7 H (0.1-0.6) Eos # 0.4 (0.0-0.7) Baso # 0.02 (0.0-2.0) K/mm3 PT 13.4 H (9.9-11.8) Seconds INR 1.24 H (0.93-1.08) APTT 32.7 H (23.7-30.8) Seconds pCO2 51 H (35-45) mm/Hg pO2 73.0 L (80-100) mm/Hg HCO3 34.6 H (21-28) mmol/L ABG pH 7.44 (7.35-7.45) ABG Total CO2 36.2 H (22-28) mmol.L ABG O2 Saturation 97.4 (95-98) % ABG O2 Content 12.1 L (15-23) ML/dl ABG Base Excess 9.3 H (-2.0-3.0) mmol/L ABG Hemoglobin 9.0 L (11.7-17.4) g/dL ABG Carboxyhemoglobin 2.0 H (0.5-1.5) % POC ABG HHb (Measured) 2.5 (0-5) % ABG Methemoglobin 0.7 (0.0-3.0) % ABG O2 Capacity 12.4 L (16-24) mL/dl Hgb O2 Saturation 94.8 L (95.0-98.0) % FiO2 97.0 % Sodium 139 (132-148) mmol/L Potassium 3.9 (3.6-5.0) mmol/L Chloride 98 (98-107) mmol/L Carbon Dioxide 38 H (21-33) mmol/L Anion Gap 7 L (10-20) BUN 17 (7-21) mg/dL Creatinine 0.5 (0.5-1.4) mg/dL Est GFR ( Amer) > 60 Est GFR (Non-Af Amer) > 60 Random Glucose 105 (70-110) mg/dL Calcium 7.6 L (8.4-10.5) mg/dL Phosphorus 2.8 (2.5-4.5) mg/dL Magnesium 2.0 (1.7-2.2) mg/dL Total Bilirubin 0.5 (0.2-1.3) mg/dL AST 31 (15-39) U/L ALT 36 (7-56) U/L Alkaline Phosphatase 75 (38-133) U/L Total Protein 6.2 (5.8-8.3) g/dL Albumin 2.4 L (3.0-4.8) g/dL Globulin 3.8 gm/dL Albumin/Globulin Ratio 0.6 L (1.1-1.8) Pleural Total Protein <3.0 (()) g/dL Pleural LDH 377 (()) U/L Pleural Glucose 121 (()) mg/dL Laboratory Results - last 24 hr 08/31/16 09/01/16 09/02/16 13:50 19:05 05:50 WBC 13.6 H RBC 3.32 L Hgb 8.7 L Hct 29.7 L MCV 89.5 MCH 26.2 MCHC 29.3 L RDW 16.3 H Plt Count 341 MPV 9.4 Gran % 82.4 H Lymph % (Auto) 9.4 L Pickens % (Auto) 5.1 Eos % (Auto) 3.0 Baso % (Auto) 0.1 Gran # 11.22 H Lymph # 1.3 Pickens # 0.7 H Eos # 0.4 Baso # 0.02 PT 13.4 H INR 1.24 H APTT 32.7 H pCO2 51 H pO2 73.0 L HCO3 34.6 H ABG pH 7.44 ABG Total CO2 36.2 H ABG O2 Saturation 97.4 ABG O2 Content 12.1 L ABG Base Excess 9.3 H ABG Hemoglobin 9.0 L ABG Carboxyhemoglobin 2.0 H POC ABG HHb (Measured) 2.5 ABG Methemoglobin 0.7 ABG O2 Capacity 12.4 L Hgb O2 Saturation 94.8 L FiO2 97.0 Sodium 139 Potassium 3.9 Chloride 98 Carbon Dioxide 38 H Anion Gap 7 L BUN 17 Creatinine 0.5 Est GFR ( Amer) > 60 Est GFR (Non-Af Amer) > 60 Random Glucose 105 Calcium 7.6 L Phosphorus 2.8 Magnesium 2.0 Total Bilirubin 0.5 AST 31 ALT 36 Alkaline Phosphatase 75 Total Protein 6.2 Albumin 2.4 L Globulin 3.8 Albumin/Globulin Ratio 0.6 L Pleural Total Protein <3.0 Pleural LDH 377 Pleural Glucose 121 Fingerstick Blood Sugar Results: 129 Critical Care Progress Note - Nutrition Nutrition: Nutrition Category Date Time Status Heart Healthy Diet [DIET] Diets 08/27/16 Dinner Ordered Assessment/Plan - Assessment and Plan (Free Text) Plan: 81 y/o F with PMH of complete heart block s/p pacemaker placement in 05/2016, b/ l AKA, PVD, asthma, RA, and dyslipidemia presents s/p pacemaker revision and s/ p chest tube with new onset ARDS. Pt underwent Chest CT today which showed extensive b/l pulmonary infiltrates with the left worse than the right. Pt was given Lasix again today. Pt will be monitored closely as she has been saturating between 88-93% on high flow nasal cannula. Pt may need to be intubated if respiratory status does not improve. Viral and fungal titers have been ordered to further evaluate lung infiltrates. Neuro: -AAOx3 -Monitor for acute change Cardio: -S/p Pacemaker revision and lead replacement on 08/27/16 -Maintain hemodynamic stability -Maintain MAP>65 Pulm: -Chest CT as above -Infiltrates not improved, currently on Merrem and Vancomycin as per ID. -High flow nasal cannula at 90 L -Will consider intubation if pt continues to desat -OOB -Continue chest PT, flutter valve, and incentive spirometry -Maintain SaO2 > 90% GI: -Heart-healthy diet -Protonix for GI prophylaxis Endo: -Continue Synthroid -Maintain euglycemia Nephro: -Catalan placed to accurately monitor urine output -Maintain euvolemia -Replenish electrolytes as needed Heme/ID: -Afebrile, leukocytosis improving -Procal reordered -Merrem and Vancomycin by ID -Blood and sputum cultures negative at this time -Urine culture shows gram negative rods -Viral and fungal titers drawn -Maintain normothermia -ID following, Dr. Eubanks PPX: -Protonix -Heparin Seen, reviewed, and discussed with attending Jeison, PGY-1 <Wan DELGADILLO,Madelin H - Last Filed: 09/02/16 15:27> CCU Objective - Vital Signs / Intake & Output Intake and Output (Last 8hrs): Intake & Output 09/02/16 09/02/16 09/02/16 06:59 14:59 22:59 Intake Total 750 Output Total 0 Balance 750 Weight 132 lb 1.6 oz Intake: IV 0 Left Forearm 0 Oral 400 Tube Feeding 0 TPN/PPN 0 Blood Product 0 Lipid 0 Albumin 0 Other 350 Output: Stool 0 Urine/Stool Mix 0 Emesis 0 Oral Regurgitation 0 Other 0 Other: Voiding Method Incontinent # Bowel Movements 0 - Medications Active Medications: Active Medications Generic Name Dose Route Start Last Admin Trade Name Freq PRN Reason Stop Dose Admin Acetaminophen 650 mg 08/31/16 23:19 09/01/16 21:17 Tylenol 325mg Tab PO 650 mg Q4H PRN Administration Fever >100.4 F Albuterol/Ipratropium 3 ml 08/29/16 06:25 09/01/16 06:30 Duoneb 3 Mg/0.5 Mg (3 Ml) Ud IH 3 ml Q4H PRN Administration Shortness of Breath Alprazolam 0.5 mg 08/29/16 14:46 08/30/16 21:39 Xanax PO 0.5 mg TID PRN Administration Anxiety Protocol Aspirin 81 mg 08/27/16 10:00 09/02/16 10:28 Ecotrin PO 81 mg DAILY LUCY Administration Atorvastatin Calcium 20 mg 08/27/16 17:00 09/01/16 18:24 Lipitor PO 20 mg DIN LUCY Administration Fluticasone Propionate 1 actuation 08/30/16 10:00 09/02/16 10:53 Flonase NS 1 spr DAILY LUCY Administration Gabapentin 800 mg 08/27/16 14:00 09/02/16 14:53 Neurontin PO 800 mg TID LUCY Administration Protocol Heparin Sodium (Porcine) 5,000 units 08/27/16 22:00 09/02/16 10:29 Heparin SC 5,000 units Q12 LUCY Administration Protocol Vancomycin HCl 250 mls @ 167 mls/hr 08/31/16 15:00 09/02/16 14:47 Vancomycin 1gm IVPB 167 mls/hr Q12H LUCY Administration Protocol Meropenem 1g/NS 100mL IVPB 100 mls @ 100 mls/hr 08/31/16 15:15 09/02/16 14:45 Meropenem 1g/Ns 100ml Ivpb IVPB 09/07/16 15:16 100 mls/hr Q8H LUCY Administration Doxycycline Hyclate 100 mg/ 100 mls @ 100 mls/hr 09/02/16 15:15 Sodium Chloride IVPB Q12 LUCY Protocol Levalbuterol HCl 0.63 mg 08/29/16 20:00 09/02/16 14:12 Xopenex IH 0.63 mg [id number] LUCY Administration Levalbuterol HCl 0.63 mg 08/29/16 14:49 08/29/16 14:59 Xopenex IH 0.63 mg Q2H PRN Administration Shortness of Breath Levothyroxine Sodium 25 mcg 08/27/16 10:00 09/02/16 10:27 Synthroid PO 25 mcg DAILY LUCY Administration Morphine Sulfate 4 mg 08/27/16 08:43 08/27/16 20:34 Morphine IVP 4 mg Q4H PRN Administration Pain, severe (8-10) Mupirocin 0 gm 08/29/16 10:00 09/02/16 10:53 Bactroban Ointment NS 09/02/16 18:01 1 applic BID LUCY Administration Nystatin 0 ea 09/02/16 14:00 Mycostatin Cream TOP TID LUCY Ondansetron HCl 4 mg 08/29/16 05:17 08/31/16 06:26 Zofran Inj IVP 4 mg Q6H PRN Administration Nausea/Vomiting Oxycodone/Acetaminophen 1 tab 08/30/16 02:45 09/02/16 10:35 Percocet 10/325 Mg Tab PO 1 tab Q6H PRN Administration Pain, severe (8-10) Pantoprazole Sodium 40 mg 09/01/16 07:30 09/02/16 10:28 Protonix Ec Tab PO 40 mg ACB LUCY Administration Sertraline HCl 100 mg 08/27/16 13:00 09/02/16 10:27 Zoloft PO 100 mg DAILY LUCY Administration Sucralfate 1 gm 08/26/16 18:10 09/02/16 10:28 Carafate Tab PO 1 gm DAILY PRN Administration Dyspepsia - Patient Studies Lab Studies: Microbiology Studies 08/31/16 12:15 Blood Culture - Preliminary Blood NO GROWTH AFTER 48 HOURS 09/01/16 00:35 Urine Culture - Preliminary Urine,Catheterized Gram Negative Wero 08/31/16 23:50 Blood Culture - Preliminary Blood NO GROWTH AFTER 24 HOURS 08/31/16 23:30 Blood Culture - Preliminary Blood NO GROWTH AFTER 24 HOURS Lab Studies 09/02/16 09/01/16 08/31/16 Range/Units 05:50 19:05 13:50 WBC 13.6 H (4.5-11.0) 10^3/ul RBC 3.32 L (3.5-6.1) 10^6/uL Hgb 8.7 L (12.0-16.0) gm/dL Hct 29.7 L (36.0-48.0) % MCV 89.5 (80.0-105.0) fL MCH 26.2 (25.0-35.0) pg MCHC 29.3 L (31.0-37.0) g/dl RDW 16.3 H (11.5-14.5) % Plt Count 341 (120.0-450.0) 10^3/uL MPV 9.4 (7.0-11.0) fl Gran % 82.4 H (50.0-68.0) % Lymph % (Auto) 9.4 L (22.0-35.0) % [place] % (Auto) 5.1 (1.0-6.0) % Eos % (Auto) 3.0 (1.5-5.0) % Baso % (Auto) 0.1 (0.0-3.0) % Gran # 11.22 H (1.4-6.5) Lymph # 1.3 (1.2-3.4) [place] # 0.7 H (0.1-0.6) Eos # 0.4 (0.0-0.7) Baso # 0.02 (0.0-2.0) K/mm3 PT 13.4 H (9.9-11.8) Seconds INR 1.24 H (0.93-1.08) APTT 32.7 H (23.7-30.8) Seconds pCO2 51 H (35-45) mm/Hg pO2 73.0 L (80-100) mm/Hg HCO3 34.6 H (21-28) mmol/L ABG pH 7.44 (7.35-7.45) ABG Total CO2 36.2 H (22-28) mmol.L ABG O2 Saturation 97.4 (95-98) % ABG O2 Content 12.1 L (15-23) ML/dl ABG Base Excess 9.3 H (-2.0-3.0) mmol/L ABG Hemoglobin 9.0 L (11.7-17.4) g/dL ABG Carboxyhemoglobin 2.0 H (0.5-1.5) % POC ABG HHb (Measured) 2.5 (0-5) % ABG Methemoglobin 0.7 (0.0-3.0) % ABG O2 Capacity 12.4 L (16-24) mL/dl Hgb O2 Saturation 94.8 L (95.0-98.0) % FiO2 97.0 % Sodium 139 (132-148) mmol/L Potassium 3.9 (3.6-5.0) mmol/L Chloride 98 (98-107) mmol/L Carbon Dioxide 38 H (21-33) mmol/L Anion Gap 7 L (10-20) BUN 17 (7-21) mg/dL Creatinine 0.5 (0.5-1.4) mg/dL Est GFR ( Amer) > 60 Est GFR (Non-Af Amer) > 60 Random Glucose 105 (70-110) mg/dL Calcium 7.6 L (8.4-10.5) mg/dL Phosphorus 2.8 (2.5-4.5) mg/dL Magnesium 2.0 (1.7-2.2) mg/dL Total Bilirubin 0.5 (0.2-1.3) mg/dL AST 31 (15-39) U/L ALT 36 (7-56) U/L Alkaline Phosphatase 75 (38-133) U/L Total Protein 6.2 (5.8-8.3) g/dL Albumin 2.4 L (3.0-4.8) g/dL Globulin 3.8 gm/dL Albumin/Globulin Ratio 0.6 L (1.1-1.8) Pleural Total Protein <3.0 (()) g/dL Pleural LDH 377 (()) U/L Pleural Glucose 121 (()) mg/dL Laboratory Results - last 24 hr 08/31/16 09/01/16 09/02/16 13:50 19:05 05:50 WBC 13.6 H RBC 3.32 L Hgb 8.7 L Hct 29.7 L MCV 89.5 MCH 26.2 MCHC 29.3 L RDW 16.3 H Plt Count 341 MPV 9.4 Gran % 82.4 H Lymph % (Auto) 9.4 L [place] % (Auto) 5.1 Eos % (Auto) 3.0 Baso % (Auto) 0.1 Gran # 11.22 H Lymph # 1.3 Pickens # 0.7 H Eos # 0.4 Baso # 0.02 PT 13.4 H INR 1.24 H APTT 32.7 H pCO2 51 H pO2 73.0 L HCO3 34.6 H ABG pH 7.44 ABG Total CO2 36.2 H ABG O2 Saturation 97.4 ABG O2 Content 12.1 L ABG Base Excess 9.3 H ABG Hemoglobin 9.0 L ABG Carboxyhemoglobin 2.0 H POC ABG HHb (Measured) 2.5 ABG Methemoglobin 0.7 ABG O2 Capacity 12.4 L Hgb O2 Saturation 94.8 L FiO2 97.0 Sodium 139 Potassium 3.9 Chloride 98 Carbon Dioxide 38 H Anion Gap 7 L BUN 17 Creatinine 0.5 Est GFR ( Amer) > 60 Est GFR (Non-Af Amer) > 60 Random Glucose 105 Calcium 7.6 L Phosphorus 2.8 Magnesium 2.0 Total Bilirubin 0.5 AST 31 ALT 36 Alkaline Phosphatase 75 Total Protein 6.2 Albumin 2.4 L Globulin 3.8 Albumin/Globulin Ratio 0.6 L Pleural Total Protein <3.0 Pleural LDH 377 Pleural Glucose 121 Critical Care Progress Note - Nutrition Nutrition: Nutrition Category Date Time Status Heart Healthy Diet [DIET] Diets 08/27/16 Dinner Ordered Attending/Attestation - Attestation I have personally seen and examined this patient.: Yes I have fully participated in the care of the patient.: Yes I have reviewed all pertinent clinical information: Yes Notes (Text): 09/02/16 15:24 81 y/o F w/ Hypoxemic Respiratroy failure B/L fluffy infiltrates seen on CT chest today PTX resolved. ON Meropenum and Vancomycin for empiric HCAP. UTI , cx pending Hypoxia on HFNC 95% 50Lo2 sat> 97%. ABg pending. Discussions made about intubation with patient and family Paliative care and Social work in contact with the patient and the POA to determine ultimate goals of care and Advance directives. CT chest does show multi focal infiltrates with concern with low PCT. Possible Viral PNA? Multiple titters sent out for viral panels, ID following. If respiratory status worsens , pt will be intubated. remain sill CC time 72 min
[2016-09-02] MEDS: Nystatin 100,000 Units/gm Cream(15 gm) TOP SCH ×2 (14:40→20:07)
--- NOTE | 2016-09-02 15:08 | CP.PCM.PN ---
Subjective - Date & Time of Evaluation Date of Evaluation: 09/02/16 Time of Evaluation: 09:00 - Subjective Subjective: Patient had chest tube removed yesterday. No fevers overnight but still having hypoxia and shortness of breath at rest. Objective - Vital Signs/Intake and Output Vital Signs (last 24 hours): Temp Pulse Resp BP Pulse Ox 98.9 F 64 20 128/57 L 92 L 09/02/16 04:00 09/02/16 06:49 09/02/16 08:01 09/02/16 08:44 09/02/16 06:49 Intake and Output: 09/02/16 09/02/16 06:59 18:59 Intake Total 750 Output Total 0 Balance 750 - Medications Medications: Current Medications Acetaminophen (Tylenol 325mg Tab) 650 mg PO Q4H PRN PRN Reason: Fever >100.4 F Last Admin: 09/01/16 21:17 Dose: 650 mg Albuterol/Ipratropium (Duoneb 3 Mg/0.5 Mg (3 Ml) Ud) 3 ml IH Q4H PRN PRN Reason: Shortness of Breath Last Admin: 09/01/16 06:30 Dose: 3 ml Alprazolam (Xanax) 0.5 mg PO TID PRN; Protocol PRN Reason: Anxiety Last Admin: 08/30/16 21:39 Dose: 0.5 mg Aspirin (Ecotrin) 81 mg PO DAILY [facility] Last Admin: 09/02/16 10:28 Dose: 81 mg Atorvastatin Calcium (Lipitor) 20 mg PO DIN [facility] Last Admin: 09/01/16 18:24 Dose: 20 mg Fluticasone Propionate (Flonase) 1 actuation NS DAILY [facility] Last Admin: 09/02/16 10:53 Dose: 1 spr Gabapentin (Neurontin) 800 mg PO TID LUCY PRN Reason: Protocol Last Admin: 09/02/16 14:53 Dose: 800 mg Heparin Sodium (Porcine) (Heparin) 5,000 units SC Q12 LUCY PRN Reason: Protocol Last Admin: 09/02/16 10:29 Dose: 5,000 units Vancomycin HCl (Vancomycin 1gm) 250 mls @ 167 mls/hr IVPB Q12H LUCY PRN Reason: Protocol Last Admin: 09/02/16 14:47 Dose: 167 mls/hr Meropenem 1g/NS 100mL IVPB (Meropenem 1g/Ns 100ml Ivpb) 100 mls @ 100 mls/hr IVPB Q8H [facility] Stop: 09/07/16 15:16 Last Admin: 09/02/16 14:45 Dose: 100 mls/hr Levalbuterol HCl (Xopenex) 0.63 mg IH [id number] [id number] Last Admin: 09/02/16 14:12 Dose: 0.63 mg Levalbuterol HCl (Xopenex) 0.63 mg IH Q2H PRN PRN Reason: Shortness of Breath Last Admin: 08/29/16 14:59 Dose: 0.63 mg Levothyroxine Sodium (Synthroid) 25 mcg PO DAILY [facility] Last Admin: 09/02/16 10:27 Dose: 25 mcg Morphine Sulfate (Morphine) 4 mg IVP Q4H PRN PRN Reason: Pain, severe (8-10) Last Admin: 08/27/16 20:34 Dose: 4 mg Mupirocin (Bactroban Ointment) 0 gm NS BID [facility] Stop: 09/02/16 18:01 Last Admin: 09/02/16 10:53 Dose: 1 applic Nystatin (Mycostatin Cream) 0 ea TOP TID [facility] Ondansetron HCl (Zofran Inj) 4 mg IVP Q6H PRN PRN Reason: Nausea/Vomiting Last Admin: 08/31/16 06:26 Dose: 4 mg Oxycodone/Acetaminophen (Percocet 10/325 Mg Tab) 1 tab PO Q6H PRN PRN Reason: Pain, severe (8-10) Last Admin: 09/02/16 10:35 Dose: 1 tab Pantoprazole Sodium (Protonix Ec Tab) 40 mg PO ACB [facility] Last Admin: 09/02/16 10:28 Dose: 40 mg Sertraline HCl (Zoloft) 100 mg PO DAILY [facility] Last Admin: 09/02/16 10:27 Dose: 100 mg Sucralfate (Carafate Tab) 1 gm PO DAILY PRN PRN Reason: Dyspepsia Last Admin: 09/02/16 10:28 Dose: 1 gm - Labs Labs: 09/02/16 05:50 09/02/16 05:50 PT 13.4 Seconds (9.9-11.8) H 09/02/16 05:50 INR 1.24 (0.93-1.08) H 09/02/16 05:50 APTT 32.7 Seconds (23.7-30.8) H 09/02/16 05:50 - Constitutional Appears: Other (in some respiratory distress) - Head Exam Head Exam: NORMAL INSPECTION - ENT Exam ENT Exam: Mucous Membranes Moist - Neck Exam Neck Exam: absent: Lymphadenopathy, Meningismus - Respiratory Exam Respiratory Exam: Decreased Breath Sounds, Rales (scattered) - Cardiovascular Exam Cardiovascular Exam: +S1, +S2 - GI/Abdominal Exam GI & Abdominal Exam: Soft. absent: Tenderness Assessment and Plan - Assessment and Plan (Free Text) Plan: Assessment Consider sepsis secondary to bilateral healthcare-associated pneumonia on top of probable pulmonary vascular congestion, in a patient with left pneumothorax S /P left chest tube placement and now removal of chest tube because of resolution of pneumothorax S/P urinary tract infection, probably lower tract, with P. mirabilis peripheral vascular disease S/P bilateral BKA S/P bilateral hip replacement HTN CAD sick sinus syndrome S/P pacemaker placement GERD history of diverticulitis history of urinary incontinence depression anxiety history of eye cataracts history of pneumonia Plan continue Vancomycin and Meropenem day 2; blood, sputum cx negative; PCT is only 0.13; will add Doxycycline and follow Mycoplasma and Legionella tests; I doubt this is fungal pneumonia or viral pneumonia but tests have been ordered and we will follow up results; reviewed CT chest results Will follow clinically
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
[2016-09-02 17:42] LABS: ARTERIAL BLOOD GAS O2 CAPACITY 11.1 mL/dl (16-24); ARTERIAL BLOOD GAS O2 CONTENT 10.7 ML/dl (15-23); ARTERIAL BLOOD GAS PH 7.42 (7.35-7.45); CARBOXYHEMOGLOBIN 1.8 % (0.5-1.5); HHB 3.7 % (0-5); METHEMOGLOBIN 0.5 % (0.0-3.0)
--- NOTE | 2016-09-02 20:49 | PN ---
DATE: 09/02/2016 SUBJECTIVE: The patient is a 81-year-old, seen and examined. She is lying in bed. Mild shortness o f breath. Her chest tube in the left chest has been removed. She seems to be comfortable, eating an d tolerating. PHYSICAL EXAMINATION: VITAL SIGNS: She is afebrile, pulse 82, respirations 18, blood pressure 120/49. LUNGS: Bilateral fair airflow, no rhonchi or crackle. HEART: S1, S2 audible. ABDOMEN: Soft, nontender, no rebound, no guarding. NEUROLOGIC: She is awake and alert, able to communicate. EXTREMITIES: Bilateral legs AKA. LABORATORY DATA: WBC 13.6, hemoglobin 8.7, hematocrit 29.7, platelets 341. PT 13.4, INR 1.24. Chem istry: Sodium 139, potassium 3.9, chloride 98, CO2 of 38, BUN 17, creatinine 0.5, blood sugar 105. Urinalysis is positive nitrite. ASSESSMENT: 1. Status post malfunctioning pacemaker lead that was repositioned, status post pneumothorax and juan st tube placement. Chest tube was removed yesterday. 2. Chronic obstructive pulmonary disease. 3. Bilateral pulmonary infiltrates. 4. Bilateral above knee amputations. 5. History of sick sinus syndrome, status post pacemaker placement. 6. Proteus mirabilis urinary tract infection. 7. Coronary artery disease. PLAN: Currently, patient is in ICU. She is on doxycycline. She is getting nebulizer treatment. Sh jay is on DVT prophylaxis. She is getting statins. She is on meropenem q. 8, 1 gram. She is on analgesic as needed. We will continue on Synthroid and she is also getting vancomycin 1 gram q. 12. Her electrolytes and CBC will be monitored and followed up in a.m. Bowen Berman MD cc: [phone] TT: 09/02/2016 20:48:15 Confirmation # [id number] Dictation # [id number] cady
[2016-09-03] MEDS: Levalbuterol 0.63 MG/3 ML Inhal Soln UD IH SCH ×4 (01:37→20:02)
[2016-09-03] MEDS: Oxycodone/Acetaminophen 10/325 mg Tab PO PRN ×3 (02:10→17:42)
[2016-09-03] MEDS: Vancomycin 1gm in NS 250ml 250 ML IVPB SCH ×2 (02:11→15:05)
[2016-09-03 05:59] LABS: ARTERIAL BLOOD GAS HCO3 37.5 mmol/L (21-28); ARTERIAL BLOOD GAS O2 CAPACITY 10.6 mL/dl (16-24); ARTERIAL BLOOD GAS O2 CONTENT 10.4 ML/dl (15-23); ARTERIAL BLOOD GAS PH 7.39 (7.35-7.45); ARTERIAL BLOOD HGB O2 SAT 95.8 % (95.0-98.0); CARBOXYHEMOGLOBIN 1.6 % (0.5-1.5); HHB 1.6 % (0-5)
[2016-09-03 06:26] LABS: BASO # 0.02 K/mm3 (0.0-2.0); BASO % 0.1 % (0.0-3.0); EOS # 0.4 (0.0-0.7); EOS % 2.9 % (1.5-5.0); GRAN # 11.23 (1.4-6.5); GRAN % 83.6 % (50.0-68.0); LYMPH # 1.2 (1.2-3.4); LYMPH % 8.6 % (22.0-35.0); MEAN CORPUSCULAR HEMOGLOBIN 26.3 pg (25.0-35.0); MEAN CORPUSCULAR HGB CONC 29.3 g/dl (31.0-37.0); MEAN PLATELET VOLUME 9.2 fl (7.0-11.0); MONO # 0.7 (0.1-0.6); MONO % 4.8 % (1.0-6.0); PLATELET COUNT 344 10^3/uL (120.0-450.0); RED CELL DISTRIBUTION WIDTH 16.3 % (11.5-14.5); WHITE BLOOD COUNT 13.4 10^3/ul (4.5-11.0)
[2016-09-03 06:31] LABS: INR 1.21 (0.93-1.08)
[2016-09-03 06:37] LABS: ADD MANUAL DIFF? NO
[2016-09-03 06:38] LABS: ALB/GLOB RATIO 0.7 (1.1-1.8); ALKALINE PHOSPHATASE 95 U/L (38-133); ALT/SGPT 43 U/L (7-56); AST/SGOT 60 U/L (15-39); BILIRUBIN,TOTAL 0.5 mg/dL (0.2-1.3); BLOOD UREA NITROGEN 16 mg/dL (7-21); CALCIUM 7.1 mg/dL (8.4-10.5); CARBON DIOXIDE 35 mmol/L (21-33); CHLORIDE 94 mmol/L (98-107); GFR AFRICAN-AMERICAN > 60; GLUCOSE,RANDOM 91 mg/dL (70-110); MAGNESIUM 1.9 mg/dL (1.7-2.2); PHOSPHOROUS 2.4 mg/dL (2.5-4.5); POTASSIUM 3.7 mmol/L (3.6-5.0); SODIUM 134 mmol/L (132-148); TOTAL PROTEIN 5.9 g/dL (5.8-8.3)
[2016-09-03] MEDS: Meropenem 1g/NS 100mL IVPB 100 ML IVPB SCH ×3 (06:39→23:18)
[2016-09-03] MEDS: Pantoprazole 40 mg EC Tab PO SCH (07:48)
--- NOTE | 2016-09-03 08:16 | CP.PCM.PN ---
Subjective - Date & Time of Evaluation Date of Evaluation: 09/03/16 Time of Evaluation: 08:00 - Subjective Subjective: Stable in CCU in bed on high flow nasal O2. Weak but no CP or SOB. V/S noted. V. paced PE: lungs: decreased BS at bases. Rhonchi Cor.: S1S2, FRANCISCO J Abd.: soft Neuro.: alert ECG 08/27: Mosly V. Paced. Nl pacer fx. CXR and CT chest 09/02: noted. Bilateral infiltrates Labs today noted: H/H = 7.9/27 BC x2 NG at 48 hrs Objective - Vital Signs/Intake and Output Vital Signs (last 24 hours): Temp Pulse Resp BP Pulse Ox 99 F 84 21 132/57 L 96 09/03/16 05:00 09/03/16 07:30 09/03/16 07:30 09/03/16 07:00 09/03/16 07:30 Intake and Output: 09/03/16 09/03/16 06:59 18:59 Intake Total 690 Output Total 200 Balance 490 - Medications Medications: Current Medications Acetaminophen (Tylenol 325mg Tab) 650 mg PO Q4H PRN PRN Reason: Fever >100.4 F Last Admin: 09/01/16 21:17 Dose: 650 mg Albuterol/Ipratropium (Duoneb 3 Mg/0.5 Mg (3 Ml) Ud) 3 ml IH Q4H PRN PRN Reason: Shortness of Breath Last Admin: 09/01/16 06:30 Dose: 3 ml Alprazolam (Xanax) 0.5 mg PO TID PRN; Protocol PRN Reason: Anxiety Last Admin: 08/30/16 21:39 Dose: 0.5 mg Aspirin (Ecotrin) 81 mg PO DAILY [facility] Last Admin: 09/02/16 10:28 Dose: 81 mg Atorvastatin Calcium (Lipitor) 20 mg PO DIN [facility] Last Admin: 09/02/16 19:09 Dose: 20 mg Fluticasone Propionate (Flonase) 1 actuation NS DAILY [facility] Last Admin: 09/02/16 10:53 Dose: 1 spr Gabapentin (Neurontin) 800 mg PO TID [facility] PRN Reason: Protocol Last Admin: 09/02/16 19:09 Dose: 800 mg Heparin Sodium (Porcine) (Heparin) 5,000 units SC Q12 [facility] PRN Reason: Protocol Last Admin: 09/02/16 22:40 Dose: 5,000 units Vancomycin HCl (Vancomycin 1gm) 250 mls @ 167 mls/hr IVPB Q12H [facility] PRN Reason: Protocol Last Admin: 09/03/16 02:11 Dose: 167 mls/hr Meropenem 1g/NS 100mL IVPB (Meropenem 1g/Ns 100ml Ivpb) 100 mls @ 100 mls/hr IVPB Q8H [facility] Stop: 09/07/16 15:16 Last Admin: 09/03/16 06:39 Dose: 100 mls/hr Doxycycline Hyclate 100 mg/ (Sodium Chloride) 100 mls @ 100 mls/hr IVPB Q12 [facility] PRN Reason: Protocol Last Admin: 09/02/16 19:20 Dose: 100 mls/hr Levalbuterol HCl (Xopenex) 0.63 mg IH [id number] [facility] Last Admin: 09/03/16 07:01 Dose: 0.63 mg Levalbuterol HCl (Xopenex) 0.63 mg IH Q2H PRN PRN Reason: Shortness of Breath Last Admin: 08/29/16 14:59 Dose: 0.63 mg Levothyroxine Sodium (Synthroid) 25 mcg PO DAILY [facility] Last Admin: 09/02/16 10:27 Dose: 25 mcg Morphine Sulfate (Morphine) 4 mg IVP Q4H PRN PRN Reason: Pain, severe (8-10) Last Admin: 08/27/16 20:34 Dose: 4 mg Nystatin (Mycostatin Cream) 0 ea TOP TID [facility] Last Admin: 09/02/16 20:07 Dose: 1 appl Ondansetron HCl (Zofran Inj) 4 mg IVP Q6H PRN PRN Reason: Nausea/Vomiting Last Admin: 08/31/16 06:26 Dose: 4 mg Oxycodone/Acetaminophen (Percocet 10/325 Mg Tab) 1 tab PO Q6H PRN PRN Reason: Pain, severe (8-10) Last Admin: 09/03/16 02:10 Dose: 1 tab Pantoprazole Sodium (Protonix Ec Tab) 40 mg PO ACB [facility] Last Admin: 09/03/16 07:48 Dose: 40 mg Sertraline HCl (Zoloft) 100 mg PO DAILY [facility] Last Admin: 09/02/16 10:27 Dose: 100 mg Sucralfate (Carafate Tab) 1 gm PO DAILY PRN PRN Reason: Dyspepsia Last Admin: 09/02/16 10:28 Dose: 1 gm - Labs Labs: 09/03/16 06:00 09/03/16 05:45 PT 13.1 Seconds (9.9-11.8) H 09/03/16 05:45 INR 1.21 (0.93-1.08) H 09/03/16 05:45 APTT 34.0 Seconds (23.7-30.8) H 09/03/16 05:45 Assessment and Plan - Assessment and Plan (Free Text) Plan: Assessment: Dizzy and weak/CHB/Pacemaker lead dislodgement Pacemaker lead revision 08/27/16 complicated by hemopneumothorax, s/p CT drainage PPM for symptomatic CHB 06/02 Bilateral infiltrates, respiratory insufficiency, s/p CT drainage left lung , mild RA Asthma HLD PAD Bilat.AKAs Hypothyroidism Hypotonic Bladder/Stress Incontinence Pascual. THR Cataracts Plan: Consider transfusion to Hgb > 9.5 AB as per ID OOB to chair as sadia. Monitor labs, I/O, cultures, sats., H/H, CXRs, etc.
--- NOTE | 2016-09-03 08:43 | RAD ---
HISTORY: interval changes COMPARISON: 09/02/2016 FINDINGS: LUNGS: No significant change in bilateral infiltrates left greater than right PLEURA: No significant pleural effusion identified, no pneumothorax apparent. CARDIOVASCULAR: Moderate cardiomegaly and moderate vascular congestion. OSSEOUS STRUCTURES: No significant abnormalities. VISUALIZED UPPER ABDOMEN: Normal. OTHER FINDINGS: Single lead pacemaker IMPRESSION: Bilateral infiltrates unchanged
[2016-09-03] MEDS: Levothyroxine 25 MCG TAB PO SCH (09:00)
[2016-09-03] MEDS: Nystatin 100,000 Units/gm Cream(15 gm) TOP SCH ×3 (10:00→17:44)
--- NOTE | 2016-09-03 10:01 | PN ---
DATE: 09/03/2016 SUBJECTIVE: The patient has no complaints of any chest pain or shortness of breath. PHYSICAL EXAMINATION: VITAL SIGNS: Temperature is 97.9, pulse of 91, blood pressure 116/52, respirations 18. GENERAL: The patient comfortable, in no acute distress. HEENT: Anicteric sclerae. Moist mucosa. NECK: No JVD or adenopathy. CARDIAC: S1/S2. No murmurs. No rubs. Regular. RESPIRATORY: Clear to auscultation bilaterally. No wheezes, rales, or rhonchi. Good air entry. ABDOMEN: Bowel sounds are positive, soft, nontender, and nondistended. EXTREMITIES: No edema. Has 1+ pulses. LABS: White count of 13.4, hemoglobin 7.9. Creatinine 0.4. ASSESSMENT: 1. Status post removal of the chest tube. 2. Left pneumothorax, improved. 3. Urinary tract infection secondary to Klebsiella pneumoniae. 4. Sepsis. 5. Hypertension. 6. Rheumatoid arthritis. 7. Diabetes, type 2. 8. Osteoarthritis with chronic pain. 9. Chronic obstructive pulmonary disease. 10. Hypothyroidism. PLAN: The patient is currently comfortable. She is improving. She does require oxygen. She is in the ICU. She is on aspirin. She is going to continue with heparin for DVT prophylaxis. The patient is on meropenem for antibiotics. She is on gabapentin for neuropathy. The patient is on Synthroid for hypothyroidism. She is on Zofran as needed. She is on Zoloft. She is on a heart healthy diet. Overall prognosis is guarded. Jason Toro MD cc: [id number] TT: 09/03/2016 09:43:44 Confirmation # [id number] Dictation # [id number] mn 09/03/2016 09:00:47
[2016-09-03] MEDS: Fluticasone Nasal 50 mcg/Spray NS SCH (10:09)
--- NOTE | 2016-09-03 13:21 | CP.CCUPN ---
<Alexander Mchugh - Last Filed: 09/03/16 13:18> CCU Subjective - Physician Review Subjective (Free Text): Pt seen and examined at bedside. No acute events overnight. Pt remains on high flow nasal cannula. She does still admit to improved shortness of breath at this time. Pt tolerating diet well. Pt having BM's. Pt denies CP, N/V/D, fevers , chills, headaches. CCU Objective - Vital Signs / Intake & Output Vital Signs (Last 4 hours): Vital Signs Temp Resp BP 09/03/16 13:14 24 09/03/16 12:00 98.1 F 09/03/16 10:09 123/64 Intake and Output (Last 8hrs): Intake & Output 09/02/16 09/03/16 09/03/16 22:59 06:59 14:59 Intake Total 650 690 Output Total 1000 200 Balance -350 490 Intake: IV 450 Right Forearm 450 Oral 650 240 Output: Urine 1000 200 Urethral (Catalan) 1000 200 Other: Voiding Method Incontinent - Physical Exam Head: Positive for: Atraumatic, Normocephalic Pupils: Positive for: PERRL Extroacular Muscles: Positive for: EOMI Conjunctiva: Positive for: Normal. Negative for: Injected Mouth: Positive for: Moist Mucous Membranes Nose (External): Positive for: Atraumatic. Negative for: Abrasion, Contusion, Laceration Nose (Internal): Positive for: Other (HFNC) Neck: Positive for: Normal Range of Motion. Negative for: Meningeal Signs, JVD Respiratory/Chest: Positive for: Good Air Exchange, Decreased Breath Sounds ( Improved from previous day). Negative for: Clear to Auscultation, Respiratory Distress, Accessory Muscle Use, Rhonchi, Tachypneic, Tender to Palpation Cardiovascular: Positive for: Regular Rate and Rhythm, Murmurs, Normal S1, S2. Negative for: Irregular Rhythm Abdomen: Positive for: Normal Bowel Sounds. Negative for: Tenderness, Distention, Peritoneal Signs, Rebound Upper Extremity: Positive for: NORMAL PULSES (+2 radials bilaterally). Negative for: Normal Inspection, Cyanosis, Edema Lower Extremity: Positive for: Other (BL AKAs) Neurological: Positive for: GCS=15, CN II-XII Intact, Speech Normal Skin: Positive for: Warm, Dry, Normal Color Psychiatric: Positive for: Alert, Oriented x 3, Normal Insight, Normal Concentration - Medications Active Medications: Active Medications Generic Name Dose Route Start Last Admin Trade Name Freq PRN Reason Stop Dose Admin Acetaminophen 650 mg 08/31/16 23:19 09/01/16 21:17 Tylenol 325mg Tab PO 650 mg Q4H PRN Administration Fever >100.4 F Albuterol/Ipratropium 3 ml 08/29/16 06:25 09/01/16 06:30 Duoneb 3 Mg/0.5 Mg (3 Ml) Ud IH 3 ml Q4H PRN Administration Shortness of Breath Alprazolam 0.5 mg 08/29/16 14:46 08/30/16 21:39 Xanax PO 0.5 mg TID PRN Administration Anxiety Protocol Aspirin 81 mg 08/27/16 10:00 09/03/16 09:52 Ecotrin PO 81 mg DAILY LUCY Administration Atorvastatin Calcium 20 mg 08/27/16 17:00 09/02/16 19:09 Lipitor PO 20 mg DIN LUCY Administration Fluticasone Propionate 1 actuation 08/30/16 10:00 09/03/16 10:09 Flonase NS 1 spr DAILY LUCY Administration Gabapentin 800 mg 08/27/16 14:00 09/03/16 09:52 Neurontin PO 800 mg TID LUCY Administration Protocol Heparin Sodium (Porcine) 5,000 units 08/27/16 22:00 09/03/16 09:52 Heparin SC 5,000 units Q12 LUCY Administration Protocol Vancomycin HCl 250 mls @ 167 mls/hr 08/31/16 15:00 09/03/16 02:11 Vancomycin 1gm IVPB 167 mls/hr Q12H LUCY Administration Protocol Meropenem 1g/NS 100mL IVPB 100 mls @ 100 mls/hr 08/31/16 15:15 09/03/16 06:39 Meropenem 1g/Ns 100ml Ivpb IVPB 09/07/16 15:16 100 mls/hr Q8H LUCY Administration Doxycycline Hyclate 100 mg/ 100 mls @ 100 mls/hr 09/02/16 15:15 09/02/16 19:20 Sodium Chloride IVPB 100 mls/hr Q12 LUCY Administration Protocol Levalbuterol HCl 0.63 mg 08/29/16 20:00 09/03/16 13:06 Xopenex IH 0.63 mg [id number] LUCY Administration Levalbuterol HCl 0.63 mg 08/29/16 14:49 08/29/16 14:59 Xopenex IH 0.63 mg Q2H PRN Administration Shortness of Breath Levothyroxine Sodium 25 mcg 08/27/16 10:00 09/03/16 09:00 Synthroid PO 25 mcg DAILY LUCY Administration Morphine Sulfate 4 mg 08/27/16 08:43 08/27/16 20:34 Morphine IVP 4 mg Q4H PRN Administration Pain, severe (8-10) Nystatin 0 ea 09/02/16 14:00 09/03/16 10:00 Mycostatin Cream TOP 1 appl TID LUCY Administration Ondansetron HCl 4 mg 08/29/16 05:17 08/31/16 06:26 Zofran Inj IVP 4 mg Q6H PRN Administration Nausea/Vomiting Oxycodone/Acetaminophen 1 tab 08/30/16 02:45 09/03/16 11:05 Percocet 10/325 Mg Tab PO 1 tab Q6H PRN Administration Pain, severe (8-10) Pantoprazole Sodium 40 mg 09/01/16 07:30 09/03/16 07:48 Protonix Ec Tab PO 40 mg ACB LUCY Administration Sertraline HCl 100 mg 08/27/16 13:00 09/03/16 09:52 Zoloft PO 100 mg DAILY LUCY Administration Sucralfate 1 gm 08/26/16 18:10 09/02/16 10:28 Carafate Tab PO 1 gm DAILY PRN Administration Dyspepsia - Patient Studies Lab Studies: Microbiology Studies 08/31/16 12:15 Blood Culture - Preliminary Blood NO GROWTH AFTER 3 DAYS 09/01/16 00:35 Urine Culture - Final Urine,Catheterized Klebsiella Pneumoniae Ssp Pneu 08/31/16 23:50 Blood Culture - Preliminary Blood NO GROWTH AFTER 48 HOURS 08/31/16 23:30 Blood Culture - Preliminary Blood NO GROWTH AFTER 48 HOURS Lab Studies 09/03/16 09/03/16 09/03/16 Range/Units 06:00 05:55 05:45 WBC 13.4 H (4.5-11.0) 10^3/ul RBC 3.00 L (3.5-6.1) 10^6/uL Hgb 7.9 L (12.0-16.0) gm/dL Hct 27.0 L (36.0-48.0) % MCV 90.0 (80.0-105.0) fL MCH 26.3 (25.0-35.0) pg MCHC 29.3 L (31.0-37.0) g/dl RDW 16.3 H (11.5-14.5) % Plt Count 344 (120.0-450.0) 10^3/uL MPV 9.2 (7.0-11.0) fl Gran % 83.6 H (50.0-68.0) % Lymph % (Auto) 8.6 L (22.0-35.0) % [place] % (Auto) 4.8 (1.0-6.0) % Eos % (Auto) 2.9 (1.5-5.0) % Baso % (Auto) 0.1 (0.0-3.0) % Gran # 11.23 H (1.4-6.5) Lymph # 1.2 (1.2-3.4) [place] # 0.7 H (0.1-0.6) Eos # 0.4 (0.0-0.7) Baso # 0.02 (0.0-2.0) K/mm3 PT 13.1 H (9.9-11.8) Seconds INR 1.21 H (0.93-1.08) APTT 34.0 H (23.7-30.8) Seconds pCO2 62 H (35-45) mm/Hg pO2 84.0 (80-100) mm/Hg HCO3 37.5 H (21-28) mmol/L ABG pH 7.39 (7.35-7.45) ABG Total CO2 39.4 H (22-28) mmol.L ABG O2 Saturation 98.4 H (95-98) % ABG O2 Content 10.4 L (15-23) ML/dl ABG Base Excess 11.2 H (-2.0-3.0) mmol/L ABG Hemoglobin 7.6 L (11.7-17.4) g/dL ABG Carboxyhemoglobin 1.6 H (0.5-1.5) % POC ABG HHb (Measured) 1.6 (0-5) % ABG Methemoglobin 1.0 (0.0-3.0) % ABG O2 Capacity 10.6 L (16-24) mL/dl Hgb O2 Saturation 95.8 (95.0-98.0) % FiO2 70.0 % Sodium 134 (132-148) mmol/L Potassium 3.7 (3.6-5.0) mmol/L Chloride 94 L (98-107) mmol/L Carbon Dioxide 35 H (21-33) mmol/L Anion Gap 9 L (10-20) BUN 16 (7-21) mg/dL Creatinine 0.4 L (0.5-1.4) mg/dL Est GFR ( Amer) > 60 Est GFR (Non-Af Amer) > 60 Random Glucose 91 (70-110) mg/dL Calcium 7.1 L (8.4-10.5) mg/dL Phosphorus 2.4 L (2.5-4.5) mg/dL Magnesium 1.9 (1.7-2.2) mg/dL Total Bilirubin 0.5 (0.2-1.3) mg/dL AST 60 H (15-39) U/L ALT 43 (7-56) U/L Alkaline Phosphatase 95 (38-133) U/L Total Protein 5.9 (5.8-8.3) g/dL Albumin 2.4 L (3.0-4.8) g/dL Globulin 3.6 gm/dL Albumin/Globulin Ratio 0.7 L (1.1-1.8) Procalcitonin (0.19-0.49) NG/ML IgM (40.0-230.0) mg/dL 09/02/16 09/02/16 Range/Units 17:35 11:10 WBC (4.5-11.0) 10^3/ul RBC (3.5-6.1) 10^6/uL Hgb (12.0-16.0) gm/dL Hct (36.0-48.0) % MCV (80.0-105.0) fL MCH (25.0-35.0) pg MCHC (31.0-37.0) g/dl RDW (11.5-14.5) % Plt Count (120.0-450.0) 10^3/uL MPV (7.0-11.0) fl Gran % (50.0-68.0) % Lymph % (Auto) (22.0-35.0) % [place] % (Auto) (1.0-6.0) % Eos % (Auto) (1.5-5.0) % Baso % (Auto) (0.0-3.0) % Gran # (1.4-6.5) Lymph # (1.2-3.4) [place] # (0.1-0.6) Eos # (0.0-0.7) Baso # (0.0-2.0) K/mm3 PT (9.9-11.8) Seconds INR (0.93-1.08) APTT (23.7-30.8) Seconds pCO2 57 H (35-45) mm/Hg pO2 68.0 L (80-100) mm/Hg HCO3 37.0 H (21-28) mmol/L ABG pH 7.42 (7.35-7.45) ABG Total CO2 38.7 H (22-28) mmol.L ABG O2 Saturation 96.2 (95-98) % ABG O2 Content 10.7 L (15-23) ML/dl ABG Base Excess 11.2 H (-2.0-3.0) mmol/L ABG Hemoglobin 8.0 L (11.7-17.4) g/dL ABG Carboxyhemoglobin 1.8 H (0.5-1.5) % POC ABG HHb (Measured) 3.7 (0-5) % ABG Methemoglobin 0.5 (0.0-3.0) % ABG O2 Capacity 11.1 L (16-24) mL/dl Hgb O2 Saturation 94.0 L (95.0-98.0) % FiO2 60.0 % Sodium (132-148) mmol/L Potassium (3.6-5.0) mmol/L Chloride (98-107) mmol/L Carbon Dioxide (21-33) mmol/L Anion Gap (10-20) BUN (7-21) mg/dL Creatinine (0.5-1.4) mg/dL Est GFR ( Amer) Est GFR (Non-Af Amer) Random Glucose (70-110) mg/dL Calcium (8.4-10.5) mg/dL Phosphorus (2.5-4.5) mg/dL Magnesium (1.7-2.2) mg/dL Total Bilirubin (0.2-1.3) mg/dL AST (15-39) U/L ALT (7-56) U/L Alkaline Phosphatase (38-133) U/L Total Protein (5.8-8.3) g/dL Albumin (3.0-4.8) g/dL Globulin gm/dL Albumin/Globulin Ratio (1.1-1.8) Procalcitonin 0.19 (0.19-0.49) NG/ML IgM 148.7 (40.0-230.0) mg/dL Laboratory Results - last 24 hr 09/02/16 09/02/16 09/03/16 11:10 17:35 05:45 WBC RBC Hgb Hct MCV MCH MCHC RDW Plt Count MPV Gran % Lymph % (Auto) [place] % (Auto) Eos % (Auto) Baso % (Auto) Gran # Lymph # [place]val # Eos # Baso # PT 13.1 H INR 1.21 H APTT 34.0 H pCO2 57 H pO2 68.0 L HCO3 37.0 H ABG pH 7.42 ABG Total CO2 38.7 H ABG O2 Saturation 96.2 ABG O2 Content 10.7 L ABG Base Excess 11.2 H ABG Hemoglobin 8.0 L ABG Carboxyhemoglobin 1.8 H POC ABG HHb (Measured) 3.7 ABG Methemoglobin 0.5 ABG O2 Capacity 11.1 L Hgb O2 Saturation 94.0 L FiO2 60.0 Sodium 134 Potassium 3.7 Chloride 94 L Carbon Dioxide 35 H Anion Gap 9 L BUN 16 Creatinine 0.4 L Est GFR ( Amer) > 60 Est GFR (Non-Af Amer) > 60 Random Glucose 91 Calcium 7.1 L Phosphorus 2.4 L Magnesium 1.9 Total Bilirubin 0.5 AST 60 H ALT 43 Alkaline Phosphatase 95 Total Protein 5.9 Albumin 2.4 L Globulin 3.6 Albumin/Globulin Ratio 0.7 L Procalcitonin 0.19 IgM 148.7 09/03/16 09/03/16 05:55 06:00 WBC 13.4 H RBC 3.00 L Hgb 7.9 L Hct 27.0 L MCV 90.0 MCH 26.3 MCHC 29.3 L RDW 16.3 H Plt Count 344 MPV 9.2 Gran % 83.6 H Lymph % (Auto) 8.6 L [place] % (Auto) 4.8 Eos % (Auto) 2.9 Baso % (Auto) 0.1 Gran # 11.23 H Lymph # 1.2 Duval # 0.7 H Eos # 0.4 Baso # 0.02 PT INR APTT pCO2 62 H pO2 84.0 HCO3 37.5 H ABG pH 7.39 ABG Total CO2 39.4 H ABG O2 Saturation 98.4 H ABG O2 Content 10.4 L ABG Base Excess 11.2 H ABG Hemoglobin 7.6 L ABG Carboxyhemoglobin 1.6 H POC ABG HHb (Measured) 1.6 ABG Methemoglobin 1.0 ABG O2 Capacity 10.6 L Hgb O2 Saturation 95.8 FiO2 70.0 Sodium Potassium Chloride Carbon Dioxide Anion Gap BUN Creatinine Est GFR ( Amer) Est GFR (Non-Af Amer) Random Glucose Calcium Phosphorus Magnesium Total Bilirubin AST ALT Alkaline Phosphatase Total Protein Albumin Globulin Albumin/Globulin Ratio Procalcitonin IgM Fingerstick Blood Sugar Results: 129 Critical Care Progress Note - Nutrition Nutrition: Nutrition Category Date Time Status Heart Healthy Diet [DIET] Diets 08/27/16 Dinner Ordered Assessment/Plan - Assessment and Plan (Free Text) Plan: 81 y/o F with PMH of complete heart block s/p pacemaker placement in 05/2016, b/ l AKA, PVD, asthma, RA, and dyslipidemia presents s/p pacemaker revision and s/ p chest tube with acute hypoxemic respiratory failure. Chest CT showed extensive b/l pulmonary infiltrates with the left worse than the right. Pt was given Lasix again today, which continues to help pt with shortness of breath. Pt on HFNC and being weaned down slowly. Pt is aware that she may be intubated if respiratory status declines. Viral and fungal titers pending. -Monitor for acute change Cardio: -S/p Pacemaker revision and lead replacement on 08/27/16 -Maintain hemodynamic stability -Maintain MAP>65 Pulm: -Chest CT as above -Infiltrates stable, currently on Merrem, Doxycycline, and Vancomycin as per ID. -High flow nasal cannula at 60 L, 50% FiO2 -Will consider intubation if necessary -OOB -Continue chest PT, flutter valve, and incentive spirometry -Maintain SaO2 > 90% GI: -Heart-healthy diet -Protonix for GI prophylaxis Endo: -Continue Synthroid -Maintain euglycemia Nephro: -Catalan in place -Maintain euvolemia -Replenish electrolytes as needed Heme/ID: -Afebrile, leukocytosis stable -Procal high normal -Merrem, Doxycycline, and Vancomycin as per ID -Blood and sputum cultures negative at this time -Urine culture shows Klebsiella pneumoniae -Viral and fungal titers pending -Maintain normothermia -ID following, Dr. Eubanks PPX: -Protonix -Heparin Seen, reviewed, and discussed with attending Jeison, PGY-1 <Wan DELGADILLO,Madelin H - Last Filed: 09/03/16 14:32> CCU Objective - Vital Signs / Intake & Output Vital Signs (Last 4 hours): Vital Signs Temp Resp 09/03/16 13:14 24 09/03/16 12:00 98.1 F Intake and Output (Last 8hrs): Intake & Output 09/02/16 09/03/16 09/03/16 22:59 06:59 14:59 Intake Total 650 690 Output Total 1000 200 Balance -350 490 Intake: IV 450 Right Forearm 450 Oral 650 240 Output: Urine 1000 200 Urethral (Catalan) 1000 200 Other: Voiding Method Incontinent - Medications Active Medications: Active Medications Generic Name Dose Route Start Last Admin Trade Name Freq PRN Reason Stop Dose Admin Acetaminophen 650 mg 08/31/16 23:19 09/01/16 21:17 Tylenol 325mg Tab PO 650 mg Q4H PRN Administration Fever >100.4 F Albuterol/Ipratropium 3 ml 08/29/16 06:25 09/01/16 06:30 Duoneb 3 Mg/0.5 Mg (3 Ml) Ud IH 3 ml Q4H PRN Administration Shortness of Breath Alprazolam 0.5 mg 08/29/16 14:46 08/30/16 21:39 Xanax PO 0.5 mg TID PRN Administration Anxiety Protocol Aspirin 81 mg 08/27/16 10:00 09/03/16 09:52 Ecotrin PO 81 mg DAILY LUCY Administration Atorvastatin Calcium 20 mg 08/27/16 17:00 09/02/16 19:09 Lipitor PO 20 mg DIN LCUY Administration Fluticasone Propionate 1 actuation 08/30/16 10:00 09/03/16 10:09 Flonase NS 1 spr DAILY LUCY Administration Gabapentin 800 mg 08/27/16 14:00 09/03/16 09:52 Neurontin PO 800 mg TID LUCY Administration Protocol Heparin Sodium (Porcine) 5,000 units 08/27/16 22:00 09/03/16 09:52 Heparin SC 5,000 units Q12 LUCY Administration Protocol Vancomycin HCl 250 mls @ 167 mls/hr 08/31/16 15:00 09/03/16 02:11 Vancomycin 1gm IVPB 167 mls/hr Q12H LUCY Administration Protocol Meropenem 1g/NS 100mL IVPB 100 mls @ 100 mls/hr 08/31/16 15:15 09/03/16 06:39 Meropenem 1g/Ns 100ml Ivpb IVPB 09/07/16 15:16 100 mls/hr Q8H LUCY Administration Doxycycline Hyclate 100 mg/ 100 mls @ 100 mls/hr 09/02/16 15:15 09/02/16 19:20 Sodium Chloride IVPB 100 mls/hr Q12 LUCY Administration Protocol Levalbuterol HCl 0.63 mg 08/29/16 20:00 09/03/16 13:06 Xopenex IH 0.63 mg [id number] LUCY Administration Levalbuterol HCl 0.63 mg 08/29/16 14:49 08/29/16 14:59 Xopenex IH 0.63 mg Q2H PRN Administration Shortness of Breath Levothyroxine Sodium 25 mcg 08/27/16 10:00 09/03/16 09:00 Synthroid PO 25 mcg DAILY LUCY Administration Morphine Sulfate 4 mg 08/27/16 08:43 08/27/16 20:34 Morphine IVP 4 mg Q4H PRN Administration Pain, severe (8-10) Nystatin 0 ea 09/02/16 14:00 09/03/16 14:03 Mycostatin Cream TOP 1 appl TID LUCY Administration Ondansetron HCl 4 mg 08/29/16 05:17 08/31/16 06:26 Zofran Inj IVP 4 mg Q6H PRN Administration Nausea/Vomiting Oxycodone/Acetaminophen 1 tab 08/30/16 02:45 09/03/16 11:05 Percocet 10/325 Mg Tab PO 1 tab Q6H PRN Administration Pain, severe (8-10) Pantoprazole Sodium 40 mg 09/01/16 07:30 09/03/16 07:48 Protonix Ec Tab PO 40 mg ACB LUCY Administration Sertraline HCl 100 mg 08/27/16 13:00 09/03/16 09:52 Zoloft PO 100 mg DAILY LUCY Administration Sucralfate 1 gm 08/26/16 18:10 09/02/16 10:28 Carafate Tab PO 1 gm DAILY PRN Administration Dyspepsia - Patient Studies Lab Studies: Microbiology Studies 08/31/16 12:15 Blood Culture - Preliminary Blood NO GROWTH AFTER 3 DAYS 09/01/16 00:35 Urine Culture - Final Urine,Catheterized Klebsiella Pneumoniae Ssp Pneu 08/31/16 23:50 Blood Culture - Preliminary Blood NO GROWTH AFTER 48 HOURS 08/31/16 23:30 Blood Culture - Preliminary Blood NO GROWTH AFTER 48 HOURS Lab Studies 09/03/16 09/03/16 09/03/16 Range/Units 06:00 05:55 05:45 WBC 13.4 H (4.5-11.0) 10^3/ul RBC 3.00 L (3.5-6.1) 10^6/uL Hgb 7.9 L (12.0-16.0) gm/dL Hct 27.0 L (36.0-48.0) % MCV 90.0 (80.0-105.0) fL MCH 26.3 (25.0-35.0) pg MCHC 29.3 L (31.0-37.0) g/dl RDW 16.3 H (11.5-14.5) % Plt Count 344 (120.0-450.0) 10^3/uL MPV 9.2 (7.0-11.0) fl Gran % 83.6 H (50.0-68.0) % Lymph % (Auto) 8.6 L (22.0-35.0) % [place] % (Auto) 4.8 (1.0-6.0) % Eos % (Auto) 2.9 (1.5-5.0) % Baso % (Auto) 0.1 (0.0-3.0) % Gran # 11.23 H (1.4-6.5) Lymph # 1.2 (1.2-3.4) [place] # 0.7 H (0.1-0.6) Eos # 0.4 (0.0-0.7) Baso # 0.02 (0.0-2.0) K/mm3 PT 13.1 H (9.9-11.8) Seconds INR 1.21 H (0.93-1.08) APTT 34.0 H (23.7-30.8) Seconds pCO2 62 H (35-45) mm/Hg pO2 84.0 (80-100) mm/Hg HCO3 37.5 H (21-28) mmol/L ABG pH 7.39 (7.35-7.45) ABG Total CO2 39.4 H (22-28) mmol.L ABG O2 Saturation 98.4 H (95-98) % ABG O2 Content 10.4 L (15-23) ML/dl ABG Base Excess 11.2 H (-2.0-3.0) mmol/L ABG Hemoglobin 7.6 L (11.7-17.4) g/dL ABG Carboxyhemoglobin 1.6 H (0.5-1.5) % POC ABG HHb (Measured) 1.6 (0-5) % ABG Methemoglobin 1.0 (0.0-3.0) % ABG O2 Capacity 10.6 L (16-24) mL/dl Hgb O2 Saturation 95.8 (95.0-98.0) % FiO2 70.0 % Sodium 134 (132-148) mmol/L Potassium 3.7 (3.6-5.0) mmol/L Chloride 94 L (98-107) mmol/L Carbon Dioxide 35 H (21-33) mmol/L Anion Gap 9 L (10-20) BUN 16 (7-21) mg/dL Creatinine 0.4 L (0.5-1.4) mg/dL Est GFR ( Amer) > 60 Est GFR (Non-Af Amer) > 60 Random Glucose 91 (70-110) mg/dL Calcium 7.1 L (8.4-10.5) mg/dL Phosphorus 2.4 L (2.5-4.5) mg/dL Magnesium 1.9 (1.7-2.2) mg/dL Total Bilirubin 0.5 (0.2-1.3) mg/dL AST 60 H (15-39) U/L ALT 43 (7-56) U/L Alkaline Phosphatase 95 (38-133) U/L Total Protein 5.9 (5.8-8.3) g/dL Albumin 2.4 L (3.0-4.8) g/dL Globulin 3.6 gm/dL Albumin/Globulin Ratio 0.7 L (1.1-1.8) Procalcitonin (0.19-0.49) NG/ML IgM (40.0-230.0) mg/dL 09/02/16 09/02/16 Range/Units 17:35 11:10 WBC (4.5-11.0) 10^3/ul RBC (3.5-6.1) 10^6/uL Hgb (12.0-16.0) gm/dL Hct (36.0-48.0) % MCV (80.0-105.0) fL MCH (25.0-35.0) pg MCHC (31.0-37.0) g/dl RDW (11.5-14.5) % Plt Count (120.0-450.0) 10^3/uL MPV (7.0-11.0) fl Gran % (50.0-68.0) % Lymph % (Auto) (22.0-35.0) % [place] % (Auto) (1.0-6.0) % Eos % (Auto) (1.5-5.0) % Baso % (Auto) (0.0-3.0) % Gran # (1.4-6.5) Lymph # (1.2-3.4) [place] # (0.1-0.6) Eos # (0.0-0.7) Baso # (0.0-2.0) K/mm3 PT (9.9-11.8) Seconds INR (0.93-1.08) APTT (23.7-30.8) Seconds pCO2 57 H (35-45) mm/Hg pO2 68.0 L (80-100) mm/Hg HCO3 37.0 H (21-28) mmol/L ABG pH 7.42 (7.35-7.45) ABG Total CO2 38.7 H (22-28) mmol.L ABG O2 Saturation 96.2 (95-98) % ABG O2 Content 10.7 L (15-23) ML/dl ABG Base Excess 11.2 H (-2.0-3.0) mmol/L ABG Hemoglobin 8.0 L (11.7-17.4) g/dL ABG Carboxyhemoglobin 1.8 H (0.5-1.5) % POC ABG HHb (Measured) 3.7 (0-5) % ABG Methemoglobin 0.5 (0.0-3.0) % ABG O2 Capacity 11.1 L (16-24) mL/dl Hgb O2 Saturation 94.0 L (95.0-98.0) % FiO2 60.0 % Sodium (132-148) mmol/L Potassium (3.6-5.0) mmol/L Chloride (98-107) mmol/L Carbon Dioxide (21-33) mmol/L Anion Gap (10-20) BUN (7-21) mg/dL Creatinine (0.5-1.4) mg/dL Est GFR ( Amer) Est GFR (Non-Af Amer) Random Glucose (70-110) mg/dL Calcium (8.4-10.5) mg/dL Phosphorus (2.5-4.5) mg/dL Magnesium (1.7-2.2) mg/dL Total Bilirubin (0.2-1.3) mg/dL AST (15-39) U/L ALT (7-56) U/L Alkaline Phosphatase (38-133) U/L Total Protein (5.8-8.3) g/dL Albumin (3.0-4.8) g/dL Globulin gm/dL Albumin/Globulin Ratio (1.1-1.8) Procalcitonin 0.19 (0.19-0.49) NG/ML IgM 148.7 (40.0-230.0) mg/dL Laboratory Results - last 24 hr 09/02/16 09/02/16 09/03/16 11:10 17:35 05:45 WBC RBC Hgb Hct MCV MCH MCHC RDW Plt Count MPV Gran % Lymph % (Auto) [place] % (Auto) Eos % (Auto) Baso % (Auto) Gran # Lymph # [place] # Eos # Baso # PT 13.1 H INR 1.21 H APTT 34.0 H pCO2 57 H pO2 68.0 L HCO3 37.0 H ABG pH 7.42 ABG Total CO2 38.7 H ABG O2 Saturation 96.2 ABG O2 Content 10.7 L ABG Base Excess 11.2 H ABG Hemoglobin 8.0 L ABG Carboxyhemoglobin 1.8 H POC ABG HHb (Measured) 3.7 ABG Methemoglobin 0.5 ABG O2 Capacity 11.1 L Hgb O2 Saturation 94.0 L FiO2 60.0 Sodium 134 Potassium 3.7 Chloride 94 L Carbon Dioxide 35 H Anion Gap 9 L BUN 16 Creatinine 0.4 L Est GFR ( Amer) > 60 Est GFR (Non-Af Amer) > 60 Random Glucose 91 Calcium 7.1 L Phosphorus 2.4 L Magnesium 1.9 Total Bilirubin 0.5 AST 60 H ALT 43 Alkaline Phosphatase 95 Total Protein 5.9 Albumin 2.4 L Globulin 3.6 Albumin/Globulin Ratio 0.7 L Procalcitonin 0.19 IgM 148.7 09/03/16 09/03/16 05:55 06:00 WBC 13.4 H RBC 3.00 L Hgb 7.9 L Hct 27.0 L MCV 90.0 MCH 26.3 MCHC 29.3 L RDW 16.3 H Plt Count 344 MPV 9.2 Gran % 83.6 H Lymph % (Auto) 8.6 L [place] % (Auto) 4.8 Eos % (Auto) 2.9 Baso % (Auto) 0.1 Gran # 11.23 H Lymph # 1.2 [place] # 0.7 H Eos # 0.4 Baso # 0.02 PT INR APTT pCO2 62 H pO2 84.0 HCO3 37.5 H ABG pH 7.39 ABG Total CO2 39.4 H ABG O2 Saturation 98.4 H ABG O2 Content 10.4 L ABG Base Excess 11.2 H ABG Hemoglobin 7.6 L ABG Carboxyhemoglobin 1.6 H POC ABG HHb (Measured) 1.6 ABG Methemoglobin 1.0 ABG O2 Capacity 10.6 L Hgb O2 Saturation 95.8 FiO2 70.0 Sodium Potassium Chloride Carbon Dioxide Anion Gap BUN Creatinine Est GFR ( Amer) Est GFR (Non-Af Amer) Random Glucose Calcium Phosphorus Magnesium Total Bilirubin AST ALT Alkaline Phosphatase Total Protein Albumin Globulin Albumin/Globulin Ratio Procalcitonin IgM Critical Care Progress Note - Nutrition Nutrition: Nutrition Category Date Time Status Heart Healthy Diet [DIET] Diets 08/27/16 Dinner Ordered Attending/Attestation - Attestation I have personally seen and examined this patient.: Yes I have fully participated in the care of the patient.: Yes I have reviewed all pertinent clinical information: Yes Notes (Text): 09/03/16 14:30 81 y/o F w/ Mod-Severe ARDS and HCAP PNA ON broad spectrum abx and HFNC 60-70% with PAo2> 55 . AAo x 3. CXR reviewed showing b/l infiltrates and some increased PVC. Lasix added to help with the hypoxia , which has improved her oxygen requirements PTX (L) resolved and CT removed. Lung explanded PM lead replaced, no further issues with Heart Block. Pt is decompensated from multiple co-morbidities , palliative care is on board . DVT P Heparin sq tid cc time 65 min
--- NOTE | 2016-09-03 13:32 | CP.PCM.PN ---
Subjective - Date & Time of Evaluation Date of Evaluation: 09/03/16 Time of Evaluation: 10:30 - Subjective Subjective: Surgery Progress note. Dr. Terrell Pt seen and examined at bedside. No acute events overnight. Patient had Chest Tube removed on 09/01, currently denies any shortness of breath. Still complains of left sided chest wall pain, improving. Denies F/C. No N/V/D. No new complaints Objective - Vital Signs/Intake and Output Vital Signs (last 24 hours): Temp Pulse Resp BP Pulse Ox 98.1 F 91 H 24 123/64 98 09/03/16 12:00 09/03/16 08:30 09/03/16 13:14 09/03/16 10:09 09/03/16 08:30 Intake and Output: 09/03/16 09/03/16 06:59 18:59 Intake Total 690 Output Total 200 Balance 490 - Medications Medications: Current Medications Acetaminophen (Tylenol 325mg Tab) 650 mg PO Q4H PRN PRN Reason: Fever >100.4 F Last Admin: 09/01/16 21:17 Dose: 650 mg Albuterol/Ipratropium (Duoneb 3 Mg/0.5 Mg (3 Ml) Ud) 3 ml IH Q4H PRN PRN Reason: Shortness of Breath Last Admin: 09/01/16 06:30 Dose: 3 ml Alprazolam (Xanax) 0.5 mg PO TID PRN; Protocol PRN Reason: Anxiety Last Admin: 08/30/16 21:39 Dose: 0.5 mg Aspirin (Ecotrin) 81 mg PO DAILY [facility] Last Admin: 09/03/16 09:52 Dose: 81 mg Atorvastatin Calcium (Lipitor) 20 mg PO DIN [facility] Last Admin: 09/02/16 19:09 Dose: 20 mg Fluticasone Propionate (Flonase) 1 actuation NS DAILY [facility] Last Admin: 09/03/16 10:09 Dose: 1 spr Gabapentin (Neurontin) 800 mg PO TID [facility] PRN Reason: Protocol Last Admin: 09/03/16 09:52 Dose: 800 mg Heparin Sodium (Porcine) (Heparin) 5,000 units SC Q12 [facility] PRN Reason: Protocol Last Admin: 09/03/16 09:52 Dose: 5,000 units Vancomycin HCl (Vancomycin 1gm) 250 mls @ 167 mls/hr IVPB Q12H [facility] PRN Reason: Protocol Last Admin: 09/03/16 02:11 Dose: 167 mls/hr Meropenem 1g/NS 100mL IVPB (Meropenem 1g/Ns 100ml Ivpb) 100 mls @ 100 mls/hr IVPB Q8H [facility] Stop: 09/07/16 15:16 Last Admin: 09/03/16 06:39 Dose: 100 mls/hr Doxycycline Hyclate 100 mg/ (Sodium Chloride) 100 mls @ 100 mls/hr IVPB Q12 [facility] PRN Reason: Protocol Last Admin: 09/02/16 19:20 Dose: 100 mls/hr Levalbuterol HCl (Xopenex) 0.63 mg IH [id number] [facility] Last Admin: 09/03/16 13:06 Dose: 0.63 mg Levalbuterol HCl (Xopenex) 0.63 mg IH Q2H PRN PRN Reason: Shortness of Breath Last Admin: 08/29/16 14:59 Dose: 0.63 mg Levothyroxine Sodium (Synthroid) 25 mcg PO DAILY [facility] Last Admin: 09/03/16 09:00 Dose: 25 mcg Morphine Sulfate (Morphine) 4 mg IVP Q4H PRN PRN Reason: Pain, severe (8-10) Last Admin: 08/27/16 20:34 Dose: 4 mg Nystatin (Mycostatin Cream) 0 ea TOP TID [facility] Last Admin: 09/03/16 10:00 Dose: 1 appl Ondansetron HCl (Zofran Inj) 4 mg IVP Q6H PRN PRN Reason: Nausea/Vomiting Last Admin: 08/31/16 06:26 Dose: 4 mg Oxycodone/Acetaminophen (Percocet 10/325 Mg Tab) 1 tab PO Q6H PRN PRN Reason: Pain, severe (8-10) Last Admin: 09/03/16 11:05 Dose: 1 tab Pantoprazole Sodium (Protonix Ec Tab) 40 mg PO ACB [facility] Last Admin: 09/03/16 07:48 Dose: 40 mg Sertraline HCl (Zoloft) 100 mg PO DAILY [facility] Last Admin: 09/03/16 09:52 Dose: 100 mg Sucralfate (Carafate Tab) 1 gm PO DAILY PRN PRN Reason: Dyspepsia Last Admin: 09/02/16 10:28 Dose: 1 gm - Labs Labs: 09/03/16 06:00 09/03/16 05:45 PT 13.1 Seconds (9.9-11.8) H 09/03/16 05:45 INR 1.21 (0.93-1.08) H 09/03/16 05:45 APTT 34.0 Seconds (23.7-30.8) H 09/03/16 05:45 - Constitutional Appears: Well, No Acute Distress - Head Exam Head Exam: ATRAUMATIC, NORMAL INSPECTION, NORMOCEPHALIC - Eye Exam Eye Exam: EOMI, Normal appearance - Respiratory Exam Additional comments: On [place] supplemental O2. FiO2 70%, patient saturating 90-92%. - Cardiovascular Exam Cardiovascular Exam: Irregular Rhythm - GI/Abdominal Exam GI & Abdominal Exam: Soft. absent: Distended, Firm, Guarding, Tenderness - Extremities Exam Additional comments: Bilateral BKA. - Neurological Exam Neurological Exam: Alert, Awake, Oriented x3 - Psychiatric Exam Psychiatric exam: Normal Affect, Normal Mood - Skin Additional comments: Left chest tube site, bandage clean and dry. Removed today. One skin suture in place, intact. Skin margins well approximated. Assessment and Plan - Assessment and Plan (Free Text) Assessment: 81yo F with delayed left sided pneumothorax secondary to replacement of dislodged pacemaker lead on 08/27. PTX resolved with placement of left sided chest tube on 08/29, now removed; no recurrent PTX. - s/p L Chest Tube 08/29. Removed 09/01. - CXR x2 with no evidence of pneumothorax. However, patient with bilateral infiltrates, stable. - ID consult noted for UTI (Klebsiella), and Poss bilateral PNA - Blood CXs NGTD - Continue ABX as per ID: Vanc-Day 4, Merropenem-Day 4, Doxy-Day 2 - Continue wean off [place]ot Supplemental O2 - No further plans for any surgical intervention Discussed case with Dr. Xander Bennett PGY1 surgery pager: [phone]
--- NOTE | 2016-09-03 13:35 | CP.PCM.PN ---
Subjective - Date & Time of Evaluation Date of Evaluation: 09/03/16 Time of Evaluation: 13:00 - Subjective Subjective: Lethargic, rouses easily. Less shortness of breath than yesterday Objective - Vital Signs/Intake and Output Vital Signs (last 24 hours): Temp Pulse Resp BP Pulse Ox 98.1 F 91 H 24 123/64 98 09/03/16 12:00 09/03/16 08:30 09/03/16 13:14 09/03/16 10:09 09/03/16 08:30 Intake and Output: 09/03/16 09/03/16 06:59 18:59 Intake Total 690 Output Total 200 Balance 490 - Medications Medications: Current Medications Acetaminophen (Tylenol 325mg Tab) 650 mg PO Q4H PRN PRN Reason: Fever >100.4 F Last Admin: 09/01/16 21:17 Dose: 650 mg Albuterol/Ipratropium (Duoneb 3 Mg/0.5 Mg (3 Ml) Ud) 3 ml IH Q4H PRN PRN Reason: Shortness of Breath Last Admin: 09/01/16 06:30 Dose: 3 ml Alprazolam (Xanax) 0.5 mg PO TID PRN; Protocol PRN Reason: Anxiety Last Admin: 08/30/16 21:39 Dose: 0.5 mg Aspirin (Ecotrin) 81 mg PO DAILY [facility] Last Admin: 09/03/16 09:52 Dose: 81 mg Atorvastatin Calcium (Lipitor) 20 mg PO DIN [facility] Last Admin: 09/02/16 19:09 Dose: 20 mg Fluticasone Propionate (Flonase) 1 actuation NS DAILY [facility] Last Admin: 09/03/16 10:09 Dose: 1 spr Gabapentin (Neurontin) 800 mg PO TID [facility] PRN Reason: Protocol Last Admin: 09/03/16 09:52 Dose: 800 mg Heparin Sodium (Porcine) (Heparin) 5,000 units SC Q12 [facility] PRN Reason: Protocol Last Admin: 09/03/16 09:52 Dose: 5,000 units Vancomycin HCl (Vancomycin 1gm) 250 mls @ 167 mls/hr IVPB Q12H [facility] PRN Reason: Protocol Last Admin: 09/03/16 02:11 Dose: 167 mls/hr Meropenem 1g/NS 100mL IVPB (Meropenem 1g/Ns 100ml Ivpb) 100 mls @ 100 mls/hr IVPB Q8H [facility] Stop: 09/07/16 15:16 Last Admin: 09/03/16 06:39 Dose: 100 mls/hr Doxycycline Hyclate 100 mg/ (Sodium Chloride) 100 mls @ 100 mls/hr IVPB Q12 [facility] PRN Reason: Protocol Last Admin: 09/02/16 19:20 Dose: 100 mls/hr Levalbuterol HCl (Xopenex) 0.63 mg IH [id number] [facility] Last Admin: 09/03/16 13:06 Dose: 0.63 mg Levalbuterol HCl (Xopenex) 0.63 mg IH Q2H PRN PRN Reason: Shortness of Breath Last Admin: 08/29/16 14:59 Dose: 0.63 mg Levothyroxine Sodium (Synthroid) 25 mcg PO DAILY [facility] Last Admin: 09/03/16 09:00 Dose: 25 mcg Morphine Sulfate (Morphine) 4 mg IVP Q4H PRN PRN Reason: Pain, severe (8-10) Last Admin: 08/27/16 20:34 Dose: 4 mg Nystatin (Mycostatin Cream) 0 ea TOP TID [facility] Last Admin: 09/03/16 10:00 Dose: 1 appl Ondansetron HCl (Zofran Inj) 4 mg IVP Q6H PRN PRN Reason: Nausea/Vomiting Last Admin: 08/31/16 06:26 Dose: 4 mg Oxycodone/Acetaminophen (Percocet 10/325 Mg Tab) 1 tab PO Q6H PRN PRN Reason: Pain, severe (8-10) Last Admin: 09/03/16 11:05 Dose: 1 tab Pantoprazole Sodium (Protonix Ec Tab) 40 mg PO ACB [facility] Last Admin: 09/03/16 07:48 Dose: 40 mg Sertraline HCl (Zoloft) 100 mg PO DAILY [facility] Last Admin: 09/03/16 09:52 Dose: 100 mg Sucralfate (Carafate Tab) 1 gm PO DAILY PRN PRN Reason: Dyspepsia Last Admin: 09/02/16 10:28 Dose: 1 gm - Labs Labs: 09/03/16 06:00 09/03/16 05:45 PT 13.1 Seconds (9.9-11.8) H 09/03/16 05:45 INR 1.21 (0.93-1.08) H 09/03/16 05:45 APTT 34.0 Seconds (23.7-30.8) H 09/03/16 05:45 - Constitutional Appears: Chronically Ill - Eye Exam Eye Exam: Normal appearance, PERRL - ENT Exam ENT Exam: Mucous Membranes Moist - Neck Exam Neck Exam: Normal Inspection - Respiratory Exam Respiratory Exam: Decreased Breath Sounds - Cardiovascular Exam Cardiovascular Exam: REGULAR RHYTHM, +S1, +S2 - GI/Abdominal Exam GI & Abdominal Exam: Soft, Normal Bowel Sounds - Skin Skin Exam: Dry, Pallor Assessment and Plan - Assessment and Plan (Free Text) Assessment: 81 year old female admitted with pacemaker malfunction, complete heart block, left pneumothorax, s/p chest tube, pneumonia, respiratory insufficiency. Patient appears more comfortable today. I spoke with patients daughter Zaida Wilkes( via phone) at length regarding patient's medical condition. We also reviewed specifications of patients Advanced Directive. Daughter understands her mother mother does not want life sustaining treatment withed if she were in a terminal condition. I explained that her mother had agree to to be intubated at this point in time but that she was conflicted a hen asked about continuing permanent mechanical ventilation. I explained that mother's prognosis is still guarded and although somewhat improved, things could change. Daughter states she understands that this is a possibility. Daughter clarified that her is financial POA only. Psychosocial support give. Daughter states she will try and visit tomorrow. Time spent spent in discussion with daughter regarding goals of care and advance care planning,30 minutes Plan: Will assist with establishing future goals of care.
[2016-09-03 14:43] LABS: CYTOMEGALOVIRUS AB (IGG) 3.38 (<0.91)
--- NOTE | 2016-09-03 17:25 | CP.PCM.PN ---
Subjective - Date & Time of Evaluation Date of Evaluation: 09/03/16 Time of Evaluation: 08:50 - Subjective Subjective: Patient still is on high flow oxygen, sleeping but easily arousable. No fevers overnight. Objective - Vital Signs/Intake and Output Vital Signs (last 24 hours): Temp Pulse Resp BP Pulse Ox 98.1 F 91 H 24 123/64 98 09/03/16 12:00 09/03/16 08:30 09/03/16 13:14 09/03/16 10:09 09/03/16 08:30 Intake and Output: 09/03/16 09/03/16 06:59 18:59 Intake Total 690 Output Total 200 Balance 490 - Medications Medications: Current Medications Acetaminophen (Tylenol 325mg Tab) 650 mg PO Q4H PRN PRN Reason: Fever >100.4 F Last Admin: 09/01/16 21:17 Dose: 650 mg Albuterol/Ipratropium (Duoneb 3 Mg/0.5 Mg (3 Ml) Ud) 3 ml IH Q4H PRN PRN Reason: Shortness of Breath Last Admin: 09/01/16 06:30 Dose: 3 ml Alprazolam (Xanax) 0.5 mg PO TID PRN; Protocol PRN Reason: Anxiety Last Admin: 08/30/16 21:39 Dose: 0.5 mg Aspirin (Ecotrin) 81 mg PO DAILY [facility] Last Admin: 09/03/16 09:52 Dose: 81 mg Atorvastatin Calcium (Lipitor) 20 mg PO DIN [facility] Last Admin: 09/02/16 19:09 Dose: 20 mg Fluticasone Propionate (Flonase) 1 actuation NS DAILY [facility] Last Admin: 09/03/16 10:09 Dose: 1 spr Gabapentin (Neurontin) 800 mg PO TID [facility] PRN Reason: Protocol Last Admin: 09/03/16 09:52 Dose: 800 mg Heparin Sodium (Porcine) (Heparin) 5,000 units SC Q12 [facility] PRN Reason: Protocol Last Admin: 09/03/16 09:52 Dose: 5,000 units Vancomycin HCl (Vancomycin 1gm) 250 mls @ 167 mls/hr IVPB Q12H [facility] PRN Reason: Protocol Last Admin: 09/03/16 02:11 Dose: 167 mls/hr Meropenem 1g/NS 100mL IVPB (Meropenem 1g/Ns 100ml Ivpb) 100 mls @ 100 mls/hr IVPB Q8H [facility] Stop: 09/07/16 15:16 Last Admin: 09/03/16 06:39 Dose: 100 mls/hr Doxycycline Hyclate 100 mg/ (Sodium Chloride) 100 mls @ 100 mls/hr IVPB Q12 [facility] PRN Reason: Protocol Last Admin: 09/02/16 19:20 Dose: 100 mls/hr Levalbuterol HCl (Xopenex) 0.63 mg IH [id number] [facility] Last Admin: 09/03/16 13:06 Dose: 0.63 mg Levalbuterol HCl (Xopenex) 0.63 mg IH Q2H PRN PRN Reason: Shortness of Breath Last Admin: 08/29/16 14:59 Dose: 0.63 mg Levothyroxine Sodium (Synthroid) 25 mcg PO DAILY [facility] Last Admin: 09/03/16 09:00 Dose: 25 mcg Morphine Sulfate (Morphine) 4 mg IVP Q4H PRN PRN Reason: Pain, severe (8-10) Last Admin: 08/27/16 20:34 Dose: 4 mg Nystatin (Mycostatin Cream) 0 ea TOP TID [facility] Last Admin: 09/03/16 14:03 Dose: 1 appl Ondansetron HCl (Zofran Inj) 4 mg IVP Q6H PRN PRN Reason: Nausea/Vomiting Last Admin: 09/03/16 17:08 Dose: 4 mg Oxycodone/Acetaminophen (Percocet 10/325 Mg Tab) 1 tab PO Q6H PRN PRN Reason: Pain, severe (8-10) Last Admin: 09/03/16 11:05 Dose: 1 tab Pantoprazole Sodium (Protonix Ec Tab) 40 mg PO ACB [facility] Last Admin: 09/03/16 07:48 Dose: 40 mg Sertraline HCl (Zoloft) 100 mg PO DAILY [facility] Last Admin: 09/03/16 09:52 Dose: 100 mg Sucralfate (Carafate Tab) 1 gm PO DAILY PRN PRN Reason: Dyspepsia Last Admin: 09/02/16 10:28 Dose: 1 gm - Labs Labs: 09/03/16 06:00 09/03/16 05:45 PT 13.1 Seconds (9.9-11.8) H 09/03/16 05:45 INR 1.21 (0.93-1.08) H 09/03/16 05:45 APTT 34.0 Seconds (23.7-30.8) H 09/03/16 05:45 - Constitutional Appears: Other (in some respiratory distress) - Head Exam Head Exam: NORMAL INSPECTION - ENT Exam ENT Exam: Mucous Membranes Moist - Neck Exam Neck Exam: absent: Lymphadenopathy, Meningismus - Respiratory Exam Respiratory Exam: Decreased Breath Sounds, Rales (scattered) - Cardiovascular Exam Cardiovascular Exam: +S1, +S2 - GI/Abdominal Exam GI & Abdominal Exam: Soft. absent: Tenderness Assessment and Plan - Assessment and Plan (Free Text) Plan: Assessment Consider sepsis secondary to bilateral healthcare-associated pneumonia on top of probable pulmonary vascular congestion, in a patient with left pneumothorax S /P left chest tube placement and now removal of chest tube because of resolution of pneumothorax; patient also in ARDS S/P urinary tract infection, probably lower tract, with P. mirabilis peripheral vascular disease S/P bilateral BKA S/P bilateral hip replacement HTN CAD sick sinus syndrome S/P pacemaker placement GERD history of diverticulitis history of urinary incontinence depression anxiety history of eye cataracts history of pneumonia Plan continue Vancomycin and Meropenem day 3 and Doxycycline; blood, sputum cx negative; PCT is only 0.13; follow up Mycoplasma and Legionella tests; I doubt this is fungal pneumonia or viral pneumonia but tests have been ordered and we will follow up results; reviewed CT chest results Discussed with Dr. Blas - difficult to do bronchoscopy since she is not intubated Will follow clinically
[2016-09-03 20:43] LABS: CYTOMEGALOVIRUS AB (IGM) 0.3 AI (< OR = 0.8)
[2016-09-04] MEDS: Oxycodone/Acetaminophen 10/325 mg Tab PO PRN ×3 (00:04→20:13)
[2016-09-04 01:25] LABS: IGG SUBCLASS 1 591 mg/dL (382-929); IGG SUBCLASS 2 286 mg/dL (241-700); IGG SUBCLASS 3 109 mg/dL (22-178); IGG SUBCLASS 4 32.4 mg/dL (4.0-86.0)
[2016-09-04] MEDS: Levalbuterol 0.63 MG/3 ML Inhal Soln UD IH SCH ×4 (01:28→20:50)
[2016-09-04] MEDS: Vancomycin 1gm in NS 250ml 250 ML IVPB SCH ×2 (02:28→14:29)
[2016-09-04 06:04] LABS: BASO # 0.01 K/mm3 (0.0-2.0); BASO % 0.1 % (0.0-3.0); EOS # 0.3 (0.0-0.7); EOS % 2.6 % (1.5-5.0); GRAN # 9.88 (1.4-6.5); GRAN % 82.2 % (50.0-68.0); HEMATOCRIT 28.9 % (36.0-48.0); LYMPH # 1.3 (1.2-3.4); LYMPH % 11.1 % (22.0-35.0); MEAN CELL VOLUME 88.9 fL (80.0-105.0); MEAN CORPUSCULAR HEMOGLOBIN 25.8 pg (25.0-35.0); MEAN CORPUSCULAR HGB CONC 29.1 g/dl (31.0-37.0); MEAN PLATELET VOLUME 9.3 fl (7.0-11.0); MONO # 0.5 (0.1-0.6); PLATELET COUNT 370 10^3/uL (120.0-450.0); RED CELL DISTRIBUTION WIDTH 16.3 % (11.5-14.5)
[2016-09-04 06:12] LABS: INR 1.36 (0.93-1.08); PARTIAL THROMBOPLASTIN TIME 33.4 Seconds (23.7-30.8)
[2016-09-04 06:15] LABS: ALKALINE PHOSPHATASE 113 U/L (38-133); ALT/SGPT 45 U/L (7-56); AST/SGOT 55 U/L (15-39); BILIRUBIN,TOTAL 0.5 mg/dL (0.2-1.3); BLOOD UREA NITROGEN 16 mg/dL (7-21); CALCIUM 7.4 mg/dL (8.4-10.5); CARBON DIOXIDE 35 mmol/L (21-33); CHLORIDE 93 mmol/L (95-110); GFR AFRICAN-AMERICAN > 60; GLUCOSE,RANDOM 84 mg/dL (70-110); MAGNESIUM 1.8 mg/dL (1.7-2.2); PHOSPHOROUS 2.6 mg/dL (2.5-4.5); POTASSIUM 3.3 mmol/L (3.6-5.0); SODIUM 136 mmol/L (132-148); TOTAL PROTEIN 6.1 g/dL (5.8-8.3)
[2016-09-04] MEDS: Meropenem 1g/NS 100mL IVPB 100 ML IVPB SCH ×2 (06:16→14:30)
[2016-09-04 06:51] LABS: ALB/GLOB RATIO 0.6 (1.1-1.8)
[2016-09-04 07:09] LABS: ADD MANUAL DIFF? NO
[2016-09-04 07:54] LABS: ARTERIAL BLOOD GAS HCO3 28.7 mmol/L (21-28); ARTERIAL BLOOD GAS O2 CAPACITY 11.2 mL/dl (16-24); ARTERIAL BLOOD GAS O2 CONTENT 11.2 ML/dl (15-23); ARTERIAL BLOOD GAS PH 7.56 (7.35-7.45); ARTERIAL BLOOD HGB O2 SAT 97.1 % (95.0-98.0); CARBOXYHEMOGLOBIN 1.9 % (0.5-1.5); HHB 0.1 % (0-5); METHEMOGLOBIN 0.9 % (0.0-3.0)
--- NOTE | 2016-09-04 08:04 | CP.PCM.PN ---
Subjective - Date & Time of Evaluation Date of Evaluation: 09/04/16 Time of Evaluation: 08:00 - Subjective Subjective: Stable in CCU in bed on high flow nasal O2. Weak but no CP or SOB at rest. + dyspnea with mild exertion. V/S noted. V. paced PE: lungs: decreased BS at bases with scattered rhonchi Cor.: S1S2, FRANCISCO J Abd.: soft Neuro.: alert ECG 08/27: Mostly V. Paced. Nl pacer fx. CXR and CT chest 09/02: noted. Bilateral infiltrates. CXR 09/03 noted: bilat. infiltrates unchanged Labs today noted: H/H = 8.4/28.9, K+= 3.3 BC x2 NG at 3 days. Urine C+S + Klebs Objective - Vital Signs/Intake and Output Vital Signs (last 24 hours): Temp Pulse Resp BP Pulse Ox 98.2 F 87 20 125/60 90 L 09/04/16 04:00 09/04/16 05:30 09/04/16 07:09 09/04/16 05:00 09/04/16 05:30 Intake and Output: 09/04/16 09/04/16 06:59 18:59 Intake Total 450 Output Total 225 Balance 225 - Medications Medications: Current Medications Acetaminophen (Tylenol 325mg Tab) 650 mg PO Q4H PRN PRN Reason: Fever >100.4 F Last Admin: 09/01/16 21:17 Dose: 650 mg Albuterol/Ipratropium (Duoneb 3 Mg/0.5 Mg (3 Ml) Ud) 3 ml IH Q4H PRN PRN Reason: Shortness of Breath Last Admin: 09/01/16 06:30 Dose: 3 ml Alprazolam (Xanax) 0.5 mg PO TID PRN; Protocol PRN Reason: Anxiety Last Admin: 08/30/16 21:39 Dose: 0.5 mg Aspirin (Ecotrin) 81 mg PO DAILY [facility] Last Admin: 09/03/16 09:52 Dose: 81 mg Atorvastatin Calcium (Lipitor) 20 mg PO DIN [facility] Last Admin: 09/03/16 17:49 Dose: 20 mg Fluticasone Propionate (Flonase) 1 actuation NS DAILY [facility] Last Admin: 09/03/16 10:09 Dose: 1 spr Furosemide (Lasix) 40 mg IVP Q12 [facility] Gabapentin (Neurontin) 800 mg PO TID [facility] PRN Reason: Protocol Last Admin: 09/03/16 19:00 Dose: 800 mg Heparin Sodium (Porcine) (Heparin) 5,000 units SC Q12 [facility] PRN Reason: Protocol Last Admin: 09/03/16 21:55 Dose: 5,000 units Vancomycin HCl (Vancomycin 1gm) 250 mls @ 167 mls/hr IVPB Q12H [facility] PRN Reason: Protocol Last Admin: 09/04/16 02:28 Dose: 167 mls/hr Meropenem 1g/NS 100mL IVPB (Meropenem 1g/Ns 100ml Ivpb) 100 mls @ 100 mls/hr IVPB Q8H [facility] Stop: 09/07/16 15:16 Last Admin: 09/04/16 06:16 Dose: 100 mls/hr Doxycycline Hyclate 100 mg/ (Sodium Chloride) 100 mls @ 100 mls/hr IVPB Q12 [facility] PRN Reason: Protocol Last Admin: 09/03/16 21:55 Dose: 100 mls/hr Potassium Chloride (Potassium Chloride 10 Meq/100 Ml) 100 mls @ 100 mls/hr IVPB Q2H [facility] Stop: 09/04/16 10:44 Levalbuterol HCl (Xopenex) 0.63 mg IH [id number] [facility] Last Admin: 09/04/16 07:05 Dose: 0.63 mg Levalbuterol HCl (Xopenex) 0.63 mg IH Q2H PRN PRN Reason: Shortness of Breath Last Admin: 08/29/16 14:59 Dose: 0.63 mg Levothyroxine Sodium (Synthroid) 25 mcg PO DAILY [facility] Last Admin: 09/03/16 09:00 Dose: 25 mcg Morphine Sulfate (Morphine) 4 mg IVP Q4H PRN PRN Reason: Pain, severe (8-10) Last Admin: 08/27/16 20:34 Dose: 4 mg Nystatin (Mycostatin Cream) 0 ea TOP TID [facility] Last Admin: 09/03/16 17:44 Dose: 1 appl Ondansetron HCl (Zofran Inj) 4 mg IVP Q6H PRN PRN Reason: Nausea/Vomiting Last Admin: 09/03/16 17:08 Dose: 4 mg Oxycodone/Acetaminophen (Percocet 10/325 Mg Tab) 1 tab PO Q6H PRN PRN Reason: Pain, severe (8-10) Last Admin: 09/04/16 00:04 Dose: 1 tab Pantoprazole Sodium (Protonix Ec Tab) 40 mg PO ACB [facility] Last Admin: 09/03/16 07:48 Dose: 40 mg Sertraline HCl (Zoloft) 100 mg PO DAILY [facility] Last Admin: 09/03/16 09:52 Dose: 100 mg Sucralfate (Carafate Tab) 1 gm PO DAILY PRN PRN Reason: Dyspepsia Last Admin: 09/02/16 10:28 Dose: 1 gm - Labs Labs: 09/04/16 05:30 09/04/16 05:30 PT 14.7 Seconds (9.9-11.8) H 09/04/16 05:30 INR 1.36 (0.93-1.08) H 09/04/16 05:30 APTT 33.4 Seconds (23.7-30.8) H 09/04/16 05:30 Assessment and Plan - Assessment and Plan (Free Text) Plan: Assessment: Dizzy and weak/CHB/Pacemaker lead dislodgement Pacemaker lead revision 08/27/16 complicated by hemopneumothorax, s/p CT drainage PPM for symptomatic CHB 06/02 Bilateral infiltrates, respiratory insufficiency, s/p CT drainage left lung , mild RA Asthma HLD PAD Bilat.AKAs Hypothyroidism Hypotonic Bladder/Stress Incontinence Pascual. THR Cataracts UTI Plan: Consider transfusion to Hgb > 9.5 Replace K+ IV Lasix > neg balance AB as per ID OOB to chair as sadia. Monitor: labs, I/O, cultures, sats., H/H, CXRs, etc.
[2016-09-04] MEDS: Potassium Chloride 10 mEq 100 ML IVPB SCH ×2 (08:17→10:14)
[2016-09-04] MEDS: Pantoprazole 40 mg EC Tab PO SCH (08:18)
[2016-09-04 08:24] LABS: TROPONIN I 0.05 ng/mL
--- NOTE | 2016-09-04 09:17 | PN ---
DATE: 09/04/2016 SUBJECTIVE: The patient has no complaints of any chest pain, no shortness of breath, no headaches. PHYSICAL EXAMINATION: VITAL SIGNS: Temperature is 98.2, pulse of 87, blood pressure is 125/60, respirations 20. GENERAL: The patient comfortable, in no acute distress. HEENT: Anicteric sclerae. Moist mucosa. NECK: No JVD or adenopathy. CARDIAC: S1/S2. No murmurs. No rubs. Regular. RESPIRATORY: Clear to auscultation bilaterally. No wheezes, rales, or rhonchi. Good air entry. ABDOMEN: Bowel sounds are positive, soft, nontender, and nondistended. EXTREMITIES: No edema. Has 1+ pulses. LABORATORIES: White count is 12, hemoglobin is 8.4. Creatinine 0.9, potassium is 3.3. ASSESSMENT: 1. Status post removal of the chest tube. 2. Left pneumothorax, improved. 3. Hypoxia. 4. Urinary tract infection, secondary to Klebsiella. 5. Sepsis. 6. Hypertension. 7. Rheumatoid arthritis. 8. Diabetes type 2. 9. Osteoarthritis with chronic pain. 10. Chronic obstructive pulmonary disease. 11. Hypothyroidism. PLAN: The patient is currently comfortable. She is on doxycycline for antibiotics. She is on aspir in. She is on heparin for deep venous thrombosis prophylaxis. She is on Lasix. She is on Lipitor f or dyslipidemia. She gets morphine for pain as needed. She is also on oxycodone for pain. She is o n Xanax as needed. I did explain to her regarding her diagnosis and plan of care. She continues to use significant amount of oxygen and is on high flow oxygen in the ICU. Jason Toro MD cc: [id number] TT: 09/04/2016 09:17:00 Confirmation # [id number] Dictation # [id number]
--- NOTE | 2016-09-04 09:18 | PN ---
DATE: 09/04/2016 The patient seen and examined at bedside. She is comfortable. She talks full sentences. She is not in respiratory or otherwise distress. VITAL SIGNS: Heart rate 92, blood pressure 142/62. She is on 55% of FiO2, and her ABG looks like followin.56/32/139 (her FiO2 was weaned down to 5 L per minute nasal cannula and ABG will be repeated the 2-3 hours. HEAD AND NECK: Atraumatic. LUNGS: Few crackles bibasilar. HEART: Regular rate and rhythm, S1, S2 normal. ABDOMEN: Soft, nontender, nondistended. MUSCULOSKELETAL: Trace bilateral pedal and ankle edema. NEUROLOGIC: The patient moves all extremities spontaneously. SKIN: Moist. PSYCHIATRIC: The patient is alert and oriented x 3. LABORATORIES: Sodium 136, potassium 3.3 (2 K riders IV were ordered), chloride 93, BUN 16, creatinine 0.4, glucose 84. AST 55, ALT 45. Procalcitonin 2 days ago 0.19. WBC 12 down from 13.4 (trending down overall), hemoglobin 8.4 (up from 7.9 without any blood transfusion), platelet count 370. IgG and IgM within normal limits. CMV IgM within normal limits, however, CMV IgG is elevated, suggesting prior exposure to CMV. [id number] level is pending. Aspergillus antibodies are pending. MEDICATIONS: Xopenex every 6, doxycycline, DuoNeb p.r.n., aspirin, heparin subQ , Lasix 40 mg IV q. 12, Lipitor, meropenem, morphine p.r.n., Neurontin, potassium supplementation, levothyroxine, Protonix, vancomycin, Xopenex p.r.n., Zofran p.r.n., Zoloft daily. ASSESSMENT AND PLAN: This is a 81-year-old lady with likely noncardiogenic ( POC US, no significant changes c/w formal echo 4 months ago, troponin is negative, no chest pain and no specific acute ischemic changes on EKG) pulmonary edema. At the same time, the patient clinically appears to be stable, alert and oriented x 3 without any respiratory distress. Procalcitonin is low despite significant consolidations and ground glass bilaterally on the CAT scan and chest x-ray. I doubt clinically significant viral pneumonia or invasive pulmonary mycosis in the absence of overt immunosuppression, neutropenia. Possibility of atypical pneumonia present and patient is on doxycycline for atypical pathogens. Non-infectious non-cardiogenic pulmonary edema is on differential list as well, such as CELERY TIER, AEP, AIP. I discussed risks and benefits of systemic steroids in this situation with ID service (Dr. Eubanks), who agreed with my assessment and worthiness of systemic steroid trial, under the cover of abx. Will get CRP level and start solumedrol 20 mg iv q 12 while continuing icu monitoring. I will continue with conservative fluid management and will aim at -1L fluid balance today. I would continue with DVT and GI prophylaxis. I would continue with pulmonary toilet, nasotracheal suction, out of bed to chair, physical therapy, chest PT. ccm time 40 min Tex Constantino MD cc: [id number] TT: 09/04/2016 09:18:26 Confirmation # [id number] Dictation # [id number] MTDD
[2016-09-04 09:24] LABS: ARTERIAL BLOOD GAS HCO3 38.7 mmol/L (21-28); ARTERIAL BLOOD GAS O2 CAPACITY 11.8 mL/dl (16-24); ARTERIAL BLOOD GAS O2 CONTENT 8.8 ML/dl (15-23); ARTERIAL BLOOD GAS PH 7.44 (7.35-7.45); ARTERIAL BLOOD HGB O2 SAT 73.1 % (95.0-98.0); CARBOXYHEMOGLOBIN 1.8 % (0.5-1.5); HHB 24.6 % (0-5); METHEMOGLOBIN 0.4 % (0.0-3.0)
[2016-09-04] MEDS: Potassium Chloride 20 mEq ER Tab PO SCH (10:09)
[2016-09-04] MEDS: Nystatin 100,000 Units/gm Cream(15 gm) TOP SCH ×2 (10:10→14:32)
[2016-09-04] MEDS: Fluticasone Nasal 50 mcg/Spray NS SCH (10:11)
[2016-09-04] MEDS: Levothyroxine 25 MCG TAB PO SCH (10:14)
--- NOTE | 2016-09-04 11:17 | CP.CCUPN ---
<Alexander Mchugh - Last Filed: 09/04/16 11:14> CCU Subjective - Physician Review Subjective (Free Text): Pt seen and examined at bedside. No acute events overnight. Pt doing well on high flow nasal cannula this morning and was briefly placed on NC at 5L. Pt began to saturate in the low 70's, and was placed back on HFNC. Shortness of breath still remains an issue. Pt admits to feeling nauseous after eating yesterday. Pt having BM's. Pt denies CP, N/V/D, fevers, chills, headaches. CCU Objective - Vital Signs / Intake & Output Vital Signs (Last 4 hours): Vital Signs BP 09/04/16 10:08 115/70 Intake and Output (Last 8hrs): Intake & Output 09/03/16 09/04/16 09/04/16 22:59 06:59 14:59 Intake Total 910 450 Output Total 1030 225 Balance -120 225 Weight 138 lb 6.4 oz Intake: IV 550 450 Right Forearm 550 450 Oral 360 Output: Urine 1000 225 Urethral ([place]an) 1000 225 Emesis 30 Oral Regurgitation 0 Other 0 Other: Voiding Method Indwelling Catheter # Bowel Movements 1 - Physical Exam Head: Positive for: Atraumatic, Normocephalic Pupils: Positive for: PERRL Extroacular Muscles: Positive for: EOMI Conjunctiva: Positive for: Normal. Negative for: Injected Mouth: Positive for: Moist Mucous Membranes Nose (External): Positive for: Atraumatic. Negative for: Abrasion, Contusion, Laceration Nose (Internal): Positive for: Other (HFNC) Neck: Positive for: Normal Range of Motion. Negative for: Meningeal Signs, JVD Respiratory/Chest: Positive for: Good Air Exchange, Decreased Breath Sounds ( Improved from previous day. B/L with left worse than right). Negative for: Clear to Auscultation, Respiratory Distress, Accessory Muscle Use, Rhonchi, Tachypneic, Tender to Palpation Cardiovascular: Positive for: Regular Rate and Rhythm, Murmurs, Normal S1, S2. Negative for: Irregular Rhythm Abdomen: Positive for: Normal Bowel Sounds. Negative for: Tenderness, Distention, Peritoneal Signs, Rebound Upper Extremity: Positive for: NORMAL PULSES (+2 radials bilaterally). Negative for: Normal Inspection, Cyanosis, Edema Lower Extremity: Positive for: Other (BL AKAs) Neurological: Positive for: GCS=15, CN II-XII Intact, Speech Normal Skin: Positive for: Warm, Dry, Normal Color Psychiatric: Positive for: Alert, Oriented x 3, Normal Insight, Normal Concentration - Medications Active Medications: Active Medications Generic Name Dose Route Start Last Admin Trade Name Freq PRN Reason Stop Dose Admin Acetaminophen 650 mg 08/31/16 23:19 09/01/16 21:17 Tylenol 325mg Tab PO 650 mg Q4H PRN Administration Fever >100.4 F Albuterol/Ipratropium 3 ml 08/29/16 06:25 09/01/16 06:30 Duoneb 3 Mg/0.5 Mg (3 Ml) Ud IH 3 ml Q4H PRN Administration Shortness of Breath Alprazolam 0.5 mg 08/29/16 14:46 08/30/16 21:39 Xanax PO 0.5 mg TID PRN Administration Anxiety Protocol Aspirin 81 mg 08/27/16 10:00 09/04/16 10:12 Ecotrin PO 81 mg DAILY LUCY Administration Atorvastatin Calcium 20 mg 08/27/16 17:00 09/03/16 17:49 Lipitor PO 20 mg DIN LUCY Administration Fluticasone Propionate 1 actuation 08/30/16 10:00 09/04/16 10:11 Flonase NS 1 spr DAILY LUCY Administration Furosemide 40 mg 09/04/16 10:00 09/04/16 10:08 Lasix IVP 40 mg Q12 LUCY Administration Gabapentin 800 mg 08/27/16 14:00 09/04/16 10:15 Neurontin PO 800 mg TID LCUY Administration Protocol Heparin Sodium (Porcine) 5,000 units 08/27/16 22:00 09/04/16 10:09 Heparin SC 5,000 units Q12 LUCY Administration Protocol Vancomycin HCl 250 mls @ 167 mls/hr 08/31/16 15:00 09/04/16 02:28 Vancomycin 1gm IVPB 167 mls/hr Q12H LUCY Administration Protocol Meropenem 1g/NS 100mL IVPB 100 mls @ 100 mls/hr 08/31/16 15:15 09/04/16 06:16 Meropenem 1g/Ns 100ml Ivpb IVPB 09/07/16 15:16 100 mls/hr Q8H LUCY Administration Doxycycline Hyclate 100 mg/ 100 mls @ 100 mls/hr 09/02/16 15:15 09/04/16 10:49 Sodium Chloride IVPB 100 mls/hr Q12 LUCY Administration Protocol Levalbuterol HCl 0.63 mg 08/29/16 20:00 09/04/16 07:05 Xopenex IH 0.63 mg [id number] LUCY Administration Levalbuterol HCl 0.63 mg 08/29/16 14:49 08/29/16 14:59 Xopenex IH 0.63 mg Q2H PRN Administration Shortness of Breath Levothyroxine Sodium 25 mcg 08/27/16 10:00 09/04/16 10:14 Synthroid PO 25 mcg DAILY LUCY Administration Morphine Sulfate 4 mg 08/27/16 08:43 08/27/16 20:34 Morphine IVP 4 mg Q4H PRN Administration Pain, severe (8-10) Nystatin 0 ea 09/02/16 14:00 09/03/16 17:44 Mycostatin Cream TOP 1 appl TID LUCY Administration Ondansetron HCl 4 mg 08/29/16 05:17 09/03/16 17:08 Zofran Inj IVP 4 mg Q6H PRN Administration Nausea/Vomiting Oxycodone/Acetaminophen 1 tab 08/30/16 02:45 09/04/16 10:12 Percocet 10/325 Mg Tab PO 1 tab Q6H PRN Administration Pain, severe (8-10) Pantoprazole Sodium 40 mg 09/01/16 07:30 09/04/16 08:18 Protonix Ec Tab PO 40 mg ACB LUCY Administration Potassium Chloride 20 meq 09/04/16 10:00 09/04/16 10:09 K-Dur 20 Meq Er Tab PO 20 meq BID LUCY Administration Sertraline HCl 100 mg 08/27/16 13:00 09/04/16 10:15 Zoloft PO 100 mg DAILY LUCY Administration Sucralfate 1 gm 08/26/16 18:10 09/04/16 08:15 Carafate Tab PO 1 gm DAILY PRN Administration Dyspepsia - Patient Studies Lab Studies: Microbiology Studies 08/31/16 23:50 Blood Culture - Preliminary Blood NO GROWTH AFTER 3 DAYS 08/31/16 23:30 Blood Culture - Preliminary Blood NO GROWTH AFTER 3 DAYS 08/31/16 12:15 Blood Culture - Preliminary Blood NO GROWTH AFTER 3 DAYS 09/01/16 00:35 Urine Culture - Final Urine,Catheterized Klebsiella Pneumoniae Ssp Pneu Lab Studies 09/04/16 09/04/16 09/04/16 Range/Units 09:20 07:44 07:30 WBC (4.5-11.0) 10^3/ul RBC (3.5-6.1) 10^6/uL Hgb (12.0-16.0) gm/dL Hct (36.0-48.0) % MCV (80.0-105.0) fL MCH (25.0-35.0) pg MCHC (31.0-37.0) g/dl RDW (11.5-14.5) % Plt Count (120.0-450.0) 10^3/uL MPV (7.0-11.0) fl Gran % (50.0-68.0) % Lymph % (Auto) (22.0-35.0) % [place] % (Auto) (1.0-6.0) % Eos % (Auto) (1.5-5.0) % Baso % (Auto) (0.0-3.0) % Gran # (1.4-6.5) Lymph # (1.2-3.4) [place] # (0.1-0.6) Eos # (0.0-0.7) Baso # (0.0-2.0) K/mm3 PT (9.9-11.8) Seconds INR (0.93-1.08) APTT (23.7-30.8) Seconds pCO2 57 H 32 L (35-45) mm/Hg pO2 40.0 L* 139.0 H (80-100) mm/Hg HCO3 38.7 H 28.7 H (21-28) mmol/L ABG pH 7.44 7.56 H (7.35-7.45) ABG Total CO2 40.4 H 29.7 H (22-28) mmol.L ABG O2 Saturation 74.8 L 99.9 H (95-98) % ABG O2 Content 8.8 L 11.2 L (15-23) ML/dl ABG Base Excess 12.9 H 6.2 H (-2.0-3.0) mmol/L ABG Hemoglobin 8.5 L 8.0 L (11.7-17.4) g/dL ABG Carboxyhemoglobin 1.8 H 1.9 H (0.5-1.5) % POC ABG HHb (Measured) 24.6 H 0.1 (0-5) % ABG Methemoglobin 0.4 0.9 (0.0-3.0) % ABG O2 Capacity 11.8 L 11.2 L (16-24) mL/dl Hgb O2 Saturation 73.1 L 97.1 (95.0-98.0) % FiO2 40.0 55.0 % Sodium (132-148) mmol/L Potassium (3.6-5.0) mmol/L Chloride (95-110) mmol/L Carbon Dioxide (21-33) mmol/L Anion Gap (10-20) BUN (7-21) mg/dL Creatinine (0.5-1.4) mg/dL Est GFR ( Amer) Est GFR (Non-Af Amer) Random Glucose (70-110) mg/dL Calcium (8.4-10.5) mg/dL Phosphorus (2.5-4.5) mg/dL Magnesium (1.7-2.2) mg/dL Total Bilirubin (0.2-1.3) mg/dL AST (15-39) U/L ALT (7-56) U/L Alkaline Phosphatase (38-133) U/L Troponin I 0.05 D ng/mL NT-Pro-B Natriuret Pep 3630 H (0-450) pg/mL Total Protein (5.8-8.3) g/dL Albumin (3.0-4.8) g/dL Globulin gm/dL Albumin/Globulin Ratio (1.1-1.8) IgG1 (382-929) mg/dL IgG2 (241-700) mg/dL IgG3 (22-178) mg/dL IgG4 (4.0-86.0) mg/dL CMV IgG Ab (<0.91) CMV IgM Ab (< OR = 0.8) AI 09/04/16 09/02/16 Range/Units 05:30 11:10 WBC 12.0 H (4.5-11.0) 10^3/ul RBC 3.25 L (3.5-6.1) 10^6/uL Hgb 8.4 L (12.0-16.0) gm/dL Hct 28.9 L (36.0-48.0) % MCV 88.9 (80.0-105.0) fL MCH 25.8 (25.0-35.0) pg MCHC 29.1 L (31.0-37.0) g/dl RDW 16.3 H (11.5-14.5) % Plt Count 370 (120.0-450.0) 10^3/uL MPV 9.3 (7.0-11.0) fl Gran % 82.2 H (50.0-68.0) % Lymph % (Auto) 11.1 L (22.0-35.0) % [place] % (Auto) 4.0 (1.0-6.0) % Eos % (Auto) 2.6 (1.5-5.0) % Baso % (Auto) 0.1 (0.0-3.0) % Gran # 9.88 H (1.4-6.5) Lymph # 1.3 (1.2-3.4) [place] # 0.5 (0.1-0.6) Eos # 0.3 (0.0-0.7) Baso # 0.01 (0.0-2.0) K/mm3 PT 14.7 H (9.9-11.8) Seconds INR 1.36 H (0.93-1.08) APTT 33.4 H (23.7-30.8) Seconds pCO2 (35-45) mm/Hg pO2 (80-100) mm/Hg HCO3 (21-28) mmol/L ABG pH (7.35-7.45) ABG Total CO2 (22-28) mmol.L ABG O2 Saturation (95-98) % ABG O2 Content (15-23) ML/dl ABG Base Excess (-2.0-3.0) mmol/L ABG Hemoglobin (11.7-17.4) g/dL ABG Carboxyhemoglobin (0.5-1.5) % POC ABG HHb (Measured) (0-5) % ABG Methemoglobin (0.0-3.0) % ABG O2 Capacity (16-24) mL/dl Hgb O2 Saturation (95.0-98.0) % FiO2 % Sodium 136 (132-148) mmol/L Potassium 3.3 L (3.6-5.0) mmol/L Chloride 93 L (95-110) mmol/L Carbon Dioxide 35 H (21-33) mmol/L Anion Gap 11 (10-20) BUN 16 (7-21) mg/dL Creatinine 0.4 L (0.5-1.4) mg/dL Est GFR ( Amer) > 60 Est GFR (Non-Af Amer) > 60 Random Glucose 84 (70-110) mg/dL Calcium 7.4 L (8.4-10.5) mg/dL Phosphorus 2.6 (2.5-4.5) mg/dL Magnesium 1.8 (1.7-2.2) mg/dL Total Bilirubin 0.5 (0.2-1.3) mg/dL AST 55 H (15-39) U/L ALT 45 (7-56) U/L Alkaline Phosphatase 113 (38-133) U/L Troponin I ng/mL NT-Pro-B Natriuret Pep (0-450) pg/mL Total Protein 6.1 (5.8-8.3) g/dL Albumin 2.4 L (3.0-4.8) g/dL Globulin 3.7 gm/dL Albumin/Globulin Ratio 0.6 L (1.1-1.8) IgG1 591 (382-929) mg/dL IgG2 286 (241-700) mg/dL IgG3 109 (22-178) mg/dL IgG4 32.4 (4.0-86.0) mg/dL CMV IgG Ab 3.38 H (<0.91) CMV IgM Ab 0.3 (< OR = 0.8) AI Laboratory Results - last 24 hr 09/02/16 09/04/16 09/04/16 11:10 05:30 07:30 WBC 12.0 H RBC 3.25 L Hgb 8.4 L Hct 28.9 L MCV 88.9 MCH 25.8 MCHC 29.1 L RDW 16.3 H Plt Count 370 MPV 9.3 Gran % 82.2 H Lymph % (Auto) 11.1 L [place] % (Auto) 4.0 Eos % (Auto) 2.6 Baso % (Auto) 0.1 Gran # 9.88 H Lymph # 1.3 [place] # 0.5 Eos # 0.3 Baso # 0.01 PT 14.7 H INR 1.36 H APTT 33.4 H pCO2 32 L pO2 139.0 H HCO3 28.7 H ABG pH 7.56 H ABG Total CO2 29.7 H ABG O2 Saturation 99.9 H ABG O2 Content 11.2 L ABG Base Excess 6.2 H ABG Hemoglobin 8.0 L ABG Carboxyhemoglobin 1.9 H POC ABG HHb (Measured) 0.1 ABG Methemoglobin 0.9 ABG O2 Capacity 11.2 L Hgb O2 Saturation 97.1 FiO2 55.0 Sodium 136 Potassium 3.3 L Chloride 93 L Carbon Dioxide 35 H Anion Gap 11 BUN 16 Creatinine 0.4 L Est GFR ( Amer) > 60 Est GFR (Non-Af Amer) > 60 Random Glucose 84 Calcium 7.4 L Phosphorus 2.6 Magnesium 1.8 Total Bilirubin 0.5 AST 55 H ALT 45 Alkaline Phosphatase 113 Troponin I NT-Pro-B Natriuret Pep Total Protein 6.1 Albumin 2.4 L Globulin 3.7 Albumin/Globulin Ratio 0.6 L IgG1 591 IgG2 286 IgG3 109 IgG4 32.4 CMV IgG Ab 3.38 H CMV IgM Ab 0.3 09/04/16 09/04/16 07:44 09:20 WBC RBC Hgb Hct MCV MCH MCHC RDW Plt Count MPV Gran % Lymph % (Auto) [place] % (Auto) Eos % (Auto) Baso % (Auto) Gran # Lymph # [place] # Eos # Baso # PT INR APTT pCO2 57 H pO2 40.0 L* HCO3 38.7 H ABG pH 7.44 ABG Total CO2 40.4 H ABG O2 Saturation 74.8 L ABG O2 Content 8.8 L ABG Base Excess 12.9 H ABG Hemoglobin 8.5 L ABG Carboxyhemoglobin 1.8 H POC ABG HHb (Measured) 24.6 H ABG Methemoglobin 0.4 ABG O2 Capacity 11.8 L Hgb O2 Saturation 73.1 L FiO2 40.0 Sodium Potassium Chloride Carbon Dioxide Anion Gap BUN Creatinine Est GFR ( Amer) Est GFR (Non-Af Amer) Random Glucose Calcium Phosphorus Magnesium Total Bilirubin AST ALT Alkaline Phosphatase Troponin I 0.05 D NT-Pro-B Natriuret Pep 3630 H Total Protein Albumin Globulin Albumin/Globulin Ratio IgG1 IgG2 IgG3 IgG4 CMV IgG Ab CMV IgM Ab EKG/Cardiology Studies: Cardiology / EKG Studies 09/04/16 07:45 EKG [ELECTROCARDIOGRAM] Stat Comment: Reason For Exam: pulmonary edema, nstemi? Fingerstick Blood Sugar Results: 129 Critical Care Progress Note - Nutrition Nutrition: Nutrition Category Date Time Status Heart Healthy Diet [DIET] Diets 08/27/16 Dinner Ordered Assessment/Plan - Assessment and Plan (Free Text) Plan: 81 y/o F with PMH of complete heart block s/p pacemaker placement in 05/2016, b/ l AKA, PVD, asthma, RA, and dyslipidemia presents s/p pacemaker revision and s/ p chest tube with acute hypoxemic respiratory failure secondary to ARDS. Pt will be placed on scheduled lasix to increase negative fluid balance to 1 liter in an effort to wean down FiO2. Recent procalcitonin has been negative and will repeat another one as previous procal is uptrending. In the event pt cannot have FiO2 weaned, we will consider the addition of steroids to medical regimen. Pt is aware that she may be intubated if respiratory status declines. Viral and fungal titers pending. Neuro: -AAOx3 -Monitor for acute change Cardio: -S/p Pacemaker revision and lead replacement on 08/27/16 -Maintain MAP>65 -Maintain hemodynamic stability Pulm: -Previous Chest CT showed b/l extensive infiltrates, with the left worse than right. -Currently on Merrem, Doxycycline, and Vancomycin as per ID. -High flow nasal cannula at 50 L, 60% FiO2 -Goal O2 sat >90% -Will consider intubation if O2 desaturation -OOB -Continue chest PT, flutter valve, and incentive spirometry GI: -Heart-healthy diet -Protonix for GI prophylaxis Endo: -Continue Synthroid -Maintain euglycemia Nephro: -Catalan in place -Maintain euvolemia, will attempt to diurese 1 L today -Replenish electrolytes as needed Heme/ID: -Afebrile, leukocytosis stable -Procal low, trending upward. Will reorder -Merrem, Doxycycline, and Vancomycin as per ID -Blood and sputum cultures negative at this time -Urine culture shows Klebsiella pneumoniae -Viral and fungal titers pending -Maintain normothermia -ID following, Dr. Eubanks PPX: -Protonix -Heparin Seen, reviewed, and discussed with attending Jeison, PGY-1 <Tex Constantino - Last Filed: 09/04/16 15:55> CCU Objective - Vital Signs / Intake & Output Vital Signs (Last 4 hours): Vital Signs Temp Pulse Resp BP Pulse Ox 09/04/16 12:30 92 H 20 78 L 09/04/16 12:00 100.0 F H 93 H 36 H 110/63 87 L Intake and Output (Last 8hrs): Intake & Output 09/04/16 09/04/16 09/04/16 06:59 14:59 22:59 Intake Total 450 Output Total 225 Balance 225 Weight 138 lb 6.4 oz Intake: IV 450 Right Forearm 450 Output: Urine 225 Urethral (Catalan) 225 Other: Voiding Method Indwelling Catheter - Medications Active Medications: Active Medications Generic Name Dose Route Start Last Admin Trade Name Freq PRN Reason Stop Dose Admin Acetaminophen 650 mg 08/31/16 23:19 09/01/16 21:17 Tylenol 325mg Tab PO 650 mg Q4H PRN Administration Fever >100.4 F Albuterol/Ipratropium 3 ml 08/29/16 06:25 09/01/16 06:30 Duoneb 3 Mg/0.5 Mg (3 Ml) Ud IH 3 ml Q4H PRN Administration Shortness of Breath Alprazolam 0.5 mg 08/29/16 14:46 08/30/16 21:39 Xanax PO 0.5 mg TID PRN Administration Anxiety Protocol Aspirin 81 mg 08/27/16 10:00 09/04/16 10:12 Ecotrin PO 81 mg DAILY LUCY Administration Atorvastatin Calcium 20 mg 08/27/16 17:00 09/03/16 17:49 Lipitor PO 20 mg DIN LUCY Administration Fluticasone Propionate 1 actuation 08/30/16 10:00 09/04/16 10:11 Flonase NS 1 spr DAILY LUCY Administration Furosemide 40 mg 09/04/16 10:00 09/04/16 10:08 Lasix IVP 40 mg Q12 LUCY Administration Gabapentin 800 mg 08/27/16 14:00 09/04/16 14:28 Neurontin PO 800 mg TID LUCY Administration Protocol Heparin Sodium (Porcine) 5,000 units 08/27/16 22:00 09/04/16 10:09 Heparin SC 5,000 units Q12 LUCY Administration Protocol Vancomycin HCl 250 mls @ 167 mls/hr 08/31/16 15:00 09/04/16 14:29 Vancomycin 1gm IVPB 167 mls/hr Q12H LUCY Administration Protocol Meropenem 1g/NS 100mL IVPB 100 mls @ 100 mls/hr 08/31/16 15:15 09/04/16 14:30 Meropenem 1g/Ns 100ml Ivpb IVPB 09/07/16 15:16 100 mls/hr Q8H LUCY Administration Doxycycline Hyclate 100 mg/ 100 mls @ 100 mls/hr 09/02/16 15:15 09/04/16 10:49 Sodium Chloride IVPB 100 mls/hr Q12 LUCY Administration Protocol Levalbuterol HCl 0.63 mg 08/29/16 20:00 09/04/16 13:13 Xopenex IH Not Given [id number] LUCY Levalbuterol HCl 0.63 mg 08/29/16 14:49 08/29/16 14:59 Xopenex IH 0.63 mg Q2H PRN Administration Shortness of Breath Levothyroxine Sodium 25 mcg 08/27/16 10:00 09/04/16 10:14 Synthroid PO 25 mcg DAILY LUCY Administration Methylprednisolone 20 mg 09/04/16 22:00 Solu-Medrol IVP Q12 [facility] Morphine Sulfate 4 mg 08/27/16 08:43 08/27/16 20:34 Morphine IVP 4 mg Q4H PRN Administration Pain, severe (8-10) Nystatin 0 ea 09/02/16 14:00 09/04/16 14:32 Mycostatin Cream TOP 1 appl TID LUCY Administration Ondansetron HCl 4 mg 08/29/16 05:17 09/03/16 17:08 Zofran Inj IVP 4 mg Q6H PRN Administration Nausea/Vomiting Oxycodone/Acetaminophen 1 tab 08/30/16 02:45 09/04/16 10:12 Percocet 10/325 Mg Tab PO 1 tab Q6H PRN Administration Pain, severe (8-10) Pantoprazole Sodium 40 mg 09/01/16 07:30 09/04/16 08:18 Protonix Ec Tab PO 40 mg ACB LUCY Administration Potassium Chloride 20 meq 09/04/16 10:00 09/04/16 10:09 K-Dur 20 Meq Er Tab PO 20 meq BID LUCY Administration Sertraline HCl 100 mg 08/27/16 13:00 09/04/16 10:15 Zoloft PO 100 mg DAILY LUCY Administration Sucralfate 1 gm 08/26/16 18:10 09/04/16 08:15 Carafate Tab PO 1 gm DAILY PRN Administration Dyspepsia - Patient Studies Lab Studies: Microbiology Studies 08/31/16 12:15 Blood Culture - Preliminary Blood NO GROWTH AFTER 4 DAYS 08/31/16 23:50 Blood Culture - Preliminary Blood NO GROWTH AFTER 3 DAYS 08/31/16 23:30 Blood Culture - Preliminary Blood NO GROWTH AFTER 3 DAYS Lab Studies 09/04/16 09/04/16 09/04/16 Range/Units 09:20 08:20 07:44 WBC (4.5-11.0) 10^3/ul RBC (3.5-6.1) 10^6/uL Hgb (12.0-16.0) gm/dL Hct (36.0-48.0) % MCV (80.0-105.0) fL MCH (25.0-35.0) pg MCHC (31.0-37.0) g/dl RDW (11.5-14.5) % Plt Count (120.0-450.0) 10^3/uL MPV (7.0-11.0) fl Gran % (50.0-68.0) % Lymph % (Auto) (22.0-35.0) % [place] % (Auto) (1.0-6.0) % Eos % (Auto) (1.5-5.0) % Baso % (Auto) (0.0-3.0) % Gran # (1.4-6.5) Lymph # (1.2-3.4) [place] # (0.1-0.6) Eos # (0.0-0.7) Baso # (0.0-2.0) K/mm3 PT (9.9-11.8) Seconds INR (0.93-1.08) APTT (23.7-30.8) Seconds pCO2 57 H (35-45) mm/Hg pO2 40.0 L* (80-100) mm/Hg HCO3 38.7 H (21-28) mmol/L ABG pH 7.44 (7.35-7.45) ABG Total CO2 40.4 H (22-28) mmol.L ABG O2 Saturation 74.8 L (95-98) % ABG O2 Content 8.8 L (15-23) ML/dl ABG Base Excess 12.9 H (-2.0-3.0) mmol/L ABG Hemoglobin 8.5 L (11.7-17.4) g/dL ABG Carboxyhemoglobin 1.8 H (0.5-1.5) % POC ABG HHb (Measured) 24.6 H (0-5) % ABG Methemoglobin 0.4 (0.0-3.0) % ABG O2 Capacity 11.8 L (16-24) mL/dl Hgb O2 Saturation 73.1 L (95.0-98.0) % FiO2 40.0 % Sodium (132-148) mmol/L Potassium (3.6-5.0) mmol/L Chloride (95-110) mmol/L Carbon Dioxide (21-33) mmol/L Anion Gap (10-20) BUN (7-21) mg/dL Creatinine (0.5-1.4) mg/dL Est GFR ( Amer) Est GFR (Non-Af Amer) Random Glucose (70-110) mg/dL Calcium (8.4-10.5) mg/dL Phosphorus (2.5-4.5) mg/dL Magnesium (1.7-2.2) mg/dL Total Bilirubin (0.2-1.3) mg/dL AST (15-39) U/L ALT (7-56) U/L Alkaline Phosphatase (38-133) U/L Troponin I 0.05 D ng/mL NT-Pro-B Natriuret Pep 3630 H (0-450) pg/mL Total Protein (5.8-8.3) g/dL Albumin (3.0-4.8) g/dL Globulin gm/dL Albumin/Globulin Ratio (1.1-1.8) Procalcitonin 0.13 L (0.19-0.49) NG/ML IgG1 (382-929) mg/dL IgG2 (241-700) mg/dL IgG3 (22-178) mg/dL IgG4 (4.0-86.0) mg/dL CMV IgM Ab (< OR = 0.8) AI 09/04/16 09/04/16 09/02/16 Range/Units 07:30 05:30 11:10 WBC 12.0 H (4.5-11.0) 10^3/ul RBC 3.25 L (3.5-6.1) 10^6/uL Hgb 8.4 L (12.0-16.0) gm/dL Hct 28.9 L (36.0-48.0) % MCV 88.9 (80.0-105.0) fL MCH 25.8 (25.0-35.0) pg MCHC 29.1 L (31.0-37.0) g/dl RDW 16.3 H (11.5-14.5) % Plt Count 370 (120.0-450.0) 10^3/uL MPV 9.3 (7.0-11.0) fl Gran % 82.2 H (50.0-68.0) % Lymph % (Auto) 11.1 L (22.0-35.0) % [place] % (Auto) 4.0 (1.0-6.0) % Eos % (Auto) 2.6 (1.5-5.0) % Baso % (Auto) 0.1 (0.0-3.0) % Gran # 9.88 H (1.4-6.5) Lymph # 1.3 (1.2-3.4) [place] # 0.5 (0.1-0.6) Eos # 0.3 (0.0-0.7) Baso # 0.01 (0.0-2.0) K/mm3 PT 14.7 H (9.9-11.8) Seconds INR 1.36 H (0.93-1.08) APTT 33.4 H (23.7-30.8) Seconds pCO2 32 L (35-45) mm/Hg pO2 139.0 H (80-100) mm/Hg HCO3 28.7 H (21-28) mmol/L ABG pH 7.56 H (7.35-7.45) ABG Total CO2 29.7 H (22-28) mmol.L ABG O2 Saturation 99.9 H (95-98) % ABG O2 Content 11.2 L (15-23) ML/dl ABG Base Excess 6.2 H (-2.0-3.0) mmol/L ABG Hemoglobin 8.0 L (11.7-17.4) g/dL ABG Carboxyhemoglobin 1.9 H (0.5-1.5) % POC ABG HHb (Measured) 0.1 (0-5) % ABG Methemoglobin 0.9 (0.0-3.0) % ABG O2 Capacity 11.2 L (16-24) mL/dl Hgb O2 Saturation 97.1 (95.0-98.0) % FiO2 55.0 % Sodium 136 (132-148) mmol/L Potassium 3.3 L (3.6-5.0) mmol/L Chloride 93 L (95-110) mmol/L Carbon Dioxide 35 H (21-33) mmol/L Anion Gap 11 (10-20) BUN 16 (7-21) mg/dL Creatinine 0.4 L (0.5-1.4) mg/dL Est GFR ( Amer) > 60 Est GFR (Non-Af Amer) > 60 Random Glucose 84 (70-110) mg/dL Calcium 7.4 L (8.4-10.5) mg/dL Phosphorus 2.6 (2.5-4.5) mg/dL Magnesium 1.8 (1.7-2.2) mg/dL Total Bilirubin 0.5 (0.2-1.3) mg/dL AST 55 H (15-39) U/L ALT 45 (7-56) U/L Alkaline Phosphatase 113 (38-133) U/L Troponin I ng/mL NT-Pro-B Natriuret Pep (0-450) pg/mL Total Protein 6.1 (5.8-8.3) g/dL Albumin 2.4 L (3.0-4.8) g/dL Globulin 3.7 gm/dL Albumin/Globulin Ratio 0.6 L (1.1-1.8) Procalcitonin (0.19-0.49) NG/ML IgG1 591 (382-929) mg/dL IgG2 286 (241-700) mg/dL IgG3 109 (22-178) mg/dL IgG4 32.4 (4.0-86.0) mg/dL CMV IgM Ab 0.3 (< OR = 0.8) AI Laboratory Results - last 24 hr 09/02/16 09/04/16 09/04/16 11:10 05:30 07:30 WBC 12.0 H RBC 3.25 L Hgb 8.4 L Hct 28.9 L MCV 88.9 MCH 25.8 MCHC 29.1 L RDW 16.3 H Plt Count 370 MPV 9.3 Gran % 82.2 H Lymph % (Auto) 11.1 L [place] % (Auto) 4.0 Eos % (Auto) 2.6 Baso % (Auto) 0.1 Gran # 9.88 H Lymph # 1.3 [place] # 0.5 Eos # 0.3 Baso # 0.01 PT 14.7 H INR 1.36 H APTT 33.4 H pCO2 32 L pO2 139.0 H HCO3 28.7 H ABG pH 7.56 H ABG Total CO2 29.7 H ABG O2 Saturation 99.9 H ABG O2 Content 11.2 L ABG Base Excess 6.2 H ABG Hemoglobin 8.0 L ABG Carboxyhemoglobin 1.9 H POC ABG HHb (Measured) 0.1 ABG Methemoglobin 0.9 ABG O2 Capacity 11.2 L Hgb O2 Saturation 97.1 FiO2 55.0 Sodium 136 Potassium 3.3 L Chloride 93 L Carbon Dioxide 35 H Anion Gap 11 BUN 16 Creatinine 0.4 L Est GFR ( Amer) > 60 Est GFR (Non-Af Amer) > 60 Random Glucose 84 Calcium 7.4 L Phosphorus 2.6 Magnesium 1.8 Total Bilirubin 0.5 AST 55 H ALT 45 Alkaline Phosphatase 113 Troponin I NT-Pro-B Natriuret Pep Total Protein 6.1 Albumin 2.4 L Globulin 3.7 Albumin/Globulin Ratio 0.6 L Procalcitonin IgG1 591 IgG2 286 IgG3 109 IgG4 32.4 CMV IgM Ab 0.3 09/04/16 09/04/16 09/04/16 07:44 08:20 09:20 WBC RBC Hgb Hct MCV MCH MCHC RDW Plt Count MPV Gran % Lymph % (Auto) [place] % (Auto) Eos % (Auto) Baso % (Auto) Gran # Lymph # [place] # Eos # Baso # PT INR APTT pCO2 57 H pO2 40.0 L* HCO3 38.7 H ABG pH 7.44 ABG Total CO2 40.4 H ABG O2 Saturation 74.8 L ABG O2 Content 8.8 L ABG Base Excess 12.9 H ABG Hemoglobin 8.5 L ABG Carboxyhemoglobin 1.8 H POC ABG HHb (Measured) 24.6 H ABG Methemoglobin 0.4 ABG O2 Capacity 11.8 L Hgb O2 Saturation 73.1 L FiO2 40.0 Sodium Potassium Chloride Carbon Dioxide Anion Gap BUN Creatinine Est GFR ( Amer) Est GFR (Non-Af Amer) Random Glucose Calcium Phosphorus Magnesium Total Bilirubin AST ALT Alkaline Phosphatase Troponin I 0.05 D NT-Pro-B Natriuret Pep 3630 H Total Protein Albumin Globulin Albumin/Globulin Ratio Procalcitonin 0.13 L IgG1 IgG2 IgG3 IgG4 CMV IgM Ab EKG/Cardiology Studies: Cardiology / EKG Studies 09/04/16 07:45 EKG [ELECTROCARDIOGRAM] Stat Comment: Reason For Exam: pulmonary edema, nstemi? Critical Care Progress Note - Nutrition Nutrition: Nutrition Category Date Time Status Heart Healthy Diet [DIET] Diets 08/27/16 Dinner Ordered Addendum Addendum: 09/04/16 15:55 patient was seen and examined with Dr. Pinzon. Please see Dr. Constantino note
--- NOTE | 2016-09-04 11:29 | CP.PCM.PN ---
Subjective - Date & Time of Evaluation Date of Evaluation: 09/04/16 Time of Evaluation: 09:10 - Subjective Subjective: Patient remains on high flow oxygen and still has SOB intermittently at rest but can speak in full sentences; no fevers overnight, no diarrhea. Objective - Vital Signs/Intake and Output Vital Signs (last 24 hours): Temp Pulse Resp BP Pulse Ox 98.2 F 87 20 115/70 90 L 09/04/16 04:00 09/04/16 05:30 09/04/16 07:09 09/04/16 10:08 09/04/16 05:30 Intake and Output: 09/04/16 09/04/16 06:59 18:59 Intake Total 450 Output Total 225 Balance 225 - Medications Medications: Current Medications Acetaminophen (Tylenol 325mg Tab) 650 mg PO Q4H PRN PRN Reason: Fever >100.4 F Last Admin: 09/01/16 21:17 Dose: 650 mg Albuterol/Ipratropium (Duoneb 3 Mg/0.5 Mg (3 Ml) Ud) 3 ml IH Q4H PRN PRN Reason: Shortness of Breath Last Admin: 09/01/16 06:30 Dose: 3 ml Alprazolam (Xanax) 0.5 mg PO TID PRN; Protocol PRN Reason: Anxiety Last Admin: 08/30/16 21:39 Dose: 0.5 mg Aspirin (Ecotrin) 81 mg PO DAILY [facility] Last Admin: 09/04/16 10:12 Dose: 81 mg Atorvastatin Calcium (Lipitor) 20 mg PO DIN [facility] Last Admin: 09/03/16 17:49 Dose: 20 mg Fluticasone Propionate (Flonase) 1 actuation NS DAILY [facility] Last Admin: 09/04/16 10:11 Dose: 1 spr Furosemide (Lasix) 40 mg IVP Q12 [facility] Last Admin: 09/04/16 10:08 Dose: 40 mg Gabapentin (Neurontin) 800 mg PO TID [facility] PRN Reason: Protocol Last Admin: 09/04/16 10:15 Dose: 800 mg Heparin Sodium (Porcine) (Heparin) 5,000 units SC Q12 [facility] PRN Reason: Protocol Last Admin: 09/04/16 10:09 Dose: 5,000 units Vancomycin HCl (Vancomycin 1gm) 250 mls @ 167 mls/hr IVPB Q12H [facility] PRN Reason: Protocol Last Admin: 09/04/16 02:28 Dose: 167 mls/hr Meropenem 1g/NS 100mL IVPB (Meropenem 1g/Ns 100ml Ivpb) 100 mls @ 100 mls/hr IVPB Q8H [facility] Stop: 09/07/16 15:16 Last Admin: 09/04/16 06:16 Dose: 100 mls/hr Doxycycline Hyclate 100 mg/ (Sodium Chloride) 100 mls @ 100 mls/hr IVPB Q12 [facility] PRN Reason: Protocol Last Admin: 09/04/16 10:49 Dose: 100 mls/hr Levalbuterol HCl (Xopenex) 0.63 mg IH [id number] [facility] Last Admin: 09/04/16 07:05 Dose: 0.63 mg Levalbuterol HCl (Xopenex) 0.63 mg IH Q2H PRN PRN Reason: Shortness of Breath Last Admin: 08/29/16 14:59 Dose: 0.63 mg Levothyroxine Sodium (Synthroid) 25 mcg PO DAILY [facility] Last Admin: 09/04/16 10:14 Dose: 25 mcg Morphine Sulfate (Morphine) 4 mg IVP Q4H PRN PRN Reason: Pain, severe (8-10) Last Admin: 08/27/16 20:34 Dose: 4 mg Nystatin (Mycostatin Cream) 0 ea TOP TID [facility] Last Admin: 09/03/16 17:44 Dose: 1 appl Ondansetron HCl (Zofran Inj) 4 mg IVP Q6H PRN PRN Reason: Nausea/Vomiting Last Admin: 09/03/16 17:08 Dose: 4 mg Oxycodone/Acetaminophen (Percocet 10/325 Mg Tab) 1 tab PO Q6H PRN PRN Reason: Pain, severe (8-10) Last Admin: 09/04/16 10:12 Dose: 1 tab Pantoprazole Sodium (Protonix Ec Tab) 40 mg PO ACB [facility] Last Admin: 09/04/16 08:18 Dose: 40 mg Potassium Chloride (K-Dur 20 Meq Er Tab) 20 meq PO BID [facility] Last Admin: 09/04/16 10:09 Dose: 20 meq Sertraline HCl (Zoloft) 100 mg PO DAILY [facility] Last Admin: 09/04/16 10:15 Dose: 100 mg Sucralfate (Carafate Tab) 1 gm PO DAILY PRN PRN Reason: Dyspepsia Last Admin: 09/04/16 08:15 Dose: 1 gm - Labs Labs: 09/04/16 05:30 09/04/16 05:30 PT 14.7 Seconds (9.9-11.8) H 09/04/16 05:30 INR 1.36 (0.93-1.08) H 09/04/16 05:30 APTT 33.4 Seconds (23.7-30.8) H 09/04/16 05:30 - Constitutional Appears: Other (still on high flow oxygen) - Head Exam Head Exam: NORMAL INSPECTION - ENT Exam ENT Exam: Mucous Membranes Moist - Neck Exam Neck Exam: absent: Lymphadenopathy, Meningismus - Respiratory Exam Respiratory Exam: Decreased Breath Sounds, Rhonchi (scattered) - Cardiovascular Exam Cardiovascular Exam: +S1, +S2 - GI/Abdominal Exam GI & Abdominal Exam: Soft. absent: Tenderness Assessment and Plan - Assessment and Plan (Free Text) Plan: Assessment Consider sepsis secondary to bilateral healthcare-associated pneumonia on top of probable pulmonary vascular congestion, in a patient with left pneumothorax S /P left chest tube placement and now removal of chest tube because of resolution of pneumothorax; patient also in ARDS S/P urinary tract infection, probably lower tract, with P. mirabilis peripheral vascular disease S/P bilateral BKA S/P bilateral hip replacement HTN CAD sick sinus syndrome S/P pacemaker placement GERD history of diverticulitis history of urinary incontinence depression anxiety history of eye cataracts history of pneumonia Plan continue Vancomycin and Meropenem day 4 and Doxycycline; blood, sputum cx negative; PCT is only 0.13; follow up Mycoplasma and Legionella tests; I doubt this is fungal pneumonia or viral pneumonia but tests have been ordered and we are awaiting results; reviewed CT chest results Discussed with Dr. Blas - difficult to do bronchoscopy since she is not intubated Will follow clinicall
[2016-09-04] MEDS ORDERED: Lidocaine 2% Inj (20ml) ONE (13:25)
--- NOTE | 2016-09-04 13:26 | CARD ---
APPROVED REPORT EKG Measurement Heart [id number] MD [id number] <Conclusion> Sinus rhythm with 1st degree AV block Possible Left atrial enlargement Left axis deviation Right bundle branch block Abnormal ECG
--- NOTE | 2016-09-04 17:38 | VASCULAR ---
PROCEDURE: Ultrasound fluoroscopically placed right upper extremity PICC line. HISTORY: Sepsis. UTI. Long-term IV antibiotics. Needs PICC line PHYSICIAN(S): Doroteo Liu MD. TECHNIQUE: The relative risks and indications of the procedure were explained to the patient and consent obtained. Patient placed supine on the arteriogram table in a right arm prepped and draped usual sterile fashion. A tourniquet was applied the right axilla. Under direct ultrasound guidance, a right brachial vein was punctured with a 21 gauge needle. 0.018 guidewire was advanced and used to measure the length to the SVC/RA junction A 5 [place] single lumen PICC line 40 cm long was advanced to the SVC/RA junction. The catheter was flushed and secured. The patient tolerated the procedure well. FINDINGS: . IMPRESSION: Ultrasound fluoroscopically placed right upper extremity PICC line.
[2016-09-04] MEDS ORDERED: MethylPREDNISolone 40 mg Vial IVP SCH (22:00)
[2016-09-04 22:38] LABS: (1-3)-B-D GLUCAN < 31 pg/mL (())
[2016-09-05] MEDS: Meropenem 1g/NS 100mL IVPB 100 ML IVPB SCH ×4 (00:09→22:32)
[2016-09-05] MEDS: Levalbuterol 0.63 MG/3 ML Inhal Soln UD IH SCH ×4 (01:30→20:00)
[2016-09-05] MEDS: Vancomycin 1gm in NS 250ml 250 ML IVPB SCH (02:59)
[2016-09-05 05:52] LABS: ADD MANUAL DIFF? NO
[2016-09-05 05:59] LABS: BASO # 0.01 K/mm3 (0.0-2.0); BASO % 0.1 % (0.0-3.0); EOS % 0.1 % (1.5-5.0); GRAN # 12.75 (1.4-6.5); GRAN % 93.3 % (50.0-68.0); HEMATOCRIT 27.6 % (36.0-48.0); LYMPH # 0.7 (1.2-3.4); LYMPH % 5.3 % (22.0-35.0); MEAN CELL VOLUME 88.2 fL (80.0-105.0); MEAN CORPUSCULAR HEMOGLOBIN 25.9 pg (25.0-35.0); MEAN CORPUSCULAR HGB CONC 29.3 g/dl (31.0-37.0); MEAN PLATELET VOLUME 9.3 fl (7.0-11.0); MONO # 0.2 (0.1-0.6); MONO % 1.2 % (1.0-6.0); PLATELET COUNT 416 10^3/uL (120.0-450.0); RED CELL DISTRIBUTION WIDTH 16.2 % (11.5-14.5); WHITE BLOOD COUNT 13.7 10^3/ul (4.5-11.0)
[2016-09-05 06:05] LABS: ALB/GLOB RATIO 0.6 (1.1-1.8); ALKALINE PHOSPHATASE 132 U/L (38-133); ALT/SGPT 53 U/L (7-56); AST/SGOT 58 U/L (15-39); BILIRUBIN,TOTAL 0.5 mg/dL (0.2-1.3); BLOOD UREA NITROGEN 13 mg/dL (7-21); CALCIUM 7.4 mg/dL (8.4-10.5); CARBON DIOXIDE 36 mmol/L (21-33); CHLORIDE 94 mmol/L (98-107); GFR AFRICAN-AMERICAN > 60; GLUCOSE,RANDOM 112 mg/dL (70-110); INR 1.61 (0.93-1.08); MAGNESIUM 1.7 mg/dL (1.7-2.2); PARTIAL THROMBOPLASTIN TIME 35.5 Seconds (23.7-30.8); PHOSPHOROUS 3.1 mg/dL (2.5-4.5); POTASSIUM 4.1 mmol/L (3.6-5.0); SODIUM 137 mmol/L (132-148)
--- NOTE | 2016-09-05 07:22 | CP.PCM.PN ---
Subjective - Date & Time of Evaluation Date of Evaluation: 09/05/16 Time of Evaluation: 08:00 - Subjective Subjective: Stable in CCU in bed on high flow nasal O2. Weak but no CP or SOB at rest. + dyspnea with mild exertion. V/S noted. RSR. Int. V. pacing. PE: lungs: decreased BS at bases with scattered rhonchi Cor.: S1S2, FRANCISCO J Abd.: soft Neuro.: alert ECG 09/04: RSR, RBBB, LAHB, SSTTW changes CXR and CT chest 09/02: noted. Bilateral infiltrates. CXR 09/03 noted: bilat. infiltrates unchanged Labs noted: H/H = 8.1/27.6, INR = 1.61, K+= 4.1 BC x2 NG at 4 days. Urine C+S + Klebs Objective - Vital Signs/Intake and Output Vital Signs (last 24 hours): Temp Pulse Resp BP Pulse Ox 98.1 F 67 30 H 103/42 L 97 09/05/16 00:00 09/05/16 03:30 09/05/16 03:30 09/05/16 03:00 09/05/16 03:30 - Medications Medications: Current Medications Acetaminophen (Tylenol 325mg Tab) 650 mg PO Q4H PRN PRN Reason: Fever >100.4 F Last Admin: 09/01/16 21:17 Dose: 650 mg Albuterol/Ipratropium (Duoneb 3 Mg/0.5 Mg (3 Ml) Ud) 3 ml IH Q4H PRN PRN Reason: Shortness of Breath Last Admin: 09/01/16 06:30 Dose: 3 ml Alprazolam (Xanax) 0.5 mg PO TID PRN; Protocol PRN Reason: Anxiety Last Admin: 08/30/16 21:39 Dose: 0.5 mg Aspirin (Ecotrin) 81 mg PO DAILY [facility] Last Admin: 09/04/16 10:12 Dose: 81 mg Atorvastatin Calcium (Lipitor) 20 mg PO DIN [facility] Last Admin: 09/03/16 17:49 Dose: 20 mg Fluticasone Propionate (Flonase) 1 actuation NS DAILY [facility] Last Admin: 09/04/16 10:11 Dose: 1 spr Furosemide (Lasix) 40 mg IVP Q12 [facility] Last Admin: 09/04/16 21:58 Dose: 40 mg Gabapentin (Neurontin) 800 mg PO TID [facility] PRN Reason: Protocol Last Admin: 09/04/16 14:28 Dose: 800 mg Heparin Sodium (Porcine) (Heparin) 5,000 units SC Q12 [facility] PRN Reason: Protocol Last Admin: 09/04/16 21:59 Dose: 5,000 units Vancomycin HCl (Vancomycin 1gm) 250 mls @ 167 mls/hr IVPB Q12H [facility] PRN Reason: Protocol Last Admin: 09/05/16 02:59 Dose: 167 mls/hr Meropenem 1g/NS 100mL IVPB (Meropenem 1g/Ns 100ml Ivpb) 100 mls @ 100 mls/hr IVPB Q8H [facility] Stop: 09/07/16 15:16 Last Admin: 09/05/16 00:09 Dose: 100 mls/hr Doxycycline Hyclate 100 mg/ (Sodium Chloride) 100 mls @ 100 mls/hr IVPB Q12 [facility] PRN Reason: Protocol Last Admin: 09/04/16 21:59 Dose: 100 mls/hr Levalbuterol HCl (Xopenex) 0.63 mg IH [id number] [facility] Last Admin: 09/05/16 01:30 Dose: 0.63 mg Levalbuterol HCl (Xopenex) 0.63 mg IH Q2H PRN PRN Reason: Shortness of Breath Last Admin: 08/29/16 14:59 Dose: 0.63 mg Levothyroxine Sodium (Synthroid) 25 mcg PO DAILY [facility] Last Admin: 09/04/16 10:14 Dose: 25 mcg Methylprednisolone (Solu-Medrol) 20 mg IVP Q12 [facility] Last Admin: 09/04/16 21:58 Dose: 20 mg Morphine Sulfate (Morphine) 4 mg IVP Q4H PRN PRN Reason: Pain, severe (8-10) Last Admin: 08/27/16 20:34 Dose: 4 mg Nystatin (Mycostatin Cream) 0 ea TOP TID [facility] Last Admin: 09/04/16 14:32 Dose: 1 appl Ondansetron HCl (Zofran Inj) 4 mg IVP Q6H PRN PRN Reason: Nausea/Vomiting Last Admin: 09/03/16 17:08 Dose: 4 mg Oxycodone/Acetaminophen (Percocet 10/325 Mg Tab) 1 tab PO Q6H PRN PRN Reason: Pain, severe (8-10) Last Admin: 09/04/16 20:13 Dose: 1 tab Pantoprazole Sodium (Protonix Ec Tab) 40 mg PO ACB [facility] Last Admin: 09/04/16 08:18 Dose: 40 mg Potassium Chloride (K-Dur 20 Meq Er Tab) 20 meq PO BID [facility] Last Admin: 09/04/16 10:09 Dose: 20 meq Sertraline HCl (Zoloft) 100 mg PO DAILY [facility] Last Admin: 09/04/16 10:15 Dose: 100 mg Sucralfate (Carafate Tab) 1 gm PO DAILY PRN PRN Reason: Dyspepsia Last Admin: 09/04/16 08:15 Dose: 1 gm - Labs Labs: 09/05/16 05:45 09/05/16 05:45 PT 17.4 Seconds (9.9-11.8) H 09/05/16 05:45 INR 1.61 (0.93-1.08) H 09/05/16 05:45 APTT 35.5 Seconds (23.7-30.8) H 09/05/16 05:45 Assessment and Plan - Assessment and Plan (Free Text) Plan: Assessment: Dizzy and weak/CHB/Pacemaker lead dislodgement Pacemaker lead revision 08/27/16 complicated by hemopneumothorax, s/p CT drainage PPM for symptomatic CHB 06/02 Bilateral infiltrates, respiratory insufficiency, s/p CT drainage left lung , mild RA Asthma HLD PAD Bilat.AKAs Hypothyroidism Hypotonic Bladder/Stress Incontinence Pascual. THR Cataracts UTI Plan: Consider transfusion to Hgb > 9.5 IV Lasix > neg balance AB as per ID Consider Pulm. Consultation OOB to chair as sadia. Monitor: labs, I/O, cultures, sats., H/H, CXRs, etc.
[2016-09-05] MEDS ORDERED: MethylPREDNISolone 40 mg Vial IVP SCH (07:32)
--- NOTE | 2016-09-05 08:09 | PN ---
DATE: 09/05/2016 The patient seen and examined at bedside. She is comfortable. She talks full sentences. She is not in respiratory or otherwise distress. PHYSICAL EXAMINATION: VITAL SIGNS: She is on 50% FIO2 and oxygen saturation 94%. Her respiratory rate 20-25, heart rate 79. Blood pressure 103/42. HEAD AND NECK: Atraumatic. LUNGS: A few crackles bibasilar. HEART: Regular rate and rhythm. S1, S2 normal. ABDOMEN: Soft, nontender, nondistended. MUSCULOSKELETAL: Bilateral BKA. No C/C/E on the upper extremities. NEUROLOGIC: The patient moves all extremities spontaneously. SKIN: Moist. PSYCHIATRIC: The patient is alert and oriented x 3. LABORATORY DATA: WBC 15.7 (up from 12, steroids were started yesterday), hemoglobin 8.1, relatively stable, platelet count 416. Sodium 137, potassium 4.1, chloride 94, carbon dioxide 36, BUN 13, creatinine 0.4, glucose 112, AST 58 , ALT 53. CRP more than 15. Albumin 2.2. Procalcitonin yesterday 0.13, troponin 0.05. ProBNP at 3630. MEDICATIONS: Xopenex every 6, sucralfate, doxycycline, DuoNeb p.r.n., aspirin, Flonase, heparin subQ, Lasix 40 mg IV q. 12, Lipitor, meropenem, morphine p.r.n. , Neurontin, Percocet p.r.n., Solu-Medrol 30 mg IV q. 12, Synthroid 25 mcg p.o. daily, vancomycin, Xanax p.r.n., Xopenex p.r.n., Zofran p.r.n., and Zoloft. ASSESSMENT AND PLAN: This is a 81-year-old lady with hypoxemic respiratory failure. Non-infectious etiology of her noncardiogenic pulmonary edema are considered, while potential infectious ones are covered with broad spectrum abx. Her procalcitonin is very low, she is afebrile and leukocytosis is mild ( small spike likely due to low dose steroids). The patient is on aggressive diuresis for conservative fluid management. We will continue low-dose steroids. CXR looks may be tiny bit better, however it may lag behind clinical imrpovement. She does do better today, as her fi02 requirement went down from 50 % on high flow to NC 5L/min with 02sat fluctuating between 94 and 96%. She also does look a bit more comfortable. BNP will be followed daily and it was trending down. We will continue to target euglycemia, normothermia and oxygen saturation more than 90%. We will continue with deep venous thrombosis and gastrointestinal prophylaxis. We will continue with pulmonary toilet, bronchodilators, chest physiotherapy, out of bed to chair, nasotracheal suctioning. We will continue to taper FIO2 as tolerated. ccm time 40 min Tex Constantino MD cc: [id number] TT: 09/05/2016 08:08:05 Confirmation # [id number] Dictation # [id number] tn MTDD
--- NOTE | 2016-09-05 08:32 | CP.PCM.PCO ---
Physician Communication Note - Physician Communication Note Physician Communication Note: Persistent severe arpita Pulm Infiltrates/Concur with transfusion now
--- NOTE | 2016-09-05 08:37 | RAD ---
HISTORY: pneumonia COMPARISON: No prior. FINDINGS: LUNGS: Bilateral interstitial infiltrates. PLEURA: No significant pleural effusion identified, no pneumothorax apparent. CARDIOVASCULAR: Normal. Pacemaker and lead in place. OSSEOUS STRUCTURES: No significant abnormalities. VISUALIZED UPPER ABDOMEN: Normal. OTHER FINDINGS: None. IMPRESSION: Diffuse bilateral interstitial infiltrates.
[2016-09-05] MEDS: Pantoprazole 40 mg EC Tab PO SCH (09:14)
[2016-09-05] MEDS: Levothyroxine 25 MCG TAB PO SCH (09:14)
[2016-09-05] MEDS: Potassium Chloride 20 mEq ER Tab PO SCH ×2 (09:15→17:01)
[2016-09-05] MEDS: MethylPREDNISolone 40 mg Vial IVP SCH ×3 (09:16→21:53)
[2016-09-05] MEDS: Nystatin 100,000 Units/gm Cream(15 gm) TOP SCH ×3 (10:00→18:39)
[2016-09-05] MEDS: Fluticasone Nasal 50 mcg/Spray NS SCH (12:00)
--- NOTE | 2016-09-05 13:03 | CP.PCM.PN ---
Subjective - Date & Time of Evaluation Date of Evaluation: 09/05/16 Time of Evaluation: 10:10 - Subjective Subjective: Patient continues to have hypoxic respiratory failure. Yesterday Dr. Constantino and I agreed to start the patient on low dose systemic steroids. o fevers overnight, no diarrhea. Objective - Vital Signs/Intake and Output Vital Signs (last 24 hours): Temp Pulse Resp BP Pulse Ox 98.2 F 90 51 H 127/74 99 09/05/16 08:00 09/05/16 11:00 09/05/16 11:00 09/05/16 11:00 09/05/16 11:00 Intake and Output: 09/05/16 09/05/16 06:59 18:59 Intake Total 690 Output Total 700 Balance -10 - Medications Medications: Current Medications Acetaminophen (Tylenol 325mg Tab) 650 mg PO Q4H PRN PRN Reason: Fever >100.4 F Last Admin: 09/01/16 21:17 Dose: 650 mg Albuterol/Ipratropium (Duoneb 3 Mg/0.5 Mg (3 Ml) Ud) 3 ml IH Q4H PRN PRN Reason: Shortness of Breath Last Admin: 09/01/16 06:30 Dose: 3 ml Alprazolam (Xanax) 0.5 mg PO TID PRN; Protocol PRN Reason: Anxiety Last Admin: 09/05/16 09:14 Dose: 0.5 mg Aspirin (Ecotrin) 81 mg PO DAILY [facility] Last Admin: 09/05/16 09:18 Dose: 81 mg Atorvastatin Calcium (Lipitor) 20 mg PO DIN [facility] Last Admin: 09/03/16 17:49 Dose: 20 mg Benzocaine/Menthol (Cepacol Sore Throat) 1 jose miguel MT Q2H PRN PRN Reason: Sore Throat Fluticasone Propionate (Flonase) 1 actuation NS DAILY [facility] [place] Last Admin: 09/04/16 10:11 Dose: 1 spr Furosemide (Lasix) 40 mg IVP Q12 [facility] Last Admin: 09/05/16 09:16 Dose: 40 mg Gabapentin (Neurontin) 800 mg PO TID [facility] PRN Reason: Protocol Last Admin: 09/05/16 09:14 Dose: 800 mg Heparin Sodium (Porcine) (Heparin) 5,000 units SC Q12 [facility] PRN Reason: Protocol Last Admin: 09/05/16 09:17 Dose: 5,000 units Meropenem 1g/NS 100mL IVPB (Meropenem 1g/Ns 100ml Ivpb) 100 mls @ 100 mls/hr IVPB Q8H [facility] Stop: 09/07/16 15:16 Last Admin: 09/05/16 09:15 Dose: 100 mls/hr Doxycycline Hyclate 100 mg/ (Sodium Chloride) 100 mls @ 100 mls/hr IVPB Q12 [facility] PRN Reason: Protocol Last Admin: 09/05/16 09:21 Dose: 100 mls/hr Levalbuterol HCl (Xopenex) 0.63 mg IH [id number] [facility] [place] Last Admin: 09/05/16 08:31 Dose: 0.63 mg Levalbuterol HCl (Xopenex) 0.63 mg IH Q2H PRN PRN Reason: Shortness of Breath Last Admin: 08/29/16 14:59 Dose: 0.63 mg Levothyroxine Sodium (Synthroid) 25 mcg PO DAILY [facility] [place] Last Admin: 09/05/16 09:14 Dose: 25 mcg Methylprednisolone (Solu-Medrol) 30 mg IVP Q12 [facility] Last Admin: 09/05/16 09:47 Dose: Not Given Morphine Sulfate (Morphine) 4 mg IVP Q4H PRN PRN Reason: Pain, severe (8-10) Last Admin: 08/27/16 20:34 Dose: 4 mg Nystatin (Mycostatin Cream) 0 ea TOP TID [facility] Last Admin: 09/04/16 14:32 Dose: 1 appl Ondansetron HCl (Zofran Inj) 4 mg IVP Q6H PRN PRN Reason: Nausea/Vomiting Last Admin: 09/03/16 17:08 Dose: 4 mg Oxycodone/Acetaminophen (Percocet 10/325 Mg Tab) 1 tab PO Q6H PRN PRN Reason: Pain, severe (8-10) Last Admin: 09/04/16 20:13 Dose: 1 tab Pantoprazole Sodium (Protonix Ec Tab) 40 mg PO ACB [facility] Last Admin: 09/05/16 09:14 Dose: 40 mg Potassium Chloride (K-Dur 20 Meq Er Tab) 20 meq PO BID [facility] Last Admin: 09/05/16 09:15 Dose: 20 meq Sertraline HCl (Zoloft) 100 mg PO DAILY [facility] Last Admin: 09/05/16 09:17 Dose: 100 mg Sucralfate (Carafate Tab) 1 gm PO DAILY PRN PRN Reason: Dyspepsia Last Admin: 09/04/16 08:15 Dose: 1 gm - Labs Labs: 09/05/16 05:45 09/05/16 05:45 PT 17.4 Seconds (9.9-11.8) H 09/05/16 05:45 INR 1.61 (0.93-1.08) H 09/05/16 05:45 APTT 35.5 Seconds (23.7-30.8) H 09/05/16 05:45 - Constitutional Appears: Other (in some respiratory distress) - Head Exam Head Exam: NORMAL INSPECTION - ENT Exam ENT Exam: Mucous Membranes Moist - Neck Exam Neck Exam: absent: Lymphadenopathy, Meningismus - Respiratory Exam Respiratory Exam: Decreased Breath Sounds, Rales (scattered) - Cardiovascular Exam Cardiovascular Exam: +S1, +S2 - GI/Abdominal Exam GI & Abdominal Exam: Soft. absent: Tenderness Assessment and Plan - Assessment and Plan (Free Text) Plan: Assessment Consider sepsis secondary to bilateral healthcare-associated pneumonia on top of probable pulmonary vascular congestion, in a patient with left pneumothorax S /P left chest tube placement and now removal of chest tube because of resolution of pneumothorax; patient also in ARDS; patient continues to have hypoxic respiratory failure S/P urinary tract infection, probably lower tract, with P. mirabilis peripheral vascular disease S/P bilateral BKA S/P bilateral hip replacement HTN CAD sick sinus syndrome S/P pacemaker placement GERD history of diverticulitis history of urinary incontinence depression anxiety history of eye cataracts history of pneumonia Plan continue doxycycline and Meropenem day 5; will d/c Vancomycin since there is no evidence of MRSA; blood, sputum cx negative; PCT is only 0.13; follow up Mycoplasma and Legionella tests; I doubt this is fungal pneumonia or viral pneumonia but tests have been ordered and we are awaiting results; reviewed CT chest results Discussed with Dr. Self - started patient on low dose systemic steroids and observe Will follow clinically Overall prognosis is poor
[2016-09-05] MEDS: Benzocaine/Menthol (Cepacol) Lozenge MT PRN ×2 (14:01→21:53)
[2016-09-05 14:24] LABS: A TERREUS NOT DETECTED (())
[2016-09-05] MEDS: Oxycodone/Acetaminophen 10/325 mg Tab PO PRN ×2 (17:02→21:28)
[2016-09-06] MEDS: Levalbuterol 0.63 MG/3 ML Inhal Soln UD IH SCH ×5 (01:56→20:58)
[2016-09-06] MEDS: Levalbuterol 0.63 MG/3 ML Inhal Soln UD IH PRN (05:07)
[2016-09-06 05:54] LABS: BASO # 0.01 K/mm3 (0.0-2.0); BASO % 0.1 % (0.0-3.0); GRAN # 10.34 (1.4-6.5); GRAN % 93.7 % (50.0-68.0); LYMPH # 0.5 (1.2-3.4); LYMPH % 4.3 % (22.0-35.0); MEAN CELL VOLUME 87.4 fL (80.0-105.0); MEAN CORPUSCULAR HEMOGLOBIN 26.2 pg (25.0-35.0); MEAN PLATELET VOLUME 8.9 fl (7.0-11.0); MONO # 0.2 (0.1-0.6); MONO % 1.9 % (1.0-6.0); PLATELET COUNT 439 10^3/uL (120.0-450.0); RED CELL DISTRIBUTION WIDTH 16.1 % (11.5-14.5)
[2016-09-06 06:10] LABS: ALB/GLOB RATIO 0.6 (1.1-1.8); ALKALINE PHOSPHATASE 130 U/L (38-133); ALT/SGPT 78 U/L (7-56); AST/SGOT 122 U/L (15-39); BILIRUBIN,TOTAL 0.3 mg/dL (0.2-1.3); BLOOD UREA NITROGEN 17 mg/dL (7-21); CALCIUM 7.5 mg/dL (8.4-10.5); CARBON DIOXIDE 38 mmol/L (21-33); CHLORIDE 92 mmol/L (98-107); GFR AFRICAN-AMERICAN > 60; GLUCOSE,RANDOM 129 mg/dL (70-110); MAGNESIUM 1.7 mg/dL (1.7-2.2); PHOSPHOROUS 3.2 mg/dL (2.5-4.5); POTASSIUM 3.9 mmol/L (3.6-5.0); SODIUM 135 mmol/L (132-148); TOTAL PROTEIN 6.1 g/dL (5.8-8.3)
[2016-09-06 06:30] LABS: INR 1.38 (0.93-1.08); PARTIAL THROMBOPLASTIN TIME 32.4 Seconds (23.7-30.8)
[2016-09-06 06:55] LABS: ADD MANUAL DIFF? NO
[2016-09-06] MEDS: Meropenem 1g/NS 100mL IVPB 100 ML IVPB SCH ×2 (07:04→14:14)
--- NOTE | 2016-09-06 07:13 | CP.PCM.PN ---
Subjective - Date & Time of Evaluation Date of Evaluation: 09/06/16 Time of Evaluation: 08:00 - Subjective Subjective: Stable in CCU in bed on nasal cannula now ( 5 L.). Weak but no CP or SOB at rest. + dyspnea with mild exertion. V/S noted. RSR. Int. V. pacing. PE: lungs: decreased BS at bases with scattered rhonchi Cor.: S1S2, FRANCISCO J Abd.: soft Neuro.: alert ECG 09/04: RSR, RBBB, LAHB, SSTTW changes CXR and CT chest 09/02: noted. Bilateral infiltrates. CXR 09/03 noted: bilat. infiltrates unchanged. 09/05 CXR: arpita. infiltrates, sl. improvement CXR 09/06: pending Labs noted: H/H = 7.25/25, INR = 1.38, K+= 3.9 BC x2 NG at 5 days. Urine C+S + Klebs Objective - Vital Signs/Intake and Output Vital Signs (last 24 hours): Temp Pulse Resp BP Pulse Ox 98.1 F 70 22 129/62 91 L 09/06/16 04:00 09/06/16 06:00 09/06/16 05:00 09/06/16 06:00 09/06/16 06:00 Intake and Output: 09/06/16 09/06/16 06:59 18:59 Intake Total 720 Output Total 1400 Balance -680 - Medications Medications: Current Medications Acetaminophen (Tylenol 325mg Tab) 650 mg PO Q4H PRN PRN Reason: Fever >100.4 F Last Admin: 09/01/16 21:17 Dose: 650 mg Albuterol/Ipratropium (Duoneb 3 Mg/0.5 Mg (3 Ml) Ud) 3 ml IH Q4H PRN PRN Reason: Shortness of Breath Last Admin: 09/01/16 06:30 Dose: 3 ml Alprazolam (Xanax) 0.5 mg PO TID PRN; Protocol PRN Reason: Anxiety Last Admin: 09/05/16 09:14 Dose: 0.5 mg Aspirin (Ecotrin) 81 mg PO DAILY [facility] Last Admin: 09/05/16 09:18 Dose: 81 mg Atorvastatin Calcium (Lipitor) 20 mg PO DIN [facility] Last Admin: 09/05/16 17:01 Dose: 20 mg Benzocaine/Menthol (Cepacol Sore Throat) 1 jose miguel MT Q2H PRN PRN Reason: Sore Throat Last Admin: 09/05/16 21:53 Dose: 1 jose miguel Fluticasone Propionate (Flonase) 1 actuation NS DAILY [facility] Last Admin: 09/05/16 12:00 Dose: Not Given Furosemide (Lasix) 40 mg IVP Q12 [facility] Last Admin: 09/05/16 22:05 Dose: 40 mg Gabapentin (Neurontin) 800 mg PO TID [facility] PRN Reason: Protocol Last Admin: 09/05/16 18:38 Dose: 800 mg Heparin Sodium (Porcine) (Heparin) 5,000 units SC Q12 [facility] PRN Reason: Protocol Last Admin: 09/05/16 21:54 Dose: 5,000 units Meropenem 1g/NS 100mL IVPB (Meropenem 1g/Ns 100ml Ivpb) 100 mls @ 100 mls/hr IVPB Q8H [facility] Stop: 09/07/16 15:16 Last Admin: 09/06/16 07:04 Dose: 100 mls/hr Doxycycline Hyclate 100 mg/ (Sodium Chloride) 100 mls @ 100 mls/hr IVPB Q12 [facility] PRN Reason: Protocol Last Admin: 09/05/16 22:32 Dose: 100 mls/hr Levalbuterol HCl (Xopenex) 0.63 mg IH [id number] [facility] Last Admin: 09/06/16 02:04 Dose: Not Given Levalbuterol HCl (Xopenex) 0.63 mg IH Q2H PRN PRN Reason: Shortness of Breath Last Admin: 09/06/16 05:07 Dose: 0.63 mg Levothyroxine Sodium (Synthroid) 25 mcg PO DAILY [facility] Last Admin: 09/05/16 09:14 Dose: 25 mcg Methylprednisolone (Solu-Medrol) 30 mg IVP Q12 [facility] Last Admin: 09/05/16 21:53 Dose: 30 mg Morphine Sulfate (Morphine) 4 mg IVP Q4H PRN PRN Reason: Pain, severe (8-10) Last Admin: 08/27/16 20:34 Dose: 4 mg Nystatin (Mycostatin Cream) 0 ea TOP TID [facility] Last Admin: 09/05/16 18:39 Dose: 1 appl Ondansetron HCl (Zofran Inj) 4 mg IVP Q6H PRN PRN Reason: Nausea/Vomiting Last Admin: 09/03/16 17:08 Dose: 4 mg Oxycodone/Acetaminophen (Percocet 10/325 Mg Tab) 1 tab PO Q6H PRN PRN Reason: Pain, severe (8-10) Last Admin: 09/05/16 21:28 Dose: 1 tab Pantoprazole Sodium (Protonix Ec Tab) 40 mg PO ACB [facility] Last Admin: 09/05/16 09:14 Dose: 40 mg Potassium Chloride (K-Dur 20 Meq Er Tab) 20 meq PO BID [facility] Last Admin: 09/05/16 17:01 Dose: 20 meq Sertraline HCl (Zoloft) 100 mg PO DAILY [facility] Last Admin: 09/05/16 09:17 Dose: 100 mg Sucralfate (Carafate Tab) 1 gm PO DAILY PRN PRN Reason: Dyspepsia Last Admin: 09/04/16 08:15 Dose: 1 gm - Labs Labs: 09/06/16 05:30 09/06/16 05:30 PT 14.9 Seconds (9.9-11.8) H 09/06/16 05:30 INR 1.38 (0.93-1.08) H 09/06/16 05:30 APTT 32.4 Seconds (23.7-30.8) H 09/06/16 05:30 Assessment and Plan - Assessment and Plan (Free Text) Plan: Assessment: Dizzy and weak/CHB/Pacemaker lead dislodgement Pacemaker lead revision 08/27/16 complicated by hemopneumothorax, s/p CT drainage PPM for symptomatic CHB 06/02 Bilateral infiltrates, respiratory insufficiency, s/p CT drainage left lung , mild RA Asthma HLD PAD Bilat.AKAs Hypothyroidism Hypotonic Bladder/Stress Incontinence Arpita. THR Cataracts UTI Plan: Consider transfusion to Hgb > 9.5 IV Lasix > neg balance AB as per ID Consider Pulm. Consultation OOB to chair as sadia. Monitor: labs, I/O, cultures, sats., H/H, CXRs, etc.
[2016-09-06] MEDS: Pantoprazole 40 mg EC Tab PO SCH (08:15)
--- NOTE | 2016-09-06 08:27 | RAD ---
HISTORY: pneumonia COMPARISON: 09/05/2016 FINDINGS: LUNGS: Diffuse bilateral interstitial infiltrates. PLEURA: No significant pleural effusion identified, no pneumothorax apparent. CARDIOVASCULAR: Cardiomegaly. OSSEOUS STRUCTURES: No significant abnormalities. VISUALIZED UPPER ABDOMEN: Normal. OTHER FINDINGS: None. IMPRESSION: No significant interval change.
--- NOTE | 2016-09-06 09:45 | CP.PCM.PCO ---
Physician Communication Note - Physician Communication Note Physician Communication Note: Everardo 2 units PRBC
[2016-09-06] MEDS: Potassium Chloride 20 mEq ER Tab PO SCH ×2 (10:07→17:11)
[2016-09-06] MEDS: MethylPREDNISolone 40 mg Vial IVP SCH ×2 (10:08→21:26)
[2016-09-06] MEDS: Levothyroxine 25 MCG TAB PO SCH (10:08)
[2016-09-06] MEDS: Nystatin 100,000 Units/gm Cream(15 gm) TOP SCH ×3 (10:10→21:00)
--- NOTE | 2016-09-06 10:22 | PN ---
DATE: 09/06/2016 The patient seen and examined at bedside. She is comfortable. She is not in respiratory or otherwise distress. PHYSICAL EXAMINATION: VITAL SIGNS: She is 96-100% on 5 liters per minute of nasal cannula, blood pressure 103/41, heart rate 62, sinus, respiratory rate 20-25. HEAD AND NECK: Atraumatic. LUNGS: There are crackles bilaterally. HEART: Regular rate and rhythm. S1, S2 normal. ABDOMEN: Soft, nontender, nondistended. MUSCULOSKELETAL: Status post BKA bilaterally. Hands examination consistent with prior history of rheumatoid arthritis. However, no C/C/E. SKIN: Moist. PSYCHIATRIC: The patient is alert and oriented x 3. NEUROLOGIC: The patient moves all extremities spontaneously. LABORATORIES: WBC 11, down from 13.7, hemoglobin 7.5, platelet count 439. Sodium 135, potassium 3.9, chloride 92, carbon dioxide 38, BUN 17, creatinine 0.4, glucose 129, AST 122, ALT 78. ProBNP 4080. MEDICATIONS: Xopenex every 6, sucralfate p.r.n., doxycycline, Cepacol, aspirin , Flonase, heparin 5000 subQ q. 12, Lasix 40 mg IV q. 12, Lipitor 20 mg p.o. ( will be held due to rise in LFTs), Solu-Medrol 30 mg IV q. 12, Synthroid, Xanax , Zoloft. ASSESSMENT AND PLAN: This is a 81-year-old lady with noncardiogenic pulmonary edema and hypoxemic respiratory failure, now substantially improved. The patient is on broad-spectrum antibiotics. She is afebrile, no leukocytosis and her procalcitonin level is very low. Thus, even if infectious component to her bilateral infiltrates present, there are no signs of severe sepsis. We are pursuing aggressive diuresis to optimize her respiratory status. Low dose Solu- Medrol continued. Her chest x-ray today looked a little bit better than yesterday. The patient is negative about 450 mL in terms of fluid balance. Her FiO2 requirement substantially improved. I would maintain threshold for packed red blood cell transfusion at around 7 in the absence of hemodynamic instability or acute coronary syndrome (I will repeat troponin today as well, however, previous troponin levels were WNL and patient did not complain of any chest pain). Sharon transfusion of packed red blood cells may lead to worsening of pulmonary edema and put patient at risk for TRALI as well. I would continue to target slightly negative fluid balance, normothermia, euglycemia, oxygen saturation more than 90%. Out of bed to chair, physical therapy as tolerated, optimize nutritional status. Pulmonary toilet, bronchodilators. ccm time 40 min Tex Constantino MD cc: [id number] TT: 09/06/2016 10:22:12 Confirmation # [id number] Dictation # [id number] en MTDD
[2016-09-06] MEDS: Fluticasone Nasal 50 mcg/Spray NS SCH (10:40)
--- NOTE | 2016-09-06 12:33 | CP.PCM.PN ---
Subjective - Date & Time of Evaluation Date of Evaluation: 09/06/16 Time of Evaluation: 10:10 - Subjective Subjective: Patient is now on nasal cannula, not on high flow oxygen anymore. She has not been febrile overnight. Less short of breath at rest and starting to eat. no diarrhea. Objective - Vital Signs/Intake and Output Vital Signs (last 24 hours): Temp Pulse Resp BP Pulse Ox 97.9 F 67 20 147/65 92 L 09/06/16 08:00 09/06/16 08:30 09/06/16 08:30 09/06/16 10:07 09/06/16 08:30 Intake and Output: 09/06/16 09/06/16 06:59 18:59 Intake Total 720 Output Total 1400 Balance -680 - Medications Medications: Current Medications Acetaminophen (Tylenol 325mg Tab) 650 mg PO Q4H PRN PRN Reason: Fever >100.4 F Last Admin: 09/01/16 21:17 Dose: 650 mg Albuterol/Ipratropium (Duoneb 3 Mg/0.5 Mg (3 Ml) Ud) 3 ml IH Q4H PRN PRN Reason: Shortness of Breath Last Admin: 09/01/16 06:30 Dose: 3 ml Alprazolam (Xanax) 0.5 mg PO TID PRN; Protocol PRN Reason: Anxiety Last Admin: 09/05/16 09:14 Dose: 0.5 mg Aspirin (Ecotrin) 81 mg PO DAILY [facility] Last Admin: 09/06/16 10:08 Dose: 81 mg Atorvastatin Calcium (Lipitor) 20 mg PO DIN [facility] Last Admin: 09/05/16 17:01 Dose: 20 mg Benzocaine/Menthol (Cepacol Sore Throat) 1 jose imguel MT Q2H PRN PRN Reason: Sore Throat Last Admin: 09/05/16 21:53 Dose: 1 jose miguel Fluticasone Propionate (Flonase) 1 actuation NS DAILY [facility] Last Admin: 09/06/16 10:40 Dose: 1 spr Furosemide (Lasix) 40 mg IVP Q12 [facility] Last Admin: 09/06/16 10:07 Dose: 40 mg Gabapentin (Neurontin) 800 mg PO TID [facility] PRN Reason: Protocol Last Admin: 09/06/16 10:12 Dose: 800 mg Heparin Sodium (Porcine) (Heparin) 5,000 units SC Q12 [facility] PRN Reason: Protocol Last Admin: 09/06/16 10:06 Dose: 5,000 units Meropenem 1g/NS 100mL IVPB (Meropenem 1g/Ns 100ml Ivpb) 100 mls @ 100 mls/hr IVPB Q8H [facility] Stop: 09/07/16 15:16 Last Admin: 09/06/16 07:04 Dose: 100 mls/hr Doxycycline Hyclate 100 mg/ (Sodium Chloride) 100 mls @ 100 mls/hr IVPB Q12 [facility] PRN Reason: Protocol Last Admin: 09/06/16 10:09 Dose: 100 mls/hr Levalbuterol HCl (Xopenex) 0.63 mg IH [id number] [facility] Last Admin: 09/06/16 07:32 Dose: 0.63 mg Levalbuterol HCl (Xopenex) 0.63 mg IH Q2H PRN PRN Reason: Shortness of Breath Last Admin: 09/06/16 05:07 Dose: 0.63 mg Levothyroxine Sodium (Synthroid) 25 mcg PO DAILY [facility] Last Admin: 09/06/16 10:08 Dose: 25 mcg Methylprednisolone (Solu-Medrol) 30 mg IVP Q12 [facility] Last Admin: 09/06/16 10:08 Dose: 30 mg Morphine Sulfate (Morphine) 4 mg IVP Q4H PRN PRN Reason: Pain, severe (8-10) Last Admin: 08/27/16 20:34 Dose: 4 mg Nystatin (Mycostatin Cream) 0 ea TOP TID [facility] Last Admin: 09/06/16 10:10 Dose: 1 appl Ondansetron HCl (Zofran Inj) 4 mg IVP Q6H PRN PRN Reason: Nausea/Vomiting Last Admin: 09/03/16 17:08 Dose: 4 mg Oxycodone/Acetaminophen (Percocet 10/325 Mg Tab) 1 tab PO Q6H PRN PRN Reason: Pain, severe (8-10) Last Admin: 09/05/16 21:28 Dose: 1 tab Pantoprazole Sodium (Protonix Ec Tab) 40 mg PO ACB [facility] Last Admin: 09/06/16 08:15 Dose: 40 mg Potassium Chloride (K-Dur 20 Meq Er Tab) 20 meq PO BID [facility] Last Admin: 09/06/16 10:07 Dose: 20 meq Sertraline HCl (Zoloft) 100 mg PO DAILY [facility] Last Admin: 09/06/16 10:08 Dose: 100 mg Sucralfate (Carafate Tab) 1 gm PO DAILY PRN PRN Reason: Dyspepsia Last Admin: 09/04/16 08:15 Dose: 1 gm - Labs Labs: 09/06/16 05:30 09/06/16 05:30 PT 14.9 Seconds (9.9-11.8) H 09/06/16 05:30 INR 1.38 (0.93-1.08) H 09/06/16 05:30 APTT 32.4 Seconds (23.7-30.8) H 09/06/16 05:30 - Constitutional Appears: Non-toxic, No Acute Distress - Head Exam Head Exam: NORMAL INSPECTION - ENT Exam ENT Exam: Mucous Membranes Moist - Neck Exam Neck Exam: absent: Lymphadenopathy, Meningismus - Respiratory Exam Respiratory Exam: Decreased Breath Sounds - Cardiovascular Exam Cardiovascular Exam: +S1, +S2 - GI/Abdominal Exam GI & Abdominal Exam: Soft. absent: Tenderness Assessment and Plan - Assessment and Plan (Free Text) Plan: Assessment Consider sepsis secondary to bilateral healthcare-associated pneumonia on top of probable pulmonary vascular congestion, in a patient with left pneumothorax S /P left chest tube placement and now removal of chest tube because of resolution of pneumothorax; patient also in ARDS; patient is slowly improving S/P urinary tract infection, probably lower tract, with P. mirabilis peripheral vascular disease S/P bilateral BKA S/P bilateral hip replacement HTN CAD sick sinus syndrome S/P pacemaker placement GERD history of diverticulitis history of urinary incontinence depression anxiety history of eye cataracts history of pneumonia Plan continue doxycycline and Meropenem day 5 - will consider discontinuing antibiotics by tomorrow; blood, sputum cx negative; PCT is only 0.13; follow up Mycoplasma and Legionella tests; I doubt this is fungal pneumonia or viral pneumonia and the Adenovirus and CMV tests are negative, beta glucan is negative , Aspergillus tests are negative as well; reviewed CT chest results Discussed with Dr. Constantino previously - continue on low dose systemic steroids and observe Will follow clinically Overall prognosis is poor
[2016-09-06] MEDS: Nystatin 100,000 Units/ml Oral Susp 5 ml UD PO SCH ×3 (14:14→21:25)
[2016-09-06] MEDS: Oxycodone/Acetaminophen 10/325 mg Tab PO PRN (18:21)
--- NOTE | 2016-09-06 23:01 | CP.PCM.PN ---
Subjective - Date & Time of Evaluation Date of Evaluation: 09/05/16 Time of Evaluation: 11:00 - Subjective Subjective: She is in mild respiratory distress. denies chest pain. Able to speak full sentences. Hb declined to 8 gm/dl. WC declined to 13 k. Objective - Vital Signs/Intake and Output Vital Signs (last 24 hours): Temp Pulse Resp BP Pulse Ox 97.8 F 86 29 H 129/69 91 L 09/06/16 16:00 09/06/16 16:01 09/06/16 16:01 09/06/16 21:28 09/06/16 16:01 Intake and Output: 09/06/16 09/07/16 18:59 06:59 Intake Total 1090 180 Output Total 900 300 Balance 190 -120 - Medications Medications: Current Medications Acetaminophen (Tylenol 325mg Tab) 650 mg PO Q4H PRN PRN Reason: Fever >100.4 F Last Admin: 09/01/16 21:17 Dose: 650 mg Albuterol/Ipratropium (Duoneb 3 Mg/0.5 Mg (3 Ml) Ud) 3 ml IH Q4H PRN PRN Reason: Shortness of Breath Last Admin: 09/01/16 06:30 Dose: 3 ml Alprazolam (Xanax) 0.5 mg PO TID PRN; Protocol PRN Reason: Anxiety Last Admin: 09/05/16 09:14 Dose: 0.5 mg Aspirin (Ecotrin) 81 mg PO DAILY [facility] Last Admin: 09/06/16 10:08 Dose: 81 mg Atorvastatin Calcium (Lipitor) 20 mg PO DIN [facility] Last Admin: 09/05/16 17:01 Dose: 20 mg Benzocaine/Menthol (Cepacol Sore Throat) 1 jose miguel MT Q2H PRN PRN Reason: Sore Throat Last Admin: 09/05/16 21:53 Dose: 1 jose miguel Fluticasone Propionate (Flonase) 1 actuation NS DAILY [facility] Last Admin: 09/06/16 10:40 Dose: 1 spr Furosemide (Lasix) 40 mg IVP Q12 [facility] Last Admin: 09/06/16 21:28 Dose: 40 mg Gabapentin (Neurontin) 800 mg PO TID [facility] PRN Reason: Protocol Last Admin: 09/06/16 17:11 Dose: 800 mg Heparin Sodium (Porcine) (Heparin) 5,000 units SC Q12 [facility] PRN Reason: Protocol Last Admin: 09/06/16 21:24 Dose: 5,000 units Doxycycline Hyclate 100 mg/ (Sodium Chloride) 100 mls @ 100 mls/hr IVPB Q12 [facility] PRN Reason: Protocol Last Admin: 09/06/16 21:47 Dose: 100 mls/hr Levalbuterol HCl (Xopenex) 0.63 mg IH [id number] [facility] Last Admin: 09/06/16 20:58 Dose: 0.63 mg Levalbuterol HCl (Xopenex) 0.63 mg IH Q2H PRN PRN Reason: Shortness of Breath Last Admin: 09/06/16 05:07 Dose: 0.63 mg Levothyroxine Sodium (Synthroid) 25 mcg PO DAILY [facility] Last Admin: 09/06/16 10:08 Dose: 25 mcg Methylprednisolone (Solu-Medrol) 30 mg IVP Q12 [facility] Last Admin: 09/06/16 21:26 Dose: 30 mg Morphine Sulfate (Morphine) 4 mg IVP Q4H PRN PRN Reason: Pain, severe (8-10) Last Admin: 08/27/16 20:34 Dose: 4 mg Nystatin (Mycostatin Cream) 0 ea TOP TID [facility] Last Admin: 09/06/16 14:15 Dose: 1 appl Nystatin (Nystatin Oral Susp) 5 ml PO QID [facility] Last Admin: 09/06/16 21:25 Dose: 5 ml Ondansetron HCl (Zofran Inj) 4 mg IVP Q6H PRN PRN Reason: Nausea/Vomiting Last Admin: 09/03/16 17:08 Dose: 4 mg Oxycodone/Acetaminophen (Percocet 10/325 Mg Tab) 1 tab PO Q6H PRN PRN Reason: Pain, severe (8-10) Last Admin: 09/06/16 18:21 Dose: 1 tab Pantoprazole Sodium (Protonix Ec Tab) 40 mg PO ACB [facility] Last Admin: 09/06/16 08:15 Dose: 40 mg Potassium Chloride (K-Dur 20 Meq Er Tab) 20 meq PO BID [facility] Last Admin: 09/06/16 17:11 Dose: 20 meq Sertraline HCl (Zoloft) 100 mg PO DAILY [facility] Last Admin: 09/06/16 10:08 Dose: 100 mg Sucralfate (Carafate Tab) 1 gm PO DAILY PRN PRN Reason: Dyspepsia Last Admin: 09/04/16 08:15 Dose: 1 gm - Labs Labs: 09/06/16 05:30 09/06/16 05:30 PT 14.9 Seconds (9.9-11.8) H 09/06/16 05:30 INR 1.38 (0.93-1.08) H 09/06/16 05:30 APTT 32.4 Seconds (23.7-30.8) H 09/06/16 05:30 - Constitutional Appears: Non-toxic, Confused - Head Exam Head Exam: ATRAUMATIC, NORMAL INSPECTION, NORMOCEPHALIC - Eye Exam Eye Exam: Normal appearance Pupil Exam: NORMAL ACCOMODATION - ENT Exam ENT Exam: Mucous Membranes Moist, Normal Oropharynx - Neck Exam Neck Exam: Normal Inspection - Respiratory Exam Respiratory Exam: Rales, Rhonchi, Respiratory Distress - Cardiovascular Exam Cardiovascular Exam: REGULAR RHYTHM, +S1, +S2 - GI/Abdominal Exam GI & Abdominal Exam: Soft, Normal Bowel Sounds - Extremities Exam Extremities Exam: Full ROM, Normal Inspection - Back Exam Back Exam: NORMAL INSPECTION - Neurological Exam Neurological Exam: Alert, Awake, CN II-XII Intact, Normal Gait, Oriented x3 - Psychiatric Exam Psychiatric exam: Anxious - Skin Skin Exam: Normal Color, Warm Assessment and Plan - Assessment and Plan (Free Text) Assessment: 1. CHF: On lasix 40 mg IV BID, continue agressive diuresis. cardiology following. 2. Respiratory distress : improving. On bronchodilators - Xopenex. diuretics helping. 3. Sepsis : uro sepsis. completed IV antibiotics. 4. Severe anemia : Hb 8 gm/dl. will monitor , if declined below 8 gm/dl will transfuse PRBCs. 5. DVT- prophylaxis with heparin 5000 SQ BID. 6. Leukocytosis : resolving . Discussed with the staff nurse.
--- NOTE | 2016-09-06 23:08 | CP.PCM.PN ---
Subjective - Date & Time of Evaluation Date of Evaluation: 09/06/16 Time of Evaluation: 13:00 - Subjective Subjective: Feeling better. No chest pain. Complaining of fatigue. breathing improved. Cough present. Hb declined to 7.5 gm/dl. No bleeding from any site. Objective - Vital Signs/Intake and Output Vital Signs (last 24 hours): Temp Pulse Resp BP Pulse Ox 97.8 F 86 29 H 129/69 91 L 09/06/16 16:00 09/06/16 16:01 09/06/16 16:01 09/06/16 21:28 09/06/16 16:01 Intake and Output: 09/06/16 09/07/16 18:59 06:59 Intake Total 1090 180 Output Total 900 300 Balance 190 -120 - Medications Medications: Current Medications Acetaminophen (Tylenol 325mg Tab) 650 mg PO Q4H PRN PRN Reason: Fever >100.4 F Last Admin: 09/01/16 21:17 Dose: 650 mg Albuterol/Ipratropium (Duoneb 3 Mg/0.5 Mg (3 Ml) Ud) 3 ml IH Q4H PRN PRN Reason: Shortness of Breath Last Admin: 09/01/16 06:30 Dose: 3 ml Alprazolam (Xanax) 0.5 mg PO TID PRN; Protocol PRN Reason: Anxiety Last Admin: 09/05/16 09:14 Dose: 0.5 mg Aspirin (Ecotrin) 81 mg PO DAILY [facility] Last Admin: 09/06/16 10:08 Dose: 81 mg Atorvastatin Calcium (Lipitor) 20 mg PO DIN [facility] Last Admin: 09/05/16 17:01 Dose: 20 mg Benzocaine/Menthol (Cepacol Sore Throat) 1 jose miguel MT Q2H PRN PRN Reason: Sore Throat Last Admin: 09/05/16 21:53 Dose: 1 jose miguel Fluticasone Propionate (Flonase) 1 actuation NS DAILY [facility] Last Admin: 09/06/16 10:40 Dose: 1 spr Furosemide (Lasix) 40 mg IVP Q12 [facility] Last Admin: 09/06/16 21:28 Dose: 40 mg Gabapentin (Neurontin) 800 mg PO TID [facility] PRN Reason: Protocol Last Admin: 09/06/16 17:11 Dose: 800 mg Heparin Sodium (Porcine) (Heparin) 5,000 units SC Q12 [facility] PRN Reason: Protocol Last Admin: 09/06/16 21:24 Dose: 5,000 units Doxycycline Hyclate 100 mg/ (Sodium Chloride) 100 mls @ 100 mls/hr IVPB Q12 [facility] PRN Reason: Protocol Last Admin: 09/06/16 21:47 Dose: 100 mls/hr Levalbuterol HCl (Xopenex) 0.63 mg IH [id number] [facility] Last Admin: 09/06/16 20:58 Dose: 0.63 mg Levalbuterol HCl (Xopenex) 0.63 mg IH Q2H PRN PRN Reason: Shortness of Breath Last Admin: 09/06/16 05:07 Dose: 0.63 mg Levothyroxine Sodium (Synthroid) 25 mcg PO DAILY [facility] Last Admin: 09/06/16 10:08 Dose: 25 mcg Methylprednisolone (Solu-Medrol) 30 mg IVP Q12 [facility] Last Admin: 09/06/16 21:26 Dose: 30 mg Morphine Sulfate (Morphine) 4 mg IVP Q4H PRN PRN Reason: Pain, severe (8-10) Last Admin: 08/27/16 20:34 Dose: 4 mg Nystatin (Mycostatin Cream) 0 ea TOP TID [facility] Last Admin: 09/06/16 21:00 Dose: 1 appl Nystatin (Nystatin Oral Susp) 5 ml PO QID [facility] Last Admin: 09/06/16 21:25 Dose: 5 ml Ondansetron HCl (Zofran Inj) 4 mg IVP Q6H PRN PRN Reason: Nausea/Vomiting Last Admin: 09/03/16 17:08 Dose: 4 mg Oxycodone/Acetaminophen (Percocet 10/325 Mg Tab) 1 tab PO Q6H PRN PRN Reason: Pain, severe (8-10) Last Admin: 09/06/16 18:21 Dose: 1 tab Pantoprazole Sodium (Protonix Ec Tab) 40 mg PO ACB [facility] Last Admin: 09/06/16 08:15 Dose: 40 mg Potassium Chloride (K-Dur 20 Meq Er Tab) 20 meq PO BID [facility] Last Admin: 09/06/16 17:11 Dose: 20 meq Sertraline HCl (Zoloft) 100 mg PO DAILY [facility] Last Admin: 09/06/16 10:08 Dose: 100 mg Sucralfate (Carafate Tab) 1 gm PO DAILY PRN PRN Reason: Dyspepsia Last Admin: 09/04/16 08:15 Dose: 1 gm - Labs Labs: 09/06/16 05:30 09/06/16 05:30 PT 14.9 Seconds (9.9-11.8) H 09/06/16 05:30 INR 1.38 (0.93-1.08) H 09/06/16 05:30 APTT 32.4 Seconds (23.7-30.8) H 09/06/16 05:30 - Constitutional Appears: Non-toxic, Confused - Head Exam Head Exam: ATRAUMATIC, NORMAL INSPECTION, NORMOCEPHALIC - Eye Exam Eye Exam: Normal appearance Pupil Exam: NORMAL ACCOMODATION - ENT Exam ENT Exam: Mucous Membranes Moist - Neck Exam Neck Exam: Normal Inspection - Respiratory Exam Respiratory Exam: Clear to Ausculation Bilateral, Rales, NORMAL BREATHING PATTERN - Cardiovascular Exam Cardiovascular Exam: REGULAR RHYTHM, +S1, +S2 - GI/Abdominal Exam GI & Abdominal Exam: Soft, Normal Bowel Sounds - Extremities Exam Extremities Exam: Normal Inspection - Back Exam Back Exam: NORMAL INSPECTION - Neurological Exam Neurological Exam: Alert, CN II-XII Intact, Normal Gait, Oriented x3 - Psychiatric Exam Psychiatric exam: Normal Mood - Skin Skin Exam: Normal Color, Warm Assessment and Plan - Assessment and Plan (Free Text) Assessment: Assessment: 1. CHF: improved . On lasix 40 mg IV BID, continue agressive diuresis. electrolytes normal. . 2. Respiratory distress : improving. On bronchodilators - Xopenex. off antibiotics now . 3. Sepsis : uro sepsis. completed IV antibiotics. 4. Severe anemia : Hb declined to 7.5 gm/dl . transfuse 1 unit of PRBCs. 5. DVT- prophylaxis with heparin 5000 SQ BID. 6. Leukocytosis : improved. off antibiotics . Discussed with the staff nurse.
--- NOTE | 2016-09-06 23:52 | CP.PCM.PN ---
Subjective - Date & Time of Evaluation Date of Evaluation: 09/06/16 Time of Evaluation: 23:52 - Subjective Subjective: S:It was requested to me to obtain a consent for blood transfusion. Patient has no complaints now. Medical record was reviewed. O:VSS. Not in distress. LUNGS: Normal breathing pattern. NEURO:Speech normlal. Alert, oriented. A:Anemia. Informed consent. P:A consent was obtained after explaining to patient in detail about blood transfusion in presence of patient's primary nurse Georgina. Objective - Vital Signs/Intake and Output Vital Signs (last 24 hours): Temp Pulse Resp BP Pulse Ox 97.8 F 86 29 H 129/69 91 L 09/06/16 16:00 09/06/16 16:01 09/06/16 16:01 09/06/16 21:28 09/06/16 16:01 Intake and Output: 09/06/16 09/07/16 18:59 06:59 Intake Total 1090 180 Output Total 900 300 Balance 190 -120 - Medications Medications: Current Medications Acetaminophen (Tylenol 325mg Tab) 650 mg PO Q4H PRN PRN Reason: Fever >100.4 F Last Admin: 09/01/16 21:17 Dose: 650 mg Albuterol/Ipratropium (Duoneb 3 Mg/0.5 Mg (3 Ml) Ud) 3 ml IH Q4H PRN PRN Reason: Shortness of Breath Last Admin: 09/01/16 06:30 Dose: 3 ml Alprazolam (Xanax) 0.5 mg PO TID PRN; Protocol PRN Reason: Anxiety Last Admin: 09/05/16 09:14 Dose: 0.5 mg Aspirin (Ecotrin) 81 mg PO DAILY [facility] Last Admin: 09/06/16 10:08 Dose: 81 mg Atorvastatin Calcium (Lipitor) 20 mg PO DIN [facility] Last Admin: 09/05/16 17:01 Dose: 20 mg Benzocaine/Menthol (Cepacol Sore Throat) 1 jose miguel MT Q2H PRN PRN Reason: Sore Throat Last Admin: 09/05/16 21:53 Dose: 1 jose miguel Fluticasone Propionate (Flonase) 1 actuation NS DAILY [facility] Last Admin: 09/06/16 10:40 Dose: 1 spr Furosemide (Lasix) 40 mg IVP Q12 [facility] Last Admin: 09/06/16 21:28 Dose: 40 mg Gabapentin (Neurontin) 800 mg PO TID [facility] PRN Reason: Protocol Last Admin: 09/06/16 17:11 Dose: 800 mg Heparin Sodium (Porcine) (Heparin) 5,000 units SC Q12 [facility] PRN Reason: Protocol Last Admin: 09/06/16 21:24 Dose: 5,000 units Doxycycline Hyclate 100 mg/ (Sodium Chloride) 100 mls @ 100 mls/hr IVPB Q12 [facility] PRN Reason: Protocol Last Admin: 09/06/16 21:47 Dose: 100 mls/hr Levalbuterol HCl (Xopenex) 0.63 mg IH [id number] [facility] Last Admin: 09/06/16 20:58 Dose: 0.63 mg Levalbuterol HCl (Xopenex) 0.63 mg IH Q2H PRN PRN Reason: Shortness of Breath Last Admin: 09/06/16 05:07 Dose: 0.63 mg Levothyroxine Sodium (Synthroid) 25 mcg PO DAILY [facility] Last Admin: 09/06/16 10:08 Dose: 25 mcg Methylprednisolone (Solu-Medrol) 30 mg IVP Q12 [facility] Last Admin: 09/06/16 21:26 Dose: 30 mg Morphine Sulfate (Morphine) 4 mg IVP Q4H PRN PRN Reason: Pain, severe (8-10) Last Admin: 08/27/16 20:34 Dose: 4 mg Nystatin (Mycostatin Cream) 0 ea TOP TID [facility] Last Admin: 09/06/16 21:00 Dose: 1 appl Nystatin (Nystatin Oral Susp) 5 ml PO QID [facility] Last Admin: 09/06/16 21:25 Dose: 5 ml Ondansetron HCl (Zofran Inj) 4 mg IVP Q6H PRN PRN Reason: Nausea/Vomiting Last Admin: 09/03/16 17:08 Dose: 4 mg Oxycodone/Acetaminophen (Percocet 10/325 Mg Tab) 1 tab PO Q6H PRN PRN Reason: Pain, severe (8-10) Last Admin: 09/06/16 18:21 Dose: 1 tab Pantoprazole Sodium (Protonix Ec Tab) 40 mg PO ACB [facility] Last Admin: 09/06/16 08:15 Dose: 40 mg Potassium Chloride (K-Dur 20 Meq Er Tab) 20 meq PO BID [facility] Last Admin: 09/06/16 17:11 Dose: 20 meq Sertraline HCl (Zoloft) 100 mg PO DAILY [facility] Last Admin: 09/06/16 10:08 Dose: 100 mg Sucralfate (Carafate Tab) 1 gm PO DAILY PRN PRN Reason: Dyspepsia Last Admin: 09/04/16 08:15 Dose: 1 gm - Labs Labs: 09/06/16 05:30 09/06/16 05:30 PT 14.9 Seconds (9.9-11.8) H 09/06/16 05:30 INR 1.38 (0.93-1.08) H 09/06/16 05:30 APTT 32.4 Seconds (23.7-30.8) H 09/06/16 05:30
[2016-09-07] MEDS: Levalbuterol 0.63 MG/3 ML Inhal Soln UD IH SCH ×4 (01:42→21:26)
[2016-09-07] MEDS: Levalbuterol 0.63 MG/3 ML Inhal Soln UD IH PRN (05:27)
--- NOTE | 2016-09-07 07:01 | PN ---
DATE: 09/07/2016 SUBJECTIVE: The patient has no complaints of any chest pain, no shortness of breath, no headaches. PHYSICAL EXAMINATION: VITAL SIGNS: Temperature is 97.7, pulse is 72, blood pressure 141/77, respiration is 22. GENERAL: The patient comfortable, in no acute distress. HEENT: Anicteric sclerae. Moist mucosa. NECK: No JVD or adenopathy. CARDIAC: S1/S2. No murmurs. No rubs. Regular. RESPIRATORY: Clear to auscultation bilaterally. No wheezes, rales, or rhonchi. Good air entry. ABDOMEN: Bowel sounds are positive, soft, nontender, and nondistended. EXTREMITIES: No edema. Has 1+ pulses. LABS: White count 11, hemoglobin 7.5, creatinine 0.4. ASSESSMENT: 1. Acute anemia, status post transfusion. 2. Status post removal of chest tube. 3. Left pneumothorax. 4. Hypoxia 5. Urinary tract infection secondary to Klebsiella. 6. Sepsis. 7. Hypertension. 8. Rheumatoid arthritis. 9. Diabetes, type 2. 10. Osteoarthritis with chronic pain. 11. Chronic obstructive pulmonary disease. 12. Hypothyroidism. PLAN: The patient is currently comfortable. She is going to have repeat blood work today. She is o n Carafate. She is going to continue with aspirin. She is on doxycycline for antibiotics. She is o n Lasix daily. She is on heparin for DVT prophylaxis. The patient is on Lipitor for dyslipidemia. She is on morphine for pain. She is on steroids. She is going to continue with Zoloft. I will get Dr. Juárez to follow for her respiratory status. Jason Toro MD cc: [id number] TT: 09/07/2016 07:00:36 Confirmation # [id number] Dictation # [id number] michael
[2016-09-07 07:02] LABS: MEAN CELL VOLUME 85.7 fL (80.0-105.0); MEAN CORPUSCULAR HEMOGLOBIN 26.6 pg (25.0-35.0); MEAN PLATELET VOLUME 9.2 fl (7.0-11.0); PLATELET COUNT 486 10^3/uL (120.0-450.0); RED CELL DISTRIBUTION WIDTH 16.2 % (11.5-14.5); WHITE BLOOD COUNT 13.2 10^3/ul (4.5-11.0)
[2016-09-07 07:08] LABS: ADD MANUAL DIFF? YES
[2016-09-07 07:16] LABS: INR 1.34 (0.93-1.08); PARTIAL THROMBOPLASTIN TIME 28.3 Seconds (23.7-30.8)
[2016-09-07 07:21] LABS: ALB/GLOB RATIO 0.7 (1.1-1.8); ALKALINE PHOSPHATASE 153 U/L (38-133); ALT/SGPT 107 U/L (7-56); AST/SGOT 145 U/L (15-39); BILIRUBIN,TOTAL 0.5 mg/dL (0.2-1.3); BLOOD UREA NITROGEN 19 mg/dL (7-21); CALCIUM 7.9 mg/dL (8.4-10.5); CARBON DIOXIDE 39 mmol/L (21-33); CHLORIDE 95 mmol/L (95-110); GFR AFRICAN-AMERICAN > 60; GLUCOSE,RANDOM 118 mg/dL (70-110); MAGNESIUM 1.7 mg/dL (1.7-2.2); SODIUM 140 mmol/L (132-148); TOTAL PROTEIN 6.5 g/dL (5.8-8.3)
[2016-09-07] MEDS: Albuterol-Ipratrop 3 mg / 0.5 (3 ml) UD IH PRN ×2 (07:46→18:12)
--- NOTE | 2016-09-07 08:11 | CP.PCM.PN ---
Subjective - Date & Time of Evaluation Date of Evaluation: 09/07/16 Time of Evaluation: 08:00 - Subjective Subjective: She is SOB this AM on 2R, s/P 1 unit RBC's yesterday V/S noted. RSR. Int. V. pacing. PE: lungs: decreased BS at bases with scattered rhonchi Cor.: S1S2, FRANCISCO J Abd.: soft Neuro.: alert ECG 09/04: RSR, RBBB, LAHB, SSTTW changes CXR and CT chest 09/02: noted. Bilateral infiltrates. CXR 09/03 noted: bilat. infiltrates unchanged. 09/05 CXR: arpita. infiltrates, sl. improvement CXR 09/06: pending Labs noted: H/H = 9.3/30, INR- 1.34, K+= 4.0 BC x2 NG at 5 days. Urine C+S + Klebs Objective - Vital Signs/Intake and Output Vital Signs (last 24 hours): Temp Pulse Resp BP Pulse Ox 97.6 F 82 18 140/78 95 09/07/16 06:00 09/07/16 06:00 09/07/16 06:00 09/07/16 07:19 09/07/16 06:00 Intake and Output: 09/07/16 09/07/16 06:59 18:59 Intake Total 710 Output Total 1125 Balance -415 - Medications Medications: Current Medications Acetaminophen (Tylenol 325mg Tab) 650 mg PO Q4H PRN PRN Reason: Fever >100.4 F Last Admin: 09/01/16 21:17 Dose: 650 mg Albuterol/Ipratropium (Duoneb 3 Mg/0.5 Mg (3 Ml) Ud) 3 ml IH Q4H PRN PRN Reason: Shortness of Breath Last Admin: 09/07/16 07:46 Dose: 3 ml Alprazolam (Xanax) 0.5 mg PO TID PRN; Protocol PRN Reason: Anxiety Last Admin: 09/07/16 04:40 Dose: 0.5 mg Aspirin (Ecotrin) 81 mg PO DAILY [facility] Last Admin: 09/06/16 10:08 Dose: 81 mg Atorvastatin Calcium (Lipitor) 20 mg PO DIN [facility] Last Admin: 09/05/16 17:01 Dose: 20 mg Benzocaine/Menthol (Cepacol Sore Throat) 1 jose miguel MT Q2H PRN PRN Reason: Sore Throat Last Admin: 09/05/16 21:53 Dose: 1 jose miguel Fluticasone Propionate (Flonase) 1 actuation NS DAILY [facility] Last Admin: 09/06/16 10:40 Dose: 1 spr Furosemide (Lasix) 40 mg IVP Q12 [facility] Last Admin: 09/07/16 07:19 Dose: 40 mg Gabapentin (Neurontin) 800 mg PO TID [facility] PRN Reason: Protocol Last Admin: 09/06/16 17:11 Dose: 800 mg Heparin Sodium (Porcine) (Heparin) 5,000 units SC Q12 [facility] PRN Reason: Protocol Last Admin: 09/06/16 21:24 Dose: 5,000 units Doxycycline Hyclate 100 mg/ (Sodium Chloride) 100 mls @ 100 mls/hr IVPB Q12 [facility] PRN Reason: Protocol Last Admin: 09/06/16 21:47 Dose: 100 mls/hr Levalbuterol HCl (Xopenex) 0.63 mg IH [id number] [facility] Last Admin: 09/07/16 07:46 Dose: 0.63 mg Levalbuterol HCl (Xopenex) 0.63 mg IH Q2H PRN PRN Reason: Shortness of Breath Last Admin: 09/07/16 05:27 Dose: 0.63 mg Levothyroxine Sodium (Synthroid) 25 mcg PO DAILY [facility] Last Admin: 09/06/16 10:08 Dose: 25 mcg Methylprednisolone (Solu-Medrol) 30 mg IVP Q12 [facility] Last Admin: 09/06/16 21:26 Dose: 30 mg Morphine Sulfate (Morphine) 4 mg IVP Q4H PRN PRN Reason: Pain, severe (8-10) Last Admin: 08/27/16 20:34 Dose: 4 mg Nystatin (Mycostatin Cream) 0 ea TOP TID [facility] Last Admin: 09/06/16 21:00 Dose: 1 appl Nystatin (Nystatin Oral Susp) 5 ml PO QID [facility] Last Admin: 09/06/16 21:25 Dose: 5 ml Ondansetron HCl (Zofran Inj) 4 mg IVP Q6H PRN PRN Reason: Nausea/Vomiting Last Admin: 09/03/16 17:08 Dose: 4 mg Oxycodone/Acetaminophen (Percocet 10/325 Mg Tab) 1 tab PO Q6H PRN PRN Reason: Pain, severe (8-10) Last Admin: 09/06/16 18:21 Dose: 1 tab Pantoprazole Sodium (Protonix Ec Tab) 40 mg PO ACB LUCY Last Admin: 09/06/16 08:15 Dose: 40 mg Potassium Chloride (K-Dur 20 Meq Er Tab) 20 meq PO BID LUC[facility] Last Admin: 09/06/16 17:11 Dose: 20 meq Sertraline HCl (Zoloft) 100 mg PO DAILY [facility] Last Admin: 09/06/16 10:08 Dose: 100 mg Sucralfate (Carafate Tab) 1 gm PO DAILY PRN PRN Reason: Dyspepsia Last Admin: 09/04/16 08:15 Dose: 1 gm - Labs Labs: 09/07/16 05:00 09/07/16 05:00 PT 14.5 Seconds (9.9-11.8) H 09/07/16 05:00 INR 1.34 (0.93-1.08) H 09/07/16 05:00 APTT 28.3 Seconds (23.7-30.8) 09/07/16 05:00 Assessment and Plan - Assessment and Plan (Free Text) Plan: Assessment: Dyspnea Dizzy and weak/CHB/Pacemaker lead dislodgement Pacemaker lead revision 08/27/16 complicated by hemopneumothorax, s/p CT drainage PPM for symptomatic CHB 06/02 Bilateral infiltrates, respiratory insufficiency, s/p CT drainage left lung , mild RA Asthma HLD PAD Bilat.AKAs Hypothyroidism Hypotonic Bladder/Stress Incontinence Arpita. THR Cataracts UTI Plan: IV Lasix now. Port CXR. AB as per ID Consider Pulm. Consultation OOB to chair as sadia. Monitor: labs, I/O, cultures, sats., H/H, CXRs, etc.
[2016-09-07] MEDS: Pantoprazole 40 mg EC Tab PO SCH (08:22)
[2016-09-07] MEDS: Nystatin 100,000 Units/ml Oral Susp 5 ml UD PO SCH ×4 (10:00→22:05)
[2016-09-07] MEDS: Potassium Chloride 20 mEq ER Tab PO SCH ×2 (10:01→17:39)
[2016-09-07] MEDS: MethylPREDNISolone 40 mg Vial IVP SCH ×2 (10:01→21:47)
[2016-09-07] MEDS: Fluticasone Nasal 50 mcg/Spray NS SCH (10:07)
[2016-09-07] MEDS: Nystatin 100,000 Units/gm Cream(15 gm) TOP SCH ×3 (10:07→17:39)
[2016-09-07 10:37] LABS: NEUTROPHIL 91 % (50.0-70.0)
[2016-09-07 10:38] LABS: PLATELET ESTIMATE NORMAL (NORMAL)
[2016-09-07 10:39] LABS: ANISOCYTOSIS 1+; HYPOCHROMIA 1+; POLYCHROMASIA SLIGHT
--- NOTE | 2016-09-07 10:48 | RAD ---
HISTORY: sob COMPARISON: 09/06/2016 FINDINGS: LUNGS: Bilateral perihilar infiltrates most consistent with CHF. Findings are unchanged PLEURA: No significant pleural effusion identified, no pneumothorax apparent. CARDIOVASCULAR: Moderate cardiomegaly. Single lead pacemaker OSSEOUS STRUCTURES: No significant abnormalities. VISUALIZED UPPER ABDOMEN: Normal. OTHER FINDINGS: None. IMPRESSION: Bilateral perihilar infiltrates most consistent with CHF. Findings are unchanged
[2016-09-07] MEDS: Oxycodone/Acetaminophen 10/325 mg Tab PO PRN ×2 (11:16→18:10)
[2016-09-07] MEDS: Meropenem 1g/NS 100mL IVPB 100 ML IVPB SCH ×2 (11:25→21:46)
--- NOTE | 2016-09-07 14:40 | PN ---
DATE: 09/07/2016 The patient seen and examined at bedside. She is comfortable. She talks full sentences. She is not in respiratory or otherwise distress. PHYSICAL EXAMINATION: VITAL SIGNS: Temperature 97.5, heart rate 94, blood pressure 126/76, oxygen saturation 92% on 75% FiO2. HEAD AND NECK: Atraumatic. LUNGS: Few crackles bilaterally. HEART: Regular rate and rhythm. S1, S2 distant. ABDOMEN: Soft, nontender, nondistended. MUSCULOSKELETAL: No C/C/E. Upper extremity/hands consistent with diagnosis of rheumatoid arthritis, which is chronic and the patient is status post BKA. SKIN: Moist. PSYCHIATRIC: The patient is alert and oriented x 3, not in respiratory or otherwise distress. LABORATORIES: WBC 13.2, hemoglobin 9.3 (after 1 unit of blood transfusion), platelet count 486. Sodium 140, potassium 4, chloride 95, BUN 19, creatinine 0.3, glucose 118, AST 145, ALT 107. ProBNP 9220, up from 4080. MEDICATIONS: Xopenex every 6, sucralfate p.r.n., doxycycline, aspirin, heparin subQ, fluticasone nasal, DuoNeb p.r.n., Lasix 40 mg IV q. 12, Lipitor, meropenem , morphine p.r.n., Neurontin, Percocet, Protonix, Solu-Medrol 30 mg IV q. 12, Synthroid, Xanax p.r.n., Zoloft, Zofran p.r.n. Chest x-ray: Bilateral vascular congestion. 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 At present time, patient is hemodynamically stable. She is respiratory hines very comfortable, even though requiring higher FiO2 today. She is status post 1 packed red blood cell transfusion by primary team. Her chest x-ray looks somewhat worse. Pulmonary ( Dr. Juárez) is following patient as well. At the present time, I would continue with conservative fluid management with aggressive diuresis. Her renal function is stable. I would aim at -1 liter of fluid for today. I would continue with steroids under coverage of empiric antibiotics and ID service followup. I would strongly encourage conservative packed red blood cell transfusion approach to avoid fluid overload or transfusion related acute lung injury, which may worsen hypoxemic respiratory failure. I would maintain hemoglobin between 7 and 9 and choose 7 as a hemoglobin level threshold for packed red blood cell transfusion. At present time, monitored setting of telemetry appears to be appropriate as patient is very comfortable. Out of bed to chair, chest physiotherapy, physical therapy as tolerated, diuresis. Duration of antibiotic therapy will be deferred to ID service. If patient deteriorates hemodynamically or respiratory-hines, please call for ICU reevaluation. Tex Constantino MD cc: [id number] TT: 09/07/2016 14:40:19 Confirmation # [id number] Dictation # [id number] en MTDD
--- NOTE | 2016-09-07 19:00 | CP.PCM.PN ---
Subjective - Date & Time of Evaluation Date of Evaluation: 09/07/16 Time of Evaluation: 14:30 - Subjective Subjective: Comfortable in bed, not in distress, afebrile, breathing a little better today. Objective - Vital Signs/Intake and Output Vital Signs (last 24 hours): Temp Pulse Resp BP Pulse Ox 97.5 F L 86 20 126/76 95 09/07/16 12:00 09/07/16 18:00 09/07/16 12:00 09/07/16 12:00 09/07/16 06:00 Intake and Output: 09/07/16 09/07/16 06:59 18:59 Intake Total 710 Output Total 1125 Balance -415 - Medications Medications: Current Medications Acetaminophen (Tylenol 325mg Tab) 650 mg PO Q4H PRN PRN Reason: Fever >100.4 F Last Admin: 09/01/16 21:17 Dose: 650 mg Albuterol/Ipratropium (Duoneb 3 Mg/0.5 Mg (3 Ml) Ud) 3 ml IH Q4H PRN PRN Reason: Shortness of Breath Last Admin: 09/07/16 18:12 Dose: 3 ml Alprazolam (Xanax) 0.5 mg PO TID PRN; Protocol PRN Reason: Anxiety Last Admin: 09/07/16 04:40 Dose: 0.5 mg Aspirin (Ecotrin) 81 mg PO DAILY [facility] Last Admin: 09/07/16 10:01 Dose: 81 mg Atorvastatin Calcium (Lipitor) 20 mg PO DIN [facility] Last Admin: 09/05/16 17:01 Dose: 20 mg Benzocaine/Menthol (Cepacol Sore Throat) 1 jose miguel MT Q2H PRN PRN Reason: Sore Throat Last Admin: 09/05/16 21:53 Dose: 1 jose miguel Doxycycline Hyclate (Doryx) 100 mg PO Q12 [facility] PRN Reason: Protocol Last Admin: 09/07/16 11:22 Dose: Not Given Fluticasone Propionate (Flonase) 1 actuation NS DAILY [facility] Last Admin: 09/07/16 10:07 Dose: 1 spr Furosemide (Lasix) 40 mg IVP Q12 [facility] Last Admin: 09/07/16 10:03 Dose: Not Given Gabapentin (Neurontin) 800 mg PO TID [facility] PRN Reason: Protocol Last Admin: 09/07/16 17:46 Dose: 800 mg Heparin Sodium (Porcine) (Heparin) 5,000 units SC Q12 [facility] PRN Reason: Protocol Last Admin: 09/07/16 10:01 Dose: 5,000 units Meropenem 1g/NS 100mL IVPB (Meropenem 1g/Ns 100ml Ivpb) 100 mls @ 100 mls/hr IVPB Q8 [facility] PRN Reason: Protocol Stop: 09/14/16 10:11 Last Admin: 09/07/16 11:25 Dose: 100 mls/hr Levalbuterol HCl (Xopenex) 0.63 mg IH [id number] [facility] Last Admin: 09/07/16 15:38 Dose: 0.63 mg Levalbuterol HCl (Xopenex) 0.63 mg IH Q2H PRN PRN Reason: Shortness of Breath Last Admin: 09/07/16 05:27 Dose: 0.63 mg Levothyroxine Sodium (Synthroid) 25 mcg PO ACB [facility] Methylprednisolone (Solu-Medrol) 30 mg IVP Q12 [facility] Last Admin: 09/07/16 10:01 Dose: 30 mg Morphine Sulfate (Morphine) 4 mg IVP Q4H PRN PRN Reason: Pain, severe (8-10) Last Admin: 08/27/16 20:34 Dose: 4 mg Nystatin (Mycostatin Cream) 0 ea TOP TID [facility] Last Admin: 09/07/16 17:39 Dose: 1 appl Nystatin (Nystatin Oral Susp) 5 ml PO QID [facility] Last Admin: 09/07/16 17:46 Dose: 5 ml Ondansetron HCl (Zofran Inj) 4 mg IVP Q6H PRN PRN Reason: Nausea/Vomiting Last Admin: 09/03/16 17:08 Dose: 4 mg Oxycodone/Acetaminophen (Percocet 10/325 Mg Tab) 1 tab PO Q6H PRN PRN Reason: Pain, severe (8-10) Last Admin: 09/07/16 18:10 Dose: 1 tab Pantoprazole Sodium (Protonix Ec Tab) 40 mg PO ACB [facility] Last Admin: 09/07/16 08:22 Dose: 40 mg Potassium Chloride (K-Dur 20 Meq Er Tab) 20 meq PO BID [facility] Last Admin: 09/07/16 17:39 Dose: Not Given Sertraline HCl (Zoloft) 100 mg PO DAILY [facility] Last Admin: 09/07/16 10:06 Dose: 100 mg Sucralfate (Carafate Tab) 1 gm PO DAILY PRN PRN Reason: Dyspepsia Last Admin: 09/04/16 08:15 Dose: 1 gm - Labs Labs: 09/07/16 05:00 09/07/16 05:00 PT 14.5 Seconds (9.9-11.8) H 09/07/16 05:00 INR 1.34 (0.93-1.08) H 09/07/16 05:00 APTT 28.3 Seconds (23.7-30.8) 09/07/16 05:00 - Constitutional Appears: Non-toxic, No Acute Distress - Head Exam Head Exam: NORMAL INSPECTION - ENT Exam ENT Exam: Mucous Membranes Moist - Neck Exam Neck Exam: absent: Lymphadenopathy, Meningismus - Respiratory Exam Respiratory Exam: Decreased Breath Sounds, Rales (scattered) - Cardiovascular Exam Cardiovascular Exam: +S1, +S2 - GI/Abdominal Exam GI & Abdominal Exam: Soft. absent: Tenderness Assessment and Plan - Assessment and Plan (Free Text) Plan: Assessment Consider sepsis secondary to bilateral healthcare-associated pneumonia on top of probable pulmonary vascular congestion, in a patient with left pneumothorax S /P left chest tube placement and now removal of chest tube because of resolution of pneumothorax; patient also had ARDS; patient is clinically improving S/P urinary tract infection, probably lower tract, with P. mirabilis peripheral vascular disease S/P bilateral BKA S/P bilateral hip replacement HTN CAD sick sinus syndrome S/P pacemaker placement GERD history of diverticulitis history of urinary incontinence depression anxiety history of eye cataracts history of pneumonia Plan continue doxycycline and Meropenem day 6 - will consider discontinuing antibiotics after today; blood, sputum cx negative; PCT is only 0.13; follow up Mycoplasma and Legionella tests; I doubt this is fungal pneumonia or viral pneumonia and the Adenovirus and CMV tests are negative, beta glucan is negative , Aspergillus tests are negative as well; reviewed CT chest results Discussed with Dr. Constantino previously - continue on low dose systemic steroids and observe Will continue to follow clinically Overall prognosis is poor
[2016-09-07] MEDS ORDERED: Iohexol 350 MG/100 ML VIAL ONE (21:00)
--- NOTE | 2016-09-07 21:20 | CON ---
DATE: 09/07/2016 REFERRING PHYSICIAN: Dr. Jason Toro. REASON FOR CONSULT: Cough, shortness of breath, history of asthma. HISTORY OF PRESENT ILLNESS: This is a 81-year-old female who has a history of asthma, peripheral vas cular disease with bilateral BKA, also has a history of hip replacement, hypertension, sick sinus syn drome, coronary artery disease status post pacemaker placement, also had a pneumothorax, anxiety diso rder, also found to have bilateral pulmonary infiltrate. She was treated with diuretics as well as s teroids, slowly improved, transferred out of ICU to telemetry floor. At my examination time, she is supposed to be on high flow oxygen but on nasal cannula, anxious, complaining of difficulty with viola thing. She has some cough, but no sputum production, no hemoptysis, no hematemesis, no hematuria. PAST MEDICAL HISTORY: Chronic obstructive lung disease, peripheral vascular disease with bilateral B KA, also have a hip replacement, hypertension, coronary artery disease, cardiac arrhythmia requiring pacemaker, status post pneumothorax. SOCIAL HISTORY: Never smoked. Denies any alcohol use. ALLERGIES: ERYTHROMYCIN, GLUTENIN, LEVAQUIN. FAMILY HISTORY: No significant cardiopulmonary disease reported. MEDICATIONS: She is on Carafate 1 gram daily, Cepacol lozenges q. 2 hours p.r.n., doxycycline 100 mg twice a day, DuoNeb q. 4 hours, Ecotrin 81 mg daily, Flonase 1 spray each nostril daily, heparin 500 0 units subQ q. 12 hours, potassium 20 mEq twice a day, Lasix 40 mg twice a day, Lipitor 20 mg daily, meropenem 1 g IV q. 8 hours, morphine 4 mg IV q. 4 hours p.r.n., Neurontin 800 mg 3 times a day, Pe rcocet 5/325 one tab q. 6 hours p.r.n., Protonix 40 mg daily, Solu-Medrol 30 mg q. 12 hours, Synthroi d 25 mcg daily, Tylenol p.r.n., Xanax 0.5 mg 3 times a day p.r.n., Xopenex inhaled q. 2 hours p.r.n., Zofran p.r.n., Zoloft 100 mg daily. REVIEW OF SYSTEMS: No headache, no rhinitis. Had a dry cough, shortness of breath. No chest pain, no nausea, no vomiting, no diarrhea. No dysuria. Stumps are okay. PHYSICAL EXAMINATION: GENERAL: Mild to moderate distress secondary to shortness of breath. VITAL SIGNS: Temp is 98, heart rate 94, respiratory rate is 22-20, blood pressure 126/76, pulse ox i s 95% on nasal cannula. HEENT: Moist mucous membranes. Small oral cavity. NECK: Supple. No JVD. LUNGS: Has a prolonged expiratory phase with some wheezing. HEART: S1 and S2. ABDOMEN: Soft, nontender. No organomegaly. EXTREMITIES: Has a bilateral stumps, look okay. NEUROLOGIC: Awake, alert, follows simple commands. LABORATORY DATA: Shows hemoglobin 9.3, hematocrit 30.0, WBC 13.2, platelet is 486. INR 1.34, PTT is 28. Last blood gases on 09/04 shows pH of 7.44, pCO2 of 57, O2 was 40, seems like that venous gases. Sodium 140, potassium 4.0, chloride 95, bicarbonate 39, BUN 19, creatinine 0.3, glucose is 118, chris cium 7.9, AST 145, ALT 107, alkaline phosphatase is 153. ProBNP is 9220. Procalcitonin on 09/04 was 0.13. Urine culture has Klebsiella pneumoniae. Blood culture has been negative. Last chest x-ray w hich is done today shows bilateral perihilar infiltrate. IMPRESSION AND PLAN: Chronic obstructive lung disease, respiratory failure requiring high flow nasal cannula oxygen, has bilateral pulmonary infiltrate, cardiac arrhythmia requiring pacemaker, status p ost pneumothorax, anemia, status post blood transfusion. I reviewed old CAT scan also reviewed old e cho. Echo does not suggest any left ventricular or right ventricular dysfunction. Pulmonary pressur e unremarkable. I will suggest repeating CAT scan, which is CTA to make sure there is no thromboembo lic disease, increased fevers, increased bronchodilators. Agree with giving some diuretics. Continu e morphine p.r.n. basis. We will send sed rate and C-reactive protein. We will get follow up labs i n the morning and make further recommendations. Fara Juárez MD cc: [id number] TT: 09/07/2016 21:19:18 Confirmation # [id number] Dictation # [id number] jn
--- NOTE | 2016-09-07 22:07 | CT ---
EXAM: CT Angiography Chest With Intravenous Contrast CLINICAL HISTORY: 81 years old, female; Signs and symptoms; Shortness of breath; Additional info: Pe TECHNIQUE: Axial computed tomographic angiography images of the chest with intravenous contrast using pulmonary embolism protocol. This CT exam was performed using one or more of the following dose reduction techniques: automated exposure control, adjustment of the mA and/or kV according to patient size, and/or use of iterative reconstruction technique. MIP reconstructed images were created and reviewed. Coronal and sagittal reformatted images were created and reviewed. CONTRAST: 100 mL of OMNI administered intravenously. EXAM DATE/TIME: 09/07/2016 8:03 PM COMPARISON: Prior CT chest of 09/02/2016 FINDINGS: LIMITATIONS: Exam is limited by mild to moderate respiratory motion artifact. PULMONARY ARTERIES: Exam is overall suboptimal for the detection of pulmonary emboli due to respiratory motion. However, best seen on image 64 of series 2, there are filling defects in segmental branches of the right upper lobe pulmonary artery, highly suspicious for pulmonary emboli. The clot appears nonocclusive. No evidence of pulmonary embolism involving the large/central pulmonary arteries. AORTA: Exam is nondiagnostic for the detection of aortic dissection because of suboptimal enhancement of the aorta. LUNGS: Extensive bilateral pulmonary consolidation. Overall, this is similar in degree to the prior CT. It is bilateral and multifocal in nature, and is greatest in the lingula and left lower lobe, where there are large areas of dense consolidation seen. Patent large airways. PLEURAL SPACE: Bilateral pleural effusions, moderate to large in size, and enlarged in size compared to the prior CT. The left pleural effusion is partially loculated, anteriorly. No pneumothorax is seen. HEART: Heart again appears mildly enlarged. Coronary artery calcification. No evidence of significant pericardial effusion. BONES/JOINTS: Stable appearance of a previous vertebroplasty involving the L1 vertebra, which is associated with severe residual flattening of the vertebral body, causing vertebral retropulsion and associated spinal canal stenosis. No acute fractures or other acute bony abnormality visualized. LYMPH NODES: No evidence of diffuse lymphadenopathy. TUBES, LINES AND DEVICES: Implantable cardioverter defibrillator (AICD) in place. Right PICC line in place, which terminates in the superior vena cava. IMPRESSION: - Pulmonary emboli involving segmental branches of the right upper lobe pulmonary artery. The clot appears nonocclusive, a finding which can be seen in the setting of chronic, resolving clot. Recommend clinical correlation. - Moderate to large bilateral pleural effusions, enlarged in size compared to a CT chest done 5 days prior. - Extensive, bilateral pulmonary consolidation, grossly similar to the prior CT. This is suspicious for pulmonary edema versus diffuse pneumonia. Recommend clinical correlation. - See above for remaining findings.
[2016-09-07] MEDS: Heparin25000 units/250ml 1/2NS 250 ML IV PRN (23:17)
[2016-09-08] MEDS: Levalbuterol 0.63 MG/3 ML Inhal Soln UD IH SCH ×4 (01:30→20:23)
[2016-09-08] MEDS: Levothyroxine 25 MCG TAB PO SCH (08:30)
[2016-09-08] MEDS: Pantoprazole 40 mg EC Tab PO SCH (08:30)
--- NOTE | 2016-09-08 08:41 | CP.PCM.PN ---
Subjective - Date & Time of Evaluation Date of Evaluation: 09/08/16 Time of Evaluation: 08:00 - Subjective Subjective: Now on High Flow N/C and heprain drp for PE - see CTA report. No chest pain or SOB at rest.. She is upset about blood draws for PTTs. V/S noted. RSR. Int. V. pacing. PE: lungs: decreased BS at bases with scattered rhonchi Cor.: S1S2, FRANCISCO J Abd.: soft Neuro.: alert ECG 09/04: RSR, RBBB, LAHB, SSTTW changes CXR and CT chest 09/02: noted. Bilateral infiltrates. CXR 09/03 noted: bilat. infiltrates unchanged. 09/05 CXR: arpita. infiltrates, sl. improvement CTA 09/07 noted. CXR 09/06: no change Labs 09/07 noted: H/H = 9.3/30, INR- 1.34, K+= 4.0 BC x2 NG at 5 days. Urine C+S + Klebs Objective - Vital Signs/Intake and Output Vital Signs (last 24 hours): Temp Pulse Resp BP Pulse Ox 97.3 F L 64 22 110/68 95 09/07/16 18:00 09/08/16 02:00 09/08/16 01:33 09/07/16 21:47 09/07/16 06:00 Intake and Output: 09/08/16 09/08/16 06:59 18:59 Intake Total 600 Output Total 275 Balance 325 - Medications Medications: Current Medications Acetaminophen (Tylenol 325mg Tab) 650 mg PO Q4H PRN PRN Reason: Fever >100.4 F Last Admin: 09/01/16 21:17 Dose: 650 mg Albuterol/Ipratropium (Duoneb 3 Mg/0.5 Mg (3 Ml) Ud) 3 ml IH Q4H PRN PRN Reason: Shortness of Breath Last Admin: 09/07/16 18:12 Dose: 3 ml Alprazolam (Xanax) 0.5 mg PO TID PRN; Protocol PRN Reason: Anxiety Last Admin: 09/07/16 04:40 Dose: 0.5 mg Aspirin (Ecotrin) 81 mg PO DAILY LUCY Last Admin: 09/07/16 10:01 Dose: 81 mg Atorvastatin Calcium (Lipitor) 20 mg PO DIN [facility] Last Admin: 09/05/16 17:01 Dose: 20 mg Benzocaine/Menthol (Cepacol Sore Throat) 1 jose miguel MT Q2H PRN PRN Reason: Sore Throat Last Admin: 09/05/16 21:53 Dose: 1 jose miguel Doxycycline Hyclate (Doryx) 100 mg PO Q12 LUCY PRN Reason: Protocol Last Admin: 09/07/16 21:47 Dose: 100 mg Fluticasone Propionate (Flonase) 1 actuation NS DAILY [facility] Last Admin: 09/07/16 10:07 Dose: 1 spr Furosemide (Lasix) 40 mg IVP Q12 [facility] Last Admin: 09/07/16 21:47 Dose: 40 mg Gabapentin (Neurontin) 800 mg PO TID LUCY PRN Reason: Protocol Last Admin: 09/07/16 17:46 Dose: 800 mg Meropenem 1g/NS 100mL IVPB (Meropenem 1g/Ns 100ml Ivpb) 100 mls @ 100 mls/hr IVPB Q8 LUCY PRN Reason: Protocol Stop: 09/14/16 10:11 Last Admin: 09/07/16 21:46 Dose: 100 mls/hr Heparin Sodium/Sodium Chloride (Heparin 69600 Units/250ml 1/2 Normal Saline) 250 mls @ 11.071 mls/hr IV .[id number] PRN; Protocol; 18 UNITS/KG/HR PRN Reason: ADJUST RATE PER PROTOCOL Last Admin: 09/07/16 23:17 Dose: 18 units/kg/hr, 11.071 mls/hr Levalbuterol HCl (Xopenex) 0.63 mg IH [id number] [facility] Last Admin: 09/08/16 01:30 Dose: 0.63 mg Levalbuterol HCl (Xopenex) 0.63 mg IH Q2H PRN PRN Reason: Shortness of Breath Last Admin: 09/07/16 05:27 Dose: 0.63 mg Levothyroxine Sodium (Synthroid) 25 mcg PO ACB LUCY Methylprednisolone (Solu-Medrol) 40 mg IVP Q8 [facility] Last Admin: 09/07/16 21:47 Dose: 40 mg Morphine Sulfate (Morphine) 4 mg IVP Q4H PRN PRN Reason: Pain, severe (8-10) Last Admin: 08/27/16 20:34 Dose: 4 mg Nystatin (Mycostatin Cream) 0 ea TOP TID [facility] Last Admin: 09/07/16 17:39 Dose: 1 appl Nystatin (Nystatin Oral Susp) 5 ml PO QID [facility] Last Admin: 09/07/16 22:05 Dose: 5 ml Ondansetron HCl (Zofran Inj) 4 mg IVP Q6H PRN PRN Reason: Nausea/Vomiting Last Admin: 09/03/16 17:08 Dose: 4 mg Pantoprazole Sodium (Protonix Ec Tab) 40 mg PO ACB [facility] Last Admin: 09/07/16 08:22 Dose: 40 mg Potassium Chloride (K-Dur 20 Meq Er Tab) 20 meq PO BID [facility] Last Admin: 09/07/16 17:39 Dose: Not Given Sertraline HCl (Zoloft) 100 mg PO DAILY [facility] Last Admin: 09/07/16 10:06 Dose: 100 mg Sucralfate (Carafate Tab) 1 gm PO DAILY PRN PRN Reason: Dyspepsia Last Admin: 09/04/16 08:15 Dose: 1 gm - Labs Labs: 09/07/16 05:00 09/07/16 05:00 PT 14.5 Seconds (9.9-11.8) H 09/07/16 05:00 INR 1.34 (0.93-1.08) H 09/07/16 05:00 APTT 79.0 Seconds (23.7-30.8) H* 09/08/16 05:30 Assessment and Plan - Assessment and Plan (Free Text) Plan: Assessment: Dyspnea Dizzy and weak/CHB/Pacemaker lead dislodgement Pacemaker lead revision 08/27/16 complicated by hemopneumothorax, s/p CT drainage PPM for symptomatic CHB 06/02 Bilateral infiltrates, respiratory insufficiency, s/p CT drainage left lung Perpheral PE's on CTA, acute vs chronic resolving , mild RA Asthma HLD PAD Bilat.AKAs Hypothyroidism Hypotonic Bladder/Stress Incontinence Arpita. THR Cataracts UTI Plan: IV Lasix > neg balance daily AB as per ID Heparin drip and pulm. tx. as per Dr. Marquita RIVERA to chair as sadia. Monitor: labs, I/O, cultures, sats., H/H, CXRs, PTTs, etc.
[2016-09-08] MEDS: Nystatin 100,000 Units/gm Cream(15 gm) TOP SCH ×3 (09:42→18:56)
[2016-09-08] MEDS: Potassium Chloride 20 mEq ER Tab PO SCH ×2 (09:47→18:56)
[2016-09-08] MEDS: Fluticasone Nasal 50 mcg/Spray NS SCH (09:47)
[2016-09-08] MEDS: Nystatin 100,000 Units/ml Oral Susp 5 ml UD PO SCH ×4 (09:48→22:53)
[2016-09-08] MEDS: Morphine 4 mg/ml ISec IVP PRN ×2 (10:00→18:32)
[2016-09-08] MEDS: MethylPREDNISolone 40 mg Vial IVP SCH ×3 (15:00→22:53)
[2016-09-08] MEDS: Meropenem 1g/NS 100mL IVPB 100 ML IVPB SCH ×3 (15:30→22:53)
[2016-09-08] MEDS: Heparin25000 units/250ml 1/2NS 250 ML IV PRN (15:40)
[2016-09-08] MEDS ORDERED: metOLazone 5 MG TAB PO ONE (22:26)
--- NOTE | 2016-09-08 23:38 | PN ---
DATE: 09/08/2016 DATE: 09/08/2016 SUBJECTIVE: The patient has no complaints of any chest pain or shortness of breath, no headaches. S he says her breathing continues to be a problem. PHYSICAL EXAMINATION: VITAL SIGNS: Temperature is 98.3, pulse is 76, blood pressure is 102/60, respirations 20. GENERAL: The patient comfortable, in no acute distress. HEENT: Anicteric sclerae. Moist mucosa. NECK: No JVD or adenopathy. CARDIAC: S1/S2. No murmurs. No rubs. Regular. RESPIRATORY: Left-sided rales, poor air entry. ABDOMEN: Bowel sounds are positive, soft, nontender, and nondistended. EXTREMITIES: No edema. Has 1+ pulses. LABORATORY DATA: White count of 13.2, hemoglobin 9.3, [address] of the chest done shows that there are pulmonary emboli involving segmental branches of the right upper lobe appears nonocclusive. There are moderate to large bilateral pleural effusions, enla rged in size compared to a chest done 5 days ago. There is pulmonary consolidation. ASSESSMENT: 1. Pulmonary embolism of the right upper lobe pulmonary artery. 2. Bilateral pleural effusions. 3. Acute anemia, status post transfusion. 4. Acute congestive heart failure secondary to systolic dysfunction. 5. Status post left pneumothorax with chest tube removal. 6. Hypoxia, on high flow O2. 7. Urinary tract infection secondary to Klebsiella. 8. Sepsis. 9. Hypertension. 10. Rheumatoid arthritis. 11. Diabetes type 2. 12. Chronic obstructive pulmonary disease. 13. Hypothyroidism. 14. History of L1 vertebroplasty. 15. Spinal stenosis. 16. AICD. 17. Right arm PICC line. 18. Status post pacemaker lead revision secondary to trauma to her chest. PLAN: The patient is declining. The patient is on heparin for anticoagulation, is on Lasix. I will add a dose of metolazone to help with the patient's CHF. She is on steroids. She is going to [facility] with Zoloft. She is on Synthroid for hypothyroidism. She is on Protonix. She has been evaluate d for LTAC. Overall prognosis is guarded. The patient is deciding whether she would want to go to a n LTAC. She remains to be full code. Jason Toro MD cc: [id number] TT: 09/08/2016 23:37:26 Confirmation # [id number] Dictation # [id number] michael 09/09/2016 08:43:25
[2016-09-09 00:47] VITALS: O2SAT 97
--- NOTE | 2016-09-09 00:55 | PN ---
DATE: 09/08/2016 REFERRING PHYSICIAN: Dr. Jason Toro. SUBJECTIVE: The patient is lying in the bed, on high-flow nasal cannula oxygen, been on heparin sinc e last night. She feels much better, decreased cough, decreased shortness of breath. No nausea, vom iting, diarrhea. No leg pain or leg swelling. OBJECTIVE: GENERAL: No acute distress. VITAL SIGNS: Temperature is 98, heart rate 76, respiratory rate is 20, blood pressure 102/60, pulse ox 94%. HEENT: Moist mucous membranes. . NECK: Supple. No JVD. LUNGS: Had basilar crackles, prolonged expiratory phase. HEART: S1 and S2. ABDOMEN: Soft, nontender. No organomegaly. EXTREMITIES: No edema. NEUROLOGIC: History of BKA. MEDICATIONS: She is on Carafate 1 gram daily, Cepacol lozenges, doxycycline 100 mg twice a day, DuoN eb q. 4 hours p.r.n., Ecotrin 81 mg daily, Flonase 1 spray each nostril daily, started on IV heparin protocol, potassium 20 mEq twice a day, Lasix 40 mg twice a day, Lipitor 20 mg daily, meropenem 1 g I V q. 8 hours, warfarin 4 mg IV q. 4 hours, to affected area, Neurontin 800 mg 3 times a day, Protonix 40 mg daily, Solu-Medrol 40 mg q. 8 hours, Synthroid 25 mg ACB, Tylenol p.r.n., Xanax 0.5 mg 3 times a day p.r.n., Xopenex 0.63 q. 6 hours, Zaroxolyn 5 mg 1 dose and given Zofran on a p.r.n. b asis, Zoloft 100 mg daily. LABORATORY DATA: Reviewed. PTT this morning 86. Sodium 140, potassium 4.0, BUN was 19, creatinine 0.30, BNP was 14,000. Urine culture, Klebsiella pneumoniae. CT of the chest suggestive of bilateral infiltrate and also had a right pulmonary embolism. IMPRESSION AND PLAN: Chronic obstructive lung disease, respiratory failure requiring high flow nasal cannula oxygen, bilateral pulmonary infiltrates, pulmonary embolism, cardiac arrhythmia requiring pa cemaker in the past, history of pneumothorax, anemia, status post blood transfusion, kidney cavitatio n much improved. Keep head elevated at 45 degree. Continue high flow nasal cannula oxygen. Continu e IV and inhaled bronchodilator and antibiotics. Continue diuretics, gastric prophylaxis. Follow up labs for the morning 06/15 shows an H stable with. May start Coumadin. Fara Juárez MD cc: [id number] TT: 09/09/2016 00:55:18 Confirmation # [id number] Dictation # [id number] mn
[2016-09-09] MEDS: Levalbuterol 0.63 MG/3 ML Inhal Soln UD IH SCH ×3 (02:07→14:00)
[2016-09-09] MEDS: Morphine 4 mg/ml ISec IVP PRN ×2 (05:00→15:46)
[2016-09-09] MEDS: MethylPREDNISolone 40 mg Vial IVP SCH ×2 (05:01→13:17)
[2016-09-09] MEDS: Meropenem 1g/NS 100mL IVPB 100 ML IVPB SCH ×2 (05:01→13:18)
[2016-09-09 06:07] VITALS: TEMP 97.4
[2016-09-09] MEDS: Levothyroxine 25 MCG TAB PO SCH (08:10)
[2016-09-09] MEDS: Pantoprazole 40 mg EC Tab PO SCH (08:10)
[2016-09-09 08:36] LABS: ADD MANUAL DIFF? NO
[2016-09-09 08:40] LABS: BASO # 0.01 K/mm3 (0.0-2.0); BASO % 0.1 % (0.0-3.0); GRAN # 11.58 (1.4-6.5); GRAN % 91.8 % (50.0-68.0); HEMATOCRIT 35.1 % (36.0-48.0); LYMPH # 0.7 (1.2-3.4); LYMPH % 5.2 % (22.0-35.0); MEAN CELL VOLUME 84.6 fL (80.0-105.0); MEAN CORPUSCULAR HEMOGLOBIN 26.5 pg (25.0-35.0); MEAN CORPUSCULAR HGB CONC 31.3 g/dl (31.0-37.0); MEAN PLATELET VOLUME 9.2 fl (7.0-11.0); MONO # 0.4 (0.1-0.6); MONO % 2.9 % (1.0-6.0); PLATELET COUNT 538 10^3/uL (120.0-450.0); RED CELL DISTRIBUTION WIDTH 16.7 % (11.5-14.5); WHITE BLOOD COUNT 12.6 10^3/ul (4.5-11.0)
[2016-09-09 08:53] LABS: ALB/GLOB RATIO 0.7 (1.1-1.8); ALKALINE PHOSPHATASE 186 U/L (38-133); ALT/SGPT 93 U/L (7-56); AST/SGOT 70 U/L (15-39); BILIRUBIN,TOTAL 0.5 mg/dL (0.2-1.3); BLOOD UREA NITROGEN 26 mg/dL (7-21); CALCIUM 8.6 mg/dL (8.4-10.5); CHLORIDE 86 mmol/L (95-110); GFR AFRICAN-AMERICAN > 60; GLUCOSE,RANDOM 123 mg/dL (70-110); MAGNESIUM 1.8 mg/dL (1.7-2.2); POTASSIUM 3.4 mmol/L (3.6-5.0); SODIUM 137 mmol/L (132-148); TOTAL PROTEIN 6.7 g/dL (5.8-8.3)
[2016-09-09 09:26] LABS: CARBON DIOXIDE 40 mmol/L (21-33)
[2016-09-09] MEDS: Potassium Chloride 20 mEq ER Tab PO SCH ×2 (09:50→17:15)
[2016-09-09] MEDS: Nystatin 100,000 Units/gm Cream(15 gm) TOP SCH ×3 (09:51→17:15)
[2016-09-09] MEDS: Nystatin 100,000 Units/ml Oral Susp 5 ml UD PO SCH ×3 (09:53→17:16)
[2016-09-09 09:57] VITALS: BP 132/58
[2016-09-09] MEDS: Fluticasone Nasal 50 mcg/Spray NS SCH (09:58)
[2016-09-09] MEDS ORDERED: metOLazone 5 MG TAB PO ONE (10:00)
--- NOTE | 2016-09-09 11:34 | PN ---
DATE: 09/09/2016 The patient is seen sitting in bed on telemetry. She feels somewhat weak and tired. She denies any dyspnea at rest. With minimal exertion, her dyspnea does worsen. A CT of the chest again had revealed evidence of multiple right upper lobe pulmonary emboli as well as bilateral effusions. CURRENT MEDICATIONS: Include Carafate, doxycycline, DuoNeb inhaler, Ecotrin, Flonase, intravenous heparin, Lasix 40 mg IV b.i.d., potassium supplement, Lipitor 20 mg daily, meropenem, Neurontin, Protonix, Solu-Medrol 40 mg q. 8 hours, Synthroid 25 mcg daily, Xanax, Xopenex, and Zoloft. OBJECTIVE: GENERAL: She is an elderly woman, appears comfortable at rest. VITAL SIGNS: Her blood pressure is 132/60 with a pulse of 74, respirations are 16. She is afebrile. HEENT: No JVD. CHEST: Bilateral scattered rhonchi and diminished breath sounds at the left base. HEART: PMI is displaced laterally. Heart tones are distant. ABDOMEN: Soft, obese, nontender. Normoactive bowel sounds. EXTREMITIES: No edema. DIAGNOSTIC DATA: Potassium is 3.4, BUN and creatinine are 26 and 0.5. White count 12.6, hemoglobin and hematocrit 39.2 and 35.1 with a platelet count of 138 ,000. PTT is 62. AST and ALT are 70 and 93 with an alkaline phosphatase of 186. IMPRESSION: 1. Status post recent pacemaker lead dislodgement requiring revision, complicated by hydropneumothorax. 2. Apparent right upper lobe pulmonary embolism. 3. Bilateral pleural effusions. 4. Acute on chronic congestive heart failure, persistent. 5. History of hypertension and diabetes. 6. The rest of problems as noted. RECOMMENDATIONS: Her current medications should be continued. Negative fluid balance should be maintained. Eventual oral anticoagulant therapy will be initiated. Monitoring of her hemoglobin on anticoagulant therapy is appropriate. Stool guiacs will be checked as well. Her overall prognosis remains extremely guarded. We will continue to follow along and make further recommendations as appropriate. Riley Shea MD cc: [id number] TT: 09/09/2016 11:33:58 Confirmation # [id number] Dictation # [id number]
[2016-09-09 13:44] VITALS: PULSE 78
[2016-09-09 13:51] VITALS: RESP 96
--- NOTE | 2016-09-09 15:44 | PN ---
DATE: 09/09/2016 REFERRING PHYSICIAN: Dr. Jason Toro SUBJECTIVE: She is lying in the bed, head at 45 degree, on high flow nasal cannula oxygen. Daughter is at bedside. She feels better, decreased cough, decreased shortness of breath. No nausea, no vom iting, diarrhea, leg pain or leg swelling. OBJECTIVE: GENERAL: No acute distress. VITAL SIGNS: Temp is 98, heart rate 74, respiratory rate is 20, blood pressure 132/58, pulse ox 97% on 70% high flow nasal cannula oxygen. HEENT: Moist mucous membranes. Small oral cavity. NECK: Supple. No JVD. LUNGS: Have a few crackles. HEART: S1, S2. ABDOMEN: Soft, nontender. No organomegaly. EXTREMITIES: No edema. NEUROLOGIC: Awake, alert, follows simple command. MEDICATIONS: She is on Carafate 1 gram daily, also on Cepacol lozenges q.2 hours p.r.n., doxycycline 100 mg twice a day, albuterol-Atrovent nebulizer q.4 hours p.r.n., Ecotrin 81 mg daily, Flonase 1 sp ray each nostril daily, heparin weight-based protocol, potassium 20 mEq twice a day, Lasix is at 40 m g q.12 hours, Lipitor 20 mg daily, meropenem 1 g IV q.8 hours, morphine 4 mg q.4 hours p.r.n., Nystat in topical 3 times a day, Neurontin 800 mg 3 times a day, Protonix 40 mg daily, Solu-Medrol 40 mg q.8 hours, levothyroxine 25 mcg ACB, Tylenol p.r.n. basis, Xanax 0.25 mg q.8 hours p.r.n., Xopenex 0.63 q.2 hours p.r.n., Zofran p.r.n. basis, Zoloft 100 mg daily. LABORATORY DATA: Shows hemoglobin 11.0, hematocrit 35.1, WBC 12.6, platelet is 538. PTT is 55. Blo od gases are not available today. Sodium 137, potassium 3.4, chloride 86, bicarbonate 40, BUN 26, cr eatinine 0.5, glucose is 123, calcium 8.6, AST ____, ALT 93, alk phos is 186. IMPRESSION AND PLAN: Chronic obstructive lung disease, respiratory failure requiring high flow nasal cannula oxygen, bilateral pulmonary infiltrate, pulmonary embolism, cardiac arrhythmia requiring pac emaker, history of pneumothorax, anemia, status post blood transfusion. Case discussed with nursing staff, also spoke to patient's daughter at bedside. All the questions answered. We will decrease So sidney-Medrol and decrease high flow nasal to 50 later and titrate to FiO2 to ____ 92%. We will add Coum jason 5 mg today. Continue heparin. Gastric prophylaxis. Out of bed to chair if possible. Thank you and we will follow with you. Fara Juárez MD cc: [id number] TT: 09/09/2016 15:43:50 Confirmation # [id number] Dictation # [id number] sn
[2016-09-09] MEDS ORDERED: MethylPREDNISolone 40 mg Vial IVP SCH (22:00)
--- NOTE | 2016-09-10 08:15 | DS ---
This is a 81-year-old female who had come in to the hospital after she had a fall. She had dysfuncti on of her pacemaker. She was taken to the labels molder by Dr. Saldivar and had her pacemaker fixed. After t he procedure, the patient developed a pneumothorax and required a chest tube. This had improved as w ell. She had hypoxia requiring high flow O2. The patient had acute anemia and required transfusion. The patient had improvement of her symptoms. She was transferred from the ICU. She then had worse emmanuel of her breathing and so a CT done showed that she had a pulmonary embolism. She was also having significant bilateral pleural effusion with CHF. She was diuresed and did have improvement of her s ymptoms. Because she is hypoxic, it is difficult to do physical therapy. She is going to an LTAC fo r further management. She has no complaints of any headaches or dizziness. No nausea. She states s he is feeling better than before. PHYSICAL EXAMINATION: VITAL SIGNS: Her temperature is 97.4, her blood pressure 132/58, her respirations 19, O2 saturation 97%. GENERAL: The patient comfortable, in no acute distress. HEENT: Anicteric sclerae. Moist mucosa. NECK: No JVD or adenopathy. CARDIAC: S1/S2. No murmurs. No rubs. Regular. RESPIRATORY: Clear to auscultation bilaterally. No wheezes, rales, or rhonchi. Good air entry. ABDOMEN: Bowel sounds are positive, soft, nontender, and nondistended. EXTREMITIES: No edema. Has 1+ pulses. ASSESSMENT: 1. Pulmonary embolism of the right upper lobe pulmonary artery. 2. Bilateral pleural effusion. 3. Acute anemia, status post transfusion of packed red blood cells. 4. Acute congestive heart failure secondary to systolic dysfunction. 5. Left pneumothorax, status post chest tube removal. 6. Hypoxia, on high flow oxygen. 7. Urinary tract infection secondary to Klebsiella. 8. Sepsis. 9. Hypertension. 10. Rheumatoid arthritis. 11. Diabetes, type 2. 12. Chronic obstructive pulmonary disease. 13. Hypothyroidism. 14. ____1 vertebroplasty. 15. Spinal stenosis. 16. Automatic implantable cardioverter-defibrillator. 17. Pacemaker. 18. Right arm peripherally inserted central catheter line. PLAN: The patient is currently comfortable. She was given metolazone. She is on heparin for her an ticoagulation. The patient was being followed by cardiology and pulmonary. She is on Zoloft. She i s going to continue with Lasix. She is on Protonix. She is on Synthroid for her hypothyroidism. Ov nathaly, prognosis is guarded. CONDITION: Stable. ACTIVITIES: Increase as tolerated. FOLLOWUP: With primary care doctor in 1-2 weeks after discharge. Jason Toro MD cc: [id number] TT: 09/10/2016 08:14:33 mn
== END 2016-09-09 19:09 | DRG 260 ==
LOC: ED 16:01 → ERH 17:05 → CCU 20:05 → 2RSO 09-06 19:20
PROVIDERS: ADMIT Internal Medicine Nephrology; ATTEND Internal Medicine Nephrology
PROC: 02PA3MZ Removal of Cardiac Lead from Heart, Percutaneous Approach (ICD-10-PCS; principal; 2016-08-27)
PROC: 02HK3JZ Insertion of Pacemaker Lead into Right Ventricle, Percutaneous Approach (ICD-10-PCS; 2016-08-27)
PROC: 0W9B30Z Drainage of Left Pleural Cavity with Drainage Device, Percutaneous Approach (ICD-10-PCS; 2016-08-29)
PROC: 3E0F7GC Introduction of Other Therapeutic Substance into Respiratory Tract, Via Natural or Artificial Opening (ICD-10-PCS; 2016-08-29)
PROC: 0BPQX0Z Removal of Drainage Device from Pleura, External Approach (ICD-10-PCS; 2016-09-01)
PROC: 02HV33Z Insertion of Infusion Device into Superior Vena Cava, Percutaneous Approach (ICD-10-PCS; 2016-09-04)
PROC: B548ZZA Ultrasonography of Superior Vena Cava, Guidance (ICD-10-PCS; 2016-09-04)
PROC: 30233N1 Transfusion of Nonautologous Red Blood Cells into Peripheral Vein, Percutaneous Approach (ICD-10-PCS; 2016-09-07)
DX: T82.120A Displacement of cardiac electrode, initial encounter (principal); J96.01 Acute respiratory failure with hypoxia; I26.99 Other pulmonary embolism without acute cor pulmonale; I50.21 Acute systolic (congestive) heart failure; A41.9 Sepsis, unspecified organism; J18.9 Pneumonia, unspecified organism; J95.811 Postprocedural pneumothorax; I44.2 Atrioventricular block, complete; I11.0 Hypertensive heart disease with heart failure; E11.9 Type 2 diabetes mellitus without complications; N39.0 Urinary tract infection, site not specified; B96.1 Klebsiella pneumoniae [K. pneumoniae] as the cause of diseases classified elsewhere; J44.0 Chronic obstructive pulmonary disease with (acute) lower respiratory infection; I49.5 Sick sinus syndrome; N31.2 Flaccid neuropathic bladder, not elsewhere classified; M06.9 Rheumatoid arthritis, unspecified; E03.9 Hypothyroidism, unspecified; M15.9 Polyosteoarthritis, unspecified; G89.29 Other chronic pain; E78.5 Hyperlipidemia, unspecified; J45.909 Unspecified asthma, uncomplicated; Y83.8 Other surgical procedures as the cause of abnormal reaction of the patient, or of later complication, without mention of misadventure at the time of the procedure; I25.10 Atherosclerotic heart disease of native coronary artery without angina pectoris; K21.9 Gastro-esophageal reflux disease without esophagitis; F32.9 Major depressive disorder, single episode, unspecified; F41.9 Anxiety disorder, unspecified; Y92.098 Other place in other non-institutional residence as the place of occurrence of the external cause; D64.9 Anemia, unspecified; I35.0 Nonrheumatic aortic (valve) stenosis; N39.3 Stress incontinence (female) (male); I73.9 Peripheral vascular disease, unspecified; M48.00 Spinal stenosis, site unspecified; E66.9 Obesity, unspecified; Z68.37 Body mass index [BMI] 37.0-37.9, adult; H26.9 Unspecified cataract; Z86.73 Personal history of transient ischemic attack (TIA), and cerebral infarction without residual deficits; Z96.643 Presence of artificial hip joint, bilateral; Z87.01 Personal history of pneumonia (recurrent); Z87.891 Personal history of nicotine dependence; Z89.511 Acquired absence of right leg below knee; Z89.512 Acquired absence of left leg below knee; Z82.49 Family history of ischemic heart disease and other diseases of the circulatory system; Z82.3 Family history of stroke